=== PATIENT | female | born 1945 | race Caucasian/White ===

== ENCOUNTER → 2018-04-08 08:15 | Outpatient (CLI) | payer MEDICARE, SELFPAY ==
[2018-04-08 10:42] LABS: Alanine Aminotransferase 25 U/L (12-78); Albumin Level 3.2 gm/dL (3.4-5.0); Alkaline Phosphatase 80 U/L (46-116); Anion Gap 9.7 mEq/L (5-15); Aspartate Amino Transferase 16 U/L (15-37); Bilirubin,Total 0.7 mg/dL (0.2-1.0); Blood Urea Nitrogen 12 mg/dL (7-18); Calcium 8.5 mg/dL (8.5-10.1); Carbon Dioxide 30 mmol/L (21.0-32.0); Chloride 108 mmol/L (98-107); Chol/HDL Ratio 4.5 (1-3.5); Cholesterol 193 mg/dL (140-200); Creatinine,Serum 0.78 mg/dL (0.55-1.02); Estimated Glomerular Filt Rate 73 ml/min (>60); Free T4 (Free Thyroxine) 1.25 ng/dl (0.76-1.46); GFR (African American) 88 ML/MIN (>60); Globulin 3.3 gm/dl (1.3-3.2); Glucose 104 mg/dL (74-106); HDL Cholesterol 43 mg/dL (29-89); LDL Cholesterol 121 mg/dL (0-130); Potassium 4.7 mmoL/L (3.5-5.1); Sodium 143 mmol/L (136-145); Thyroid Stimulating Hormone 0.91 uIU/ml (0.358-3.740); Total Protein,Serum 6.5 gm/dL (6.4-8.2); Triglycerides 147 mg/dL (30-200); VLDL Cholesterol 29 mg/dL (0-40)
== END ==
PROVIDERS: Visit Provider Physician Assistant
DX: E78.5 Hyperlipidemia, unspecified (principal); I25.10 Atherosclerotic heart disease of native coronary artery without angina pectoris; I10 Essential (primary) hypertension
CPT/HCPCS: 36415; 80053; 80061; 84439; 84443

== ENCOUNTER → 2018-05-04 11:15 | Outpatient (CLI) | payer MEDICARE, SELFPAY ==
[2018-05-04 12:51] LABS: Calcium 8.6 mg/dL (8.5-10.1); Free T4 (Free Thyroxine) 1.33 ng/dl (0.76-1.46); Thyroid Stimulating Hormone 0.81 uIU/ml (0.358-3.740)
== END ==
PROVIDERS: Visit Provider Otolaryngology
DX: E03.9 Hypothyroidism, unspecified (principal)
CPT/HCPCS: 36415; 82310; 84439; 84443

== ENCOUNTER → 2018-05-07 07:49 | Outpatient (CLI) | payer MEDICARE, SELFPAY ==
--- NOTE | 2018-05-07 07:53 | CI_ITS ---
Cerebrovascular Exam Indications: Follow-up carotid 433.10. IMPRESSIONS 1. The bilateral vertebral arteries are patent with normal antegrade flow. 2. Study suggests 20-49% stenosis involving the right internal carotid artery. Disease progression from the study of 10-Dec-2015. 3. Study suggests 20-49% stenosis involving the left internal carotid artery. No change from the study of 10-Dec-2015. Carotid duplex study. Complete study and Doppler flow study including spectral analysis, color and chaidez scale imaging. Height: Height: 162.6cm. Height: 64in. Weight: Weight: 68kg. Weight: 149.7lb. Body mass index: BMI: 25.7kg/m^2. Body surface area: BSA: 1.77m^2. Location: Vascular laboratory. Patient status: Outpatient. Tables: Arterial flow: + +--------+--------+ Location V sys V ed + +--------+--------+ Right CCA - proximal 75.4cm/s 16.5cm/s + +--------+--------+ Right CCA - distal 63.6cm/s 13.4cm/s + +--------+--------+ Right ECA 136cm/s 20.4cm/s + +--------+--------+ Right ICA - proximal 119cm/s 31.4cm/s + +--------+--------+ Right ICA - mid 115cm/s 29.1cm/s + +--------+--------+ Right ICA - distal 72.3cm/s 17.3cm/s + +--------+--------+ Right vertebral 43.6cm/s 11.6cm/s + +--------+--------+ Left CCA - proximal 95.9cm/s 19.3cm/s + +--------+--------+ Left CCA - distal 97.6cm/s 17.1cm/s + +--------+--------+ Left ECA 91.5cm/s 9.8cm/s + +--------+--------+ Left ICA - proximal 94.3cm/s 20.4cm/s + +--------+--------+ Left ICA - mid 132cm/s 32.1cm/s + +--------+--------+ Left ICA - distal 131cm/s 35.6cm/s + +--------+--------+ Left vertebral 132cm/s 31.4cm/s + +--------+--------+ Velocity ratios: + + + + + + Right, V sys Right, V ed Left, V sys Left, V ed + + + + + + Max ICA/dist CCA 1.87 2.34 1.34 2.08 + + + + + + (Report amended ) Electronically signed by: Rickey Amador [id number]
== END ==
PROVIDERS: PCP Family Medicine; Visit Provider Physician Assistant
DX: I65.23 Occlusion and stenosis of bilateral carotid arteries (principal)
CPT/HCPCS: 93880

== ENCOUNTER → 2019-05-30 12:01 | Outpatient (CLI) | payer MEDICARE, SELFPAY ==
[2019-05-30 15:51] LABS: Calcium 8.3 mg/dL (8.5-10.1); Free T4 (Free Thyroxine) 1.33 ng/dl (0.76-1.46); Thyroid Stimulating Hormone 1.81 uIU/ml (0.358-3.740)
== END ==
PROVIDERS: Visit Provider Otolaryngology
DX: E03.9 Hypothyroidism, unspecified (principal)
CPT/HCPCS: 36415; 82310; 84439; 84443

== ENCOUNTER → 2019-07-15 12:52 | Outpatient (CLI) | payer MEDICARE, SELFPAY ==
--- NOTE | 2019-07-15 12:56 | CA_ITS ---
APPROVED REPORT EXAM: Comprehensive 2D, Doppler, and color-flow Echocardiogram Psychiatric Specialist: Matilda Hudson RVT Ht: 5 ft 4 in Wt: 170lbs BSA: 1.83 BP: 133/49 mmHg Indications: CAD, Hyperlipidemia, Hypertension,Stents, Smoker 2D Dimensions LVOT 1.73 cm (M/F) 1.5-2.5 M-Mode Dimensions RVDd 2.81 cm (0.9-2.6) LVDd 5.61 cm (3.5-5.7) LVDs 3.91 cm (3.5-5.7) IVSd 1.02 cm (0.6-1.1) PWd 1.32 cm (0.6-1.1) EF (Teich) 57.00% FS 30.30% EDV (Teich) 154.30 mL ESV (Teich) 66.30 mL LV Diastology E/A Ratio 0.69 Mitral Valve MV A Velocity 87.00 (40-130 cm/s) Left Ventricle Left atrium is mildly enlarged, left ventricle is normal size, mild concentric left ventricular hypertrophy, visually estimated ejection fraction 55% with no regional wall motion abnormality. Grade 1 diastolic dysfunction seen without tissue Doppler evidence of raise left atrial pressure. Right Ventricle Right atrium is normal size, right ventricle is mildly enlarged with normal contractility. Aortic Valve Aortic valve is minimally thickened and fibrosed, there is no aortic stenosis or aortic insufficiency. Mitral Valve Mitral valve is grossly normal, there is mild mitral regurgitation. Tricuspid Valve Tricuspid valve is grossly normal, there is mild tricuspid regurgitation. Tricuspid regurgitation jet velocity is inadequate for calculation of the right ventricular systolic pressure. Pulmonic Valve Pulmonic valve is poorly visualized. Great Vessels Aortic root is normal size. Pericardium No significant pericardial effusion noted. Conclusion 1. Mildly enlarged left atrium, normal left ventricular size, mild concentric left ventricular hypertrophy, visually estimated ejection fraction 55% with no regional wall motion abnormality, grade 1 diastolic dysfunction seen without tissue Doppler evidence of raise left atrial pressure. 2. Mildly enlarged right ventricle with normal contractility. 3. Thickened and calcified aortic valve without Doppler evidence of aortic stenosis or aortic insufficiency. 4. No significant pericardial effusion noted. Electronically signed by : Morgan Cosme, 07/16/2019 06:16:24
== END ==
PROVIDERS: PCP Family Medicine; Visit Provider Internal Medicine Cardiovascular Disease
DX: I25.10 Atherosclerotic heart disease of native coronary artery without angina pectoris (principal)
CPT/HCPCS: 93306

== ENCOUNTER → 2020-06-10 12:25 | Outpatient (CLI) | payer MEDICARE, SELFPAY ==
[2020-06-10 14:47] LABS: Free T4 (Free Thyroxine) 1.62 ng/dl (0.78-2.19)
[2020-06-10 15:02] LABS: Thyroid Stimulating Hormone 1.18 uIU/mL (0.465-4.68)
== END ==
PROVIDERS: Visit Provider Otolaryngology
DX: E03.9 Hypothyroidism, unspecified (principal); Z86.39 Personal history of other endocrine, nutritional and metabolic disease
CPT/HCPCS: 36415; 84439; 84443

== ENCOUNTER → 2021-12-26 16:08 | Outpatient (CLI) | payer MEDICARE, SELFPAY ==
[2021-12-26 17:47] LABS: Free T4 (Free Thyroxine) 1.28 ng/dl (0.78-2.19)
== END ==
PROVIDERS: PCP Family Medicine; Visit Provider Otolaryngology
DX: E03.9 Hypothyroidism, unspecified (principal)
CPT/HCPCS: 36415; 84439; 84443

== ENCOUNTER → 2022-12-18 13:52 | Outpatient (CLI) | payer MEDICARE, SELFPAY ==
[2022-12-18 15:02] LABS: Free T4 (Free Thyroxine) 1.57 ng/dl (0.78-2.19)
[2022-12-18 15:16] LABS: Thyroid Stimulating Hormone 1.38 uIU/mL (0.465-4.68)
== END ==
PROVIDERS: PCP Family Medicine; Visit Provider Nurse Practitioner
DX: E03.9 Hypothyroidism, unspecified (principal)
CPT/HCPCS: 36415; 84439; 84443

== ENCOUNTER 2023-07-30 11:24 | Inpatient (IN) | payer MEDICARE, SELFPAY ==
[2023-07-30] VITALS (10 sets, daily range): BP systolic 139–178; BP diastolic 70–87; PULSE 64–79; RESP 15–20; TEMP 36.7–37; O2SAT 94–98; BMI 25.7
--- NOTE | 2023-07-30 11:31 | ECG_ITS ---
APPROVED REPORT Exam: Resting ECG HR:80 bpm ECG Measurements Heart Rate 80 AXES IL 128 P 58 QRSd 95 QRS 79 QT 371 T -5 QTc 407 Conclusion SINUS RHYTHM NONSPECIFIC ST & T-WAVE ABNORMALITY ABNORMAL ECG UNCONFIRMED REPORT Electronically signed by : Osmel Esquivel MD 07/30/2023 19:57:00
--- NOTE | 2023-07-30 11:42 | XR_ITS ---
FINAL REPORT TECHNIQUE: Single view chest CLINICAL HISTORY: shortness of breath FINDINGS: A single view of the chest was obtained. Heart is enlarged. There are bilateral increased interstitial markings with more focal right base opacities and effusions, favor edema. Superimposed pneumonia not excluded. There is no pneumothorax. IMPRESSION: Bilateral increased interstitial markings with more focal right base opacities and effusion, favor edema. Superimposed pneumonia not excluded. Reviewed, Interpreted and Dictated by Hillary Andersen MD Transcribed by Jo Ann Cardona Authenticated and [facility]
[2023-07-30 11:53] LABS: Basophils % 0.3 % (0.1-2.0); Eosinophils # 0.2 K/mm3 (0.0-0.4); Eosinophils % 2.4 % (0.1-12.0); Hematocrit 35.5 % (37.0-47.0); Hemoglobin 10.9 g/dL (12.2-16.2); Lymphocytes # 1.1 K/mm3 (0.7-4.5); Lymphocytes % 12.2 % (10-50); Mean Corpuscular HGB Conc 30.6 g/dL (31.8-35.4); Mean Corpuscular Hemoglobin 27.1 pg (27.0-31.2); Mean Corpuscular Volume 88.6 fl (81-99); Mean Platelet Volume 9.8 fl (7.4-10.4); Monocytes # 0.5 K/mm3 (0.1-1.0); Monocytes % 5.7 % (1.7-9.3); Neutrophils # 7.2 K/mm3 (1.8-7.8); Neutrophils % 79.4 % (37.0-80.0); Platelet Count 368 K/mm3 (142-424); Red Cell Distribution Width 15.3 % (11.5-17.5)
--- NOTE | 2023-07-30 11:57 | ED_ITS ---
Discharge Plan Disposition Patient Disposition: Admitted Condition: Good Clinical Impressions Clinical Impression: CHF (congestive heart failure) Discharge ED Provider: Brodie Mayer Adult HPI General Chief complaint: Shortness of Breath/Dyspnea Stated complaint: soa, cough Time Seen by Provider: 07/30/23 11:50 Mode of Arrival: Ambulatory Source of Information: Patient Limitations: No Limitations Description of Symptoms (Recalled from ER Triage Doc. by RN): pt presents to ED with c/o shortness of air and coough. pt reports she has had similar episodes in the past. pt reports approx over a week she has had increased bilateral leg swelling and shortness of breath. pt does not wear home oxygen. History of Present Illness HPI narrative: Patient presents with gradual in onset shortness of air, orthopnea, in the absence of fevers, chills, has not had similar symptoms before although does have history of heart attack but has not been seen by bulb grader in several years. No blood thinner usage. Denies chest pain. Denies productive cough. A ssociated symptoms include bilateral lower extremity edema. No supplemental oxygen requirement at home. No changes in medications or new medications. Related Data Home Medications Medication Instructions Recorded Confirmed bisoprolol fumarate 5 mg tablet 5 mg PO DAILY 90 days #180 tabs 05/06/18 07/30/23 losartan 25 mg tablet 25 mg PO DAILY 90 days #90 tabs 05/06/18 07/30/23 aspirin 81 mg tablet,delayed 81 mg PO DAILY 06/09/19 07/30/23 release (Adult Aspirin Regimen) vit C 250 mg-vit E 90 mg-zinc 40 1 tab PO BID 06/09/19 07/30/23 mg-copper 1 [id number] capsule (PreserVision AREDS-2) Previous Rx's Medication Instructions Recorded levothyroxine 100 mcg tablet 100 mcg PO DAILY #90 tabs 12/18/22 (Synthroid) Allergies Allergy/AdvReac Type Severity Reaction Status Date / Time No Known Allergies Allergy Unverified 07/30/23 13:53 [facility] Disclaimer: The information contained in this section may have been updated after the patient was seen, as this information can be updated by other users. 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 (Updated 07/30/23 @ 16:25 by Jagruti Clark APRN) Goiter Macular degeneration Myocardial infarct Surgical History H/O heart artery stent H/O hernia repair History of ovarian cystectomy History of thyroid surgery Hx of tonsillectomy Family History Other Heart attack Social History (Updated 07/30/23 @ 16:15 by Luda Pisano RN) Smoking Status: Current every day smoker tobacco type: cigarettes alcohol intake: never current occupational status: retired Travel in the last 8 weeks: None ROS Obtained: Yes Systems reviewed as appropriate & no additional complaints except as documented As per HPI Physical Exam General General appearance: alert and in no apparent distress Head Head exam: atraumatic and normocephalic Eye Eye exam: Present normal appearance Neck Neck exam: Present normal inspection Chest Chest inspection: Present normal inspection and symmetric chest wall rise Respiratory Respiratory exam: Present normal lung sounds bilaterally and other (Bilateral rales); Absent respiratory distress Cardiovascular Cardiovascular exam: Present regular rate and normal rhythm Abdominal Exam Abdominal exam: Present soft Extremities Exam Extremities exam: Present other (Bilateral lower extremity edema) Neurological Exam Neurological exam: Present alert and oriented X3 Psychiatric Psychiatric exam: Present normal affect and normal mood Skin Skin exam: Present warm and dry Medical Decision Making Medical Records Medical records reviewed: Yes I reviewed the patient's medical records. [place] Inquiry Pt receiving controlled substance: No Vital Signs: 07/30/23 11:25 07/30/23 11:34 07/30/23 12:00 Temperature 98.1 F Temperature Source Oral Pulse Rate 79 74 Pulse Rate [Left Radial] 77 Respiratory Rate 15 20 Blood Pressure 178/87 H Blood Pressure [Right Arm] 176/75 H Blood Pressure Mean 112 Blood Pressure Mean [Right Arm] 108 02 Sat by Pulse Oximetry 97 97 96 Oxygen Delivery Method Room Air 07/30/23 12:30 07/30/23 13:00 07/30/23 13:38 Temperature Temperature Source Pulse Rate 67 64 69 Pulse Rate [Left Radial] Respiratory Rate Blood Pressure 167/70 H 162/79 H 163/83 H Blood Pressure [Right Arm] Blood Pressure Mean 104 Blood Pressure Mean [Right Arm] 02 Sat by Pulse Oximetry 96 96 97 Oxygen Delivery Method Room Air Room Air Room Air Lab Data Lab Results 07/30/23 11:30: WBC 9.0, RBC 4.00 L, Hgb 10.9 L, Hct 35.5 L, MCV 88.6, MCH 27.1, MCHC 30.6 L, RDW 15.3, Plt Count 368, MPV 9.8, Neut % (Auto) 79.4, Lymph % (Auto) 12.2, [place] % (Auto) 5.7, Eos % (Auto) 2.4, Baso % (Auto) 0.3, Neut # (Auto) 7.2, Lymph # (Auto) 1.1, [place] # (Auto) 0.5, Eos # (Auto) 0.2, Baso # (Auto) 0.0, Sodium 137, Potassium 3.9, Chloride 105, Carbon Dioxide 32 H, Anion Gap 3.9 L, BUN 16, Creatinine 0.70, Estimated Creat Clear 50, Estimated GFR 81, Est GFR ( Amer) 98, Glucose 109 H, Calcium 8.4, Total Bilirubin 0.4, AST 53 H, ALT 51, Alkaline Phosphatase 147 H, Troponin I < 0.01, NT-Pro-B Natriuret Pep 639 H, Total Protein 7.0, Albumin 3.4 L, Globulin 3.6 H, Albumin/Globulin Ratio 0.9 L, TSH 2.65 07/30/23 12:29: VBG pH 7.33, VBG pCO2 51.0, VBG pO2 40.6 H, VBG HCO3 26.1, VBG Total CO2 27.7 H, VBG O2 Saturation 72.4 H, VBG Base Excess 0.1 07/30/23 11:30 07/30/23 11:30 Orders (Tests/Meds): ED MEDICATIONS Generic Name Dose Route Start Last Admin Trade Name Freq PRN Reason Stop Dose Admin Aspirin 81 mg 07/31/23 09:00 Aspirin Ec 81mg Tablet PO 08/30/23 08:59 DAILY SONJA Bisoprolol Fumarate 5 mg 07/30/23 21:00 Bisoprolol 5mg Tablet PO 08/29/23 20:59 BID SONJA Levothyroxine Sodium 100 mcg 07/31/23 07:00 Levothyroxine 100mcg (0.1mg) Tab PO 08/30/23 06:59 DAILYDM SONJA Discontinued Medications Generic Name Dose Route Start Last Admin Trade Name Freq PRN Reason Stop Dose Admin Bisoprolol Fumarate 5 mg 07/31/23 09:00 Bisoprolol 5mg Tablet PO 08/30/23 08:59 DAILY SONJA Furosemide 40 mg 07/30/23 12:16 07/30/23 13:18 Furosemide 40mg/4ml Vial IV 07/30/23 12:17 40 mg ONCE ONE Administration Nitroglycerin 0.4 mg 07/30/23 13:41 07/30/23 13:57 Nitroglycerin 0.4mg Sl Tablet SL 07/30/23 13:42 Not Given ONCE ONE ORDERS Category Date Time Status XR chest portable Stat Exams 07/30/23 11:42 Completed BNP [Brain Natriuretic Peptide] Stat Lab 07/30/23 11:30 Completed Complete Blood Count Auto Diff Stat Lab 07/30/23 11:30 Completed Comprehensive Metabolic Panel Stat Lab 07/30/23 11:30 Completed Troponin I Q2H Lab 07/30/23 17:03 Completed Troponin I Stat Lab 07/30/23 11:30 Completed VBG [Venous Blood Gas] Stat RT 07/30/23 13:00 Ordered Venous Blood Gas Routine RT 07/30/23 12:29 Completed ECG initial [place] Routine Y 07/30/23 11:31 Completed Medical Decision Narrative: Patient with history and exam per above presenting for evaluation of shortness of breath, peripheral edema Diagnoses considered include CHF exacerbation, nephrotic syndrome, infectious etiology, venous stasis dermatitis, ACS, among others ED workup and treatment included: ED MEDICATIONS Generic Name Dose Route Start Last Admin Trade Name Freq PRN Reason Stop Dose Admin Aspirin 81 mg 07/31/23 09:00 Aspirin Ec 81mg Tablet PO 08/30/23 08:59 DAILY SONJA Bisoprolol Fumarate 5 mg 07/30/23 21:00 Bisoprolol 5mg Tablet PO 08/29/23 20:59 BID SONJA Levothyroxine Sodium 100 mcg 07/31/23 07:00 Levothyroxine 100mcg (0.1mg) Tab PO 08/30/23 06:59 DAILYDM SONJA Discontinued Medications Generic Name Dose Route Start Last Admin Trade Name Freq PRN Reason Stop Dose Admin Bisoprolol Fumarate 5 mg 07/31/23 09:00 Bisoprolol 5mg Tablet PO 08/30/23 08:59 DAILY SONJA Furosemide 40 mg 07/30/23 12:16 07/30/23 13:18 Furosemide 40mg/4ml Vial IV 07/30/23 12:17 40 mg ONCE ONE Administration Nitroglycerin 0.4 mg 07/30/23 13:41 07/30/23 13:57 Nitroglycerin 0.4mg Sl Tablet SL 07/30/23 13:42 Not Given ONCE ONE ORDERS Category Date Time Status XR chest portable Stat Exams 07/30/23 11:42 Completed BNP [Brain Natriuretic Peptide] Stat Lab 07/30/23 11:30 Completed Complete Blood Count Auto Diff Stat Lab 07/30/23 11:30 Completed Comprehensive Metabolic Panel Stat Lab 07/30/23 11:30 Completed Troponin I Q2H Lab 07/30/23 17:03 Completed Troponin I Stat Lab 07/30/23 11:30 Completed VBG [Venous Blood Gas] Stat RT 07/30/23 13:00 Ordered Venous Blood Gas Routine RT 07/30/23 12:29 Completed ECG initial [place] Routine Y 07/30/23 11:31 Completed Labs were independently interpreted by me, significant for elevated BNP, VBG without acidosis, creatinine within normal limits, troponin undetectable Imaging was independently visualized and interpreted by me, significant for pulmonary edema, cardiomegaly. Please refer to radiology report for full details. My clinical impression at this time is most consistent with new onset CHF Patient will benefit from admission for further management of new onset CHF, was admitted for further workup and treatment. Critical Care Critical Care Time Critical Care Time: No
[2023-07-30 11:59] LABS: Chloride 105 mmol/L (98-107); Sodium 137 mmol/L (136-145)
[2023-07-30 12:00] LABS: Potassium 3.9 mmoL/L (3.5-5.1)
[2023-07-30 12:02] LABS: Alanine Aminotransferase 51 U/L (12-78); Alkaline Phosphatase 147 U/L (38-126); Anion Gap 3.9 mEq/L (5-15); Aspartate Amino Transferase 53 U/L (14-36); Bilirubin,Total 0.4 mg/dl (0.2-1.3); Blood Urea Nitrogen 16 mg/dl (7-17); Carbon Dioxide 32 mmol/L (22.0-30.0); Creatinine Clearance Estimated 50 mL/min (50-200); Estimated Glomerular Filt Rate 81 ml/min (>60); GFR (African American) 98 ML/MIN (>60)
[2023-07-30 12:03] LABS: Albumin Level 3.4 g/dl (3.5-5.0); Albumin/Globulin Ratio 0.9 (1.1-1.8); Calcium 8.4 mg/dl (8.4-10.2); Globulin 3.6 g/dL (1.3-3.2); Glucose 109 mg/dl (74-100)
[2023-07-30 12:12] LABS: NT Pro Brain Natriuretic Pep. 639 pg/mL (0-450)
--- NOTE | 2023-07-30 12:28 | PC.NURSE ---
RT notified of VBG order
[2023-07-30 12:33] LABS: VBG Base Excess 0.1 mmol/L (-2.4-2.3); VBG HCO3 26.1 mmol/L (23-30); VBG Oxygen Saturation 72.4 % (50-70); VBG PH 7.33 mmol/L (7.31-7.41); VBG PO2 40.6 mmol/L (28-40); VBG Total CO2 27.7 mmol/L (23-27)
--- NOTE | 2023-07-30 13:06 | PC.NURSE ---
VBG results ph 7.33 pco2 51 pa02 40.6 bicarb 26.1
--- NOTE | 2023-07-30 13:15 | PC.NURSE ---
Irena Vega rounded on pt. No needs voiced. Call light within reach.
[2023-07-30] MEDS: FUROSEMIDE 40MG/4ML VIAL 40 MG IV (13:18)
--- NOTE | 2023-07-30 13:42 | PC.NURSE ---
Dr. Mayer speaking with Dr. Cancino
--- NOTE | 2023-07-30 13:46 | PC.NURSE ---
house aware of admission for CHF exac
[2023-07-30 14:27] LABS: Troponin I < 0.01 ng/ml (0.00-0.034)
--- NOTE | 2023-07-30 14:33 | PC.NURSE ---
I attempted to call report, unable to reach the nurse at this time.
--- NOTE | 2023-07-30 14:39 | PC.NURSE ---
attempted to call report, no answer from nurse on second floor. will attempt to call again
--- NOTE | 2023-07-30 15:13 | PC.NURSE ---
report called to suha yee on second floor
--- NOTE | 2023-07-30 15:32 | EXP.HP ---
History of Present Illness *Admission Date: 07/30/23 *Reason for visit:: Shortness of breath *History of present illness: Ms. Pitts is a 78-year-old female with a history of ASCVD, hypothyroidism, anemia, hyperlipidemia, macular degeneration,, mitral valve disorder who presented to [facility] emergency room for evaluation due to shortness of breath. She states this has been a progressive process and worse in the last week to where she could do very little without becoming dyspneic. She stated brushing her teeth this morning made her very short of breath and she had to pause to recover. She denies having any chest pain, dizziness, and heart palpitations. She has been eating and drinking as usual. Ambulation has been curtailed due to the dyspnea. She denies cough, fever, and any other respiratory issues. She states she has been taking her medicine as usual which includes the bisoprolol and losartan. She is seeing Dr. Jorgensen for her cardiac issues but has not seen him in over a year. Blood pressure in the emergency room was elevated at 176/75 with a heart rate in the 70s. Laboratory data shows a hemoglobin of 10.9 BNP was elevated in the 600s. in the emergency room she did receive 40 mg of Lasix IV was given 1 nitroglycerin. She was then admitted for further evaluation and treatment. At the time of this exam patient seems quite comfortably sitting in a chair at bedside. She has just arrived to the room from the emergency room. She continually denies chest pain and is not short of breath at present. She speaks in even sentences without dyspnea. [facility] Disclaimer: The information contained in this section may have been updated after the patient was seen, as this information can be updated by other users. 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 (Updated 07/30/23 @ 16:25 by Jagruti Clark APRN) Goiter Macular degeneration Myocardial infarct Surgical History H/O heart artery stent H/O hernia repair History of ovarian cystectomy History of thyroid surgery Hx of tonsillectomy Family History Heart attack Social History (Updated 07/30/23 @ 16:15 by Luda Pisano RN) Smoking Status: Current every day smoker tobacco type: cigarettes alcohol intake: never current occupational status: retired Travel in the last 8 weeks: None Review of Systems Constitutional Constitutional: Denies fever(s), Denies frequent falls and Denies headache(s) Eyes Eyes: Denies change in vision (Patient does have bilateral macular degeneration) and Reports exophthalmos ENT Ears, Nose, Mouth, and Throat: Denies dizziness, Denies otalgia, Denies headache(s), Denies post nasal drip, Denies sore throat and Denies vertigo *Cardiovascular Cardiovascular: Denies chest pain, Reports dyspnea, Reports dyspnea on exertion, Reports leg edema and Denies palpitations *Respiratory Respiratory: Denies chest congestion, Denies cough, Reports dyspnea, Reports dyspnea on exertion and Denies hemoptysis *Gastrointestinal Gastrointestinal: Denies constipation, Denies dyspepsia, Denies heartburn, Denies hematemesis, Reports loose stools (Patient states she did have some diarrhea this a.m.), Denies melena and Denies nausea *Genitourinary Genitourinary: Denies dysuria *Musculoskeletal Musculoskeletal: Denies arthralgias and Denies myalgias *Neurologic Neurologic: Denies confusion, Denies dizziness, Denies frequent falls, Denies headache(s), Denies seizure-like activity and Denies vertigo Psychiatric Psychiatric: Denies confusion Endocrine Endocrine: Denies palpitations Meds Home Medications and Allergies Home Medications Medication Instructions Recorded Confirmed Type bisoprolol fumarate 5 mg tablet 5 mg PO DAILY 90 days #180 tabs 05/06/18 07/30/23 History losartan 25 mg tablet 25 mg PO DAILY 90 days #90 tabs 05/06/18 07/30/23 History aspirin 81 mg tablet,delayed 81 mg PO DAILY 06/09/19 07/30/23 History release (Adult Aspirin Regimen) vit C 250 mg-vit E 90 mg-zinc 40 1 tab PO BID 06/09/19 07/30/23 History mg-copper 1 [id number] capsule (PreserVision AREDS-2) levothyroxine 100 mcg tablet 100 mcg PO DAILY #90 tabs 12/18/22 07/30/23 Rx (Synthroid) New Prescriptions to Start Prescriptions: Allergies Allergy/AdvReac Type Severity Reaction Status Date / Time No Known Allergies Allergy Unverified 07/30/23 13:53 Exam Data for Last 24 hours Vital signs and Labs for Last 24 Hours: Temp Pulse Resp BP Pulse Ox O2 Del Method 98.1 F 69 20 163/83 H 97 Room Air 07/30/23 11:25 07/30/23 13:38 07/30/23 11:34 07/30/23 13:38 07/30/23 13:38 07/30/23 13:38 Laboratory Results - last 24 hr 07/30/23 11:30: WBC 9.0, RBC 4.00 L, Hgb 10.9 L, Hct 35.5 L, MCV 88.6, MCH 27.1, MCHC 30.6 L, RDW 15.3, Plt Count 368, MPV 9.8, Neut % (Auto) 79.4, Lymph % (Auto) 12.2, [place] % (Auto) 5.7, Eos % (Auto) 2.4, Baso % (Auto) 0.3, Neut # (Auto) 7.2, Lymph # (Auto) 1.1, [place] # (Auto) 0.5, Eos # (Auto) 0.2, Baso # (Auto) 0.0, Sodium 137, Potassium 3.9, Chloride 105, Carbon Dioxide 32 H, Anion Gap 3.9 L, BUN 16, Creatinine 0.70, Estimated Creat Clear 50, Estimated GFR 81, Est GFR ( Amer) 98, Glucose 109 H, Calcium 8.4, Total Bilirubin 0.4, AST 53 H, ALT 51, Alkaline Phosphatase 147 H, Troponin I < 0.01, NT-Pro-B Natriuret Pep 639 H, Total Protein 7.0, Albumin 3.4 L, Globulin 3.6 H, Albumin/Globulin Ratio 0.9 L 07/30/23 12:29: VBG pH 7.33, VBG pCO2 51.0, VBG pO2 40.6 H, VBG HCO3 26.1, VBG Total CO2 27.7 H, VBG O2 Saturation 72.4 H, VBG Base Excess 0.1 I & O for Last 24 hours: Intake & Output 07/28/23 07/29/23 07/30/23 07/31/23 11:59 11:59 11:59 11:59 Weight 150 lb Constitutional Constitutional: no acute distress and cooperative *Routine HEENT Exam Head: Present normocephalic and atraumatic Eye: Present PERRL and exophthalmos; Absent conjunctival icterus, scleral injection or conjunctivae pink ENT: Present mucous membranes moist, oropharynx clear and nares patent *Routine Neck Exam Neck: Present supple; Absent carotid bruit, lymphadenopathy or thyromegaly *Routine Respiratory Exam Respiratory: Present CTA bilaterally (Anteriorly and posteriorly with decreased breath sounds in the bases), able to speak in complete sentences and symmetric chest movement; Absent wheezes *Routine Cardiovascular Exam Cardiovascular: Present RRR and murmur *Routine Abdominal Exam Abdominal: Present soft and normoactive bowel sounds; Absent tenderness, distended or guarding *Routine Rectal Exam Rectal:: deferred *Routine Genitalia Exam Genitalia:: deferred *Routine Extremities Exam Extremities: Present edema (2-3+ bilaterally); Absent calf tenderness *Routine Neurological Exam Neurological: Present alert, oriented X3 and normal speech Assessment and Plan *Assessment and plan (1) ASCVD (arteriosclerotic cardiovascular disease): Status: Acute Category: Medical Code(s): I25.10 - Atherosclerotic heart disease of [place] coronary artery without angina pectoris (2) Hypothyroidism: Problem Comment: Currently on replacement therapy and feeling well. Status: Chronic Category: Medical Code(s): E03.9 - Hypothyroidism, unspecified (3) Mitral valve disorder: Status: Acute Category: Medical Code(s): I05.9 - Rheumatic mitral valve disease, unspecified (4) HTN (hypertension): Status: Acute Category: Medical Code(s): I10 - Essential (primary) hypertension (5) Anemia: Status: Acute Category: Medical Code(s): D64.9 - Anemia, unspecified (6) CHF (congestive heart failure): Status: Acute Category: Medical Code(s): I50.9 - Heart failure, unspecified Plan Cardiology consult. Patient's been started on the bisoprolol twice daily and losartan 25 daily. Also will get a TSH. Echocardiogram ordered as well.
--- NOTE | 2023-07-30 15:40 | PC.NURSE ---
arrived by w/c from ED
[2023-07-30 17:20] LABS: Thyroid Stimulating Hormone 2.65 uIU/mL (0.465-4.68)
[2023-07-30 17:37] LABS: Troponin I < 0.01 ng/ml (0.00-0.034)
[2023-07-30] MEDS: FUROSEMIDE 20 MG/2 ML VIAL IV (19:31)
[2023-07-30] MEDS: BISOPROLOL 5MG TABLET 5 MG PO (20:09)
[2023-07-31] VITALS (24 sets, daily range): BP systolic 119–168; BP diastolic 49–97; PULSE 57–81; RESP 16–20; TEMP 36.6–36.9; O2SAT 92–98; BMI 25.6
[2023-07-31] MEDS: LEVOTHYROXINE 100MCG (0.1MG) TAB 100 MCG PO (06:03)
--- NOTE | 2023-07-31 07:36 | HMH.PHAINT1 ---
Pharmacy Intervention Comments: Verified home medications using external fill history and recent office visit summary.
[2023-07-31 08:00] LABS: Chloride 104 mmol/L (98-107); Potassium 4.2 mmoL/L (3.5-5.1); Sodium 141 mmol/L (136-145)
--- NOTE | 2023-07-31 08:00 | CA_ITS ---
APPROVED REPORT EXAM: Comprehensive 2D, Doppler, and color-flow Echocardiogram [employer]: VIC Pepe, RVS Ht: 5 ft 4 in Wt: 150lbs BSA: 1.73 BP: 163/83 mmHg Indications: CHF, Anemia, Edema, Smoker,Hx- Rheumatic fever, cough, HTN 2D Dimensions IVSd 1.33 cm LVEF (Visual) 61.40 % PWd 1.37 cm LA Volume 134.10 mL LVDd 5.63 cm LA Volume Index 75.80 mL/m2 (M/F) 16-34 LVDs 3.75 cm EF AP4 47.20 % Left Atrium 5.42 cm GL Strain -13.5 % M-Mode Dimensions RVDd 4.39 cm (0.9-2.6) LA Diam 5.55 cm (1.9-4.0) LVDd 4.55 cm (3.5-5.7) LVDs 3.14 cm (3.5-5.7) IVSd 1.41 cm (0.6-1.1) PWd 1.17 cm (0.6-1.1) EF (Teich) 58.80% EPSs 0.77 cm FS 31.00% EDV (Teich) 94.90 mL TAPSE 2.02 (<1.7) ESV (Teich) 39.10 mL LV Diastology E Decel Time 187 (160-240 msec) E/A Ratio 3.07 MED A' 4.40 cm/s LAT A' 8.70 cm/s Aortic Valve VIJAYA Index 0.84 cm2/m2 AoV Peak Yosef. 179.0 (50-130 cm/s) AI PHT 431.00 ms AO Peak GR. 12.80 mmHg AO Mean GR. 8.40 (<5 mmHg) AO VTI 49.6 (18-25 cm) VIJAYA (VTI) 1.49 (2.5-4.5 cm2) Mitral Valve MV A Velocity 37.0 (40-130 cm/s) E/A Ratio 3.07 MV Mean Gr. 1.80 (<2mmHg) Tricuspid Valve TR P. Velocity 264.00 cm/s RAP Estimate 10.00 mmHg RVSP 37.80 mmHg Left Ventricle The left ventricle is normal size. The left ventricular systolic function is normal. There is marked increase in LV wall thickness (IVSd 1.5 cm). Regional wall motion is normal. Grade 3 diastolic dysfunction is present. LVEF is 55%. Right Ventricle The right ventricle is normal size. The right ventricular systolic function is normal. Atria The left atrium is severely dilated. The right atrium is mildly dilated. There is no Doppler evidence of interatrial shunt. Aortic Valve The aortic valve is mildly thickened. There is no aortic valvular stenosis. Mild aortic regurgitation. Mitral Valve Mild mitral annular calcification. The mitral valve leaflets are mildly thickened. No evidence of mitral valve stenosis. There is at least moderate mitral regurgitation. The MR jet is eccentric and posteriorly directed. The MR severity may be underestimated due to eccentric jet. Tricuspid Valve The tricuspid valve leaflets are thin and pliable. Mild tricuspid regurgitation. RVSP is 25-30 mmHg. Pulmonic Valve The pulmonary valve is normal in structure. Trace pulmonic regurgitation. Great Vessels The aortic root is normal in size. The ascending aorta is normal in size. IVC is normal in size and collapses >50% with inspiration. Pericardium There is no pericardial effusion. Other Information Study Quality: Technically Difficult Conclusion Technically difficult study due to poor acoustic windows. Normal biventricular systolic function. Marked increase in LV wall thickness (IVSd 1.5 cm). Grade 3 diastolic dysfunction. Biatrial dilation. Mild AI. There is at least moderate MR. The MR jet is eccentric and posteriorly directed. The MR severity may be underestimated due to eccentric jet. In the setting of persistent symptoms, marked increase in LV wall thickness, diastolic dysfunction, and biatrial dilation, further outpatient evaluation for infiltrative disease - namely amyloidosis - is recommended with lab testing, cardiac MRI (amyloidosis protocol), and PYP nuclear scan. Also, in the setting of at least moderate MR with eccentric and posteriorly directed jet (which may be underestimated on TTE), further evaluation with outpatient ANIBAL is recommended to identify mechanism and true severity of MR. Electronically signed by : Linda Dickey MD 08/01/2023 00:08:32
[2023-07-31 08:02] LABS: Alanine Aminotransferase 40 U/L (12-78); Aspartate Amino Transferase 38 U/L (14-36); Blood Urea Nitrogen 13 mg/dl (7-17); Creatinine Clearance Estimated 50 mL/min (50-200); Estimated Glomerular Filt Rate 81 ml/min (>60); GFR (African American) 98 ML/MIN (>60)
[2023-07-31 08:03] LABS: Albumin Level 3.4 g/dl (3.5-5.0); Albumin/Globulin Ratio 1.1 (1.1-1.8); Alkaline Phosphatase 144 U/L (38-126); Anion Gap 4.2 mEq/L (5-15); Bilirubin,Total 0.7 mg/dl (0.2-1.3); Calcium 8.3 mg/dl (8.4-10.2); Carbon Dioxide 37 mmol/L (22.0-30.0); Globulin 3.2 g/dL (1.3-3.2); Glucose 105 mg/dl (74-100); Total Protein,Serum 6.6 g/dl (6.3-8.2)
--- NOTE | 2023-07-31 08:27 | EXP.ACUTE.PN ---
Subjective *Date: 07/31/23 *Time: 16:26 Interval history: Patient did not sleep during the night. She attributes it to being in a strange place. She denies chest pain. She has ambulated to the bathroom and does not feel she is short of breath with activity. She denies chest pain. She is eating without problems. She is anxious to see cardiology and possibly go home. Repeat chemistries this morning show sodium of 141 and potassium of 4.2. Renal function is normal. Echocardiogram results are pending. Weight remains at 150 Medical Exam Vital signs and Labs for Last 24 Hours: Vital Signs Temp Pulse Pulse Resp BP BP Pulse Ox 07/31/23 07:39 98.5 F 67 18 142/93 H 95 07/31/23 06:06 07/31/23 05:00 07/31/23 04:00 81 07/31/23 04:00 98.2 F 69 16 152/73 H 96 07/31/23 03:00 07/31/23 01:00 07/30/23 23:00 07/31/23 00:00 70 07/30/23 21:25 70 07/31/23 00:00 98.4 F 71 16 139/82 92 L 07/30/23 20:00 98.6 F 74 18 139/79 94 L 07/30/23 21:00 07/30/23 20:00 07/30/23 18:58 07/30/23 17:00 07/30/23 15:53 98.6 F 70 20 165/79 H 98 07/30/23 15:46 98.0 F 72 18 163/83 H 07/30/23 13:38 69 163/83 H 97 07/30/23 13:00 64 162/79 H 96 07/30/23 12:30 67 167/70 H 96 07/30/23 12:00 74 96 07/30/23 11:34 79 20 178/87 H 97 07/30/23 11:25 98.1 F 77 15 176/75 H 97 O2 Del Method 07/31/23 07:39 Room Air 07/31/23 06:06 Room Air 07/31/23 05:00 Room Air 07/31/23 04:00 07/31/23 04:00 Room Air 07/31/23 03:00 Room Air 07/31/23 01:00 Room Air 07/30/23 23:00 Room Air 07/31/23 00:00 07/30/23 21:25 07/31/23 00:00 Room Air 07/30/23 20:00 Room Air 07/30/23 21:00 Room Air 07/30/23 20:00 Room Air 07/30/23 18:58 Room Air 07/30/23 17:00 Room Air 07/30/23 15:53 Room Air 07/30/23 15:46 Room Air 07/30/23 13:38 Room Air 07/30/23 13:00 Room Air 07/30/23 12:30 Room Air 07/30/23 12:00 07/30/23 11:34 07/30/23 11:25 Room Air Intake and Output 07/30/23 07/31/23 07/31/23 19:59 03:59 11:59 Intake Total 590 / 590 140 / 730 470 / 1200 Output Total 1000 / 1000 0 / 1000 Balance 590 / 590 -860 / -270 470 / 200 Intake: Intake, Oral Amount 590 / 590 120 / 710 470 / 1180 Intake, Other Amount 20 / 20 Output: Output, Urine Amount 1000 / 1000 0 / 1000 Other: Intake, Other Source Saline Solution Number of Unmeasured Voids 1 1 Weight 150 lb 0.04 oz Patient Weight 07/31/23 11:59 Weight 150 lb 0.04 oz Laboratory Results - last 24 hr 07/30/23 11:30: WBC 9.0, RBC 4.00 L, Hgb 10.9 L, Hct 35.5 L, MCV 88.6, MCH 27.1, MCHC 30.6 L, RDW 15.3, Plt Count 368, MPV 9.8, Neut % (Auto) 79.4, Lymph % (Auto) 12.2, [place] % (Auto) 5.7, Eos % (Auto) 2.4, Baso % (Auto) 0.3, Neut # (Auto) 7.2, Lymph # (Auto) 1.1, [place] # (Auto) 0.5, Eos # (Auto) 0.2, Baso # (Auto) 0.0, Sodium 137, Potassium 3.9, Chloride 105, Carbon Dioxide 32 H, Anion Gap 3.9 L, BUN 16, Creatinine 0.70, Estimated Creat Clear 50, Estimated GFR 81, Est GFR ( Amer) 98, Glucose 109 H, Calcium 8.4, Total Bilirubin 0.4, AST 53 H, ALT 51, Alkaline Phosphatase 147 H, Troponin I < 0.01, NT-Pro-B Natriuret Pep 639 H, Total Protein 7.0, Albumin 3.4 L, Globulin 3.6 H, Albumin/Globulin Ratio 0.9 L, TSH 2.65 07/30/23 12:29: VBG pH 7.33, VBG pCO2 51.0, VBG pO2 40.6 H, VBG HCO3 26.1, VBG Total CO2 27.7 H, VBG O2 Saturation 72.4 H, VBG Base Excess 0.1 07/30/23 17:03: Troponin I < 0.01 07/31/23 07:30: Sodium 141, Potassium 4.2, Chloride 104, Carbon Dioxide 37 H, Anion Gap 4.2 L, BUN 13, Creatinine 0.70, Estimated Creat Clear 50, Estimated GFR 81, Est GFR ( Amer) 98, Glucose 105 H, Calcium 8.3 L, Total Bilirubin 0.7, AST 38 H D, ALT 40, Alkaline Phosphatase 144 H, Total Protein 6.6, Albumin 3.4 L, Globulin 3.2, Albumin/Globulin Ratio 1.1 I & O for Labs for Last 24 Hours: Intake & Output 07/28/23 07/29/23 07/30/23 07/31/23 11:59 11:59 11:59 11:59 Intake Total 1200 / 1200 Output Total 1000 / 1000 Balance 200 / 200 Weight 150 lb 150 lb 0.04 oz Constitutional: Present no acute distress Comment:: Sitting in bedside chair and appears most comfortable. Conversant without respiratory difficulties Respiratory: Present crackles (Few bibasilar) Cardiac: Present Regular Rate Comment:: Monitor showing sinus rhythm GI: Present soft and normal bowel sounds; Absent distention or tenderness Extremities: Present edema (Bilateral leg edema with SHANON wraps. Ankles appear slightly less edematous.) Neuro: Present alert, awake and oriented x 3 Assessment and Plan *Assessment and plan (1) ASCVD (arteriosclerotic cardiovascular disease): Status: Acute Category: Medical Code(s): I25.10 - Atherosclerotic heart disease of [place] coronary artery without angina pectoris (2) Hypothyroidism: Problem Comment: Currently on replacement therapy and feeling well. Status: Chronic Category: Medical Code(s): E03.9 - Hypothyroidism, unspecified (3) Mitral valve disorder: Status: Acute Category: Medical Code(s): I05.9 - Rheumatic mitral valve disease, unspecified (4) HTN (hypertension): Status: Acute Category: Medical Code(s): I10 - Essential (primary) hypertension (5) Anemia: Status: Acute Category: Medical Code(s): D64.9 - Anemia, unspecified (6) CHF (congestive heart failure): Status: Acute Category: Medical Code(s): I50.9 - Heart failure, unspecified Plan Cardiology to see patient today. Continue with diuresis
--- NOTE | 2023-07-31 08:58 | CT_ITS ---
FINAL REPORT TECHNIQUE: Axial imaging of the chest is obtained after the administration of contrast. 3-D MIP reformatted images were also obtained and reviewed per PE protocol. CLINICAL HISTORY: LIMON, edema, tobacco use COMPARISON: None FINDINGS: The pulmonary arteries are well filled. There is no evidence of pulmonary embolus. Exam is nondiagnostic for aortic dissection due to timing of the contrast bolus. There is prominent atherosclerotic disease in the thoracic aorta. The heart is enlarged. There is no mediastinal, hilar, or axillary lymphadenopathy. Groundglass opacity in the right lower lobe is favored to be atelectasis. There is a 4 mm left lower lobe nodule on image 40 and a 5 mm left lower lobe nodule on image 44. There is a small to moderate right pleural effusion. No pleural effusion on the left. There is no pericardial effusion. Limited evaluation of the upper abdomen is without acute abnormality. No acute osseous abnormality. IMPRESSION: No evidence of pulmonary embolism. Nondiagnostic for aortic dissection. Cardiomegaly and right pleural effusion. 5 mm or less left lobe nodules. Recommend follow-up in 6 to 12 months. Reviewed, Interpreted and Dictated by Hillary Andersen MD Transcribed by Chary Parrish Authenticated and [facility]
--- NOTE | 2023-07-31 09:05 | P.CONCA_ITS ---
History of Present Illness History of Present Illness Consult date: 07/31/23 Requesting physician: Elda Cancino Consult reason: shortness of breath Chief complaint: CHF, SOA, LIMON, edema Additional 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:: 1. CAD A. History of CO with subsequent LHC and LEESA placement to RCA, circumflex and OM arteries, 2013, Dr. Jorgensen in [place], [place] 2. Chronic tobacco use of greater than 50 years 3. Hypertension A. Echocardiogram, July 2019, mild LAE, normal LV size, mild concentric LVH, EF 55% with no regional WMA. Grade 1 DD. Mild RV enlargement with normal contractility. Thickened and calcified aortic valve without stenosis or insufficiency. Mild MR noted 4. Hyperlipidemia A. Intolerance to statins with diarrhea 5. Anemia 6. Macular degeneration 7. History of mitral valve disorder 8. Carotid artery stenosis A. Carotid ultrasound, 2017 with bilateral 20-49% stenosis History of present illness: Ms. Pitts is a 78-year-old female with a history of ASCVD, hypothyroidism, anemia, hyperlipidemia, macular degeneration,, mitral valve disorder who presented to [facility] emergency room for evaluation due to mahad rtness of breath. She states this has been a progressive process and worse in the last week to where she could do very little without becoming dyspneic. She stated brushing her teeth this morning made her very short of breath and she had to pause to recover. She denies having any chest pain, dizziness, and heart palpitations. She has been eating and drinking as usual. Ambulation has been curtailed due to the dyspnea. She denies cough, fever, and any other respiratory issues. She states she has been taking her medicine as usual which includes the bisoprolol and losartan. She is seeing Dr. Jorgensen for her cardiac issues but has not seen him in over a year. Blood pressure in the emergency room was elevated at 176/75 with a heart rate in the 70s. Laboratory data shows a hemoglobin of 10.9 BNP was elevated in the 600s. in the emergency room she did receive 40 mg of Lasix IV was given 1 nitroglycerin. She was then admitted for further evaluation and treatment. At the time of this exam patient seems quite comfortably sitting in a chair at bedside. She has just arrived to the room from the emergency room. She continually denies chest pain and is not short of breath at present. She speaks in even sentences without dyspnea. The above per Dr. Cancino Events as noted above confirmed with the patient. She also relates a severe episode of sudden shortness of breath on that resolved after moving from upstairs to downstairs and getting away from smoke smell related to neighbors wood-burning stove. She describes increasing exertional shortness of breath over the last 2 weeks with associated lower extremity edema. She has not seen Dr. Jorgensen in about 2 years. She had 3 stents placed in 2013 and no cardiac workup since then. Troponins normal BNP elevated at over 600 with chest x-ray abnormalities concern for edema. EKG shows sinus rhythm with inferior lateral ST segment abnormalities without ST elevation. Possible [id number] pattern. No old EKG for comparison. [facility] Disclaimer: The information contained in this section may have been updated after the patient was seen, as this information can be updated by other users. 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 (Updated 07/31/23 @ 09:16 by BRAD Schwab) Goiter Macular degeneration Myocardial infarct Surgical History H/O heart artery stent H/O hernia repair History of ovarian cystectomy History of thyroid surgery Hx of tonsillectomy Family History Heart attack Social History (Updated 07/30/23 @ 16:15 by Luda Pisano RN) Smoking Status: Current every day smoker tobacco type: cigarettes alcohol intake: never current occupational status: retired Travel in the last 8 weeks: None Review of Systems Review of Systems Review of systems:: pertinent systems reviewed and negative unless documented below Constitutional Constitutional: Denies frequent falls and Denies headache(s) ENT Ears, Nose, Mouth, and Throat: Denies dizziness, Denies headache(s) and Denies vertigo *Cardiovascular Cardiovascular: Reports dyspnea on exertion and Reports leg edema *Respiratory Respiratory: Reports dyspnea on exertion *Neurologic Neurologic: Denies confusion, Denies dizziness, Denies frequent falls, Denies headache(s), Denies seizure-like activity and Denies vertigo Psychiatric Psychiatric: Denies confusion Exam Data for Last 24 hours Vital signs and Labs for Last 24 Hours: Temp Pulse Resp BP Pulse Ox O2 Del Method 98.5 F 67 18 142/93 H 95 Room Air 07/31/23 07:39 07/31/23 07:39 07/31/23 07:39 07/31/23 07:39 07/31/23 07:39 07/31/23 07:39 Laboratory Results - last 24 hr 07/30/23 11:30: WBC 9.0, RBC 4.00 L, Hgb 10.9 L, Hct 35.5 L, MCV 88.6, MCH 27.1, MCHC 30.6 L, RDW 15.3, Plt Count 368, MPV 9.8, Neut % (Auto) 79.4, Lymph % (Auto) 12.2, [place] % (Auto) 5.7, Eos % (Auto) 2.4, Baso % (Auto) 0.3, Neut # (Auto) 7.2, Lymph # (Auto) 1.1, [place] # (Auto) 0.5, Eos # (Auto) 0.2, Baso # (Auto) 0.0, Sodium 137, Potassium 3.9, Chloride 105, Carbon Dioxide 32 H, Anion Gap 3.9 L, BUN 16, Creatinine 0.70, Estimated Creat Clear 50, Estimated GFR 81, Est GFR ( Amer) 98, Glucose 109 H, Calcium 8.4, Total Bilirubin 0.4, AST 53 H, ALT 51, Alkaline Phosphatase 147 H, Troponin I < 0.01, NT-Pro-B Natriuret Pep 639 H, Total Protein 7.0, Albumin 3.4 L, Globulin 3.6 H, Albumin/Globulin Ratio 0.9 L, TSH 2.65 07/30/23 12:29: VBG pH 7.33, VBG pCO2 51.0, VBG pO2 40.6 H, VBG HCO3 26.1, VBG Total CO2 27.7 H, VBG O2 Saturation 72.4 H, VBG Base Excess 0.1 07/30/23 17:03: Troponin I < 0.01 07/31/23 07:30: Sodium 141, Potassium 4.2, Chloride 104, Carbon Dioxide 37 H, Anion Gap 4.2 L, BUN 13, Creatinine 0.70, Estimated Creat Clear 50, Estimated GFR 81, Est GFR ( Amer) 98, Glucose 105 H, Calcium 8.3 L, Total Bilirubin 0.7, AST 38 H D, ALT 40, Alkaline Phosphatase 144 H, Total Protein 6.6, Albumin 3.4 L, Globulin 3.2, Albumin/Globulin Ratio 1.1 I & O for Last 24 hours: Intake & Output 07/28/23 07/29/23 07/30/23 07/31/23 11:59 11:59 11:59 11:59 Intake Total 1200 / 1200 Output Total 1000 / 1000 Balance 200 / 200 Weight 150 lb 150 lb 0.04 oz Constitutional Constitutional: no acute distress *Routine Respiratory Exam Respiratory: Present decreased breath sounds and crackles; Absent wheezes *Routine Cardiovascular Exam Cardiovascular: Present RRR and murmur; Absent gallop or rubs *Routine Extremities Exam Extremities: Present edema *Routine Neurological Exam Neurological: Present alert, oriented X3 and CN II-XII intact Meds Home Medications and Allergies Home Medications Medication Instructions Recorded Confirmed Type bisoprolol fumarate 5 mg tablet 5 mg PO DAILY 90 days #180 tabs 05/06/18 07/30/23 History losartan 25 mg tablet 25 mg PO DAILY 90 days #90 tabs 05/06/18 07/30/23 History aspirin 81 mg tablet,delayed 81 mg PO DAILY 06/09/19 07/30/23 History release (Adult Aspirin Regimen) vit C 250 mg-vit E 90 mg-zinc 40 1 tab PO BID 06/09/19 07/30/23 History mg-copper 1 [id number] capsule (PreserVision AREDS-2) levothyroxine 100 mcg tablet 100 mcg PO DAILY #90 tabs 12/18/22 07/30/23 Rx (Synthroid) New Prescriptions to Start Prescriptions: Allergies Allergy/AdvReac Type Severity Reaction Status Date / Time No Known Allergies Allergy Unverified 07/30/23 13:53 Assessment and Plan *Assessment and plan (1) CHF (congestive heart failure): Status: Acute Qualifiers: Heart failure chronicity: acute Heart failure type: unspecified Qualified Code(s): I50.9 - Heart failure, unspecified Category: Medical Code(s): I50.9 - Heart failure, unspecified (2) Dyspnea on effort: Status: Acute Category: Medical Code(s): R06.09 - Other forms of dyspnea (3) Atypical angina: Status: Acute Category: Medical Code(s): I20.89 - Other forms of angina pectoris (4) Anemia: Status: Acute Qualifiers: Anemia type: unspecified type Qualified Code(s): D64.9 - Anemia, unspecified Category: Medical Code(s): D64.9 - Anemia, unspecified (5) HTN (hypertension): Status: Acute Qualifiers: Hypertension type: primary hypertension Qualified Code(s): I10 - Essential (primary) hypertension Category: Medical Code(s): I10 - Essential (primary) hypertension (6) ASCVD (arteriosclerotic cardiovascular disease): Status: Acute Category: Medical Code(s): I25.10 - Atherosclerotic heart disease of [place] coronary artery without angina pectoris (7) Tobacco use: Status: Acute Category: Social Hx Code(s): Z72.0 - Tobacco use Plan 1. Shortness of breath on exertion with lower extremity edema -Concern for CHF with elevated BNP and edema on chest x-ray. Symptoms improved with IV Lasix. Echocardiogram performed with results showing normal LVEF. -Concern for pulmonary embolus in a patient with lower extremity edema, abnormal EKG and history of sudden shortness of breath. Check CTA of the chest for PE. -Concern for atypical angina due to exertional shortness of breath over the last 2 weeks. Discussed cardiac catheterization, patient agrees to proceed. 2. Coronary artery disease with history of three-vessel stenting in 2013 -Echocardiogram pending -Continue aspirin and beta-betty along with losartan therapy -Proceed with left heart catheterization today 3. Tobacco use -Cessation recommended 4. Anemia -Hgb 10.9 CTA of chest negative for PE. Echo shows preserved LVEF. [facility] results: ANGIOGRAPHIC RESULTS The left main artery Normal The left anterior descending artery Has a proximal 30% followed by an additional concentric 60% stenosis immediately distal to the first diagonal artery. There is additional 30 and 40% mid LAD stenoses. The circumflex artery Gives rise to a large ramus intermedius which has a proximal concentric 80% stenosis followed by an additional mostly eccentric 50% stenosis. The circumflex artery itself has an additional distal 50 to 60% stenosis as the vessel courses through the AV groove The right coronary artery Is dominant and occluded distal to a large RV marginal branch and fills via [id number] collaterals The MARLEY ventriculogram reveals Preserved at 60% The left ventricular end-diastolic pressure 20 mmHg IMPRESSION Moderate severe disease in the proximal LAD which produced an FFR index of 0.83 Severe stenosis in the proximal and mid ramus intermedius with tandem lesions reduced to 0% with 1 drug-eluting stent Attempted angioplasty of a chronically occluded right coronary artery Preserved ejection fraction Elevated LVEDP PLAN 1. Dual antiplatelet therapy 2. Avoidance of tobacco products 3. Medical management for coronary artery disease 4. Maximize antianginal medication 5. LDL less than 55 to achieve high intensity statin 6. Cardiac rehabilitation Electronically signed by : Syed Mathew MD 07/31/2023 13:28:02 Pt could be discharged from a cardiology standpoint later today if she remains stable. Home meds recommendations: ASA 81 mg daily Plavix 75 mg daily Bisoprolol 5 mg daily Losartan 25 mg daily Patient reports intolerance to multiple statins. Will try to get Repatha or Leqvio approved as an outpatient. If discharged home then follow-up in our office in 1 week
--- NOTE | 2023-07-31 09:31 | IR_ITS ---
APPROVED REPORT Patient Location: Inpatient PROCEDURES Selective coronary angiogram Left heart catheterization Left ventriculogram FFR to the proximal ramus intermedius FFR to the LAD Drug-eluting stent to the proximal ramus intermedius Attempted angioplasty of the chronically occluded right coronary INDICATION Coronary artery disease, Unstable angina, Chronically occluded right coronary artery, Informed consent was obtained prior to the procedure. COMPLICATIONS None Estimated Blood Loss: Less than 10 mls TECHNIQUE One percent lidocaine used to anesthetize the right anterior aspect of the wrist. The right radial artery was accessed via the Seldinger technique. A 6 [place] sheath was placed in the right radial artery. 2.5 mg of Verapamil, 800 mcg of nitroglycerin, 1mg Lidocaine and 5000 U Heparin were given through the arterial sheath. The papa catheter was also used to perform left heart catheterization and left ventriculogram and selective coronary angiogram. At the end of the procedure therapeutic heparin was administered giving a therapeutic ACT and the FFR via cath works was performed. This demonstrated an FFR index of 0.82. This placed patient in the chaidez zone and it was clinically felt this stenosis was tighter given the large distribution as well as the fact that it was collateralized and chronically occluded right coronary artery. Because of this a Choice PT extra-support wire was placed distally in the ramus intermedius and a guide liner was advanced because the stent could not be delivered due to the severity of the stenosis. With the guide liner in place a 3 mm x 26 mm [place] frontier stent was deployed in the proximal and mid ramus intermedius at 18 abby reducing the severe stenosis to 0%. JHOAN-3 flow was present before and after the procedure. Following this the guide catheter was placed into the right coronary artery and a 2 mm x 12 mm balloon along with a Choice PT extra-support wire was used to push through the occlusion. After pushing the wire through as well as the balloon it was determined this was a chronic occlusion and given the collateralization from the circumflex artery was decided to abandon this procedure. The apparatus was removed the sheath was removed and hemostasis was achieved using TR banding patient was transferred to the postop holding in stable condition ANGIOGRAPHIC RESULTS The left main artery Normal The left anterior descending artery Has a proximal 30% followed by an additional concentric 60% stenosis immediately distal to the first diagonal artery. There is additional 30 and 40% mid LAD stenoses. The circumflex artery Gives rise to a large ramus intermedius which has a proximal concentric 80% stenosis followed by an additional mostly eccentric 50% stenosis. The circumflex artery itself has an additional distal 50 to 60% stenosis as the vessel courses through the AV groove The right coronary artery Is dominant and occluded distal to a large RV marginal branch and fills via [id number] collaterals The MARLEY ventriculogram reveals Preserved at 60% The left ventricular end-diastolic pressure 20 mmHg IMPRESSION Moderate severe disease in the proximal LAD which produced an FFR index of 0.83 Severe stenosis in the proximal and mid ramus intermedius with tandem lesions reduced to 0% with 1 drug-eluting stent Attempted angioplasty of a chronically occluded right coronary artery Preserved ejection fraction Elevated LVEDP PLAN 1. Dual antiplatelet therapy 2. Avoidance of tobacco products 3. Medical management for coronary artery disease 4. Maximize antianginal medication 5. LDL less than 55 to achieve high intensity statin 6. Cardiac rehabilitation Electronically signed by : Syed Mathew MD 07/31/2023 13:28:02
[2023-07-31] MEDS: 0.9 % SODIUM CHLORIDE 50 ML VIAL IV (09:51)
[2023-07-31] MEDS: IOPAMIDOL-370 (76%);100ML BOTTLE 70 ML IV (09:51)
[2023-07-31] MEDS: FUROSEMIDE 40 MG TABLET PO (10:01)
[2023-07-31] MEDS: IRBESARTAN 75MG TABLET 75 MG PO (10:01)
[2023-07-31] MEDS: PT OWN MED *BISOPROLOL 5 MG TAB 1 EACH PO (10:01)
[2023-07-31] MEDS: PT OWN MED *ASPIRIN 81 MG EC TAB 1 EACH PO (10:01)
[2023-07-31] MEDS: VERAPAMIL 2.5MG/ML 2ML VIAL 2.5 MG IV (12:30)
[2023-07-31] MEDS: HEPARIN 1,000 UNITS/500ML NS (CATH LAB) 3000 UNIT IV (12:30)
[2023-07-31] MEDS: HEPARIN 1,000 UNITS/ML 10ML VIAL (CATH LAB) 10000 UNIT IV (12:30)
[2023-07-31] MEDS: LIDOCAINE 1% 10ML MDV 20 ML IJ (12:30)
[2023-07-31] MEDS: 0.9 % SODIUM CHLORIDE 500 ML 25 ML IV (12:30)
[2023-07-31] MEDS: NITROGLYCERIN 800MCG/8ML SYR (CATH LAB) 800 MCG IA (12:30)
[2023-07-31] MEDS: diphenhydrAMINE 50MG/ML VIAL 50 MG IV (12:31)
[2023-07-31] MEDS: FENTANYL 100MCG/2ML VIAL 50 MCG IV (13:17)
[2023-07-31] MEDS: MIDAZOLAM HCL 1MG/1ML 5ML VIAL 1 MG IV (13:17)
[2023-07-31] MEDS: CLOPIDOGREL 300MG TABLET 600 MG PO (13:40)
[2023-07-31] MEDS: IOPAMIDOL-370 (76%);100ML BOTTLE 120 ML IV (13:53)
[2023-07-31 13:56] LABS: CATHL Activated Clotting Time > 400 SEC (74-125)
[2023-07-31 15:52] LABS: Hematocrit 32.9 % (37.0-47.0)
--- NOTE | 2023-07-31 16:34 | P.PN_ITS ---
Subjective *Date: 07/31/23 *Time: 21:30 Interval history: radial bleed postcath; some blood on toilet paper with wiping; no bloody stool Medical Exam Vital signs and Labs for Last 24 Hours: Vital Signs Temp Pulse Pulse Resp BP Pulse Ox O2 Del Method 07/31/23 16:00 57 L 07/31/23 12:00 67 07/31/23 13:35 63 20 154/80 H 92 L Room Air 07/31/23 13:40 64 20 153/82 H 94 L Room Air 07/31/23 13:30 63 20 148/74 H 95 Room Air 07/31/23 13:29 60 58 L 20 156/78 H 92 L Room Air 07/31/23 11:24 98.3 F 68 17 148/97 H 96 Room Air 07/31/23 07:39 98.5 F 67 18 142/93 H 95 Room Air 07/31/23 06:06 Room Air 07/31/23 05:00 Room Air 07/31/23 04:00 81 07/31/23 04:00 98.2 F 69 16 152/73 H 96 Room Air 07/31/23 03:00 Room Air 07/31/23 01:00 Room Air 07/30/23 23:00 Room Air 07/31/23 00:00 70 07/30/23 21:25 70 07/31/23 00:00 98.4 F 71 16 139/82 92 L Room Air 07/30/23 20:00 98.6 F 74 18 139/79 94 L Room Air 07/30/23 21:00 Room Air 07/30/23 20:00 Room Air 07/30/23 18:58 Room Air 07/30/23 17:00 Room Air Intake and Output 07/31/23 07/31/23 07/31/23 03:59 11:59 19:59 Intake Total 140 / 730 470 / 1200 Output Total 1000 / 1000 700 / 1700 0 / 0 Balance -860 / -270 -230 / -500 0 / 0 Intake: Intake, Oral Amount 120 / 710 470 / 1180 Intake, Other Amount 20 / 20 Output: Output, Urine Amount 1000 / 1000 700 / 1700 0 / 0 Other: Intake, Other Source Saline Solution Number of Unmeasured Voids 1 1 1 Weight 150 lb 0.04 oz Laboratory Results - last 24 hr 07/30/23 11:30: TSH 2.65 07/30/23 17:03: Troponin I < 0.01 07/31/23 07:30: Sodium 141, Potassium 4.2, Chloride 104, Carbon Dioxide 37 H, Anion Gap 4.2 L, BUN 13, Creatinine 0.70, Estimated Creat Clear 50, Estimated GFR 81, Est GFR ( Amer) 98, Glucose 105 H, Calcium 8.3 L, Total Bilirubin 0.7, AST 38 H D, ALT 40, Alkaline Phosphatase 144 H, Total Protein 6.6, Albumin 3.4 L, Globulin 3.2, Albumin/Globulin Ratio 1.1 07/31/23 15:35: Hgb 10.0 L, Hct 32.9 L I & O for Labs for Last 24 Hours: Intake & Output 07/29/23 07/30/23 07/31/23 08/01/23 11:59 11:59 11:59 11:59 Intake Total 1200 / 1200 Output Total 1700 / 1700 0 / 0 Balance -500 / -500 0 / 0 Weight 150 lb 150 lb 0.04 oz Constitutional: Present no acute distress Comment:: Patient sitting in bedside chair and appears most comfortable. Respiratory: Present CTA bilaterally (Anteriorly and posteriorly) Cardiac: Present Regular Rate (Occasional ectopic) Extremities: Present edema (Bilateral lower extremities with Dontae wraps on) Comment:: Radial TR band on and no new bleeding Neuro: Present alert and oriented x 3 Assessment and Plan *Assessment and plan (1) CHF (congestive heart failure): Status: Acute Qualifiers: Heart failure chronicity: acute Heart failure type: unspecified Qualified Code(s): I50.9 - Heart failure, unspecified Category: Medical Code(s): I50.9 - Heart failure, unspecified (2) Dyspnea on effort: Status: Acute Category: Medical Code(s): R06.09 - Other forms of dyspnea (3) Atypical angina: Status: Acute Category: Medical Code(s): I20.89 - Other forms of angina pectoris (4) Anemia: Status: Acute Qualifiers: Anemia type: unspecified type Qualified Code(s): D64.9 - Anemia, unspecified Category: Medical Code(s): D64.9 - Anemia, unspecified (5) HTN (hypertension): Status: Acute Qualifiers: Hypertension type: primary hypertension Qualified Code(s): I10 - Essential (primary) hypertension Category: Medical Code(s): I10 - Essential (primary) hypertension (6) ASCVD (arteriosclerotic cardiovascular disease): Status: Acute Category: Medical Code(s): I25.10 - Atherosclerotic heart disease of [place] coronary artery without angina pectoris (7) Tobacco use: Status: Acute Category: Social Hx Code(s): Z72.0 - Tobacco use Plan Hemoglobin is 10. Packed red blood cells being set up. Nurses are assessing the wrist area. Patient does agree to stay overnight. She wants to sleep. Will order Tylenol with Benadryl. PATIENT WAS SEEN THIS EVENING BY dD. JUARES. HER RECTAL BLEEDING HAS STOPPED. CARDIOPULMONARY STATUS STABLE. HGB=10. DISCUSSED THE PROCEDURE AND THE STENT PLACEMENT WITH PATIENT AND HER . JOSE
--- NOTE | 2023-07-31 18:54 | PC.NURSE ---
Patient had cardiac catherterization today. Patient had bleeding from cath side when RN removed first air from radial band. Air put back in, and waited 15 minutes, patient also had bleeding per rectum MD aware and cardiology aware. Patient a&ox4.
[2023-07-31] MEDS: diphenhydrAMINE 25MG CAPSULE 25 MG PO (20:19)
[2023-07-31] MEDS: BISOPROLOL 5MG TABLET 5 MG PO (20:19)
[2023-07-31] MEDS: ACETAMINOPHEN 500MG TAB 500 MG PO (20:21)
[2023-08-01] VITALS: PULSE 64
[2023-08-01 04:00] VITALS: BP 136/71; PULSE 63; PULSE 70; RESP 16; TEMP 36.9; O2SAT 92; BMI 25.1
[2023-08-01] MEDS: LEVOTHYROXINE 100MCG (0.1MG) TAB 100 MCG PO (06:13)
--- NOTE | 2023-08-01 06:28 | PC.NURSE ---
patient requested wraps to be removed from BLE at this time. right radial wrist dsg c/d/i with bruising
[2023-08-01 06:51] LABS: Basophils % 0.3 % (0.1-2.0); Eosinophils # 0.2 K/mm3 (0.0-0.4); Eosinophils % 2.5 % (0.1-12.0); Hematocrit 31.2 % (37.0-47.0); Hemoglobin 9.5 g/dL (12.2-16.2); Lymphocytes # 1.1 K/mm3 (0.7-4.5); Lymphocytes % 14.5 % (10-50); Mean Corpuscular HGB Conc 30.6 g/dL (31.8-35.4); Mean Corpuscular Hemoglobin 26.5 pg (27.0-31.2); Mean Corpuscular Volume 86.8 fl (81-99); Mean Platelet Volume 9.4 fl (7.4-10.4); Monocytes # 0.7 K/mm3 (0.1-1.0); Monocytes % 9.6 % (1.7-9.3); Neutrophils # 5.4 K/mm3 (1.8-7.8); Neutrophils % 73.1 % (37.0-80.0); Platelet Count 353 K/mm3 (142-424); Red Cell Distribution Width 15.5 % (11.5-17.5); White Blood Count 7.4 K/mm3 (4.8-10.8)
[2023-08-01 06:52] LABS: Chloride 105 mmol/L (98-107)
[2023-08-01 06:53] LABS: Potassium 3.6 mmoL/L (3.5-5.1); Sodium 138 mmol/L (136-145)
[2023-08-01 06:55] LABS: Blood Urea Nitrogen 17 mg/dl (7-17); Creatinine Clearance Estimated 49 mL/min (50-200); Estimated Glomerular Filt Rate 97 ml/min (>60); GFR (African American) 117 ML/MIN (>60)
[2023-08-01 06:56] LABS: Anion Gap 4.6 mEq/L (5-15); Calcium 7.9 mg/dl (8.4-10.2); Carbon Dioxide 32 mmol/L (22.0-30.0); Glucose 90 mg/dl (74-100)
[2023-08-01 08:00] VITALS: BP 131/66; PULSE 70; PULSE 75; RESP 20; TEMP 36.8; O2SAT 93
--- NOTE | 2023-08-01 08:12 | P.PN_ITS ---
Subjective *Date: 08/01/23 *Time: 08:12 Interval history: Patient is feeling well this am. Denies any chest pain or SOA. Does still have some pain at the cath site but no bleeding. Anxious to go home. Medical Exam Vital signs and Labs for Last 24 Hours: Vital Signs Temp Pulse Pulse Resp BP Pulse Ox O2 Del Method 08/01/23 06:27 Room Air 08/01/23 04:00 98.5 F 70 16 136/71 92 L Room Air 08/01/23 04:00 63 08/01/23 04:03 Room Air 08/01/23 03:00 Room Air 08/01/23 01:00 Room Air 08/01/23 00:00 64 07/31/23 20:00 78 07/31/23 23:58 98.2 F 66 16 147/70 H 94 L Room Air 07/31/23 23:00 Room Air 07/31/23 21:00 Room Air 07/31/23 20:40 98.1 F 69 16 131/69 95 Room Air 07/31/23 20:00 Room Air 07/31/23 19:40 69 17 144/60 H 94 L Room Air 07/31/23 17:40 98.2 F 65 17 133/57 L 95 Room Air 07/31/23 16:40 70 16 133/59 L 97 Room Air 07/31/23 16:10 66 17 167/56 H 95 Room Air 07/31/23 15:40 61 16 146/61 H 98 Room Air 07/31/23 15:10 67 17 119/49 L 92 L Room Air 07/31/23 14:40 97.9 F 68 16 128/52 L 93 L Room Air 07/31/23 14:25 67 17 154/83 H 94 L Room Air 07/31/23 14:10 73 16 168/69 H 92 L Room Air 07/31/23 18:40 73 16 130/56 L 93 L Room Air 07/31/23 13:55 98.1 F 69 16 154/76 H 94 L Room Air 07/31/23 16:00 57 L 07/31/23 12:00 67 07/31/23 13:35 63 20 154/80 H 92 L Room Air 07/31/23 13:40 64 20 153/82 H 94 L Room Air 07/31/23 13:30 63 20 148/74 H 95 Room Air 07/31/23 13:29 60 58 L 20 156/78 H 92 L Room Air 07/31/23 11:24 98.3 F 68 17 148/97 H 96 Room Air Intake and Output 07/31/23 08/01/23 08/01/23 19:59 03:59 11:59 Intake Total 240 / 300 60 / 300 Output Total 0 / 200 0 / 200 200 / 200 Balance 240 / 100 60 / 100 -200 / 100 Intake: Intake, Oral Amount 240 / 300 60 / 300 Output: Output, Urine Amount 0 / 200 0 / 200 200 / 200 Other: Number of Unmeasured Voids 1 1 Weight 147 lb 6.4 oz Patient Weight 08/01/23 11:59 Weight 147 lb 6.4 oz Laboratory Results - last 24 hr 07/31/23 15:35: Hgb 10.0 L, Hct 32.9 L, Blood Type Confirm B Positive 07/31/23 16:21: Blood Type B Positive, Antibody Screen Negative, Crossmatch (AHG) See Detail 08/01/23 05:44: WBC 7.4, RBC 3.60 L, Hgb 9.5 L, Hct 31.2 L, MCV 86.8, MCH 26.5 L , MCHC 30.6 L, RDW 15.5, Plt Count 353, MPV 9.4, Neut % (Auto) 73.1, Lymph % (Auto) 14.5, [place] % (Auto) 9.6 H, Eos % (Auto) 2.5, Baso % (Auto) 0.3, Neut # (Auto) 5.4, Lymph # (Auto) 1.1, [place] # (Auto) 0.7, Eos # (Auto) 0.2, Baso # (Auto) 0.0, Sodium 138, Potassium 3.6, Chloride 105, Carbon Dioxide 32 H, Anion Gap 4.6 L, BUN 17 D, Creatinine 0.60, Estimated Creat Clear 49, Estimated GFR 97, Est GFR ( Amer) 117, Glucose 90, Calcium 7.9 L I & O for Labs for Last 24 Hours: Intake & Output 07/29/23 07/30/23 07/31/23 08/01/23 11:59 11:59 11:59 11:59 Intake Total 1200 / 1200 300 / 300 Output Total 1700 / 1700 200 / 200 Balance -500 / -500 100 / 100 Weight 150 lb 150 lb 0.04 oz 147 lb 6.4 oz Constitutional: Present no acute distress Comment:: Patient sitting in bedside chair and appears most comfortable. Respiratory: Present CTA bilaterally (Anteriorly and posteriorly) Cardiac: Present Regular Rate (Occasional ectopic) GI: Present soft; Absent distention or tenderness Extremities: Present edema (Bilateral lower extremities) Comment:: Radial TR band on and no new bleeding Neuro: Present alert and oriented x 3 Assessment and Plan *Assessment and plan (1) Atypical angina: Status: Acute Category: Medical Code(s): I20.89 - Other forms of angina pectoris (2) Status post coronary artery stent placement: Status: Acute Category: Surgical Code(s): Z95.5 - Presence of coronary angioplasty implant and graft (3) CHF (congestive heart failure): Status: Acute Qualifiers: Heart failure type: unspecified Heart failure chronicity: acute Qualified Code(s): I50.9 - Heart failure, unspecified Category: Medical Code(s): I50.9 - Heart failure, unspecified (4) Dyspnea on effort: Status: Acute Category: Medical Code(s): R06.09 - Other forms of dyspnea (5) Anemia: Status: Acute Qualifiers: Anemia type: unspecified type Qualified Code(s): D64.9 - Anemia, unspecified Category: Medical Code(s): D64.9 - Anemia, unspecified (6) HTN (hypertension): Status: Acute Qualifiers: Hypertension type: primary hypertension Qualified Code(s): I10 - Essential (primary) hypertension Category: Medical Code(s): I10 - Essential (primary) hypertension (7) ASCVD (arteriosclerotic cardiovascular disease): Status: Acute Category: Medical Code(s): I25.10 - Atherosclerotic heart disease of [place] coronary artery without angina pectoris (8) Tobacco use: Status: Acute Category: Social Hx Code(s): Z72.0 - Tobacco use (9) Hypothyroidism: Problem Comment: Currently on replacement therapy and feeling well. Status: Chronic Category: Medical Code(s): E03.9 - Hypothyroidism, unspecified (10) Mitral valve disorder: Status: Acute Category: Medical Code(s): I05.9 - Rheumatic mitral valve disease, unspecified Plan HGB is 9.5 today. Patient is stable for discharge and will f/u with Dr. Cancino and cardiology.
[2023-08-01] MEDS: ASPIRIN EC 81MG TABLET 81 MG PO (08:16)
[2023-08-01] MEDS: BISOPROLOL 5MG TABLET 5 MG PO (08:16)
[2023-08-01] MEDS: CLOPIDOGREL 75MG TAB 75 MG PO (08:16)
[2023-08-01] MEDS: FUROSEMIDE 40 MG TABLET PO (08:16)
[2023-08-01] MEDS: IRBESARTAN 75MG TABLET 75 MG PO (08:17)
--- NOTE | 2023-08-01 08:18 | EXP.CARD.PN ---
Subjective Subjective Date: 08/01/23 Time: 08:18 Principal diagnosis: SOA Interval history: 78-year-old white female sitting in bedside chair in no acute distress. No complaints overnight. She states she actually did get some sleep last night. She is anxious to go home. Exam Data for Last 24 hours Vital signs and Labs for Last 24 Hours: Temp Pulse Resp BP Pulse Ox O2 Del Method 98.5 F 70 16 136/71 92 L Room Air 08/01/23 04:00 08/01/23 04:00 08/01/23 04:00 08/01/23 04:00 08/01/23 04:00 08/01/23 06:27 Laboratory Results - last 24 hr 07/31/23 15:35: Hgb 10.0 L, Hct 32.9 L, Blood Type Confirm B Positive 07/31/23 16:21: Blood Type B Positive, Antibody Screen Negative, Crossmatch (AHG) See Detail 08/01/23 05:44: WBC 7.4, RBC 3.60 L, Hgb 9.5 L, Hct 31.2 L, MCV 86.8, MCH 26.5 L, MCHC 30.6 L, RDW 15.5, Plt Count 353, MPV 9.4, Neut % (Auto) 73.1, Lymph % (Auto) 14.5, [place] % (Auto) 9.6 H, Eos % (Auto) 2.5, Baso % (Auto) 0.3, Neut # (Auto) 5.4, Lymph # (Auto) 1.1, [place] # (Auto) 0.7, Eos # (Auto) 0.2, Baso # (Auto) 0.0, Sodium 138, Potassium 3.6, Chloride 105, Carbon Dioxide 32 H, Anion Gap 4.6 L, BUN 17 D, Creatinine 0.60, Estimated Creat Clear 49, Estimated GFR 97, Est GFR ( Amer) 117, Glucose 90, Calcium 7.9 L I & O for Last 24 hours: Intake & Output 07/29/23 07/30/23 07/31/23 08/01/23 11:59 11:59 11:59 11:59 Intake Total 1200 / 1200 300 / 300 Output Total 1700 / 1700 200 / 200 Balance -500 / -500 100 / 100 Weight 150 lb 150 lb 0.04 oz 147 lb 6.4 oz Constitutional Constitutional: no acute distress *Routine Respiratory Exam Respiratory: Present CTA bilaterally *Routine Cardiovascular Exam Cardiovascular: Present RRR *Routine Extremities Exam Extremities: Present edema Progress Note: A&P Assessment and plan (1) Atypical angina: Status: Acute (2) Status post coronary artery stent placement: Status: Acute (3) CHF (congestive heart failure): Status: Acute (4) Dyspnea on effort: Status: Acute (5) Anemia: Status: Acute (6) HTN (hypertension): Status: Acute (7) ASCVD (arteriosclerotic cardiovascular disease): Status: Acute (8) Tobacco use: Status: Acute (9) Hypothyroidism: Problem details: Currently on replacement therapy and feeling well. Status: Chronic (10) Mitral valve disorder: Status: Acute Assessment and Plan Assessment and Plan for All Diagnoses:: 1. Coronary artery disease with atypical angina symptoms -Status post LEESA to ramus. Remaining LAD disease relegated to medical therapy. Chronic RCA occlusion. -DAPT with aspirin/Plavix -Will work on getting Leqvio approved as an outpatient due to statin intolerance 2. HFpEF with at least moderate mitral regurgitation and grade 3 diastolic dysfunction -Add Lasix -Discussed need for workup of possible amyloidosis as an outpatient (including cardiac MRI, PYP scan and lab work) 3. Tobacco use 4. Mitral valve regurgitation 5. Hypertension 6. Hyperlipidemia 7. Anemia with hemoglobin around 9.5-10, stable Stable from a cardiac standpoint for discharge home. Home medication recommendations: Aspirin 81 mg daily Plavix 75 mg daily Bisoprolol 5 mg twice daily Irbesartan 75 mg daily or resume losartan 25 mg daily at home Intolerant to statin therapy therefore will try to get Leqvio approved as an outpatient Follow-up in our office in 1 week. Will discuss further workup for possible amyloidosis at hospital follow-up.
[2023-08-01 08:40] LABS: Chol/HDL Ratio 5.7 (1-3.5); Cholesterol 170 mg/dl (140-200); HDL Cholesterol 30 mg/dl (40-60); Triglycerides 114 mg/dl (30-150); VLDL Cholesterol 23 mg/dL (0-40)
[2023-08-01 08:51] LABS: Direct LDL Cholesterol 99.22 mg/dL (100-129)
--- NOTE | 2023-08-01 10:21 | P.CONPHA_ITS ---
Pharmacy Intervention Comments: DISCHARGE MEDICATION COUNSELING PROVIDED. DISCUSSED THE FOLLOWING NEW MEDICATIONS: -CLOPIDOGREL (BLOOD THINNER, DAILY, BLEED/BRUISE RISK/LOCATION/APPEARANCE, BUMP HEAD = GO TO ER TO RULE OUT BLEED, SHORTNESS OF BREATH POSSIBLE) -FUROSEMIDE (FOR FLUID, DAILY, TAKE IN THE MORNING, INCREASED URINATION, DIZZ INESS,LIGHTHEADEDNESS, LOW POTASSIUM LEVELS POSSIBLE) PATIENT DID ASK IF SHE SHOULD CONTINUE THE ASPIRIN, I ADVISED HER IT WAS CONTINUED ON DISCHARGE. ALSO ASKED ABOUT HAVING SUBSEQUENT PRESCRIPTIONS SENT TO [facility], I ADVISED HER TO MENTION THAT AT HER FOLLOW UP APPOINTMENT WITH CARDIOLOGY AND THEY SHOULD GET SUBSEQUENT NEW PRESCRIPTIONS SENT TO [facility]. NO FURTHER QUESTIONS VERBALIZED AT THIS TIME.
--- NOTE | 2023-08-02 13:25 | CARE MANAGER ---
Contacted patient related to hospital discharge. She states she picked up her medications an dis aware of her follow up appointments. Denies questions or concerns. DAISHA Walden
--- NOTE | 2023-08-04 21:26 | P.DS_ITS ---
General Admission date:: 07/30/23 Discharge date: 08/01/23 HPI HPI HPI: Ms. Hernandez is a 78-year-old female with a history of ASCVD, hypothyroidism, anemia, hyperlipidemia, macular degeneration,, mitral valve disorder who [facility] evaluation due to shortness of breath. She states this has been a progressive process and worse in the last week to where she could do very little without becoming dyspneic. She stated brushing her teeth this morning made her very short of breath and she had to pause to recover. She denies having any chest pain, dizziness, and heart palpitations. She has been eating and drinking as usual. Ambulation has been curtailed due to the dyspnea. She denies cough, fever, and any other respiratory issues. She states she has been taking her medicine as usual which includes the bisoprolol and losartan. She is seeing Dr. Jorgensen for her cardiac issues but has not seen him in over a year. Blood pressure in the emergency room was elevated at 176/75 with a heart rate in the 70s. Laboratory data shows a hemoglobin of 10.9 BNP was elevated in the 600s. in the emergency room she did receive 40 mg of Lasix IV was given 1 nitroglycerin. She was then admitted for further evaluation and treatment. At the time of this exam patient seems quite comfortably sitting in a chair at bedside. She has just arrived to the room from the emergency room. She continually denies chest pain and is not short of breath at present. She speaks in even sentences without dyspnea. Hospital Course Hospital Course Hospital Course: Cardiology was consulted. The patient was started on bisoprolol twice a day and losartan 25 mg daily. An echo was ordered. Cardiology ordered a CTA to rule out a PE. They also were concerned for atypical angina due to exertional shortness of breath. They discussed cardiac catheterization and the patient agr eed to proceed. The CTA was negative for PE. The echo showed a preserved LVEF. The patient had a heart cath which showed moderate to severe disease in the proximal LAD and severe stenosis in the proximal and mid ramus intermedius. She did receive stenting. She had an elevated LVEDP and cardiology wanted her to continue on dual antiplatelet therapy and maximize antianginal medication. They felt she would also need to try to get Repatha or Leqvio approved as an outpatient as she had intolerance to multiple statins. The patient did have a radial bleed post cath and also had some blood on the toilet paper with wiping, but no bloody stools. She was kept overnight for monitoring. By 08/01/2023, she did have some pain at the cath site but no further bleeding. It was felt she was stable to be discharged home and will follow-up with Dr. Cancino and cardiology. Exam Data for Last 24 hours Vital signs and Labs for Last 24 Hours: Temp Pulse Resp BP Pulse Ox O2 Del Method 98.2 F 75 20 131/66 93 L Room Air 08/01/23 08:00 08/01/23 08:00 08/01/23 08:00 08/01/23 08:00 08/01/23 08:00 08/01/23 11:00 Narrative: Constitutional Constitutional: no acute distress and cooperative *Routine HEENT Exam Head: Present normocephalic and atraumatic Eye: Present PERRL and exophthalmos; Absent conjunctival icterus, scleral injection or conjunctivae pink ENT: Present mucous membranes moist, oropharynx clear and nares patent *Routine Neck Exam Neck: Present supple; Absent carotid bruit, lymphadenopathy or thyromegaly *Routine Respiratory Exam Respiratory: Present CTA bilaterally (Anteriorly and posteriorly with decreased breath sounds in the bases), able to speak in complete sentences and symmetric chest movement; Absent wheezes *Routine Cardiovascular Exam Cardiovascular: Present RRR and murmur *Routine Abdominal Exam Abdominal: Present soft and normoactive bowel sounds; Absent tenderness, distended or guarding *Routine Rectal Exam Rectal:: deferred *Routine Genitalia Exam Genitalia:: deferred *Routine Extremities Exam Extremities: Present edema (2-3+ bilaterally); Absent calf tenderness *Routine Neurological Exam Neurological: Present alert, oriented X3 and normal speech DS: Diagnosis Discharge Diagnosis (1) Atypical angina: Status: Acute Code(s): I20.89 - Other forms of angina pectoris (2) Status post coronary artery stent placement: Status: Acute Code(s): Z95.5 - Presence of coronary angioplasty implant and graft (3) CHF (congestive heart failure): Status: Acute Code(s): I50.9 - Heart failure, unspecified Qualifiers: Heart failure type: unspecified Heart failure chronicity: acute Qualified Code(s): I50.9 - Heart failure, unspecified (4) Dyspnea on effort: Status: Acute Code(s): R06.09 - Other forms of dyspnea (5) Anemia: Status: Acute Code(s): D64.9 - Anemia, unspecified Qualifiers: Anemia type: unspecified type Qualified Code(s): D64.9 - Anemia, unspecified (6) HTN (hypertension): Status: Acute Code(s): I10 - Essential (primary) hypertension Qualifiers: Hypertension type: primary hypertension Qualified Code(s): I10 - Essential (primary) hypertension (7) ASCVD (arteriosclerotic cardiovascular disease): Status: Acute Code(s): I25.10 - Atherosclerotic heart disease of [place] coronary artery without angina pectoris (8) Tobacco use: Status: Acute Code(s): Z72.0 - Tobacco use (9) Hypothyroidism: Status: Chronic Code(s): E03.9 - Hypothyroidism, unspecified Problem details: Currently on replacement therapy and feeling well. (10) Mitral valve disorder: Status: Acute Code(s): I05.9 - Rheumatic mitral valve disease, unspecified Meds Home Medications and Allergies Home Medications Medication Instructions Recorded Confirmed Type bisoprolol fumarate 5 mg tablet 5 mg PO DAILY 90 days #180 tabs 05/06/18 07/30/23 History losartan 25 mg tablet 25 mg PO DAILY 90 days #90 tabs 05/06/18 07/30/23 History aspirin 81 mg tablet,delayed 81 mg PO DAILY 06/09/19 07/30/23 History release (Adult Aspirin Regimen) vit C 250 mg-vit E 90 mg-zinc 40 1 tab PO BID 06/09/19 07/30/23 History mg-copper 1 [id number]-rmnnqf-oesdbm capsule (PreserVision AREDS-2) levothyroxine 100 mcg tablet 100 mcg PO DAILY #90 tabs 12/18/22 07/30/23 Rx (Synthroid) clopidogrel 75 mg tablet 75 mg PO DAILY #30 tabs 08/01/23 Rx furosemide 40 mg tablet 40 mg PO DAILY #30 tabs 08/01/23 Rx New Prescriptions to Start Prescriptions: clopidogrel Elda Cancino furosemide Elda Cancino Allergies Allergy/AdvReac Type Severity Reaction Status Date / Time No Known Allergies Allergy Unverified 07/30/23 13:53 Discharge Plan Disposition Patient Disposition: Home, Self-Care Condition: Good Discharge Order Discharge Orders: Discharge Order (Routine); Ordered 08/01/23 Ordered By: Elda Cancino Follow up Plan Follow up with: Elda Cancino MD [Primary Care Provider] - 08/09/23 2:15 pm David Pisano PA [Physician Polysomnograph Tech] - 08/08/23 10:00 am Prescriptions/Medication Reconciliation: New clopidogrel 75 mg tablet 75 mg PO DAILY Qty: 30 5RF furosemide 40 mg Tablet 40 mg PO DAILY Qty: 30 5RF Continued losartan 25 mg tablet 25 mg PO DAILY 90 Days Qty: 90 bisoprolol fumarate 5 mg tablet 5 mg PO DAILY 90 Days Qty: 180 aspirin [Adult Aspirin Regimen] 81 mg tablet,delayed release (DR/EC) 81 mg PO DAILY PreserVision AREDS-2 [id number] xw-xfir-ia-mg capsule 1 tab PO BID Rx Instructions: administer with meals levothyroxine [Synthroid] 100 mcg tablet 100 mcg PO DAILY Qty: 90 4RF Problem Reconciliation Problems Reviewed?: Yes Patient Discharge Instructions ACTIVITY: Continue current activity DIET: low fat, low cholesterol Patient Instructions: DI for Cardiac Catheterization, DI for Surgical Site Infection, DI for Heart Failure Exacerbations Providers Primary Care Provider: Elda Cancino Admit Provider: Elda Cancino Attending Provider: Elda Cancino
== END 2023-08-01 11:48 | disposition home or self-care (01) | DRG 321 ==
LOC: ER 11:50 → 2ND 13:57
PROVIDERS: Internal Medicine; Nurse Practitioner Family; Physician Assistant; Admitting Provider Family Medicine; Emergency Provider Emergency Medicine; PCP Family Medicine; Visit Provider Family Medicine
PROC: 027034Z Dilation of Coronary Artery, One Artery with Drug-eluting Intraluminal Device, Percutaneous Approach (ICD-10-PCS; principal; 2023-07-31 10:45)
DX: I25.110 Atherosclerotic heart disease of native coronary artery with unstable angina pectoris (principal); I50.31 Acute diastolic (congestive) heart failure; K62.5 Hemorrhage of anus and rectum; E03.9 Hypothyroidism, unspecified; I05.9 Rheumatic mitral valve disease, unspecified; D64.9 Anemia, unspecified; Z95.5 Presence of coronary angioplasty implant and graft; F17.210 Nicotine dependence, cigarettes, uncomplicated; I11.0 Hypertensive heart disease with heart failure
CPT/HCPCS: 36415; 71045; 71275; 80048; 80053; 80061; 82803; 83880; 84443; 84484; 85014; 85018; 85025; 85347; 86850; 92928; 93005; 93306; 93458; 93571; 99152; 99153; 99285; C1725; C1769; C1876; C9600; J1644; Q9967

== ENCOUNTER 2023-08-07 11:06 | Outpatient (CLI) | payer MEDICARE, SELFPAY ==
[2023-08-07 12:01] LABS: Total Protein,Serum 6.2 g/dl (6.3-8.2)
[2023-08-08 16:23] LABS: Albumin 2.8 g/dL (2.9-4.4); Alpha-1-Globulin 0.3 g/dL (0.0-0.4); Alpha-2-Globulin 0.9 g/dL (0.4-1.0); Gamma Globulin 1.2 g/dL (0.4-1.8); Immunoglobulin A, Qn 253 mg/dL (64-422); Immunoglobulin G, Qn 1220 mg/dL (586-1602); Immunoglobulin M, Qn 212 mg/dL (26-217); Protein, Total 6.3 g/dL (6.0-8.5)
[2023-08-09 10:14] LABS: Free Kappa Lt Chains 62.3; Free Lambda Lt Chains 41.8; PDF SCANNED IMAGE
== END 2023-08-07 23:59 ==
LOC: LAB 11:07
PROVIDERS: PCP Family Medicine; Visit Provider Physician Assistant
DX: I25.10 Atherosclerotic heart disease of native coronary artery without angina pectoris (principal); I50.30 Unspecified diastolic (congestive) heart failure; I77.9 Disorder of arteries and arterioles, unspecified; Z95.5 Presence of coronary angioplasty implant and graft
CPT/HCPCS: 36415; 82784; 83883; 84155; 84165; 86334

== ENCOUNTER 2023-08-09 13:53 | Outpatient (CLI) | payer MEDICARE, SELFPAY ==
[2023-08-13 16:42] LABS: Alpha-1-Globulin, U 13.4 % (.); Alpha-2-Globulin, U 14.6 % (.); Beta Globulin, U 14.9 % (.); Gamma Globulin, U 8.1 % (.); M-Spike, % Not Observed % (Not Observed); Protein,Total,Urine <4.0 mg/dL (Not Estab.)
[2023-08-13 16:42] LABS: Albumin, U 37.6 % (.); Alpha-1-Globulin, U 6.4 % (.); Alpha-2-Globulin, U 16.7 % (.); Beta Globulin, U 23.7 % (.); Gamma Globulin, U 15.5 % (.); M-Spike, % Not Observed % (Not Observed); Prot,24hr calculated 80 mg/24 hr (30-150); Protein,Total,Urine 7.6 mg/dL (Not Estab.)
[2023-08-16 09:51] LABS: PDF: SCANNED IMAGE
[2023-08-16 09:52] LABS: PDF: SCANNED IMAGE
== END 2023-08-09 23:59 ==
PROVIDERS: PCP Psychiatry & Neurology Sleep Medicine; Visit Provider Physician Assistant
DX: I50.30 Unspecified diastolic (congestive) heart failure (principal); I77.9 Disorder of arteries and arterioles, unspecified; Z95.5 Presence of coronary angioplasty implant and graft; I25.10 Atherosclerotic heart disease of native coronary artery without angina pectoris
CPT/HCPCS: 84156; 84166; 86335; 93225

== ENCOUNTER 2023-08-15 08:26 | Outpatient (CLI) | payer MEDICARE, SELFPAY ==
--- NOTE | 2023-08-15 08:39 | CA_ITS ---
FINAL REPORT TECHNIQUE: Color Doppler, duplex Doppler and chaidez scale sonography of the bilateral neck vasculature was performed. Velocities were measured in the carotid arteries. Stenosis evaluation based on velocity criteria. CLINICAL HISTORY: TRESSA, tingling bilateral fingers, fatigue, hyperlipidemia, smoker, edema. COMPARISON: None FINDINGS: The peak systolic velocity of the right common carotid artery is 98 cm/sec and internal carotid artery 240 cm/sec. The diastolic velocity in the internal carotid artery is 58 cm/sec. The ICA/CCA ratio is 2.5. Visually, a large amount of plaque is present. These findings are consistent with greater than 70% stenosis. The external carotid artery is patent. The right vertebral artery is patent with antegrade flow. The peak systolic velocity of the left common carotid artery is 165 cm/sec and internal carotid artery 244 cm/sec. The diastolic velocity in the internal carotid artery is 62 cm/sec. The ICA/CCA ratio is 1.5. Visually, a large amount of plaque is present. These findings are consistent with greater than 70% stenosis. The external carotid artery is patent. The left vertebral artery is patent with antegrade flow. IMPRESSION: Bilateral greater than 70% stenosis of the carotid arteries with a large amount of plaque. Would recommend CT angiography or catheter angiography for further evaluation. Bilateral patent vertebral arteries. Reviewed, Interpreted and Dictated by Carlos Yen III, MD Transcribed by Catherine Saldana Authenticated and [facility]
== END 2023-08-15 23:59 ==
LOC: RT 08:26
PROVIDERS: PCP Family Medicine; Visit Provider Physician Assistant
DX: R42 Dizziness and giddiness (principal); I77.9 Disorder of arteries and arterioles, unspecified; I25.10 Atherosclerotic heart disease of native coronary artery without angina pectoris
CPT/HCPCS: 93880

== ENCOUNTER 2023-08-24 07:39 | Outpatient (CLI) | payer MEDICARE, SELFPAY ==
--- NOTE | 2023-08-24 07:39 | NM_ITS ---
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 Planar and SPECT imaging was performed approximately 3 hours post injection. Planar images included anterior, left lateral and [id number] projections. Findings: Visual interpretation: Planar and SPECT images were reviewed The overall quality of the study was good. Semi quantitative SPECT findings showed a grade 2. Impression: 1. Overall, the quality of the study was good. 2. Semi quantitative SPECT findings showed grade 2. 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 Further evaluation with lab testing for amyloidosis + cardiac MRI (amyloidosis protocol) is recommended. This study and report were reviewed and signed by Konstantin Dickey MD (supervisor refining). Conclusion Electronically signed by : Linda Dickey MD 09/03/2023 14:09:35
[2023-08-24] MEDS: SODIUM CHLORIDE 0.9% 10ML SYR (RAD ONLY) 10 ML IV (07:50)
[2023-08-24] MEDS: PYROPHOSPHATE CARDIAC (PYP);1 DOSE VIAL IV (09:28)
== END 2023-08-24 23:59 ==
LOC: RAD 07:39
PROVIDERS: PCP Family Medicine; Visit Provider Physician Assistant
DX: I11.0 Hypertensive heart disease with heart failure (principal); I25.10 Atherosclerotic heart disease of native coronary artery without angina pectoris; I50.30 Unspecified diastolic (congestive) heart failure; I77.9 Disorder of arteries and arterioles, unspecified; Z95.5 Presence of coronary angioplasty implant and graft; F17.210 Nicotine dependence, cigarettes, uncomplicated
CPT/HCPCS: 78803

== ENCOUNTER 2023-08-27 13:21 | Outpatient (CLI) | payer MEDICARE, SELFPAY ==
[2023-08-27 14:30] LABS: Anion Gap 8.4 mEq/L (5-15); Blood Urea Nitrogen 24 mg/dl (7-17); Calcium 8.4 mg/dl (8.4-10.2); Carbon Dioxide 27 mmol/L (22.0-30.0); Chloride 104 mmol/L (98-107); Estimated Glomerular Filt Rate 69 ml/min (>60); GFR (African American) 84 ML/MIN (>60); Glucose 84 mg/dl (74-100); Potassium 3.4 mmoL/L (3.5-5.1); Sodium 136 mmol/L (136-145)
== END 2023-08-27 23:59 ==
LOC: LAB 13:22
PROVIDERS: PCP Family Medicine; Visit Provider Internal Medicine
DX: I50.33 Acute on chronic diastolic (congestive) heart failure (principal); R06.09 Other forms of dyspnea
CPT/HCPCS: 36415; 80048

== ENCOUNTER 2023-09-03 12:26 | Inpatient (IN) | payer MEDICARE, SELFPAY ==
[2023-09-03] VITALS (35 sets, daily range): BP systolic 87–146; BP diastolic 45–84; PULSE 89–104; RESP 13–31; TEMP 36.6–37.3; O2SAT 92–100; BMI 25.7; BMI 24.4
--- NOTE | 2023-09-03 13:01 | ECG_ITS ---
APPROVED REPORT Exam: Resting ECG HR:96 bpm ECG Measurements Heart Rate 96 AXES MT 149 P 71 QRSd 114 QRS 52 QT 354 T 63 QTc [address] DEVIATION AND MODERATE T-WAVE ABNORMALITY Electronically signed by : BERNICE MARTINO, 09/04/2023 07:16:39
--- NOTE | 2023-09-03 13:06 | XR_ITS ---
FINAL REPORT CLINICAL HISTORY: Shortness of breath FINDINGS: A single portable view of the chest was obtained. There is cardiomegaly and mild pulmonary vascular congestion. Mild right basilar opacities likely represent atelectasis or pneumonia. There is a small right pleural effusion. There is no pneumothorax. IMPRESSION: Mild right basilar opacities likely represent atelectasis or pneumonia with a small right pleural effusion. Reviewed, Interpreted and Dictated by Carlos Yen III, MD Transcribed by Hazel Devi Authenticated and [facility]
[2023-09-03 13:14] LABS: Basophils % 0.3 % (0.1-2.0); Eosinophils % 0.8 % (0.1-12.0); Lymphocytes # 0.8 K/mm3 (0.7-4.5); Lymphocytes % 14.5 % (10-50); Mean Corpuscular HGB Conc 28.2 g/dL (31.8-35.4); Mean Corpuscular Volume 78.2 fl (81-99); Mean Platelet Volume 8.5 fl (7.4-10.4); Monocytes # 0.4 K/mm3 (0.1-1.0); Monocytes % 7.6 % (1.7-9.3); Neutrophils # 4.1 K/mm3 (1.8-7.8); Neutrophils % 76.7 % (37.0-80.0); Platelet Count 230 K/mm3 (142-424); Red Blood Count 1.89 M/mm3 (4.20-5.40); White Blood Count 5.3 K/mm3 (4.8-10.8)
[2023-09-03 13:23] LABS: Alanine Aminotransferase 22 U/L (12-78); Albumin Level 3.5 g/dl (3.5-5.0); Albumin/Globulin Ratio 1.2 (1.1-1.8); Alkaline Phosphatase 101 U/L (38-126); Anion Gap 13.2 mEq/L (5-15); Aspartate Amino Transferase 29 U/L (14-36); Bilirubin,Total 0.5 mg/dl (0.2-1.3); Blood Urea Nitrogen 23 mg/dl (7-17); Calcium 8.8 mg/dl (8.4-10.2); Carbon Dioxide 22 mmol/L (22.0-30.0); Chloride 106 mmol/L (98-107); Creatinine Clearance Estimated 50 mL/min (50-200); Estimated Glomerular Filt Rate 61 ml/min (>60); GFR (African American) 73 ML/MIN (>60); Glucose 111 mg/dl (74-100); Potassium 4.2 mmoL/L (3.5-5.1); Sodium 137 mmol/L (136-145); Total Protein,Serum 6.5 g/dl (6.3-8.2)
--- NOTE | 2023-09-03 13:23 | PC.NURSE ---
portable xray at bedside
[2023-09-03 13:27] LABS: Hematocrit 14.7 % (37.0-47.0)
--- NOTE | 2023-09-03 13:27 | PC.NURSE ---
lab called with critical result hemaglobin 4.2, hematocrit 147. er aware.
--- NOTE | 2023-09-03 13:27 | HMH.EDGENADL ---
Discharge Plan Disposition Patient Disposition: Admitted Chief Complaint: Shortness of Breath/Dyspnea Prescriptions Prescriptions: No Action aspirin [Adult Aspirin Regimen] 81 mg tablet,delayed release (DR/EC) 81 mg PO DAILY PreserVision AREDS-2 [id number] oj-mifx-hc-mg capsule 1 tab PO BID Rx Instructions: administer with meals Leqvio 284 mg/1.5 mL syringe 284 mg SQ .COMPLEX Qty: 1.5 3RF Rx Instructions: 284 mg subcutaneously inititally. Repeat dose in 3 months, then every 6 months therafter; furosemide 40 mg tablet 80 mg PO DAILY Qty: 180 3RF bisoprolol fumarate 5 mg tablet 2.5 mg PO DAILY 90 Days Qty: 45 3RF losartan 25 mg tablet 12.5 mg PO DAILY 90 Days Qty: 45 spironolactone [Aldactone] 25 mg tablet 12.5 mg PO DAILY Qty: 90 3RF levothyroxine [Synthroid] 100 mcg tablet 100 mcg PO DAILY Qty: 90 4RF clopidogrel 75 mg tablet 75 mg PO DAILY Qty: 30 5RF Referrals Follow up/Referrals: Elda Cancino MD [Primary Care Provider] - See instructions Clinical Impressions Clinical Impression: ABLA (acute blood loss anemia), Elevated troponin, Shortness of breath Discharge ED Provider: Toño Luis [facility] General Chief complaint: Shortness of Breath/Dyspnea Stated complaint: low bp, soa, blurred vision Time Seen by Provider: 09/03/23 12:30 Mode of Arrival: Wheelchair Source of Information: Patient Limitations: No Limitations Description of Symptoms (Recalled from ER Triage Doc. by RN): pt reports weakness, shortness of breath, and a nonproductive cough for 2-3 days, states she was discharged 08/30/23 from here and feels like she has slowly felt worse since then, states she's light headed and dizzy easily and fell this morning, denies hitting head or loc History of Present Illness HPI narrative: 78-year-old female history of CAD, carotid artery stenosis, hypertension, hyperlipidemia, PA status post stenting presenting with progressive weakness. Patient states this has been going on since she was discharged 08/29. Short of breath with minimal exertion. States that she has palpitations and shortness of breath, pulse oximeter says that, pulse oximeter says that oxygen is low and blood pressure has been low. Patient states that she has had chronic diarrhea, its gotten worse in the past few weeks. Diarrhea has for the past few days been very dark and thin. No chest pain, diaphoresis, weight loss, abdominal pain, or any other concerns. Please note that above description of symptoms, in this electronic medical record under categorization of recalled from ER triage doctor by RN are reflective of an initial nursing assessment, however, is not reflective of my full history and physical exam that was personally taken and clarified. Consequentially, this preceding description of symptoms, which may include the patient's categorized chief complaint in the EMR, do not reflect my personal clinical impression, and the ultimate description of history of present illness and patient stated complaints should be deferred to this section of the note. Unless stated otherwise or congruent with this section of the note, additional signs, symptoms, or incongruence should be interpreted as inaccurate with my clinical impression. Related Data Home Medications Medication Instructions Recorded Confirmed aspirin 81 mg tablet,delayed 81 mg PO DAILY 06/09/19 08/27/23 release (Adult Aspirin Regimen) vit C 250 mg-vit E 90 mg-zinc 40 1 tab PO BID 06/09/19 08/27/23 mg-copper 1 eo-tajirx-favjct capsule (PreserVision AREDS-2) losartan 25 mg tablet 12.5 mg PO DAILY 90 days #45 tabs 08/27/23 08/27/23 Previous Rx's Medication Instructions Recorded levothyroxine 100 mcg tablet 100 mcg PO DAILY #90 tabs 12/18/22 (Synthroid) clopidogrel 75 mg tablet 75 mg PO DAILY #30 tabs 08/01/23 inclisiran 284 mg/1.5 mL 284 mg (1.5 mL) SQ .COMPLEX #1.5 mL 08/07/23 subcutaneous syringe (Leqvio) bisoprolol fumarate 5 mg tablet 2.5 mg (1/2 x 5 mg) PO DAILY 90 08/27/23 days #45 tabs furosemide 40 mg tablet 80 mg (2 x 40 mg) PO DAILY edema 08/27/23 #180 tabs spironolactone 25 mg tablet 12.5 mg (1/2 x 25 mg) PO DAILY #90 08/27/23 (Aldactone) tabs Allergies Allergy/AdvReac Type Severity Reaction Status Date / Time [id number] Reductase Allergy Mild intolerance Verified 08/27/23 13:40 Inhibitor PFSH PFSH Disclaimer: The information contained in this section may have been updated after the patient was seen, as this information can be updated by other users. 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 (Updated 09/03/23 @ 14:06 by Toño Luis MD) Amyloidosis Carotid artery stenosis Carotid artery disease Hyperlipidemia Edema (HFpEF) heart failure with preserved ejection fraction Goiter Myocardial infarct Macular degeneration Surgical History History of ovarian cystectomy Hx of tonsillectomy History of thyroid surgery H/O hernia repair H/O heart artery stent Family History Other Heart attack Social History Smoking Status: Former smoker tobacco type: cigarettes alcohol intake: never current occupational status: retired Travel in the last 8 weeks: None ROS Obtained: Yes All systems reviewed & no additional complaints except as documented Physical Exam General General appearance: alert, in no apparent distress and other (Pale) Head Head exam: atraumatic and normocephalic Eye Eye exam: Present normal appearance, PERRL and EOMI ENT ENT exam: Present mucous membranes moist Neck Neck exam: Present normal inspection, full ROM and trachea midline Respiratory Respiratory exam: Present normal lung sounds bilaterally; Absent respiratory distress, wheezes, stridor, accessory muscle use or prolonged expiratory phase Cardiovascular Cardiovascular exam: Present regular rate, normal rhythm and systolic murmur Abdominal Exam Abdominal exam: Present soft; Absent distention, tenderness, guarding, rebound or rigidity Extremities Exam Extremities exam: Present edema Neurological Exam Neurological exam: Present alert, oriented X3, CN II-XII intact and normal gait; Absent motor sensory deficit Skin Skin exam: Present warm, dry and pallor; Absent diaphoresis or erythema Medical Decision Making Medical Records Medical records reviewed: Yes I reviewed the patient's medical records. Maxwell Inquiry Pt receiving controlled substance: No Maxwell was queried for this patient: No Vital Signs: 09/03/23 12:27 09/03/23 13:03 09/03/23 13:30 Temperature 98.1 F Temperature Source Oral Pulse Rate 97 H 99 H Pulse Rate [Left Radial] 102 H Respiratory Rate 16 13 19 Blood Pressure 116/53 L 112/47 L Blood Pressure [Right Arm] 102/45 L Blood Pressure Mean [Right Arm] 64 Blood Pressure Source [Right Arm] Automatic Cuff Blood Pressure Position [Right Arm] Sitting 02 Sat by Pulse Oximetry 98 100 100 Oxygen Delivery Method Room Air Room Air 09/03/23 13:45 Temperature Temperature Source Pulse Rate 98 H Pulse Rate [Left Radial] Respiratory Rate 19 Blood Pressure 112/47 L Blood Pressure [Right Arm] Blood Pressure Mean [Right Arm] Blood Pressure Source [Right Arm] Blood Pressure Position [Right Arm] 02 Sat by Pulse Oximetry 100 Oxygen Delivery Method Lab Data Lab Results 09/03/23 12:40: WBC 5.3, RBC 1.89 L*, Hgb 4.2 L*, Hct 14.7 L*, MCV 78.2 L, MCH 22.0 L, MCHC 28.2 L, RDW 17.0, Plt Count 230, MPV 8.5, Neut % (Auto) 76.7, Lymph % (Auto) 14.5, [place] % (Auto) 7.6, Eos % (Auto) 0.8, Baso % (Auto) 0.3, Neut # (Auto) 4.1, Lymph # (Auto) 0.8, [place] # (Auto) 0.4, Eos # (Auto) 0.0, Baso # (Auto) 0.0, Sodium 137, Potassium 4.2, Chloride 106, Carbon Dioxide 22, Anion Gap 13.2, BUN 23 H, Creatinine 0.90, Estimated Creat Clear 50, Estimated GFR 61, Est GFR ( Amer) 73, Glucose 111 H, Calcium 8.8, Total Bilirubin 0.5, AST 29, ALT 22, Alkaline Phosphatase 101, Troponin I 0.10 H, NT-Pro-B Natriuret Pep 420, Total Protein 6.5, Albumin 3.5, Globulin 3.0, Albumin/Globulin Ratio 1.2 09/03/23 12:40 09/03/23 12:40 Orders (Tests/Meds): ORDERS Category Date Time Status Type and Screen Stat BBK 09/03/23 13:36 Received XR chest portable Stat Exams 09/03/23 13:06 Taken BNP [NT Pro Brain Natriuretic Pep.] Stat Lab 09/03/23 12:40 Completed Complete Blood Count Auto Diff Stat Lab 04/01/24 12:40 Completed Comprehensive Metabolic Panel Stat Lab 09/03/23 12:40 Completed Magnesium Stat Lab 09/03/23 12:40 Received Troponin I Q3H Lab 09/03/23 16:15 Ordered Troponin I Q3H Lab 09/03/23 19:15 Ordered Troponin I Stat Lab 09/03/23 12:40 Completed UA [Urinalysis and Microscopic] Stat Lab 09/03/23 13:25 Ordered HEART Score History (anamnesis): Moderately suspicious ECG: Non-specific disturbance Age: >65 years Risk factors: 3 or more risk factors Troponin: > 3x normal limit HEART Score: 8 Medical Decision Narrative: 78-year-old female history of CAD, carotid artery stenosis, hypertension, hyperlipidemia, PA status post stenting presenting with progressive weakness. Patient states this has been going on since she was discharged 08/29. Short of breath with minimal exertion. States that she has palpitations and shortness of breath, pulse oximeter says that, pulse oximeter says that oxygen is low and blood pressure has been low. Patient states that she has had chronic diarrhea, its gotten worse in the past few weeks. Diarrhea has for the past few days been very dark and thin. No chest pain, diaphoresis, weight loss, abdominal pain, or any other concerns. History was obtained via conversation with patient and family. On arrival, patient hemodynamically stable, alert, oriented x4, appropriate, GCS 15, moving all extremities spontaneously, pupils equal and reactive to light. Full physical exam performed and significant for pale woman in no acute distress. Tachycardic, normotensive. Lungs are clear to auscultation bilaterally, systolic ejection murmur heard at right upper sternal border, but very quiet. Lower extremity edema 2+. Abdomen soft, nontender, nondistended. Patient does appear very pale. differential includes blood loss anemia, ACS, PA, pneumothorax, infectious, sepsis, dehydration, among others. Patient was given 1 L fluids for symptomatic management and correction of underlying abnormalities. Workup independently interpreted and significant for hemoglobin 4.2, hematocrit 14.7 down from just over a month ago above 9. See radiology read for full review of final results. Independent interpretation of EKG shows sinus rhythm with mild ST depressions in lateral leads without reciprocal change, [place], QRS, QT intervals within normal limits. Heart score 8. On reevaluation, patient resting comfortably bed, results were relayed, patient grateful for answers. Type and screen sent, 4 units of blood crossmatched. Patient's primary care provider Dr. Cancino was contacted 2 PM on 09/02. To be admitted with cardiology consultation, consultation order was placed. Because patient high risk for clinical decompensation, deemed appropriate for inpatient admission. Results were relayed to patient who voiced understanding and patient was agreeable to inpatient admission and management. Patient was admitted to the hospital for further definitive management. Critical Care Critical Care Time Critical Care Time: Yes (heme) Attestation: On 09/03/23, the high probability of a clinically significant, sudden or life threatening deterioration of the following system(s) required my full and direct attention, intervention and personal management. The time I documented below is in addition to time spent performing reported procedures but includes the following listed in this critical care notation. Total Time Total Critical Care Time: 45
[2023-09-03 13:33] LABS: Hemoglobin 4.2 g/dL (12.2-16.2)
[2023-09-03 13:35] LABS: NT Pro Brain Natriuretic Pep. 420 pg/mL (0-450)
--- NOTE | 2023-09-03 13:35 | PC.NURSE ---
blood consent signed and on the chart.
[2023-09-03 13:58] LABS: Magnesium 2.1 mg/dl (1.6-2.3)
--- NOTE | 2023-09-03 13:59 | PC.NURSE ---
dr bah is speaking to dr heaton at this time
--- NOTE | 2023-09-03 14:02 | PC.NURSE ---
house aware of admission.
--- NOTE | 2023-09-03 14:14 | PC.NURSE ---
er md at bedside updating pt and family
--- NOTE | 2023-09-03 14:24 | PC.NURSE ---
called report to yesenia monroe rn
--- NOTE | 2023-09-03 14:59 | P.HP_ITS ---
History of Present Illness *Admission Date: 09/03/23 *Reason for visit:: shortness of breath *History of present illness: Medical Decision Narrative: 78-year-old female history of CAD, carotid artery stenosis, hypertension, hyperlipidemia, PR status post stenting presenting with progressive weakness. Patient states this has been going on since she was discharged 08/29. Short of breath with minimal exertion. States that she has palpitations and shortness of breath, pulse oximeter says that, pulse oximeter says that oxygen is low and blood pressure has been low. Patient states that she has had chronic diarrhea, its gotten worse in the past few weeks. Diarrhea has for the past few days been very dark and thin. No chest pain, diaphoresis, weight loss, abdominal pain, or any other concerns. History was obtained via conversation with patient and family. On arrival, patient hemodynamically stable, alert, oriented x4, appropriate, GCS 15, moving all extremities spontaneously, pupils equal and reactive to light. Full physical exam performed and significant for pale woman in no acute distress. Tachycardic, normotensive. Lungs are clear to auscultation bilaterally, systolic ejection murmur heard at right upper sternal border, but very quiet. Lower extremity edema 2+. Abdomen soft, nontender, nondistended. Patient does appear very pale. differential includes blood loss anemia, ACS, PR, pneumothorax, infectious, sepsis, dehydration, among others. Patient was given 1 L fluids for symptomatic management and correction of underlying abnormalities. Workup independently interpreted and significant for hemoglobin 4.2, hematocrit 14.7 down from just over a month ago above 9. See radiology read for full review of final results. Independent interpretation of EKG shows sinus rhythm with mild ST depressions in lateral leads without reciprocal change, MT, QRS, QT intervals within normal limits. Heart score 8. The above as per ER documentation. With visit after admission patient states she has felt horrible for the last 3 days. She describes shortness of breath along with dizziness. She has been wearing oxygen..She has been unable to do anything. She is not taking any medications for the last 2 days. She actually requested to come to the hospital.She has had no appetite with a decreased in eating and fluid intake. She is voiding without difficulty. CXR on admission with MPRESSION: Mild right basilar opacities likely represent atelectasis or pneumonia with a small right pleural effusion. [facility] Hospitalization was from 07/30 to 08/01/2023 at which time she had stent placements. She has been on Plavix and aspirin ever since the placement of the stents until the past 2 days when she took no meds.. [facility] Disclaimer: The information contained in this section may have been updated after the patient was seen, as this information can be updated by other users. 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 Amyloidosis Carotid artery stenosis Carotid artery disease Hyperlipidemia Edema (HFpEF) heart failure with preserved ejection fraction Goiter Myocardial infarct Macular degeneration Surgical History History of ovarian cystectomy Hx of tonsillectomy History of thyroid surgery H/O hernia repair H/O heart artery stent Family History Other Heart attack Social History (Updated 09/03/23 @ 14:29 by Adelita Begum RN) Smoking Status: Former smoker tobacco type: cigarettes alcohol intake: never current occupational status: retired Travel in the last 8 weeks: None Review of Systems Constitutional Constitutional: Reports fatigue, Denies fever(s), Denies frequent falls, Reports poor appetite, Reports lethargy and Reports weakness Eyes Eyes: Reports blurry vision and Reports change in vision ENT Ears, Nose, Mouth, and Throat: Reports dizziness, Denies otalgia, Denies sore throat and Reports vertigo *Cardiovascular Cardiovascular: Reports chest pain, Reports dyspnea, Reports dyspnea on exertion, Denies edema, Reports leg edema and Reports rapid heart rate Comments: Wears compression stockings *Respiratory Respiratory: Denies chest congestion, Reports cough, Reports dyspnea, Reports dyspnea on exertion and Denies hemoptysis *Gastrointestinal Gastrointestinal: Denies abdominal pain, Reports change in bowel habits, Reports change in stool character, Denies coffee ground emesis, Denies constipation, Reports diarrhea, Reports dyspepsia, Denies hematemesis, Reports melena, Denies nausea and Denies vomiting *Genitourinary Genitourinary: Denies difficulty voiding *Musculoskeletal Musculoskeletal: Reports muscle weakness *Neurologic Neurologic: Reports dizziness, Denies frequent falls, Reports vertigo and Reports weakness Endocrine Endocrine: Reports fatigue Meds Home Medications and Allergies Home Medications Medication Instructions Recorded Confirmed Type aspirin 81 mg tablet,delayed 81 mg PO DAILY 06/09/19 09/03/23 History release (Adult Aspirin Regimen) vit C 250 mg-vit E 90 mg-zinc 40 1 tab PO BID Macular degeneration 06/09/19 09/03/23 History mg-copper 1 dg-gevole-axwmja capsule (PreserVision AREDS-2) levothyroxine 100 mcg tablet 100 mcg PO DAILY #90 tabs 12/18/22 09/03/23 Rx (Synthroid) clopidogrel 75 mg tablet 75 mg PO DAILY #30 tabs 08/01/23 09/03/23 Rx inclisiran 284 mg/1.5 mL 284 mg (1.5 mL) SQ .COMPLEX #1.5 mL 08/07/23 09/03/23 Rx subcutaneous syringe (Leqvio) losartan 25 mg tablet 12.5 mg PO DAILY 90 days #45 tabs 08/27/23 09/03/23 History bisoprolol fumarate 5 mg tablet 2.5 mg PO HS 09/03/23 09/03/23 History furosemide 40 mg tablet 40 mg PO DAILY Fluid 09/03/23 09/03/23 History spironolactone 25 mg tablet 25 mg PO DAILY 09/03/23 09/03/23 History (Aldactone) New Prescriptions to Start Prescriptions: Allergies Allergy/AdvReac Type Severity Reaction Status Date / Time Clitlng-KLT-NnF Reductase Allergy Mild intolerance Verified 08/27/23 13:40 Inhibitor Exam Data for Last 24 hours Vital signs and Labs for Last 24 Hours: Temp Pulse Resp BP Pulse Ox O2 Del Method 98.3 F 102 H 18 111/51 L 100 Room Air 09/03/23 14:25 09/03/23 14:25 09/03/23 14:25 09/03/23 14:25 09/03/23 13:45 09/03/23 14:25 Laboratory Results - last 24 hr 09/03/23 12:40: WBC 5.3, RBC 1.89 L*, Hgb 4.2 L*, Hct 14.7 L*, MCV 78.2 L, MCH 22.0 L, MCHC 28.2 L, RDW 17.0, Plt Count 230, MPV 8.5, Neut % (Auto) 76.7, Lymph % (Auto) 14.5, [place] % (Auto) 7.6, Eos % (Auto) 0.8, Baso % (Auto) 0.3, Neut # (Auto) 4.1, Lymph # (Auto) 0.8, [place] # (Auto) 0.4, Eos # (Auto) 0.0, Baso # (Auto) 0.0, Sodium 137, Potassium 4.2, Chloride 106, Carbon Dioxide 22, Anion Gap 13.2, BUN 23 H, Creatinine 0.90, Estimated Creat Clear 50, Estimated GFR 61, Est GFR ( Amer) 73, Glucose 111 H, Calcium 8.8, Magnesium 2.1, Total Bilirubin 0.5, AST 29, ALT 22, Alkaline Phosphatase 101, Troponin I 0.10 H, NT-Pro-B Natriuret Pep 420, Total Protein 6.5, Albumin 3.5, Globulin 3.0, Albumin/Globulin Ratio 1.2 09/03/23 13:36: Blood Type B Positive, Antibody Screen Negative, Crossmatch (AHG) See Detail I & O for Last 24 hours: Intake & Output 09/01/23 09/02/23 09/03/23 09/04/23 11:59 11:59 11:59 11:59 Weight 150 lb Constitutional Constitutional: no acute distress Comments: Extremely pale *Routine HEENT Exam Head: Present normocephalic and atraumatic Eye: Present PERRL; Absent conjunctival icterus, scleral injection or conju nctivae pink ENT: Present mucous membranes moist, oropharynx clear and nares patent *Routine Neck Exam Neck: Present carotid bruit (Bilaterally); Absent lymphadenopathy or thyromegaly *Routine Respiratory Exam Respiratory: Present CTA bilaterally (Anteriorly and posteriorly) *Routine Cardiovascular Exam Cardiovascular: Present RRR and murmur *Routine Abdominal Exam Abdominal: Present soft and normoactive bowel sounds; Absent tenderness or distended *Routine Rectal Exam Rectal:: deferred *Routine Genitalia Exam Genitalia:: deferred *Routine Extremities Exam Extremities: Present edema (Bilateral leg edema) *Routine Skin Exam Skin: Present dry, pallor and warm *Routine Neurological Exam Neurological: Present alert, oriented X3, moving all extremities and normal speech Assessment and Plan *Assessment and plan (1) ABLA (acute blood loss anemia): Status: Acute Category: Medical Code(s): D62 - Acute posthemorrhagic anemia (2) Elevated troponin: Status: Acute Category: Medical Code(s): R79.89 - Other specified abnormal findings of blood chemistry (3) Dyspnea on effort: Status: Acute Category: Medical Code(s): R06.09 - Other forms of dyspnea (4) (HFpEF) heart failure with preserved ejection fraction: Status: Acute Qualifiers: Heart failure chronicity: acute on chronic Qualified Code(s): I50.33 - Acute on chronic diastolic (congestive) heart failure Category: Medical Code(s): I50.30 - Unspecified diastolic (congestive) heart failure (5) Status post coronary artery stent placement: Status: Acute Category: Surgical Code(s): Z95.5 - Presence of coronary angioplasty implant and graft (6) ASCVD (arteriosclerotic cardiovascular disease): Status: Acute Category: Medical Code(s): I25.10 - Atherosclerotic heart disease of cahto coronary artery without angina pectoris (7) Hypothyroidism: Problem Comment: Currently on replacement therapy and feeling well. Status: Chronic Qualifiers: Hypothyroidism type: postoperative Qualified Code(s): E89.0 - Postprocedural hypothyroidism Category: Medical Code(s): E03.9 - Hypothyroidism, unspecified (8) Carotid artery stenosis: Status: Acute Qualifiers: Laterality: bilateral Qualified Code(s): I65.23 - Occlusion and stenosis of bilateral carotid arteries Category: Medical Code(s): I65.29 - Occlusion and stenosis of unspecified carotid artery (9) Edema: Status: Acute Qualifiers: Edema type: unspecified Qualified Code(s): R60.9 - Edema, unspecified Category: Medical Code(s): R60.9 - Edema, unspecified Plan To receive 4 units of PRBC; cardiology and surgical consults; O2 per NC
[2023-09-03] MEDS: 0.9 % SODIUM CHLORIDE 250 ML 25 ML IV (15:50)
[2023-09-03 16:32] LABS: Troponin I 0.08 ng/ml (0.00-0.034)
--- NOTE | 2023-09-03 16:51 | P.CONS_ITS ---
History of Present Illness *Admission Date: 09/03/23 *Reason for visit:: Blood Loss Anemia with Hgb 4.2 *History of present illness: Patient is a 78-year-old female with history of atherosclerotic coronary artery disease, carotid artery stenosis, hypertension, hypothyroidism, hyperlipidemia, mitral valve disorder, myocardial infarction with stenting. She was recently admitted to the hospital with shortness of breath on 07/30/2023. At that time her hemoglobin was 10.9. During that hospitalization cardiology was consulted and she underwent heart catheterization and stenting by Dr. Mathew. She was placed on dual antiplatelet therapy. She was discharged from the hospital on 08/01/2023 with a hemoglobin of 9.5. She has developed shortness of breath with minimal exertion with some associated palpitations and some dizziness. She states that the past several days at home she has had some significant shortness of breath and extreme fatigue with inability to participate in activities of daily living. She describes dark and thin diarrhea recently but no gross blood. She presented to the emergency department where she was seen and evaluated. She was found to have a hemoglobin of 4.2. She was admitted for inpatient management. She has been ordered transfusion of 4 units of packed red blood cells. Surgical consultation was ordered for blood loss anemia. Patient has been ordered a cardiac diet. She denies any rectal bleeding. She does state that she has a hemorrhoid that she has been nursing for about 20 years and has rare blood on the tissue paper but nothing of any consequence. She has never had any colonoscopy. Has never had any upper endoscopy. [facility] Disclaimer: The information contained in this section may have been updated after the patient was seen, as this information can be updated by other users. 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 Amyloidosis Carotid artery stenosis Carotid artery disease Hyperlipidemia Edema (HFpEF) heart failure with preserved ejection fraction Goiter Myocardial infarct Macular degeneration Surgical History History of ovarian cystectomy Hx of tonsillectomy History of thyroid surgery H/O hernia repair H/O heart artery stent Family History Other Heart attack Social History (Updated 09/03/23 @ 14:29 by Adelita Begum RN) Smoking Status: Former smoker tobacco type: cigarettes alcohol intake: never current occupational status: retired Travel in the last 8 weeks: None Review of Systems Constitutional Constitutional: Denies frequent falls and Reports weakness ENT Ears, Nose, Mouth, and Throat: Reports dizziness and Reports vertigo *Neurologic Neurologic: Reports dizziness, Denies frequent falls, Reports vertigo and Reports weakness Meds Home Medications and Allergies Home Medications Medication Instructions Recorded Confirmed Type aspirin 81 mg tablet,delayed 81 mg PO DAILY 06/09/19 09/03/23 History release (Adult Aspirin Regimen) vit C 250 mg-vit E 90 mg-zinc 40 1 tab PO BID Macular degeneration 06/09/19 09/03/23 History mg-copper 1 tg-qiseol-xtltgx capsule (PreserVision AREDS-2) levothyroxine 100 mcg tablet 100 mcg PO DAILY #90 tabs 12/18/22 09/03/23 Rx (Synthroid) clopidogrel 75 mg tablet 75 mg PO DAILY #30 tabs 08/01/23 09/03/23 Rx inclisiran 284 mg/1.5 mL 284 mg (1.5 mL) SQ .COMPLEX #1.5 mL 08/07/23 09/03/23 Rx subcutaneous syringe (Leqvio) losartan 25 mg tablet 12.5 mg PO DAILY 90 days #45 tabs 08/27/23 09/03/23 History bisoprolol fumarate 5 mg tablet 2.5 mg PO HS 09/03/23 09/03/23 History furosemide 40 mg tablet 40 mg PO DAILY Fluid 09/03/23 09/03/23 History spironolactone 25 mg tablet 25 mg PO DAILY 09/03/23 09/03/23 History (Aldactone) New Prescriptions to Start Prescriptions: Allergies Allergy/AdvReac Type Severity Reaction Status Date / Time Sqnmscn-ZUT-[id number] Reductase Allergy Mild intolerance Verified 08/27/23 13:40 Inhibitor Exam (Inpt) Vital signs and Labs for Last 24 Hours: Temp Pulse Resp BP Pulse Ox O2 Del Method 99.1 F 93 H 16 120/58 L 98 Room Air 09/03/23 16:20 09/03/23 16:20 09/03/23 16:20 09/03/23 16:20 09/03/23 16:20 09/03/23 15:15 Laboratory Results - last 24 hr 09/03/23 12:40: WBC 5.3, RBC 1.89 L*, Hgb 4.2 L*, Hct 14.7 L*, MCV 78.2 L, MCH 22.0 L, MCHC 28.2 L, RDW 17.0, Plt Count 230, MPV 8.5, Neut % (Auto) 76.7, Lymph % (Auto) 14.5, [place] % (Auto) 7.6, Eos % (Auto) 0.8, Baso % (Auto) 0.3, Neut # (Auto) 4.1, Lymph # (Auto) 0.8, [place] # (Auto) 0.4, Eos # (Auto) 0.0, Baso # (Auto) 0.0, Sodium 137, Potassium 4.2, Chloride 106, Carbon Dioxide 22, Anion Gap 13.2, BUN 23 H, Creatinine 0.90, Estimated Creat Clear 50, Estimated GFR 61, Est GFR ( Amer) 73, Glucose 111 H, Calcium 8.8, Magnesium 2.1, Total Bilirubin 0.5, AST 29, ALT 22, Alkaline Phosphatase 101, Troponin I 0.10 H, NT-Pro-B Natriuret Pep 420, Total Protein 6.5, Albumin 3.5, Globulin 3.0, Albumin/Globulin Ratio 1.2 09/03/23 13:36: Blood Type B Positive, Antibody Screen Negative, Crossmatch (AHG) See Detail 09/03/23 16:00: Troponin I 0.08 H I & O for Labs for Last 24 Hours: Intake & Output 09/01/23 09/02/23 09/03/23 09/04/23 11:59 11:59 11:59 11:59 Intake Total 0 / 0 Balance 0 / 0 Weight 142 lb 8 oz Constitutional: chronically ill appearing Head: Present normocephalic Respiratory: Present decreased breath sounds Cardiac: Present Regular Rate GI: Present soft Rectal (female): Present deferred (female): Present deferred Results Labs 09/03/23 12:40 09/03/23 12:40 Labs: Laboratory Results - last 24 hr 09/03/23 12:40: WBC 5.3, RBC 1.89 L*, Hgb 4.2 L*, Hct 14.7 L*, MCV 78.2 L, MCH 22.0 L, MCHC 28.2 L, RDW 17.0, Plt Count 230, MPV 8.5, Neut % (Auto) 76.7, Lymph % (Auto) 14.5, [place] % (Auto) 7.6, Eos % (Auto) 0.8, Baso % (Auto) 0.3, Neut # (Auto) 4.1, Lymph # (Auto) 0.8, [place] # (Auto) 0.4, Eos # (Auto) 0.0, Baso # (Auto) 0.0, Sodium 137, Potassium 4.2, Chloride 106, Carbon Dioxide 22, Anion Gap 13.2, BUN 23 H, Creatinine 0.90, Estimated Creat Clear 50, Estimated GFR 61, Est GFR ( Amer) 73, Glucose 111 H, Calcium 8.8, Magnesium 2.1, Total Bilirubin 0.5, AST 29, ALT 22, Alkaline Phosphatase 101, Troponin I 0.10 H, NT-Pro-B Natriuret Pep 420, Total Protein 6.5, Albumin 3.5, Globulin 3.0, Albumin/Globulin Ratio 1.2 09/03/23 13:36: Blood Type B Positive, Antibody Screen Negative, Crossmatch (AHG) See Detail 09/03/23 16:00: Troponin I 0.08 H Assessment and Plan *Assessment and plan (1) Anemia: Status: Acute Qualifiers: Anemia type: unspecified type Qualified Code(s): D64.9 - Anemia, unspecified Category: Medical Code(s): D64.9 - Anemia, unspecified Plan Tentatively plan for upper endoscopy tomorrow. Await cardiology assessment. Patient to be transfused tonight. Recommend therapeutic dose proton pump inhibitors.
--- NOTE | 2023-09-03 17:57 | PC.NURSE ---
Pt is resting in bed. 1ST Unit of blood transfusing. Pt has tolerated well. No complaints stated. VS have been stable. She has ambulated to with stand by assistance. Call light within reach.
[2023-09-03 18:29] LABS: Microscopic, Urine URINE MICROSCOPIC (MICROSCOPIC)
[2023-09-03 18:35] LABS: Appearance,Urine CLEAR (Clear); Bilirubin,Urine Negative (Negative); Blood, Urine Negative (Negative); Color,Urine YELLOW (Yellow); Glucose,Urine (UA) Negative (Negative); Ketones,Urine Negative (Negative); Leukocyte Esterase,Urine Negative (Negative); Nitrate,Urine Negative (Negative); Protein,Urine Negative (Negative); Specific Gravity, Urine 1.025 (1.005-1.030); Urobilinogen,Urine 0.2 EU/dl (0.2)
[2023-09-03 19:38] LABS: Squamous Epithelial Cell,Urine Occasional #/hpf (0-5); WBC,Urine Occasional #/hpf (0-3)
[2023-09-03 19:39] LABS: Troponin I 0.09 ng/ml (0.00-0.034)
[2023-09-04] VITALS (29 sets, daily range): BP systolic 99–144; BP diastolic 51–82; PULSE 72–96; RESP 12–22; TEMP 36.6–36.8; O2SAT 90–100; BMI 24.5
[2023-09-04 06:24] LABS: Basophils # 0.1 K/mm3 (0-0.2); Basophils % 0.8 % (0.1-2.0); Eosinophils # 0.1 K/mm3 (0.0-0.4); Eosinophils % 1.6 % (0.1-12.0); Hematocrit 30.9 % (37.0-47.0); Lymphocytes # 0.9 K/mm3 (0.7-4.5); Mean Corpuscular HGB Conc 31.5 g/dL (31.8-35.4); Mean Corpuscular Hemoglobin 26.1 pg (27.0-31.2); Mean Corpuscular Volume 82.7 fl (81-99); Mean Platelet Volume 10.2 fl (7.4-10.4); Monocytes # 0.4 K/mm3 (0.1-1.0); Monocytes % 7.8 % (1.7-9.3); Neutrophils % 72.7 % (37.0-80.0); Platelet Count 183 K/mm3 (142-424); Red Blood Count 3.73 M/mm3 (4.20-5.40); Red Cell Distribution Width 16.2 % (11.5-17.5); White Blood Count 5.5 K/mm3 (4.8-10.8)
[2023-09-04 06:26] LABS: Chloride 110 mmol/L (98-107)
[2023-09-04 06:27] LABS: Potassium 4.3 mmoL/L (3.5-5.1); Sodium 138 mmol/L (136-145)
[2023-09-04 06:29] LABS: Alanine Aminotransferase 19 U/L (12-78); Aspartate Amino Transferase 28 U/L (14-36); Blood Urea Nitrogen 19 mg/dl (7-17); Creatinine Clearance Estimated 47 mL/min (50-200); Estimated Glomerular Filt Rate 69 ml/min (>60); GFR (African American) 84 ML/MIN (>60)
[2023-09-04 06:30] LABS: Albumin Level 3.2 g/dl (3.5-5.0); Alkaline Phosphatase 118 U/L (38-126); Anion Gap 6.3 mEq/L (5-15); Bilirubin,Total 2.1 mg/dl (0.2-1.3); Calcium 8.6 mg/dl (8.4-10.2); Carbon Dioxide 26 mmol/L (22.0-30.0); Globulin 3.1 g/dL (1.3-3.2); Glucose 104 mg/dl (74-100); Total Protein,Serum 6.3 g/dl (6.3-8.2)
[2023-09-04 06:39] LABS: Hemoglobin 9.7 g/dL (12.2-16.2)
--- NOTE | 2023-09-04 07:29 | EXP.SURG.PN ---
Subjective Narrative: Patient states that she had a large amount of incontinence of brown liquid stool without blood yesterday evening. Transfused 4 units for hemoglobin of 4.2 with resultant hemoglobin of 9.7. Exam Data for Last 24 hours Vital signs and Labs for Last 24 Hours: Temp Pulse Resp BP Pulse Ox O2 Del Method O2 Flow Rate 98 F 90 21 130/70 95 Room Air 2 09/04/23 03:06 09/04/23 04:00 09/04/23 03:06 09/04/23 03:06 09/04/23 03:06 09/03/23 21:00 09/03/23 18:52 Laboratory Results - last 24 hr 09/03/23 12:40: WBC 5.3, RBC 1.89 L*, Hgb 4.2 L*, Hct 14.7 L*, MCV 78.2 L, MCH 22.0 L, MCHC 28.2 L, RDW 17.0, Plt Count 230, MPV 8.5, Neut % (Auto) 76.7, Lymph % (Auto) 14.5, [place] % (Auto) 7.6, Eos % (Auto) 0.8, Baso % (Auto) 0.3, Neut # (Auto) 4.1, Lymph # (Auto) 0.8, [place] # (Auto) 0.4, Eos # (Auto) 0.0, Baso # (Auto) 0.0, Sodium 137, Potassium 4.2, Chloride 106, Carbon Dioxide 22, Anion Gap 13.2, BUN 23 H, Creatinine 0.90, Estimated Creat Clear 50, Estimated GFR 61, Est GFR ( Amer) 73, Glucose 111 H, Calcium 8.8, Magnesium 2.1, Total Bilirubin 0.5, AST 29, ALT 22, Alkaline Phosphatase 101, Troponin I 0.10 H, NT-Pro-B Natriuret Pep 420, Total Protein 6.5, Albumin 3.5, Globulin 3.0, Albumin/Globulin Ratio 1.2 09/03/23 13:36: Blood Type B Positive, Antibody Screen Negative, Crossmatch (AHG) See Detail 09/03/23 16:00: Troponin I 0.08 H 09/03/23 18:18: Urine Color Yellow, Urine Appearance Clear, Urine pH 6.0, Ur Specific [place] 1.025, Urine Protein Negative, Urine Glucose (UA) Negative, Urine Ketones Negative, Urine Blood Negative, Urine Nitrate Negative, Urine Bilirubin Negative, Urine Urobilinogen 0.2, Ur Leukocyte Esterase Negative, Urine RBC None, Urine WBC Occasional, Ur Squamous Epith Cells Occasional, Urine Bacteria None 09/03/23 19:07: Troponin I 0.09 H 09/04/23 05:59: WBC 5.5, RBC 3.73 L D, Hgb 9.7 L D, Hct 30.9 L, MCV 82.7, MCH 26.1 L, MCHC 31.5 L, RDW 16.2, Plt Count 183, MPV 10.2, Neut % (Auto) 72.7, Lymph % (Auto) 17.0, [place] % (Auto) 7.8, Eos % (Auto) 1.6, Baso % (Auto) 0.8, Neut # (Auto) 4.0, Lymph # (Auto) 0.9, [place] # (Auto) 0.4, Eos # (Auto) 0.1, Baso # (Auto) 0.1, Sodium 138, Potassium 4.3, Chloride 110 H, Carbon Dioxide 26, Anion Gap 6.3, BUN 19 H, Creatinine 0.80, Estimated Creat Clear 47, Estimated GFR 69, Est GFR ( Amer) 84, Glucose 104 H, Calcium 8.6, Total Bilirubin 2.1 H, AST 28, ALT 19, Alkaline Phosphatase 118, Total Protein 6.3, Albumin 3.2 L, Globulin 3.1, Albumin/Globulin Ratio 1.0 L I & O for Last 24 hours: Intake & Output 09/01/23 09/02/23 09/03/23 09/04/23 11:59 11:59 11:59 11:59 Intake Total 1320 / 1320 Output Total 150 / 150 Balance 1170 / 1170 Weight 144 lb 1 oz Progress Note: A&P Assessment and plan (1) ABLA (acute blood loss anemia): Status: Acute Assessment and plan: Tentative EGD today (2) Elevated troponin: Status: Acute (3) Dyspnea on effort: Status: Acute (4) (HFpEF) heart failure with preserved ejection fraction: Status: Acute (5) Status post coronary artery stent placement: Status: Acute (6) ASCVD (arteriosclerotic cardiovascular disease): Status: Acute (7) Hypothyroidism: Problem details: Currently on replacement therapy and feeling well. Status: Chronic (8) Carotid artery stenosis: Status: Acute (9) Edema: Status: Acute
--- NOTE | 2023-09-04 07:59 | P.PN_ITS ---
Subjective *Date: 09/04/23 *Time: 07:59 Interval history: Patient states she feels better this morning. Her head is more clear, vision is better, and heart has been stable. She is upset because she was unable to make it to the bathroom and was incontinent of stool on the way to the bathroom. She describes the stool as watery and brown. Nursing reports 2 jessica bloody stools during the night. Vital signs have been stable. She has received 4 units of packed red blood cells. She is n.p.o. this morning for an EGD. Hemoglobin this morning is 9.7 with hematocrit of 30.9. Blood chemistries show good kidney function with a BUN of 19 and creatinine of 0.8. Sodium and potassium are normal. Medical Exam Vital signs and Labs for Last 24 Hours: Vital Signs Temp Pulse Pulse Resp BP BP Pulse Ox 09/04/23 07:55 97.8 F 90 20 130/77 100 09/04/23 04:00 90 09/04/23 03:06 98 F 86 21 130/70 95 09/04/23 02:50 98 F 88 22 126/71 96 09/04/23 01:50 98 F 88 22 135/73 96 09/04/23 01:35 98 F 89 19 132/82 94 L 09/04/23 01:33 98 F 93 H 20 135/73 96 09/04/23 01:20 98.1 F 88 20 131/64 95 09/04/23 01:05 98.1 F 92 H 20 128/68 90 L 09/04/23 00:58 97.9 F 96 H 22 137/73 94 L 09/04/23 00:55 97.9 F 88 18 137/72 97 09/04/23 00:49 97.9 F 93 H 12 132/68 95 09/04/23 00:47 97.9 F 95 H 22 140/73 96 09/04/23 00:31 98.2 F 88 20 130/72 96 09/04/23 00:20 98 F 88 20 117/78 97 09/04/23 00:00 92 H 09/04/23 00:00 90 22 132/68 94 L 09/03/23 23:20 98 F 92 H 31 H 125/62 99 09/03/23 23:05 98 F 98 H 24 141/80 H 96 09/03/23 22:50 98 F 96 H 18 144/84 H 96 09/03/23 22:35 98 F 94 H 24 134/68 97 09/03/23 22:30 98.7 F 93 H 19 146/69 H 96 09/03/23 22:25 98.7 F 96 H 15 140/75 97 09/03/23 22:20 98.7 F 99 H 23 142/73 H 98 09/03/23 22:15 98.2 F 96 H 17 137/74 97 09/03/23 21:00 09/03/23 20:05 98.7 F 94 H 22 121/58 L 98 09/03/23 20:00 89 09/03/23 20:00 95 09/03/23 19:50 98.7 F 89 21 114/51 L 96 09/03/23 19:35 98.7 F 91 H 21 87/57 L 97 09/03/23 19:20 98.8 F 90 19 108/56 L 92 L 09/03/23 19:05 98.7 F 94 H 20 112/48 L 93 L 09/03/23 19:00 98.7 F 90 20 100/48 L 98 09/03/23 18:55 98.7 F 91 H 20 104/46 L 98 09/03/23 18:52 09/03/23 18:50 98.7 F 92 H 19 109/49 L 100 09/03/23 18:40 98.8 F 92 H 20 100/46 L 98 09/03/23 18:14 98.9 F 97 H 20 118/51 L 100 09/03/23 17:50 98.9 F 100 H 19 120/49 L 100 09/03/23 17:00 09/03/23 16:50 99.1 F 100 H 20 127/58 L 99 09/03/23 16:35 99 F 96 H 18 121/55 L 99 09/03/23 16:20 99.1 F 93 H 16 120/58 L 98 09/03/23 16:05 98.6 F 97 H 19 130/55 L 100 09/03/23 16:02 90 09/03/23 16:00 98.6 F 94 H 16 118/60 99 09/03/23 15:55 97.9 F 93 H 16 104/52 L 100 09/03/23 15:50 98.8 F 94 H 18 109/52 L 100 09/03/23 15:45 97.8 F 104 H 20 107/50 L 99 09/03/23 15:15 97.8 F 104 H 20 107/50 L 99 09/03/23 14:25 98.3 F 102 H 18 111/51 L 09/03/23 13:45 98 H 19 112/47 L 100 09/03/23 13:30 99 H 19 112/47 L 100 09/03/23 13:03 97 H 13 116/53 L 100 09/03/23 12:27 98.1 F 102 H 16 102/45 L 98 O2 Del Method O2 Flow Rate 09/04/23 07:55 Room Air 09/04/23 04:00 09/04/23 03:06 09/04/23 02:50 09/04/23 01:50 09/04/23 01:35 09/04/23 01:33 09/04/23 01:20 09/04/23 01:05 09/04/23 00:58 09/04/23 00:55 09/04/23 00:49 09/04/23 00:47 09/04/23 00:31 09/04/23 00:20 09/04/23 00:00 09/04/23 00:00 09/03/23 23:20 09/03/23 23:05 09/03/23 22:50 09/03/23 22:35 09/03/23 22:30 09/03/23 22:25 09/03/23 22:20 09/03/23 22:15 09/03/23 21:00 Room Air 09/03/23 20:05 09/03/23 20:00 09/03/23 20:00 Room Air 09/03/23 19:50 09/03/23 19:35 09/03/23 19:20 09/03/23 19:05 09/03/23 19:00 09/03/23 18:55 09/03/23 18:52 Nasal Cannula 2 09/03/23 18:50 09/03/23 18:40 09/03/23 18:14 09/03/23 17:50 09/03/23 17:00 Room Air 09/03/23 16:50 09/03/23 16:35 09/03/23 16:20 09/03/23 16:05 09/03/23 16:02 09/03/23 16:00 09/03/23 15:55 09/03/23 15:50 09/03/23 15:45 09/03/23 15:15 Room Air 09/03/23 14:25 Room Air 09/03/23 13:45 09/03/23 13:30 Room Air 09/03/23 13:03 09/03/23 12:27 Room Air Intake and Output 09/03/23 09/04/23 09/04/23 19:59 03:59 11:59 Intake Total 570 / 570 750 / 1320 Output Total 150 / 150 0 / 150 0 / 150 Balance 420 / 420 750 / 1170 0 / 1170 Intake: Intake, Oral Amount 270 / 270 Intake, Other Amount 50 / 50 Red Blood Cells Unit 50 / 50 [id number] Intake (Blood Product) Amt 250 / 250 750 / 1000 Red Blood Cells Unit 250 / 250 [id number] Red Blood Cells Unit 250 / 250 [id number] Red Blood Cells Unit 0 / 0 250 / 250 [id number] Red Blood Cells Unit 250 / 250 [id number] Output: Output, Urine Amount 150 / 150 0 / 150 0 / 150 Other: Number of Voids 0 Number of Unmeasured Voids 1 1 1 Number of Bowel Movements 2 Weight 142 lb 8 oz 144 lb 1 oz Patient Weight 09/04/23 11:59 Weight 144 lb 1 oz Laboratory Results - last 24 hr 09/03/23 12:40: WBC 5.3, RBC 1.89 L*, Hgb 4.2 L*, Hct 14.7 L*, MCV 78.2 L, MCH 22.0 L, MCHC 28.2 L, RDW 17.0, Plt Count 230, MPV 8.5, Neut % (Auto) 76.7, Lymph % (Auto) 14.5, [place] % (Auto) 7.6, Eos % (Auto) 0.8, Baso % (Auto) 0.3, Neut # (Auto) 4.1, Lymph # (Auto) 0.8, [place] # (Auto) 0.4, Eos # (Auto) 0.0, Baso # (Auto) 0.0, Sodium 137, Potassium 4.2, Chloride 106, Carbon Dioxide 22, Anion Gap 13.2, BUN 23 H, Creatinine 0.90, Estimated Creat Clear 50, Estimated GFR 61, Est GFR ( Amer) 73, Glucose 111 H, Calcium 8.8, Magnesium 2.1, Total Bilirubin 0.5, AST 29, ALT 22, Alkaline Phosphatase 101, Troponin I 0.10 H, NT-Pro-B Natriuret Pep 420, Total Protein 6.5, Albumin 3.5, Globulin 3.0, Albumin/Globulin Ratio 1.2 09/03/23 13:36: Blood Type B Positive, Antibody Screen Negative, Crossmatch (AHG) See Detail 09/03/23 16:00: Troponin I 0.08 H 09/03/23 18:18: Urine Color Yellow, Urine Appearance Clear, Urine pH 6.0, Ur Specific [place] 1.025, Urine Protein Negative, Urine Glucose (UA) Negative, Urine Ketones Negative, Urine Blood Negative, Urine Nitrate Negative, Urine Bilirubin Negative, Urine Urobilinogen 0.2, Ur Leukocyte Esterase Negative, Urine RBC None, Urine WBC Occasional, Ur Squamous Epith Cells Occasional, Urine Bacteria None 09/03/23 19:07: Troponin I 0.09 H 09/04/23 05:59: WBC 5.5, RBC 3.73 L D, Hgb 9.7 L D, Hct 30.9 L, MCV 82.7, MCH 26.1 L, MCHC 31.5 L, RDW 16.2, Plt Count 183, MPV 10.2, Neut % (Auto) 72.7, Lymph % (Auto) 17.0, [place] % (Auto) 7.8, Eos % (Auto) 1.6, Baso % (Auto) 0.8, Neut # (Auto) 4.0, Lymph # (Auto) 0.9, [place] # (Auto) 0.4, Eos # (Auto) 0.1, Baso # (Auto) 0.1, Sodium 138, Potassium 4.3, Chloride 110 H, Carbon Dioxide 26, Anion Gap 6.3, BUN 19 H, Creatinine 0.80, Estimated Creat Clear 47, Estimated GFR 69, Est GFR ( Amer) 84, Glucose 104 H, Calcium 8.6, Total Bilirubin 2.1 H, AST 28, ALT 19, Alkaline Phosphatase 118, Total Protein 6.3, Albumin 3.2 L, Globulin 3.1, Albumin/Globulin Ratio 1.0 L I & O for Labs for Last 24 Hours: Intake & Output 09/01/23 09/02/23 09/03/23 09/04/23 11:59 11:59 11:59 11:59 Intake Total 1320 / 1320 Output Total 150 / 150 Balance 1170 / 1170 Weight 144 lb 1 oz Constitutional: Present no acute distress Comment:: Sitting up in the bed and appears comfortable Respiratory: Present CTA bilaterally (Anteriorly and posteriorly) Cardiac: Present Regular Rhythm (Sinus rhythm in the 90s) GI: Present soft and normal bowel sounds; Absent distention, tenderness or guarding Extremities: Present full ROM; Absent tenderness, edema or calf tenderness Skin: Present dry and pallor Neuro: Present alert and oriented x 3 Assessment and Plan *Assessment and plan (1) ABLA (acute blood loss anemia): Status: Acute Category: Medical Code(s): D62 - Acute posthemorrhagic anemia (2) GI bleed: Status: Acute Category: Medical Code(s): K92.2 - Gastrointestinal hemorrhage, unspecified (3) Shortness of breath: Status: Acute Category: Medical Code(s): R06.02 - Shortness of breath (4) Elevated troponin: Status: Acute Category: Medical Code(s): R79.89 - Other specified abnormal findings of blood chemistry (5) (HFpEF) heart failure with preserved ejection fraction: Status: Acute Qualifiers: Heart failure chronicity: acute on chronic Qualified Code(s): I50.33 - Acute on chronic diastolic (congestive) heart failure Category: Medical Code(s): I50.30 - Unspecified diastolic (congestive) heart failure (6) Status post coronary artery stent placement: Status: Acute Category: Surgical Code(s): Z95.5 - Presence of coronary angioplasty implant and graft (7) HTN (hypertension): Status: Acute Qualifiers: Hypertension type: primary hypertension Qualified Code(s): I10 - Essential (primary) hypertension Category: Medical Code(s): I10 - Essential (primary) hypertension (8) ASCVD (arteriosclerotic cardiovascular disease): Status: Acute Category: Medical Code(s): I25.10 - Atherosclerotic heart disease of [place] coronary artery without angina pectoris Plan For EGD this morning. Will restart bisoprolol and levothyroxine. Patient to be seen by cardiology today as well. Will also start a PPI. Continue to monitor H&H
--- NOTE | 2023-09-04 07:59 | PC.NURSE ---
All patient documentation and care provided by Dulce Smallwood RN was completed under my direct supervision. Diana Donnelly RN
[2023-09-04] MEDS: PANTOPRAZOLE 40MG VIAL 40 MG IV ×2 (09:42→20:50)
[2023-09-04] MEDS: SODIUM CHLORIDE 0.9% 10ML VIAL 10 ML IV ×2 (09:42→20:50)
[2023-09-04] MEDS: LEVOTHYROXINE 100MCG (0.1MG) TAB 100 MCG PO (09:42)
--- NOTE | 2023-09-04 10:12 | EXP.CARD.CON ---
History of Present Illness History of Present Illness Consult date: 09/04/23 Requesting physician: Elda Cancino Chief complaint: weakness, soa History of present illness: 78-year-old white female with past medical history of coronary artery disease with recent stenting to ramus with remaining LAD disease and a chronically occluded RCA, heart failure with preserved ejection fraction with moderate MR and grade 3 diastolic dysfunction, current tobacco use, hypertension, hyperlipidemia and anemia presented to emergency department on yesterday with complaints of worsening weakness and shortness of air since released from hospital on 08/29. During hospitalization in August, patient underwent LEESA to ramus and was started on aspirin and Plavix therapy. Patient reports since then has had progressive weakness, shortness of breath and worsening chronic diarrhea the past 3 weeks. Patient reports as of lately diarrhea has been thin and very dark . Upon presentation to emergency department EKG showed sinus rhythm with moderate T wave abnormalities noted. Labs were significant as follow: Hemoglobin was 4.2, hematocrit 14, sodium 138, potassium 4.3, creatinine 0.8 and a troponin of 0.10. Patient was typed and crossed and admitted for concern for GI bleed, anemia and elevated troponin. Patient has received 4 units as of this morning and hemoglobin has improved to 9.7. Patient reports she feels a lot better and symptoms are improving with a decrease in shortness of breath and weakness. Vitals remained stable. Patient denies chest pain. [facility] Disclaimer: The information contained in this section may have been updated after the patient was seen, as this information can be updated by other users. 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 (Updated 09/04/23 @ 08:08 by Jagruti Clark APRN) Amyloidosis Carotid artery stenosis Carotid artery disease Hyperlipidemia Edema (HFpEF) heart failure with preserved ejection fraction Goiter Myocardial infarct Macular degeneration Surgical History History of ovarian cystectomy Hx of tonsillectomy History of thyroid surgery H/O hernia repair H/O heart artery stent Family History Other Heart attack Social History (Updated 09/03/23 @ 14:29 by Adelita Begum RN) Smoking Status: Former smoker tobacco type: cigarettes alcohol intake: never current occupational status: retired Travel in the last 8 weeks: None Review of Systems Review of Systems Review of systems:: pertinent systems reviewed and negative unless documented below Constitutional Constitutional: Denies frequent falls and Reports weakness ENT Ears, Nose, Mouth, and Throat: Reports dizziness and Reports vertigo *Cardiovascular Cardiovascular: Reports dyspnea *Respiratory Respiratory: Reports dyspnea *Neurologic Neurologic: Reports dizziness, Denies frequent falls, Reports vertigo and Reports weakness Exam Data for Last 24 hours Vital signs and Labs for Last 24 Hours: Temp Pulse Resp BP Pulse Ox O2 Del Method O2 Flow Rate 97.8 F 83 20 130/77 96 Room Air 2 09/04/23 07:55 09/04/23 08:00 09/04/23 07:55 09/04/23 07:55 09/04/23 08:00 09/04/23 09:00 09/03/23 18:52 Laboratory Results - last 24 hr 09/03/23 12:40: WBC 5.3, RBC 1.89 L*, Hgb 4.2 L*, Hct 14.7 L*, MCV 78.2 L, MCH 22.0 L, MCHC 28.2 L, RDW 17.0, Plt Count 230, MPV 8.5, Neut % (Auto) 76.7, Lymph % (Auto) 14.5, [place] % (Auto) 7.6, Eos % (Auto) 0.8, Baso % (Auto) 0.3, Neut # (Auto) 4.1, Lymph # (Auto) 0.8, [place] # (Auto) 0.4, Eos # (Auto) 0.0, Baso # (Auto) 0.0, Sodium 137, Potassium 4.2, Chloride 106, Carbon Dioxide 22, Anion Gap 13.2, BUN 23 H, Creatinine 0.90, Estimated Creat Clear 50, Estimated GFR 61, Est GFR ( Amer) 73, Glucose 111 H, Calcium 8.8, Magnesium 2.1, Total Bilirubin 0.5, AST 29, ALT 22, Alkaline Phosphatase 101, Troponin I 0.10 H, NT-Pro-B Natriuret Pep 420, Total Protein 6.5, Albumin 3.5, Globulin 3.0, Albumin/Globulin Ratio 1.2 09/03/23 13:36: Blood Type B Positive, Antibody Screen Negative, Crossmatch (AHG) See Detail 09/03/23 16:00: Troponin I 0.08 H 09/03/23 18:18: Urine Color Yellow, Urine Appearance Clear, Urine pH 6.0, Ur Specific [place] 1.025, Urine Protein Negative, Urine Glucose (UA) Negative, Urine Ketones Negative, Urine Blood Negative, Urine Nitrate Negative, Urine Bilirubin Negative, Urine Urobilinogen 0.2, Ur Leukocyte Esterase Negative, Urine RBC None, Urine WBC Occasional, Ur Squamous Epith Cells Occasional, Urine Bacteria None 09/03/23 19:07: Troponin I 0.09 H 09/04/23 05:59: WBC 5.5, RBC 3.73 L D, Hgb 9.7 L D, Hct 30.9 L, MCV 82.7, MCH 26.1 L, MCHC 31.5 L, RDW 16.2, Plt Count 183, MPV 10.2, Neut % (Auto) 72.7, Lymph % (Auto) 17.0, [place] % (Auto) 7.8, Eos % (Auto) 1.6, Baso % (Auto) 0.8, Neut # (Auto) 4.0, Lymph # (Auto) 0.9, [place] # (Auto) 0.4, Eos # (Auto) 0.1, Baso # (Auto) 0.1, Sodium 138, Potassium 4.3, Chloride 110 H, Carbon Dioxide 26, Anion Gap 6.3, BUN 19 H, Creatinine 0.80, Estimated Creat Clear 47, Estimated GFR 69, Est GFR ( Amer) 84, Glucose 104 H, Calcium 8.6, Total Bilirubin 2.1 H, AST 28, ALT 19, Alkaline Phosphatase 118, Total Protein 6.3, Albumin 3.2 L, Globulin 3.1, Albumin/Globulin Ratio 1.0 L I & O for Last 24 hours: Intake & Output 09/01/23 09/02/23 09/03/23 09/04/23 23:59 23:59 23:59 23:59 Intake Total 820 / 820 500 / 500 Output Total 150 / 150 0 / 0 Balance 670 / 670 500 / 500 Weight 142 lb 8 oz 144 lb 1 oz Constitutional Constitutional: no acute distress *Routine Respiratory Exam Respiratory: Present CTA bilaterally and symmetric chest movement *Routine Cardiovascular Exam Cardiovascular: Present RRR, Normal S1 and Normal S2 *Routine Abdominal Exam Abdominal: Present soft and normoactive bowel sounds; Absent tenderness *Routine Extremities Exam Extremities: Present full ROM and normal capillary refill; Absent edema *Routine Skin Exam Skin: Present intact, dry and warm Detailed Neck Exam: Thyroids Thyroid: Absent bruit Meds Home Medications and Allergies Home Medications Medication Instructions Recorded Confirmed Type aspirin 81 mg tablet,delayed 81 mg PO DAILY 06/09/19 09/03/23 History release (Adult Aspirin Regimen) vit C 250 mg-vit E 90 mg-zinc 40 1 tab PO BID Macular degeneration 06/09/19 09/03/23 History mg-copper 1 [id number]-zftxts capsule (PreserVision AREDS-2) levothyroxine 100 mcg tablet 100 mcg PO DAILY #90 tabs 12/18/22 09/03/23 Rx (Synthroid) clopidogrel 75 mg tablet 75 mg PO DAILY #30 tabs 08/01/23 09/03/23 Rx inclisiran 284 mg/1.5 mL 284 mg (1.5 mL) SQ .COMPLEX #1.5 mL 08/07/23 09/03/23 Rx subcutaneous syringe (Leqvio) losartan 25 mg tablet 12.5 mg PO DAILY 90 days #45 tabs 08/27/23 09/03/23 History bisoprolol fumarate 5 mg tablet 2.5 mg PO HS 09/03/23 09/03/23 History furosemide 40 mg tablet 40 mg PO DAILY Fluid 09/03/23 09/03/23 History spironolactone 25 mg tablet 25 mg PO DAILY 09/03/23 09/03/23 History (Aldactone) New Prescriptions to Start Prescriptions: Allergies Allergy/AdvReac Type Severity Reaction Status Date / Time [id number] Reductase Allergy Mild intolerance Verified 08/27/23 13:40 Inhibitor Assessment and Plan *Assessment and plan (1) GI bleed: Status: Acute Category: Medical Code(s): K92.2 - Gastrointestinal hemorrhage, unspecified (2) Shortness of breath: Status: Acute Category: Medical Code(s): R06.02 - Shortness of breath (3) Elevated troponin: Status: Acute Category: Medical Code(s): R79.89 - Other specified abnormal findings of blood chemistry (4) ABLA (acute blood loss anemia): Status: Acute Category: Medical Code(s): D62 - Acute posthemorrhagic anemia (5) Amyloidosis: Status: Acute Category: Medical Code(s): E85.9 - Amyloidosis, unspecified (6) Carotid artery stenosis: Status: Acute Qualifiers: Laterality: bilateral Qualified Code(s): I65.23 - Occlusion and stenosis of bilateral carotid arteries Category: Medical Code(s): I65.29 - Occlusion and stenosis of unspecified carotid artery (7) Carotid artery disease: Status: Acute Category: Medical Code(s): I77.9 - Disorder of arteries and arterioles, unspecified (8) Hyperlipidemia: Status: Acute Qualifiers: Hyperlipidemia type: mixed hyperlipidemia Qualified Code(s): E78.2 - Mixed hyperlipidemia Category: Medical Code(s): E78.5 - Hyperlipidemia, unspecified (9) (HFpEF) heart failure with preserved ejection fraction: Status: Acute Qualifiers: Heart failure chronicity: acute on chronic Qualified Code(s): I50.33 - Acute on chronic diastolic (congestive) heart failure Category: Medical Code(s): I50.30 - Unspecified diastolic (congestive) heart failure (10) Mitral valve disorder: Status: Acute Category: Medical Code(s): I05.9 - Rheumatic mitral valve disease, unspecified (11) HTN (hypertension): Status: Acute Qualifiers: Hypertension type: primary hypertension Qualified Code(s): I10 - Essential (primary) hypertension Category: Medical Code(s): I10 - Essential (primary) hypertension Plan Acute blood loss anemia Concern for GI bleed -Initial hemoglobin was 4.2 on admission and has improved to 9.7 after 4 units transfused -Surgery is consulted and proceeding with an upper endoscopy today 09/04/2023: Endoscopy results: Most likely source of blood loss would be from significant erosive duodenitis with associated shallow ulcerations. Epinephrine was injected submucosally around area. Recommend proton pump inhibitor and Carafate and to hold antiplatelet therapy if possible with repeat upper endoscopy in several weeks for reassessment. See full report. Coronary artery disease NSTEMI/Likely type II [place] from acute anemia/blood loss -Left heart catheterization 07/31-LEESA to ramus with remaining LAD disease and a chronically occluded RCA noted -Initial troponin 0.10-trending down to 0.09 -EKG without STEMI -Continue to hold DAPT therapy x 1 week. In 1 week will attempt to restart Plavix 75 mg p.o. daily if no further bleeding issues noted. Continue bisoprolol 2.5 mg daily. Patient is statin intolerant and recently started on Leqvio. Chronic HFpEF Grade 3 diastolic dysfunction Biatrial dilation Moderate MR -Echocardiogram 07/28 shows normal biventricular function, increased LV wall thickness 1.5 cm, grade 3 diastolic dysfunction, biatrial dilation, moderate MR -Patient is being worked up outpatient for amyloidosis with concern for ATTR amyloidosis -Continue Aldactone 25 mg daily and Lasix 40 mg BID Will add Jardiance prior to discharge. Hypertension -Currently well-controlled, continue bisoprolol 2.5 mg daily and losartan 12.5 mg daily Carotid artery stenosis -Carotid duplex 08/15/2023-bilateral greater than 70% stenosis of the carotid arteries with a large amount of plaque noted. CV summary 09/04/2023: Okay to hold DAPT therapy for 1 week. Please have patient follow-up in cardiology clinic in 1 week for reevaluation and at that time we will discuss restarting Plavix. At office follow-up patient also needs referral for carotid artery stenosis. Please continue below listed medications. Outpatient cardiac MRI is pending. Hematology referral pending. Consider addition of Jardiance at office follow-up. Cardiac meds Bisoprolol 2.5 mg daily Leqvio recently ordered has not been given yet Aldactone 25 mg daily Lasix 40 mg p.o. twice daily Losartan 12.5 mg daily DAPT therapy with aspirin and Plavix on hold due to GI bleed Consider addition of Jardiance at office follow-up
[2023-09-04 11:17] LABS: Occult Blood,Stool Positive (Negative)
--- NOTE | 2023-09-04 11:55 | PC.NURSE ---
1120 pt off unit to EGD at this time. transported by Sheng Varela RN
--- NOTE | 2023-09-04 12:09 | HMH.SCOPE ---
Procedure: Date: 09/04/23 Patient Date of :: 1945 Procedure Performed:: Esophagogastroduodenoscopy with epinephrine injection Indications:: . Patient is a 78-year-old female with history of newly diagnosed atherosclerotic coronary artery disease with stent, carotid artery stenosis, hypertension, hypothyroidism, hyperlipidemia, mitral valve disorder. She was recently admitted to the hospital with progressive shortness of breath on 07/30/2023. At that time her hemoglobin was 10.9. She has no recent hemoglobin in the hospital computer system prior to that. During that hospitalization cardiology was consulted and she underwent heart catheterization and stenting by Dr. Mathew. She was placed on dual antiplatelet therapy. She was discharged from the hospital on 08/01/2023 with a hemoglobin of 9.5. She has had ongoing progressive shortness of breath with minimal exertion with some associated palpitations and some dizziness. She states that the past several days at home she has had some significant shortness of breath and extreme fatigue with inability to participate in activities of daily living. She describes dark and thin diarrhea recently but no gross blood. She presented to the emergency department where she was seen and evaluated. She was found to have a hemoglobin of 4.2. She was admitted for inpatient management. Surgical consultation was ordered for blood loss anemia. She was transfused 4 units packed red blood cells with posttransfusion hemoglobin of 9.7. She does state that she has a hemorrhoid that she has been nursing for about 20 years and has rare blood on the tissue paper but nothing of any consequence. She has never had any colonoscopy. Has never had any upper endoscopy. Plan was made to proceed with upper endoscopy. . Performing Provider:: Carlos Acosta MD Referring Provider:: Jhony Cancino MD Sedation:: MAC sedation Procedure:: Patient history was obtained and appropriate physical examination was performed. Patient's medications and allergies were reviewed. Informed consent was obtained after explaining the benefits, alternatives, and risks of the procedure including, but not limited to, bleeding, perforation, missed lesions, and adverse reaction to anesthesia medications. Patient was transported to endoscopy procedure room. Patient was connected to monitoring devices. Throughout the procedure the patient's blood pressure, pulse, and oxygen saturations were monitored continuously. Patient identification and planned procedure were verified by the staff. Patient was positioned in lateral decubitus position. Olympus endoscope was inserted via the oropharynx. Esophagus was cannulated. There was some tortuosity to the esophagus consistent with esophageal dysmotility. Gastroesophageal junction was encountered at approximately 39 cm from the incisors. Stomach was cannulated and insufflated. Retroflexion was performed. Visualization of the cardia was difficult but no obvious noted hiatal hernia. There is some diffuse mild gastropathy with a few minimal antral shallow erosions. Pylorus was traversed. Within the duodenal bulb there was evidence of some appreciable duodenitis with exudative erosions and punctate ulcerations in the first and second portion of the duodenum. There was evidence of edema and induration. There was no active bleeding. There were too numerous to count shallow small ulcerations. Endoscope was able to be advanced well into the distal duodenum which appeared unremarkable. Just past the duodenal bulb there was a shallow ulceration versus erosion with central punctate red spot potentially consistent with tiny visible vessel. There was no active bleeding. Given these findings epinephrine was injected submucosally around this area to prevent possible recurrent bleeding. There was good blanching. Endoscope was then withdrawn as the stomach was desufflated. Findings:: Findings consistent with mild esophageal dysmotility Gastroesophageal junction at 39 cm Diffuse mild gastropathy/gastritis with a few erosions, shallow, in the antrum Findings consistent with several fundic gland polyps. Significant appreciable erosive duodenitis characterized by induration and erythema in the majority of the duodenum with erosions and small shallow ulcerations as noted above Recommendations:: Recommend continuation of proton pump inhibitors and recommend Carafate. May consider Cytotec. Withhold antiplatelet agents if possible from cardiology recommendations. Most likely source of blood loss would be this is significant erosive duodenitis with associated shallow ulcerations. If remains stable likely would repeat upper endoscopy in several weeks for reassessment. I would recommend colonoscopy in the near future as the possibility remains for colonic pathology and etiology. Complications:: None immediately apparent Estimated blood obtained (mL): 1 Colonoscopy Component Colonoscopy Component Was a colonoscopy performed during today's procedure?: No
[2023-09-04] MEDS: SPIRONOLACTONE 25MG TABLET 25 MG PO (12:39)
[2023-09-04] MEDS: FUROSEMIDE 40 MG TABLET PO ×2 (12:39→16:54)
--- NOTE | 2023-09-04 16:00 | PC.NURSE ---
A&OX4. TOLERATING RA WELL. EGD DONE TODAY, PT TOLERATED WELL. UP WITH STANDBY ASSIST IN ROOM. HAS HAD MULTIPLE LOOSE BMS THIS SHIFT, WITH SOME SPOTTING OF BRIGHT RED BLOOD PRESENT. HAS HAD ADEQUATE U/O. TOLERATING DIET WELL. DID HAVE A VISITOR TODAY. PT IS IN GOOD SPIRITS. NO NEEDS OR C/O SINCE I TOOK OVER CARE AROUND 1230 THIS AFTERNOON. VSS.
[2023-09-04] MEDS: BISOPROLOL 5MG TABLET 2.5 MG PO (20:50)
[2023-09-05] VITALS: BP 115/68; PULSE 73; PULSE 74; RESP 17; TEMP 36.9; O2SAT 97
[2023-09-05 04:00] VITALS: BP 128/85; PULSE 71; PULSE 72; RESP 17; TEMP 37.1; O2SAT 96; BMI 22.9
--- NOTE | 2023-09-05 05:09 | PC.NURSE ---
Patient has had a great night. Was very excited to be able to rest through the shift. After night time meds were given patient slept the rest of the shift other than when she got up to void. Patient says she feels much better and has no issues this shift
[2023-09-05] MEDS: LEVOTHYROXINE 100MCG (0.1MG) TAB 100 MCG PO (06:09)
[2023-09-05 06:29] LABS: Chloride 106 mmol/L (98-107); Sodium 135 mmol/L (136-145)
[2023-09-05 06:30] LABS: Potassium 3.7 mmoL/L (3.5-5.1)
[2023-09-05 06:32] LABS: Alanine Aminotransferase 19 U/L (12-78); Albumin Level 2.9 g/dl (3.5-5.0); Alkaline Phosphatase 97 U/L (38-126); Aspartate Amino Transferase 24 U/L (14-36); Bilirubin,Total 1.3 mg/dl (0.2-1.3); Blood Urea Nitrogen 11 mg/dl (7-17); Creatinine Clearance Estimated 45 mL/min (50-200); Estimated Glomerular Filt Rate 54 ml/min (>60); GFR (African American) 65 ML/MIN (>60); Globulin 2.8 g/dL (1.3-3.2); Total Protein,Serum 5.7 g/dl (6.3-8.2)
[2023-09-05 06:33] LABS: Anion Gap 2.7 mEq/L (5-15); Calcium 8.5 mg/dl (8.4-10.2); Carbon Dioxide 30 mmol/L (22.0-30.0); Glucose 128 mg/dl (74-100)
[2023-09-05 06:41] LABS: Basophils % 0.4 % (0.1-2.0); Eosinophils # 0.2 K/mm3 (0.0-0.4); Eosinophils % 3.8 % (0.1-12.0); Hematocrit 30.1 % (37.0-47.0); Hemoglobin 9.3 g/dL (12.2-16.2); Lymphocytes # 0.9 K/mm3 (0.7-4.5); Lymphocytes % 15.3 % (10-50); Mean Corpuscular HGB Conc 30.9 g/dL (31.8-35.4); Mean Corpuscular Hemoglobin 26.1 pg (27.0-31.2); Mean Corpuscular Volume 84.3 fl (81-99); Mean Platelet Volume 10.2 fl (7.4-10.4); Monocytes # 0.5 K/mm3 (0.1-1.0); Monocytes % 8.9 % (1.7-9.3); Neutrophils # 4.2 K/mm3 (1.8-7.8); Neutrophils % 71.5 % (37.0-80.0); Platelet Count 183 K/mm3 (142-424); Red Blood Count 3.57 M/mm3 (4.20-5.40); Red Cell Distribution Width 17.3 % (11.5-17.5); White Blood Count 5.9 K/mm3 (4.8-10.8)
[2023-09-05 08:00] VITALS: BP 107/51; PULSE 68; RESP 25; TEMP 37.1; O2SAT 100
[2023-09-05 08:10] VITALS: PULSE 70
--- NOTE | 2023-09-05 08:28 | EXP.ACUTE.PN ---
Subjective *Date: 09/05/23 *Time: 08:28 Interval history: The patient was taken to the OR yesterday by Dr. Acosta and had an EGD with epinephrine injection. Patient is feeling much better this morning. She states she feels better than she has in months. She denies any pain and has had 2 normal stools. She does complain of some hemorrhoids. She has been able to get up to the commode and has tolerated her diet. She denies any abdominal pain. Medical Exam Vital signs and Labs for Last 24 Hours: Vital Signs Temp Pulse Pulse Resp BP Pulse Ox O2 Del Method 09/05/23 07:53 Room Air 09/05/23 07:50 Room Air 09/05/23 06:49 Room Air 09/05/23 05:00 Room Air 09/05/23 04:00 71 09/05/23 04:00 98.7 F 72 17 128/85 96 Room Air 09/05/23 03:00 Room Air 09/05/23 01:00 Room Air 09/05/23 00:00 74 09/05/23 00:00 98.5 F 73 17 115/68 97 Room Air 09/04/23 23:00 Room Air 09/04/23 21:00 Room Air 09/04/23 20:00 78 09/04/23 20:00 Room Air 09/04/23 20:00 98.2 F 72 17 99/51 L 93 L Room Air 09/04/23 18:34 Room Air 09/04/23 16:32 Room Air 09/04/23 16:20 98.0 F 87 17 142/70 H 98 Room Air 09/04/23 16:00 90 09/04/23 15:20 98.2 F 88 18 141/69 H 99 Room Air 09/04/23 14:44 Room Air 09/04/23 14:20 98.2 F 84 18 142/66 H 100 Room Air 09/04/23 13:50 98.0 F 78 17 138/65 96 Room Air 09/04/23 13:20 98.1 F 84 18 126/69 98 Room Air 09/04/23 13:05 98.0 F 79 17 144/57 H 96 Room Air 09/04/23 13:00 Room Air 09/04/23 12:50 98.0 F 88 18 131/74 97 Room Air 09/04/23 12:35 97.9 F 85 18 129/73 95 Room Air 09/04/23 12:27 85 22 133/60 96 Room Air 09/04/23 12:20 97.9 F 88 18 133/60 96 Room Air 09/04/23 11:00 Room Air 09/04/23 09:00 Room Air Intake and Output 09/04/23 09/05/23 09/05/23 19:59 03:59 11:59 Intake Total 720 / 720 0 / 720 Output Total 0 / 0 0 / 0 0 / 0 Balance 720 / 720 0 / 720 0 / 720 Intake: Intake, Oral Amount 720 / 720 0 / 720 Output: Output, Urine Amount 0 / 0 0 / 0 0 / 0 Other: Number of Unmeasured Voids 1 1 1 Number of Bowel Movements 1 Weight 134 lb 9.6 oz Patient Weight 09/05/23 11:59 Weight 134 lb 9.6 oz Laboratory Results - last 24 hr 09/03/23 10:24: Stool Occult Blood Positive A 09/05/23 05:35: WBC 5.9, RBC 3.57 L, Hgb 9.3 L, Hct 30.1 L, MCV 84.3, MCH 26.1 L, MCHC 30.9 L, RDW 17.3, Plt Count 183, MPV 10.2, Neut % (Auto) 71.5, Lymph % (Auto) 15.3, [place] % (Auto) 8.9, Eos % (Auto) 3.8, Baso % (Auto) 0.4, Neut # (Auto) 4.2, Lymph # (Auto) 0.9, [place] # (Auto) 0.5, Eos # (Auto) 0.2, Baso # (Auto) 0.0, Sodium 135 L, Potassium 3.7, Chloride 106, Carbon Dioxide 30, Anion Gap 2.7 L, BUN 11 D, Creatinine 1.00 D, Estimated Creat Clear 45, Estimated GFR 54 L, Est GFR ( Amer) 65 D, Glucose 128 H D, Calcium 8.5, Total Bilirubin 1.3, AST 24, ALT 19, Alkaline Phosphatase 97, Total Protein 5.7 L, Albumin 2.9 L, Globulin 2.8, Albumin/Globulin Ratio 1.0 L I & O for Labs for Last 24 Hours: Intake & Output 09/02/23 09/03/23 09/04/23 09/05/23 11:59 11:59 11:59 11:59 Intake Total 1320 / 1320 720 / 720 Output Total 150 / 150 0 / 0 Balance 1170 / 1170 720 / 720 Weight 144 lb 1 oz 134 lb 9.6 oz Constitutional: Present no acute distress Respiratory: Present CTA bilaterally (Anteriorly and posteriorly) Cardiac: Present Regular Rhythm (Sinus rhythm in the 90s) GI: Present soft and normal bowel sounds; Absent distention, tenderness or guarding Extremities: Present full ROM; Absent tenderness, edema or calf tenderness Skin: Present dry Neuro: Present alert and oriented x 3 Assessment and Plan *Assessment and plan (1) GI bleed: Status: Acute Category: Medical Code(s): K92.2 - Gastrointestinal hemorrhage, unspecified (2) Duodenitis: Status: Acute Category: Medical Code(s): K29.80 - Duodenitis without bleeding (3) Shortness of breath: Status: Acute Category: Medical Code(s): R06.02 - Shortness of breath (4) Elevated troponin: Status: Acute Category: Medical Code(s): R79.89 - Other specified abnormal findings of blood chemistry (5) ABLA (acute blood loss anemia): Status: Acute Category: Medical Code(s): D62 - Acute posthemorrhagic anemia (6) Amyloidosis: Status: Acute Category: Medical Code(s): E85.9 - Amyloidosis, unspecified (7) Carotid artery stenosis: Status: Acute Qualifiers: Laterality: bilateral Qualified Code(s): I65.23 - Occlusion and stenosis of bilateral carotid arteries Category: Medical Code(s): I65.29 - Occlusion and stenosis of unspecified carotid artery (8) Carotid artery disease: Status: Acute Category: Medical Code(s): I77.9 - Disorder of arteries and arterioles, unspecified (9) Hyperlipidemia: Status: Acute Qualifiers: Hyperlipidemia type: mixed hyperlipidemia Qualified Code(s): E78.2 - Mixed hyperlipidemia Category: Medical Code(s): E78.5 - Hyperlipidemia, unspecified (10) (HFpEF) heart failure with preserved ejection fraction: Status: Acute Qualifiers: Heart failure chronicity: acute on chronic Qualified Code(s): I50.33 - Acute on chronic diastolic (congestive) heart failure Category: Medical Code(s): I50.30 - Unspecified diastolic (congestive) heart failure (11) Mitral valve disorder: Status: Acute Category: Medical Code(s): I05.9 - Rheumatic mitral valve disease, unspecified (12) HTN (hypertension): Status: Acute Qualifiers: Hypertension type: primary hypertension Qualified Code(s): I10 - Essential (primary) hypertension Category: Medical Code(s): I10 - Essential (primary) hypertension Plan Patient has had no further bloody stools. Her hemoglobin this morning is 9.3. She is feeling well and wants to go home. Cardiology felt she should hold her DAPT therapy for 1 week and then follow-up in the office for reevaluation and discussion of restarting Plavix only. Dr. Acosta recommended continuing PPIs and starting Carafate. He felt the source of the blood loss was the erosive duodenitis with shallow ulcerations. He wants to repeat another upper endoscopy in several weeks for reassessment and also recommends a colonoscopy in the near future. Will discuss disposition with Dr. Cancino.
[2023-09-05] MEDS: SPIRONOLACTONE 25MG TABLET 25 MG PO (08:30)
[2023-09-05] MEDS: PANTOPRAZOLE 40MG VIAL 40 MG IV (08:30)
[2023-09-05] MEDS: FUROSEMIDE 40 MG TABLET PO (08:30)
[2023-09-05] MEDS: SODIUM CHLORIDE 0.9% 10ML VIAL 10 ML IV (08:30)
--- NOTE | 2023-09-05 08:39 | EXP.SURG.PN ---
Subjective Patient reports: feels better Narrative: She states that her last few bowel movements did not have blood in them . Exam Data for Last 24 hours Vital signs and Labs for Last 24 Hours: Temp Pulse Resp BP Pulse Ox O2 Del Method O2 Flow Rate 98.7 F 72 17 128/85 96 Room Air 2 09/05/23 04:00 09/05/23 04:00 09/05/23 04:00 09/05/23 04:00 09/05/23 04:00 09/05/23 07:53 09/03/23 18:52 Laboratory Results - last 24 hr 09/03/23 10:24: Stool Occult Blood Positive A 09/05/23 05:35: WBC 5.9, RBC 3.57 L, Hgb 9.3 L, Hct 30.1 L, MCV 84.3, MCH 26.1 L, MCHC 30.9 L, RDW 17.3, Plt Count 183, MPV 10.2, Neut % (Auto) 71.5, Lymph % (Auto) 15.3, [place] % (Auto) 8.9, Eos % (Auto) 3.8, Baso % (Auto) 0.4, Neut # (Auto) 4.2, Lymph # (Auto) 0.9, [place] # (Auto) 0.5, Eos # (Auto) 0.2, Baso # (Auto) 0.0, Sodium 135 L, Potassium 3.7, Chloride 106, Carbon Dioxide 30, Anion Gap 2.7 L, BUN 11 D, Creatinine 1.00 D, Estimated Creat Clear 45, Estimated GFR 54 L, Est GFR ( Amer) 65 D, Glucose 128 H D, Calcium 8.5, Total Bilirubin 1.3, AST 24, ALT 19, Alkaline Phosphatase 97, Total Protein 5.7 L, Albumin 2.9 L, Globulin 2.8, Albumin/Globulin Ratio 1.0 L I & O for Last 24 hours: Intake & Output 09/02/23 09/03/23 09/04/23 09/05/23 11:59 11:59 11:59 11:59 Intake Total 1320 / 1320 720 / 720 Output Total 150 / 150 0 / 0 Balance 1170 / 1170 720 / 720 Weight 144 lb 1 oz 134 lb 9.6 oz Constitutional Constitutional: no acute distress *Routine Respiratory Exam Respiratory: Absent respiratory distress *Routine Cardiovascular Exam Cardiovascular: Absent tachycardia Progress Note: A&P Assessment and plan (1) GI bleed: Status: Acute Assessment and plan: Possibly secondary to duodenitis. Definitive etiology remains somewhat equivocal. No evidence of ongoing blood loss this AM. Hemoglobin 9.3 this morning (down from 9.7 yesterday...likely equilibration...still represents excellent response to transfusion). Presenting hemoglobin of 4.2 and now status post 4 units packed red blood cells. Continue medical management of duodenitis Continue with serial hemoglobin/hematocrit (timing as per primary service) Ongoing evaluation/management to possibly include colonoscopy along with repeat EGD (as outpatient with Dr. Acosta unless urgently required) (2) Duodenitis: Status: Acute Assessment and plan: Continue medical management (3) ABLA (acute blood loss anemia): Status: Acute Assessment and plan: (See #1 above)
--- NOTE | 2023-09-05 10:17 | HMH.PHAINT1 ---
Pharmacy Intervention Comments: DISCHARGE MEDICATION COUNSELING PROVIDED TO PATIENT FOR FERROUS SULFATE, SUCRALAFATE, AND PANTOPRAZOLE ON THEIR INDICATION AND POSSIBLE SIDE EFFECTS. DISCUSSED THE STOPPING OF ASPIRIN AND PLAVIX. PATIENT VERBALIZED UNDERSTANDING AND ALL QUESTIONS WERE ANSWERED.
--- NOTE | 2023-09-07 15:33 | CARE MANAGER ---
Attempted call x 2 and left VM r/t recent discharge. Unable to reach by phone number in chart.
--- NOTE | 2023-09-10 23:27 | EXP.DC.SUM ---
General Admission date:: 09/03/23 Discharge date: 09/05/23 HPI HPI HPI: Patient is a 78-year-old female with history of atherosclerotic coronary artery disease, carotid artery stenosis, hypertension, hypothyroidism, hyperlipidemia, mitral valve disorder, myocardial infarction with stenting. She was recently admitted to the hospital with shortness of breath on 07/30/2023. At that time her hemoglobin was 10.9. During that hospitalization cardiology was consulted and she underwent heart catheterization and stenting by Dr. Mathew. She was placed on dual antiplatelet therapy. She was discharged from the hospital on 08/01/2023 with a hemoglobin of 9.5. She has developed shortness of breath with minimal exertion with some associated palpitations and some dizziness. She states that the past several days at home she has had some significant shortness of breath and extreme fatigue with inability to participate in activities of daily living. She describes dark and thin diarrhea recently but no gross blood. She presented to the emergency department where she was seen and evaluated. She was found to have a hemoglobin of 4.2. She was admitted for inpatient management. She has been ordered transfusion of 4 units of packed red blood cells. Surgical consultation was ordered for blood loss anemia. Patient has been ordered a cardiac diet. She denies any rectal bleeding. She does state that she has a hemorrhoid that she has been nursing for about 20 years and has rare blood on the tissue paper but nothing of any consequence. She has never had any colonoscopy. Has never had any upper endoscopy. Hospital Course Hospital Course Hospital Course: The patient was admitted and 4 units of packed red blood cells were ordered. Cardiology and surgery consults were both ordered. She was started on oxygen. She was seen in consultation by surgery who wanted to plan for an upper endoscopy but was awaiting cardiology assessment. He did agree with transfusion and recommended a therapeutic dose of proton pump inhibitors. Her hemoglobin improved from 4.2-9.7 with 4 units of blood. She did begin feeling better. Her bisoprolol and levothyroxine were restarted. She was seen by cardiology who felt she could hold DAPT therapy for 1 week, and in 1 week they would attempt to restart Plavix 75 mg daily if there is no further bleeding. The patient was taken to the OR and had an EGD which showed mild esophageal dysmotility, diffuse mild gastropathy/gastritis with a few erosions in the antrum, fundic gland polyps, and significant erosive duodenitis with small shallow ulcerations. The patient had an epinephrine injection and surgery recommended continuing PPIs and starting on Carafate. He also considered starting Cytotec. He wanted to withhold antiplatelet agents and felt she would need a repeat upper endoscopy in several weeks as well as a colonoscopy in the near future. By 09/05/2023, she was feeling much better. She stated she was feeling better than she had in months. She denied any pain and had 2 normal stools. She was tolerating a diet. Her H&H remained stable and she was able to be discharged home. She will need to hold DAPT therapy for 1 week and follow-up in the office of cardiology for discussion of restarting Plavix. She will also follow-up with Dr. Cancino in the office. Exam Data for Last 24 hours Vital signs and Labs for Last 24 Hours: Temp Pulse Resp BP Pulse Ox O2 Del Method O2 Flow Rate 98.7 F 70 25 H 107/51 L 100 Room Air 2 09/05/23 08:00 09/05/23 08:10 09/05/23 08:00 09/05/23 08:00 09/05/23 08:00 09/05/23 08:00 09/03/23 18:52 Narrative: Constitutional Constitutional: no acute distress Comments: Extremely pale *Routine HEENT Exam Head: Present normocephalic and atraumatic Eye: Present PERRL; Absent conjunctival icterus, scleral injection or conjunctivae pink ENT: Present mucous membranes moist, oropharynx clear and nares patent *Routine Neck Exam Neck: Present carotid bruit (Bilaterally); Absent lymphadenopathy or thyromegaly *Routine Respiratory Exam Respiratory: Present CTA bilaterally (Anteriorly and posteriorly) *Routine Cardiovascular Exam Cardiovascular: Present RRR and murmur *Routine Abdominal Exam Abdominal: Present soft and normoactive bowel sounds; Absent tenderness or distended *Routine Rectal Exam Rectal:: deferred *Routine Genitalia Exam Genitalia:: deferred *Routine Extremities Exam Extremities: Present edema (Bilateral leg edema) *Routine Skin Exam Skin: Present dry, pallor and warm *Routine Neurological Exam Neurological: Present alert, oriented X3, moving all extremities and normal speech DS: Diagnosis Discharge Diagnosis (1) GI bleed: Status: Resolved Code(s): K92.2 - Gastrointestinal hemorrhage, unspecified (2) Duodenitis: Status: Acute Code(s): K29.80 - Duodenitis without bleeding (3) ABLA (acute blood loss anemia): Status: Acute Code(s): D62 - Acute posthemorrhagic anemia Meds Home Medications and Allergies Home Medications Medication Instructions Recorded Confirmed Type vit C 250 mg-vit E 90 mg-zinc 40 1 tab PO BID Macular degeneration 06/09/19 09/03/23 History mg-copper 1 gc-qwrawt-whkvph capsule (PreserVision AREDS-2) levothyroxine 100 mcg tablet 100 mcg PO DAILY #90 tabs 12/18/22 09/03/23 Rx (Synthroid) inclisiran 284 mg/1.5 mL 284 mg (1.5 mL) SQ .COMPLEX #1.5 mL 08/07/23 09/03/23 Rx subcutaneous syringe (Leqvio) losartan 25 mg tablet 12.5 mg PO DAILY 90 days #45 tabs 08/27/23 09/03/23 History bisoprolol fumarate 5 mg tablet 2.5 mg PO HS 09/03/23 09/03/23 History furosemide 40 mg tablet 40 mg PO DAILY Fluid 09/03/23 09/03/23 History spironolactone 25 mg tablet 25 mg PO DAILY 09/03/23 09/03/23 History (Aldactone) ferrous sulfate 325 mg (65 mg 325 mg PO BID #100 tabs 09/05/23 Rx iron) tablet pantoprazole 40 mg tablet,delayed 40 mg PO DAILY gastritis #30 tabs 09/05/23 Rx release sucralfate 1 gram tablet 2 g (2 x 1 gram) PO BID 09/05/23 Rx gastritis/ulcer #120 tabs New Prescriptions to Start Prescriptions: ferrous sulfate Elda Cancino pantoprazole Elda Cancino sucralfate Elda Cancino Allergies Allergy/AdvReac Type Severity Reaction Status Date / Time [id number] Reductase Allergy Mild intolerance Verified 08/27/23 13:40 Inhibitor Discharge Plan Disposition Patient Disposition: Home, Self-Care Condition: Fair Discharge Order Discharge Orders: Discharge Order (Routine); Ordered 09/05/23 Ordered By: Elda Cancino Follow up Plan Follow up with: Carlos Acosta MD [Staff Physician] - 09/13/23 10:30 am Elda Cancino MD [Primary Care Provider] - 09/06/23 3:30 pm (To be seen in A as scheduled with CBC check) Prescriptions/Medication Reconciliation: New pantoprazole 40 mg tablet,delayed release (DR/EC) 40 mg PO DAILY Qty: 30 4RF sucralfate 1 gram tablet 2 g PO BID Qty: 120 4RF ferrous sulfate 325 mg (65 mg iron) tablet 325 mg PO BID Qty: 100 3RF Continued PreserVision AREDS-2 [id number] gc-nvdx-jl-mg capsule 1 tab PO BID Rx Instructions: administer with meals (after breakfast and after supper) Leqvio 284 mg/1.5 mL syringe 284 mg SQ .COMPLEX Qty: 1.5 3RF Rx Instructions: 284 mg subcutaneously inititally. Repeat dose in 3 months, then every 6 months therafter; losartan 25 mg tablet 12.5 mg PO DAILY 90 Days Qty: 45 levothyroxine [Synthroid] 100 mcg tablet 100 mcg PO DAILY Qty: 90 4RF spironolactone [Aldactone] 25 mg tablet 25 mg PO DAILY bisoprolol fumarate 5 mg tablet 2.5 mg PO HS furosemide 40 mg tablet 40 mg PO DAILY Discontinued aspirin [Adult Aspirin Regimen] 81 mg tablet,delayed release (DR/EC) 81 mg PO DAILY clopidogrel 75 mg tablet 75 mg PO DAILY Qty: 30 5RF Problem Reconciliation Problems Reviewed?: Yes Patient Discharge Instructions ACTIVITY: Limited activity DIET: advance to your usual diet Patient Instructions: Anemia Providers Primary Care Provider: Elda Cancino Admit Provider: Elda Cancino Attending Provider: Elda Cancino
== END 2023-09-05 11:29 | disposition home or self-care (01) | DRG 377 ==
LOC: ER 14:06 → 2ND 14:27
PROVIDERS: Surgery; Admitting Provider Family Medicine; Emergency Provider Emergency Medicine; PCP Family Medicine; Visit Provider Family Medicine
DX: K29.81 Duodenitis with bleeding (principal); I21.A1 Myocardial infarction type 2; D62 Acute posthemorrhagic anemia; I50.22 Chronic systolic (congestive) heart failure; I25.10 Atherosclerotic heart disease of native coronary artery without angina pectoris; I65.29 Occlusion and stenosis of unspecified carotid artery; E78.5 Hyperlipidemia, unspecified; I11.0 Hypertensive heart disease with heart failure; I25.2 Old myocardial infarction; Z95.5 Presence of coronary angioplasty implant and graft; Z87.891 Personal history of nicotine dependence; E03.9 Hypothyroidism, unspecified; I34.0 Nonrheumatic mitral (valve) insufficiency; E78.2 Mixed hyperlipidemia
CPT/HCPCS: 43255; 36415; 71045; 80053; 81001; 82272; 83735; 83880; 84484; 85025; 86850; 93005; 99291; G0328; P9016

== ENCOUNTER 2023-09-06 12:47 | Outpatient (CLI) | payer MEDICARE, SELFPAY ==
--- NOTE | 2023-09-06 12:48 | CT_ITS ---
FINAL REPORT TECHNIQUE: Thin section axial CT with IV contrast supplemented with multiplanar reconstruction under CT angiogram protocol. This study was performed with techniques to keep radiation doses as low as reasonably achievable (ALARA). Individualized dose reduction techniques using automated exposure control or adjustment of mA and/or kV according to the patient''s size were employed. NASCET criteria was utilized during interpretation. CLINICAL HISTORY: carotid artery stenosis greater than 70% bilateral COMPARISON: Carotid artery duplex 08/15/2023 FINDINGS: Right carotid: No evidence of common carotid stenosis. There is calcified plaque at the carotid bifurcation. There is moderate stenosis of the proximal right internal carotid artery with 60% diameter narrowing. The more distal internal carotid artery is quite tortuous. Left carotid: There is plaque in the common carotid artery without significant stenosis. There is heavily calcified plaque at the bifurcation. There is moderate stenosis of the level of the bulb with 50% diameter narrowing. The more distal internal carotid artery is tortuous without significant stenosis. Vertebral: Left vertebral artery is dominant. There is small to moderate right vertebral plaque. IMPRESSION: Moderate stenosis of the bilateral carotid arteries. Reviewed, Interpreted and Dictated by Carlos Yen III, MD Transcribed by Chary Parrish Authenticated and [facility]
[2023-09-06] MEDS: 0.9 % SODIUM CHLORIDE 50 ML VIAL IV (13:51)
[2023-09-06] MEDS: IOPAMIDOL-370 (76%);100ML BOTTLE 100 ML IV (13:51)
[2023-09-06] MEDS: SODIUM CHLORIDE 0.9% 10ML SYR (RAD ONLY) 10 ML IV (13:51)
== END 2023-09-06 23:59 ==
LOC: RAD 12:47
PROVIDERS: PCP Family Medicine; Visit Provider Physician Assistant
DX: I65.23 Occlusion and stenosis of bilateral carotid arteries (principal); Z87.891 Personal history of nicotine dependence
CPT/HCPCS: 70498; Q9967

== ENCOUNTER 2023-09-11 09:40 | Outpatient (CLI) | payer MEDICARE, SELFPAY ==
[2023-09-11] MEDS: GADOTERIDOL INJ 17ML SYRINGE 14 ML IV (11:34)
[2023-09-11] MEDS: SODIUM CHLORIDE 0.9% 10ML SYR (RAD ONLY) 10 ML IV (11:34)
[2023-09-11] MEDS: 0.9 % SODIUM CHLORIDE 50 ML VIAL 20 ML IV (11:34)
== END 2023-09-11 23:59 ==
LOC: RAD 09:41
PROVIDERS: PCP Family Medicine; Visit Provider Physician Assistant
DX: I50.30 Unspecified diastolic (congestive) heart failure (principal)
CPT/HCPCS: 75561; A9576

== ENCOUNTER 2023-10-05 10:50 | Observation (INO) | payer MEDICARE, SELFPAY ==
[2023-10-05] VITALS (35 sets, daily range): BP systolic 69–164; BP diastolic 31–81; PULSE 53–77; RESP 10–20; TEMP 36.1–37.4; O2SAT 32–100; BMI 25.7; BMI 24.5
[2023-10-05] MEDS: LACTATED RINGERS 1000ML 1,000 ML 25 ML IV (08:38)
--- NOTE | 2023-10-05 09:28 | ECG_ITS ---
APPROVED REPORT Exam: Resting ECG HR:55 bpm ECG Measurements Heart Rate 55 AXES ID 129 P 54 QRSd 113 QRS 58 QT 457 T 60 QTc 446 Conclusion SINUS BRADYCARDIA WITH SINUS ARRHYTHMIA New Q wave in lead III compared to last month EKG. Possible normal variant versus lead placement versus ischemia? Incomplete left bundle branch block. Biatrial abnormality BORDERLINE ECG UNCONFIRMED REPORT Electronically signed by : Osmel Esquivel MD 10/06/2023 11:46:59
--- NOTE | 2023-10-05 09:35 | HMH.SCOPE ---
Procedure: Date: 10/05/23 Patient Date of :: 1945 Procedure Performed:: Esophagogastroduodenoscopy with biopsies Indications:: . Patient is a 78-year-old female who presents for follow-up upper endoscopy and colonoscopy. She has a relatively recently diagnosed history of atherosclerotic coronary artery disease with stent. She has a history of carotid artery stenosis, hypertension, hypothyroidism, hyperlipidemia, mitral valve disorder. She had been admitted to the hospital with shortness of breath on 07/30/2023. At that time her hemoglobin was 10.9. During that hospitalization cardiology was consulted and she underwent heart catheterization and stenting by Dr. Mathew. She was placed on dual antiplatelet therapy at that time and discharged from the hospital on 08/01/2023 with a hemoglobin of 9.5. After discharge she then developed progressive shortness of breath with minimal exertion and near syncope with inability to perform activities of daily living. She described dark and thin loose stools. She presented to the emergency department on 09/03/2023 at which time she had a hemoglobin of 4.2. She was admitted for inpatient management and surgical consultation was ordered for blood loss anemia. Patient was transfused 4 units packed red blood cells with resultant posttransfusion hemoglobin of 9.7. Patient had never had prior colonoscopy. She underwent inpatient EGD on 09/04/2023 at which time she was found to have findings of mild esophageal dysmotility, gastroesophageal junction at 39 cm, mild gastropathy/gastritis but several shallow erosions in the antrum. There were several fundic gland polyps. Most notable there were findings of significant appreciable erosive duodenitis characterized by induration and erythema with erosions and small shallow ulcerations within the duodenal bulb. Patient was able to be discharged ultimately off of antiplatelet therapy and on medical therapy for gastrititis and significant duodenitis. Patient followed up as an outpatient with her primary care provider and general surgery. She described some bowel irregularity. She had some occasional postprandial diarrhea. Given the findings of appreciable inflammatory response on the upper endoscopy (particularly within the duodenal bulb) and due to the fact that she never had prior colonoscopy plan was made to proceed with upper endoscopy as well as colonoscopy as an outpatient. After she was scheduled request was made by anesthesia provider for follow-up cardiology assessment. She was seen and evaluated for cardiology risk assessment on 10/04/2023. . Performing Provider:: Carlos Acosta MD Referring Provider:: Jhony Cancino MD Sedation:: MAC sedation Procedure:: . Patient history was obtained and appropriate physical examination was performed. Patient's medications and allergies were reviewed. Informed consent was obtained after explaining the benefits, alternatives, and risks of the procedure including, but not limited to, bleeding, perforation, missed lesions, and adverse reaction to anesthesia medications. Patient was transported to endoscopy procedure room. Patient was connected to monitoring devices. Throughout the procedure the patient's blood pressure, pulse, and oxygen saturations were monitored continuously. Patient identification and planned procedure were verified by the staff. Patient was positioned in lateral decubitus position. Olympus endoscope was inserted via the oropharynx. Esophagus was cannulated. There was some mild tortuosity to the esophagus consistent with mild esophageal dysmotility. Gastroesophageal junction was encountered at approximately 40 cm. Within the gastric lumen there were too numerous to count punctate areas showing evidence of heme material consistent with slow hemorrhagic ooze. There were no erosions or ulcerations. There was mild gastritis. Pylorus was traversed. Within the duodenal bulb there was some hypertrophic prominent mucosa of uncertain significance. Possible inflammatory versus adenomatous/neoplastic. Distal duodenum appeared unremarkable and biopsy was obtained to assess for celiac disease. During the procedure patient had transient diminished oxygen saturations and the endoscope was withdrawn as anesthesia attended to the patient's ventilation and oxygenation. Once her saturations improved and was deemed acceptable from anesthesia standpoint to resume procedure endoscope was reinserted. Several biopsies were obtained within the duodenal bulb of the prominent hypertrophic tissue. Gastric antral mucosal biopsy was obtained for histopathologic analysis and assessment of H. pylori. At this time once again patient's oxygen saturations diminished and there were questionable rhythm changes on library monitor. As the procedure was complete endoscope was withdrawn. Due to the patient's tenuous hemodynamics colonoscopy was not performed. . Findings:: . Mild esophageal dysmotility Gastroesophageal junction at 40 cm Moderate sliding hiatal hernia (3 to 4 cm) Diffuse mild to moderate nonerosive gastritis Multiple, too numerous to count, punctate areas of mild hemorrhagic oozing diffusely throughout the entire stomach Prominent hypertrophic mucosa within duodenal bulb, biopsied . Recommendations:: Continue medical management. Additional management per primary service and cardiology. Complications:: Patient did develop findings of hypoxia requiring rapid response. Estimated blood obtained (mL): 1 Colonoscopy Component Colonoscopy Component Was a colonoscopy performed during today's procedure?: No
--- NOTE | 2023-10-05 09:52 | XR_ITS ---
FINAL REPORT CLINICAL HISTORY: post op COMPARISON: 09/03/2023 FINDINGS: No acute pulmonary opacity is present. There is no evidence of effusion or pneumothorax. Mediastinum is unremarkable. Heart size is normal. IMPRESSION: No acute abnormality. Reviewed, Interpreted and Dictated by Elda Harper MD Transcribed by Jagruti Betancourt Authenticated and [facility]
--- NOTE | 2023-10-05 09:52 | EXP.ANES.I ---
[facility] Anesthesia Record Part I Anesthesia Record I Intake, IV Amount: 100 Hydration: Adequate Estimated blood loss (mL): 2 Urine output (mL): 0 Blood Pressure: 123/81 SaO2: 100 Pulse Rate: 64 Airway Patency: Patent Respiratory Rate: 20 Temperature: 97 F Patient is:: Awake Stable to PACU at:: 09:45
--- NOTE | 2023-10-05 09:57 | P.PNANES_ITS ---
[facility] Disclaimer: The information contained in this section may have been updated after the patient was seen, as this information can be updated by other users. 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 Elevated troponin Mitral valve disorder HTN (hypertension) Amyloidosis Carotid artery stenosis Carotid artery disease Hyperlipidemia Edema (HFpEF) heart failure with preserved ejection fraction Goiter Myocardial infarct Macular degeneration Surgical History History of ovarian cystectomy Hx of tonsillectomy History of thyroid surgery H/O hernia repair H/O heart artery stent Family History Other Heart attack Social History Smoking Status: Former smoker tobacco type: cigarettes alcohol intake: never substance use type: denies use current occupational status: retired Travel in the last 8 weeks: None [facility] Anesthesia Checklist Patient Identification Patient Identification: Arm Band and Verbal (Name & ) Structural Data Admitted From: Home Planned Operative Procedure/s: EGD/Colonoscopy Consent for Planned Operative Procedure(s) Verified: Yes NPO Status Verified Time NPO: 00:00 Chart Verification Results Verified: CBC, BMP and ECG Airway Assessment Mallampati Score:: Class II C-Spine Mobility Assessed: Yes TMJ Mobility Assessed: Yes Dentition: Poor Dentition Neurological Assessment Level of Consciousness: Awake Hx Seizures: No Numbness or tingling in extremities: No Anesthesia Plan Anesthesia Risk discussed: Yes Anesthesia Plan: Verified (Cardiac clearance reviewed. Explained to patient high risk of anesthesia complications. Patient understands and accepts risk.) ASA Class: IV Anesthesia Type: MAC
[2023-10-05] MEDS: IPRATROPIUM/ALBUTEROL 3 ML NEB IH (10:04)
--- NOTE | 2023-10-05 10:27 | EXP.EVENT.NO ---
I was called to bedside as rapid response for this patient he was receiving EGD for anemia. On arrival, patient is receiving bag valve mask respirations. Reportedly she experienced oxygen desaturation, bradycardia and apparent rhythm change on monitor during EGD. Anesthesia was stopped and [id number] respirations were initiated. EKG was obtained on my arrival and interpreted by me, demonstrating sinus bradycardia with sinus arrhythmia, no acute ST segment changes seen. Patient was hypotensive with blood pressure 70/40 and was given ephedrine by anesthesia bedside with appropriate response. Patient began breathing spontaneously and was transition from [id number] to nonrebreather. Vital signs normalized.
[2023-10-05 11:01] LABS: Troponin I 0.02 ng/ml (0.00-0.034)
--- NOTE | 2023-10-05 11:05 | PC.NURSE ---
arrived to floor from surgery by liam
--- NOTE | 2023-10-05 11:19 | PC.NURSE ---
Addendum entered by Samantha Hurley RN 10/05/23 11:57: CORRECTION 1058, not 1158 Original Note: 1158- report given to Gadiel Coffey RN
--- NOTE | 2023-10-05 11:41 | CA_ITS ---
APPROVED REPORT EXAM: Comprehensive 2D, Doppler, and color-flow Echocardiogram Pharmacy Clinical Coordinator: VIC Pepe, RVS Ht: 5 ft 4 in Wt: 143lbs BSA: 1.70 BP: 127/63 mmHg Indications: EF CHECK, CAD, HTN, HLD, Smoker 2D Dimensions LVDd 5.35 cm LVEF (Visual) 63.70 % LVDs 3.48 cm LA Volume 137.70 mL LA Volume Index 81.00 mL/m2 (M/F) 16-34 EF AP4 63.70 % GL Strain -28.5 % M-Mode Dimensions RVDd 2.18 cm (0.9-2.6) LVDd 5.35 cm (3.5-5.7) LVDs 4.19 cm (3.5-5.7) IVSd 1.41 cm (0.6-1.1) PWd 1.33 cm (0.6-1.1) EF (Teich) 47.50% FS 27.73% EDV (Teich) 148.70 mL ESV (Teich) 78.10 mL Other Information Study Quality: Fair Conclusion This is a limited TTE to evaluate for LVEF. Limited windows were obtained. Technically difficult study. The left ventricle is normal in size. There is increased LV wall thickness. There is normal global LV systolic function. LVEF is 65%. Electronically signed by : Linda Dickey MD 10/08/2023 12:28:26
--- NOTE | 2023-10-05 12:14 | SUR.PHASEI ---
0955- rad at bedside for portable CXR ordered by DIEGO Cueto 0956- DCasey, RT at bedside administering duoneb, ordered by DIEGO Cueto 1002- pt weaned down to 3L NC by RT 1003- 20mg of Ephedrine administer by DIEGO Cueto 1009- 2mL of Vasopressin IVP administered by this RN w/ DIEGO Cueto at bedside 1020- lab at bedside for troponins ordered by DIEGO Cueto
--- NOTE | 2023-10-05 12:22 | EXP.CARD.CON ---
History of Present Illness History of Present Illness Consult date: 10/05/23 Requesting physician: Elda Cancino Consult reason: shortness of breath Chief complaint: SOA History of present illness: This is a 78-year-old female who came in to [facility] to undergo EGD and colonoscopy secondary to anemia. She had the EGD completed that and then the patient had a rapid response called because she experienced oxygen desaturation and bradycardia. There was a questionable rhythm change noted during the EGD as well. The patient started receiving bag valve mask respirations. Anesthesia was stopped. EKG was obtained that showed sinus bradycardia with no arrhythmia. There were no ST segment changes or blocks noted. The patient was hypotensive with a blood pressure in the 70s over 40s. Ephedrine was given by anesthesia. The patient began breathing spontaneously and was transitioned to a nonrebreather mask. Her vital signs normalized with a systolic blood pressure of 113 and her heart rate went to the 70s. Her oxygen saturations improved. The patient currently denies any chest pain or pressure. She denies any shortness of breath or edema. She denies any fever, chills, nausea, vomiting, diarrhea, PND or orthopnea The patient states that she is very hungry because she has not eaten in 2 days prepping for her colonoscopy. She is very upset that her colonoscopy was not completed. [facility] Disclaimer: The information contained in this section may have been updated after the patient was seen, as this information can be updated by other users. 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 (Updated 10/05/23 @ 13:36 by BRAD Paul) Elevated troponin Mitral valve disorder HTN (hypertension) Amyloidosis Carotid artery stenosis Carotid artery disease Hyperlipidemia Edema (HFpEF) heart failure with preserved ejection fraction Goiter Myocardial infarct Macular degeneration Surgical History (Updated 10/05/23 @ 13:33 by BRAD Paul) H/O esophagogastroduodenoscopy History of ovarian cystectomy Hx of tonsillectomy History of thyroid surgery H/O hernia repair H/O heart artery stent Family History Other Heart attack Social History (Updated 10/05/23 @ 11:40 by Phyllis Coffey RN) Smoking Status: Current every day smoker tobacco type: cigarettes alcohol intake: never substance use type: denies use current occupational status: retired Travel in the last 8 weeks: None Review of Systems Review of Systems Review of systems:: pertinent systems reviewed and negative unless documented below Constitutional Constitutional: Reports system reviewed and no additional complaints, except as documented Eyes Eyes: Reports system reviewed and no additional complaints, except as documented ENT Ears, Nose, Mouth, and Throat: Reports system reviewed and no additional complaints, except as documented *Cardiovascular Cardiovascular: Reports system reviewed and no additional complaints, except as documented *Respiratory Respiratory: Reports system reviewed and no additional complaints, except as documented *Gastrointestinal Gastrointestinal: Reports system reviewed and no additional complaints, except as documented *Genitourinary Genitourinary: Reports system reviewed and no additional complaints, except as documented *Musculoskeletal Musculoskeletal: Reports system reviewed and no additional complaints, except as documented Integumentary/Breasts Skin/Breast: Reports system reviewed and no additional complaints, except as documented *Neurologic Neurologic: Reports system reviewed and no additional complaints, except as documented Psychiatric Psychiatric: Reports system reviewed and no additional complaints, except as documented Endocrine Endocrine: Reports system reviewed and no additional complaints, except as documented Hematologic/Lymphatic Hematologic/Lymphatic: Reports system reviewed and no additional complaints, except as documented Allergic/Immunologic Allergic/Immunologic: Reports system reviewed and no additional complaints, except as documented Exam Data for Last 24 hours Vital signs and Labs for Last 24 Hours: Temp Pulse Resp BP Pulse Ox O2 Del Method O2 Flow Rate 97.9 F 64 16 127/63 96 Nasal Cannula 2 10/05/23 11:21 10/05/23 11:21 10/05/23 11:21 10/05/23 11:21 10/05/23 11:21 10/05/23 11:21 10/05/23 11:21 Laboratory Results - last 24 hr 10/05/23 10:25: Troponin I 0.02 I & O for Last 24 hours: Intake & Output 10/02/23 10/03/23 10/04/23 10/05/23 23:59 23:59 23:59 23:59 Intake Total 100 / 100 Balance 100 / 100 Weight 143 lb 2 oz Meds Home Medications and Allergies Home Medications Medication Instructions Recorded Confirmed Type vit C 250 mg-vit E 90 mg-zinc 40 1 tab PO BID Macular degeneration 06/09/19 10/04/23 History mg-copper 1 bo-xpoqoq-zwziie capsule (PreserVision AREDS-2) levothyroxine 100 mcg tablet 100 mcg PO DAILY #90 tabs 12/18/22 10/05/23 Rx (Synthroid) losartan 25 mg tablet 12.5 mg PO DAILY 90 days #45 tabs 08/27/23 10/04/23 History bisoprolol fumarate 5 mg tablet 2.5 mg PO HS 09/03/23 10/04/23 History furosemide 40 mg tablet 40 mg PO DAILY Fluid 09/03/23 10/04/23 History ferrous sulfate 325 mg (65 mg 325 mg PO BID #100 tabs 09/05/23 10/04/23 Rx iron) tablet pantoprazole 40 mg tablet,delayed 40 mg PO DAILY gastritis #30 tabs 09/05/23 10/04/23 Rx release Jardiance 10 mg tablet 10 mg PO DAILY #90 tabs 10/04/23 10/04/23 Rx (empagliflozin) sucralfate 1 gram tablet 2 g PO BID gastritis/ulcer 10/05/23 10/05/23 History New Prescriptions to Start Prescriptions: Allergies Allergy/AdvReac Type Severity Reaction Status Date / Time Gzarnes-QAD-IvD Reductase Allergy Mild intolerance Verified 10/05/23 08:34 Inhibitor Assessment and Plan *Assessment and plan (1) ASCVD (arteriosclerotic cardiovascular disease): Status: Acute Category: Medical Code(s): I25.10 - Atherosclerotic heart disease of [place] coronary artery without angina pectoris (2) Anemia: Status: Acute Qualifiers: Anemia type: unspecified type Qualified Code(s): D64.9 - Anemia, unspecified Category: Medical Code(s): D64.9 - Anemia, unspecified (3) Status post coronary artery stent placement: Status: Acute Category: Surgical Code(s): Z95.5 - Presence of coronary angioplasty implant and graft (4) (HFpEF) heart failure with preserved ejection fraction: Status: Acute Qualifiers: Heart failure chronicity: acute on chronic Qualified Code(s): I50.33 - Acute on chronic diastolic (congestive) heart failure Category: Medical Code(s): I50.30 - Unspecified diastolic (congestive) heart failure (5) Hyperlipidemia: Status: Acute Qualifiers: Hyperlipidemia type: mixed hyperlipidemia Qualified Code(s): E78.2 - Mixed hyperlipidemia Category: Medical Code(s): E78.5 - Hyperlipidemia, unspecified (6) Carotid artery stenosis: Status: Acute Qualifiers: Laterality: bilateral Qualified Code(s): I65.23 - Occlusion and stenosis of bilateral carotid arteries Category: Medical Code(s): I65.29 - Occlusion and stenosis of unspecified carotid artery (7) Duodenitis: Status: Acute Category: Medical Code(s): K29.80 - Duodenitis without bleeding Plan Plan: 1. The patient was admitted to the hospital following a rapid response during her EGD and colonoscopy today. Her EGD was completed but her colonoscopy was aborted following her rapid response. 2. The patient desaturated during the procedure and became bradycardic. Her bradycardia was likely a normal response to the desaturation. She was treated with a bag valve mask initially and when she spontaneously began breathing again she was switched to a nonrebreather mask. She is now on nasal cannula and breathing well. Her bradycardia resolved as well once her oxygen saturations normalized. 3. Her blood pressure is well-controlled at this time. She did get hypotensive when she desatted with a blood pressure in the 70s over 40s. It is now well-controlled. 4. The patient does have a history of coronary artery disease with recent stenting in July of this year. Her dual antiplatelet therapy has been stopped due to her anemia/GI bleed. She denies any chest pain or pressure. Her initial troponin is negative. No plans for invasive left cardiac catheterization at this time. Will repeat her troponin in 3 hours. 5. Her blood pressure is well-controlled. 6. Her LDL goal is less than 55. Her LDL is 92. She is intolerant to statins. 7. The patient does have a history of HFpEF she denies any shortness of breath. Will obtain a BNP. Continue Jardiance, bisoprolol and losartan for HFpEF. 8. Will repeat a limited echocardiogram to make sure her LV function is normal following her rapid response. 9. The patient does have a history of carotid artery stenosis which is likely stable. 10. She is chronically anemic. Will defer this to her primary care provider and general surgery. 11. Tobacco cessation is highly advised and counseled. 12. No further recommendations at this time from a cardiac standpoint. As long as her LV function remains stable and her second troponin is negative, she can be discharged home from a cardiac standpoint when she is medically stable per her primary care provider. Thank you for the opportunity to help participate in the care of this patient. All recommendations and orders are per Dr. Dickey. Addendum: Preliminary limited echocardiogram shows that her ejection fraction is preserved. Awaiting her repeat troponin.
[2023-10-05 12:29] LABS: Basophils % 0.3 % (0.1-2.0); Eosinophils % 0.3 % (0.1-12.0); Hematocrit 37.3 % (37.0-47.0); Hemoglobin 11.6 g/dL (12.2-16.2); Lymphocytes # 0.5 K/mm3 (0.7-4.5); Lymphocytes % 6.8 % (10-50); Mean Corpuscular Hemoglobin 28.7 pg (27.0-31.2); Mean Corpuscular Volume 92.5 fl (81-99); Mean Platelet Volume 9.3 fl (7.4-10.4); Monocytes # 0.3 K/mm3 (0.1-1.0); Monocytes % 4.7 % (1.7-9.3); Neutrophils # 6.4 K/mm3 (1.8-7.8); Neutrophils % 87.8 % (37.0-80.0); Platelet Count 178 K/mm3 (142-424); Red Blood Count 4.03 M/mm3 (4.20-5.40); Red Cell Distribution Width 20.7 % (11.5-17.5); White Blood Count 7.3 K/mm3 (4.8-10.8)
[2023-10-05 12:32] LABS: MANUAL DIFFERENTIAL MANUAL DIFFERENTIAL (MANUAL DIFF)
[2023-10-05 12:51] LABS: Anion Gap 5.1 mEq/L (5-15); Blood Urea Nitrogen 21 mg/dl (7-17); Calcium 8.8 mg/dl (8.4-10.2); Carbon Dioxide 32 mmol/L (22.0-30.0); Chloride 105 mmol/L (98-107); Creatinine Clearance Estimated 48 mL/min (50-200); Estimated Glomerular Filt Rate 54 ml/min (>60); GFR (African American) 65 ML/MIN (>60); Glucose 122 mg/dl (74-100); Potassium 4.1 mmoL/L (3.5-5.1); Sodium 138 mmol/L (136-145)
[2023-10-05 13:00] LABS: NT Pro Brain Natriuretic Pep. 466 pg/mL (0-450)
--- NOTE | 2023-10-05 13:31 | P.HP_ITS ---
History of Present Illness *Admission Date: 10/05/23 *Reason for visit:: Respiratory failure post EGD *History of present illness: This is a 78-year-old female who came in to [facility] to undergo EGD and colonoscopy secondary to anemia. She had the EGD completed and then the patient had a rapid response called because she experienced oxygen desaturation and bradycardia. There was a questionable rhythm change noted during the EGD as well. The patient started receiving bag valve mask respirations. Anesthesia was stopped. EKG was obtained that showed sinus bradycardia with no arrhythmia. There were no ST segment changes or blocks noted. The patient was hypotensive with a blood pressure in the 70s over 40s. Ephedrine was given by anesthesia. The patient began breathing spontaneously and was transitioned to a nonrebreather mask. Her vital signs normalized with a systolic blood pressure of 113 and her heart rate went to the 70s. Her oxygen saturations improved. The patient currently denies any chest pain or pressure. She denies any shortness of breath or edema. She denies any fever, chills, nausea, vomiting, diarrhea, PND or orthopnea The patient states that she is very hungry because she has not eaten in 2 days prepping for her colonoscopy. S he is very upset that her colonoscopy was not completed. (above as per cardiology) [facility] Disclaimer: The information contained in this section may have been updated after the patient was seen, as this information can be updated by other users. 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 (Updated 10/05/23 @ 13:36 by BRAD Paul) Elevated troponin Mitral valve disorder HTN (hypertension) Amyloidosis Carotid artery stenosis Carotid artery disease Hyperlipidemia Edema (HFpEF) heart failure with preserved ejection fraction Goiter Myocardial infarct Macular degeneration Surgical History (Updated 10/05/23 @ 13:33 by BRAD Paul) H/O esophagogastroduodenoscopy History of ovarian cystectomy Hx of tonsillectomy History of thyroid surgery H/O hernia repair H/O heart artery stent Family History Other Heart attack Social History (Updated 10/05/23 @ 11:40 by Phyllis Coffey RN) Smoking Status: Current every day smoker tobacco type: cigarettes alcohol intake: never substance use type: denies use current occupational status: retired Travel in the last 8 weeks: None Review of Systems Constitutional Constitutional: Denies fatigue and Denies weakness Eyes Eyes: Denies blurry vision and Denies diplopia ENT Ears, Nose, Mouth, and Throat: Denies nasal congestion and Denies sore throat *Cardiovascular Cardiovascular: Denies chest pain, Denies dyspnea and Denies leg edema *Respiratory Respiratory: Denies cough and Denies dyspnea *Gastrointestinal Gastrointestinal: Denies abdominal pain, Reports hematochezia (during colon prep), Reports loose stools, Denies nausea and Denies vomiting *Genitourinary Genitourinary: Denies difficulty voiding and Denies dysuria *Musculoskeletal Musculoskeletal: Denies arthralgias and Denies myalgias *Neurologic Neurologic: Reports system reviewed and no additional complaints, except as documented and Denies weakness Endocrine Endocrine: Denies fatigue Meds Home Medications and Allergies Home Medications Medication Instructions Recorded Confirmed Type vit C 250 mg-vit E 90 mg-zinc 40 1 tab PO BID Macular degeneration 06/09/19 10/04/23 History mg-copper 1 cu-brescl-gpwpba capsule (PreserVision AREDS-2) levothyroxine 100 mcg tablet 100 mcg PO DAILY #90 tabs 12/18/22 10/05/23 Rx (Synthroid) losartan 25 mg tablet 12.5 mg PO DAILY 90 days #45 tabs 08/27/23 10/04/23 History bisoprolol fumarate 5 mg tablet 2.5 mg PO HS 09/03/23 10/04/23 History furosemide 40 mg tablet 40 mg PO DAILY Fluid 09/03/23 10/04/23 History ferrous sulfate 325 mg (65 mg 325 mg PO BID #100 tabs 09/05/23 10/04/23 Rx iron) tablet pantoprazole 40 mg tablet,delayed 40 mg PO DAILY gastritis #30 tabs 09/05/23 10/04/23 Rx release Jardiance 10 mg tablet 10 mg PO DAILY #90 tabs 10/04/23 10/04/23 Rx (empagliflozin) sucralfate 1 gram tablet 1 g PO BID gastritis/ulcer 10/05/23 10/05/23 History New Prescriptions to Start Prescriptions: Allergies Allergy/AdvReac Type Severity Reaction Status Date / Time Iupcchc-[id number]-[id number] Reductase Allergy Mild intolerance Verified 10/05/23 08:34 Inhibitor Exam Data for Last 24 hours Vital signs and Labs for Last 24 Hours: Temp Pulse Resp BP Pulse Ox O2 Del Method O2 Flow Rate 98.9 F 72 18 133/61 94 L Room Air 1 10/05/23 12:45 10/05/23 12:45 10/05/23 12:45 10/05/23 12:45 10/05/23 12:45 10/05/23 12:45 10/05/23 11:30 Laboratory Results - last 24 hr 10/05/23 10:25: Troponin I 0.02 10/05/23 12:15: WBC 7.3, RBC 4.03 L, Hgb 11.6 L, Hct 37.3, MCV 92.5, MCH 28.7, MCHC 31.0 L, RDW 20.7 H, Plt Count 178, MPV 9.3, Neut % (Auto) 87.8 H, Lymph % (Auto) 6.8 L, [place] % (Auto) 4.7, Eos % (Auto) 0.3, Baso % (Auto) 0.3, Neut # (Auto) 6.4, Lymph # (Auto) 0.5 L, [place] # (Auto) 0.3, Eos # (Auto) 0.0, Baso # (Auto) 0.0, Sodium 138, Potassium 4.1, Chloride 105, Carbon Dioxide 32 H, Anion Gap 5.1, BUN 21 H, Creatinine 1.00, Estimated Creat Clear 48, Estimated GFR 54 L , Est GFR ( Amer) 65, Glucose 122 H, Calcium 8.8, NT-Pro-B Natriuret Pep 466 H I & O for Last 24 hours: Intake & Output 10/03/23 10/04/23 10/05/23 10/06/23 11:59 11:59 11:59 11:59 Intake Total 100 / 100 Balance 100 / 100 Weight 143 lb 2 oz Constitutional Constitutional: no acute distress *Routine HEENT Exam Head: Present normocephalic and atraumatic Eye: Present EOMI and PERRL ENT: Present mucous membranes moist *Routine Neck Exam Neck: Present supple and full ROM *Routine Respiratory Exam Respiratory: Present decreased breath sounds and CTA bilaterally *Routine Cardiovascular Exam Cardiovascular: Present RRR *Routine Abdominal Exam Abdominal: Present soft and normoactive bowel sounds; Absent tenderness *Routine Rectal Exam Rectal:: deferred *Routine Genitalia Exam Genitalia:: deferred *Routine Extremities Exam Extremities: Absent cyanosis, clubbing or edema *Routine Skin Exam Skin: Present intact; Absent erythema *Routine Neurological Exam Neurological: Present alert and oriented X3 H&P: Result Impressions CXR - nothing acute Assessment and Plan *Assessment and plan (1) Respiratory failure: Status: Acute Category: Medical Code(s): J96.90 - Respiratory failure, unspecified, unspecified whether with hypoxia or hypercapnia (2) H/O esophagogastroduodenoscopy: Status: Acute Category: Surgical Code(s): Z98.890 - Other specified postprocedural states (3) Carotid artery disease: Status: Acute Qualifiers: Carotid artery disease type: unspecified Laterality: unspecified laterality Qualified Code(s): I77.9 - Disorder of arteries and arterioles, unspecified Category: Medical Code(s): I77.9 - Disorder of arteries and arterioles, unspecified (4) Hyperlipidemia: Status: Acute Qualifiers: Hyperlipidemia type: mixed hyperlipidemia Qualified Code(s): E78.2 - Mixed hyperlipidemia Category: Medical Code(s): E78.5 - Hyperlipidemia, unspecified (5) (HFpEF) heart failure with preserved ejection fraction: Status: Acute Qualifiers: Heart failure chronicity: acute on chronic Qualified Code(s): I50.33 - Acute on chronic diastolic (congestive) heart failure Category: Medical Code(s): I50.30 - Unspecified diastolic (congestive) heart failure (6) Status post coronary artery stent placement: Status: Acute Category: Surgical Code(s): Z95.5 - Presence of coronary angioplasty implant and graft (7) Tobacco use: Status: Acute Category: Social Hx Code(s): Z72.0 - Tobacco use (8) ASCVD (arteriosclerotic cardiovascular disease): Status: Acute Category: Medical Code(s): I25.10 - Atherosclerotic heart disease of [place] coronary artery without angina pectoris (9) Hypothyroidism: Problem Comment: Currently on replacement therapy and feeling well. Status: Chronic Qualifiers: Hypothyroidism type: postoperative Qualified Code(s): E89.0 - Postprocedural hypothyroidism Category: Medical Code(s): E03.9 - Hypothyroidism, unspecified (10) Duodenitis: Status: Acute Category: Medical Code(s): K29.80 - Duodenitis without bleeding Plan Patient is feeling better now. Her oxygen is 99% on oxygen. She denies any CP or SOA. She is upset her colonoscopy was not completed as well. Will discuss further care with Dr. Cancino.
[2023-10-05] MEDS: LEVOTHYROXINE 100MCG (0.1MG) TAB 100 MCG PO (13:49)
[2023-10-05 14:04] LABS: Lymphocytes % 6 % (10-50); Monocytes % 12 % (2-9); Neutrophils % 75 % (42-76); Total Cells Counted 100
[2023-10-05 14:06] LABS: Anisocytosis 1+; Platelet Estimate Normal
[2023-10-05 14:07] LABS: Macrocytosis 1+; Poikilocytosis 1+
[2023-10-05 14:12] LABS: Burr Cells 1+; Spherocytes 1+
--- NOTE | 2023-10-05 15:33 | PC.NURSE ---
Patient has done well this shift since admission. V/S stable. HR in 60s. NSR on tele. On room air. A&O x4. Lung sounds clear bilaterally.
[2023-10-05 15:39] LABS: Troponin I < 0.01 ng/ml (0.00-0.034)
[2023-10-05] MEDS: PANTOPRAZOLE 40MG TABLET 40 MG PO (20:06)
[2023-10-06] VITALS: BP 153/83; PULSE 66; RESP 20; TEMP 37.1; O2SAT 96
[2023-10-06 04:00] VITALS: BP 146/72; PULSE 71; RESP 16; TEMP 37.1; O2SAT 95; BMI 24.6
[2023-10-06] MEDS: LEVOTHYROXINE 100MCG (0.1MG) TAB 100 MCG PO (06:07)
[2023-10-06 08:00] VITALS: BP 162/79; PULSE 70; PULSE 73; RESP 18; TEMP 36.6; O2SAT 97
[2023-10-06] MEDS: FUROSEMIDE 40 MG TABLET PO (08:16)
[2023-10-06] MEDS: BISOPROLOL 5MG TABLET 2.5 MG PO (08:16)
[2023-10-06 11:39] LABS: Basophils % 0.6 % (0.1-2.0); Chloride 104 mmol/L (98-107); Eosinophils % 0.7 % (0.1-12.0); Hematocrit 38.7 % (37.0-47.0); Hemoglobin 11.6 g/dL (12.2-16.2); Mean Corpuscular HGB Conc 30.1 g/dL (31.8-35.4); Mean Corpuscular Volume 93.3 fl (81-99); Monocytes # 0.4 K/mm3 (0.1-1.0); Monocytes % 7.2 % (1.7-9.3); Neutrophils # 4.1 K/mm3 (1.8-7.8); Neutrophils % 73.4 % (37.0-80.0); Platelet Count 170 K/mm3 (142-424); Red Blood Count 4.14 M/mm3 (4.20-5.40); Red Cell Distribution Width 20.6 % (11.5-17.5); White Blood Count 5.6 K/mm3 (4.8-10.8)
[2023-10-06 11:40] LABS: Potassium 4.3 mmoL/L (3.5-5.1); Sodium 138 mmol/L (136-145)
[2023-10-06 11:42] LABS: Blood Urea Nitrogen 16 mg/dl (7-17); Creatinine Clearance Estimated 48 mL/min (50-200); Estimated Glomerular Filt Rate 61 ml/min (>60); GFR (African American) 73 ML/MIN (>60)
[2023-10-06 11:43] LABS: Anion Gap 5.3 mEq/L (5-15); Calcium 9.2 mg/dl (8.4-10.2); Carbon Dioxide 33 mmol/L (22.0-30.0); Glucose 96 mg/dl (74-100)
[2023-10-06 11:56] VITALS: BP 135/72; PULSE 57; RESP 18; TEMP 36.4; O2SAT 98
--- NOTE | 2023-10-06 12:23 | EXP.ACUTE.PN ---
Subjective *Date: 10/06/23 *Time: 12:23 Interval history: She feels fine and is anxious for discharge. Lab work is stable. Hemoglobin 11.6 is encouraging. Medical Exam Vital signs and Labs for Last 24 Hours: Vital Signs Temp Pulse Pulse Resp BP Pulse Ox O2 Del Method 10/06/23 11:56 97.6 F 57 L 18 135/72 98 Room Air 10/06/23 10:54 Room Air 10/06/23 09:05 Room Air 10/06/23 08:00 70 10/06/23 08:00 Room Air 10/06/23 08:00 97.9 F 73 18 162/79 H 97 Room Air 10/06/23 06:47 Room Air 10/06/23 05:00 Room Air 10/06/23 04:00 98.8 F 71 16 146/72 H 95 Room Air 10/06/23 03:00 Room Air 10/06/23 01:00 Room Air 10/06/23 00:00 98.7 F 66 20 153/83 H 96 Room Air 10/05/23 23:00 Nasal Cannula 10/05/23 21:00 Room Air 10/05/23 20:00 99.4 F 67 16 128/60 97 Room Air 10/05/23 20:00 Room Air 10/05/23 18:36 Room Air 10/05/23 16:47 Room Air 10/05/23 16:00 70 10/05/23 16:00 98.3 F 69 18 121/56 L 95 Room Air 10/05/23 15:15 98.4 F 65 18 131/62 Room Air 10/05/23 14:44 Room Air 10/05/23 14:15 98.7 F 68 18 140/65 98 Room Air 10/05/23 13:15 98.7 F 71 18 164/77 H 99 Room Air 10/05/23 12:45 98.9 F 72 18 133/61 94 L Room Air 10/05/23 12:45 Room Air O2 Flow Rate 10/06/23 11:56 10/06/23 10:54 10/06/23 09:05 10/06/23 08:00 10/06/23 08:00 10/06/23 08:00 10/06/23 06:47 10/06/23 05:00 10/06/23 04:00 10/06/23 03:00 10/06/23 01:00 10/06/23 00:00 10/05/23 23:00 2 10/05/23 21:00 10/05/23 20:00 10/05/23 20:00 10/05/23 18:36 10/05/23 16:47 10/05/23 16:00 10/05/23 16:00 10/05/23 15:15 10/05/23 14:44 10/05/23 14:15 10/05/23 13:15 10/05/23 12:45 10/05/23 12:45 Intake and Output 10/06/23 10/06/23 10/06/23 03:59 11:59 19:59 Intake Total 480 / 1175 480 / 480 Output Total 0 / 500 500 / 500 Balance 0 / 675 -20 / 675 480 / 480 Intake: Intake, Oral Amount 480 / 1175 480 / 480 Output: Output, Urine Amount 0 / 500 500 / 500 Other: Number of Unmeasured Voids 1 1 Weight 144 lb 3 oz Laboratory Results - last 24 hr 10/05/23 12:15: WBC 7.3, RBC 4.03 L, Hgb 11.6 L, Hct 37.3, MCV 92.5, MCH 28.7, MCHC 31.0 L, RDW 20.7 H, Plt Count 178, MPV 9.3, Neut % (Auto) 87.8 H, Lymph % (Auto) 6.8 L, [place] % (Auto) 4.7, Eos % (Auto) 0.3, Baso % (Auto) 0.3, Neut # (Auto) 6.4, Lymph # (Auto) 0.5 L, [place] # (Auto) 0.3, Eos # (Auto) 0.0, Baso # (Auto) 0.0, Total Counted 100, Neutrophils % (Manual) 75, Band Neutrophils % 7.0, Lymphocytes % (Manual) 6 L, Monocytes % (Manual) 12 H, Platelet Estimate Normal, Poikilocytosis 1+, Anisocytosis 1+, Macrocytosis 1+, Spherocytes 1+, Domenico Cells 1+, Sodium 138, Potassium 4.1, Chloride 105, Carbon Dioxide 32 H, Anion Gap 5.1, BUN 21 H, Creatinine 1.00, Estimated Creat Clear 48, Estimated GFR 54 L, Est GFR ( Amer) 65, Glucose 122 H, Calcium 8.8, NT-Pro-B Natriuret Pep 466 H 10/05/23 15:00: Troponin I < 0.01 10/06/23 11:25: WBC 5.6, RBC 4.14 L, Hgb 11.6 L, Hct 38.7, MCV 93.3, MCH 28.0, MCHC 30.1 L, RDW 20.6 H, Plt Count 170, MPV 9.0, Neut % (Auto) 73.4, Lymph % (Auto) 18.0, [place] % (Auto) 7.2, Eos % (Auto) 0.7, Baso % (Auto) 0.6, Neut # (Auto) 4.1, Lymph # (Auto) 1.0, [place] # (Auto) 0.4, Eos # (Auto) 0.0, Baso # (Auto) 0.0, Sodium 138, Potassium 4.3, Chloride 104, Carbon Dioxide 33 H, Anion Gap 5.3, BUN 16, Creatinine 0.90, Estimated Creat Clear 48, Estimated GFR 61, Est GFR ( Amer) 73, Glucose 96 D, Calcium 9.2 I & O for Labs for Last 24 Hours: Intake & Output 10/04/23 10/05/23 10/06/23 10/07/23 11:59 11:59 11:59 11:59 Intake Total 100 / 100 1175 / 1175 480 / 480 Output Total 500 / 500 Balance 100 / 100 675 / 675 480 / 480 Weight 143 lb 2 oz 144 lb 3 oz Head: Present normocephalic Neck: Present normal inspection Respiratory: Present CTA bilaterally Cardiac: Present Reg Rate and Rhythm GI: Present soft; Absent tenderness Rectal (female): Present deferred (female): Present deferred Extremities: Present edema (One plus bilaterally) Skin: Present intact Neuro: Present alert and oriented x 3 Assessment and Plan *Assessment and plan (1) Respiratory failure with hypoxia: Status: Acute Category: Medical Code(s): J96.91 - Respiratory failure, unspecified with hypoxia (2) Postoperative hypoxia: Status: Acute Category: Medical Code(s): R09.02 - Hypoxemia; Z98.890 - Other specified postprocedural states (3) H/O esophagogastroduodenoscopy: Status: Acute Category: Surgical Code(s): Z98.890 - Other specified postprocedural states (4) Anemia: Status: Acute Qualifiers: Anemia type: unspecified type Qualified Code(s): D64.9 - Anemia, unspecified Category: Medical Code(s): D64.9 - Anemia, unspecified (5) Duodenitis: Status: Acute Category: Medical Code(s): K29.80 - Duodenitis without bleeding (6) Gastritis: Status: Acute Category: Medical Code(s): K29.70 - Gastritis, unspecified, without bleeding (7) ASCVD (arteriosclerotic cardiovascular disease): Status: Acute Category: Medical Code(s): I25.10 - Atherosclerotic heart disease of [place] coronary artery without angina pectoris (8) Status post coronary artery stent placement: Status: Acute Category: Surgical Code(s): Z95.5 - Presence of coronary angioplasty implant and graft Plan Discharge today. Continue regular medications. Follow-up as scheduled [facility] October 18
--- NOTE | 2023-10-08 09:41 | EXP.DC.SUM ---
General Admission date:: 10/05/23 Discharge date: 10/06/23 HPI HPI HPI: This is a 78-year-old female who came in to [facility] to undergo EGD and colonoscopy secondary to anemia. She had the EGD completed and then the patient had a rapid response called because she experienced oxygen desaturation and bradycardia. There was a questionable rhythm change noted during the EGD as well. The patient started receiving bag valve mask respirations. Anesthesia was stopped. EKG was obtained that showed sinus bradycardia with no arrhythmia. There were no ST segment changes or blocks noted. The patient was hypotensive with a blood pressure in the 70s over 40s. Ephedrine was given by anesthesia. The patient began breathing spontaneously and was transitioned to a nonrebreather mask. Her vital signs normalized with a systolic blood pressure of 113 and her heart rate went to the 70s. Her oxygen saturations improved. The patient currently denies any chest pain or pressure. She denies any shortness of breath or edema. She denies any fever, chills, nausea, vomiting, diarrhea, PND or orthopnea The patient states that she is very hungry because she has not eaten in 2 days prepping for her colonoscopy. She is very upset that her colonoscopy was not completed. (above as per cardiology) Hospital Course Hospital Course Hospital Course: After admission patient did feel better. O2 sats were 98% on RA. She continued to deny any chest pain or shortness of breath. She was upset because she was unable to have her colonoscopy. The following day on 10/06/2023 Lab work was noted to be stable with a hemoglobin of 11.6. She felt fine and was anxious to go home. Vital signs were stable. She was discharged home and to continue her regular medications. She was to follow-up as scheduled at [facility] on October 19, 2023. See medication reconciliation sheet. Exam Data for Last 24 hours Vital signs and Labs for Last 24 Hours: Temp Pulse Resp BP Pulse Ox O2 Del Method O2 Flow Rate 97.6 F 57 L 18 135/72 98 Room Air 2 10/06/23 11:56 10/06/23 11:56 10/06/23 11:56 10/06/23 11:56 10/06/23 11:56 10/06/23 13:00 10/05/23 23:00 I & O for Last 24 hours: Intake & Output 05/03/24 05/04/24 05/05/24 05/06/24 11:59 11:59 11:59 11:59 Intake Total 100 / 100 1175 / 1175 480 / 480 Output Total 500 / 500 Balance 100 / 100 675 / 675 480 / 480 Weight 143 lb 2 oz 144 lb 3 oz Narrative: Medical Exam Vital signs and Labs for Last 24 Hours: Vital Signs Temp Pulse Pulse Resp BP Pulse Ox O2 Del Method 10/06/23 11:56 97.6 F 57 L 18 135/72 98 Room Air 10/06/23 10:54 Room Air 10/06/23 09:05 Room Air 10/06/23 08:00 70 10/06/23 08:00 Room Air 10/06/23 08:00 97.9 F 73 18 162/79 H 97 Room Air 10/06/23 06:47 Room Air 10/06/23 05:00 Room Air 10/06/23 04:00 98.8 F 71 16 146/72 H 95 Room Air 10/06/23 03:00 Room Air 10/06/23 01:00 Room Air 10/06/23 00:00 98.7 F 66 20 153/83 H 96 Room Air 10/05/23 23:00 Nasal Cannula 10/05/23 21:00 Room Air 10/05/23 20:00 99.4 F 67 16 128/60 97 Room Air 10/05/23 20:00 Room Air 10/05/23 18:36 Room Air 10/05/23 16:47 Room Air 10/05/23 16:00 70 10/05/23 16:00 98.3 F 69 18 121/56 L 95 Room Air 10/05/23 15:15 98.4 F 65 18 131/62 Room Air 10/05/23 14:44 Room Air 10/05/23 14:15 98.7 F 68 18 140/65 98 Room Air 10/05/23 13:15 98.7 F 71 18 164/77 H 99 Room Air 10/05/23 12:45 98.9 F 72 18 133/61 94 L Room Air 10/05/23 12:45 Room Air O2 Flow Rate 10/06/23 11:56 10/06/23 10:54 10/06/23 09:05 10/06/23 08:00 10/06/23 08:00 10/06/23 08:00 10/06/23 06:47 10/06/23 05:00 10/06/23 04:00 10/06/23 03:00 10/06/23 01:00 10/06/23 00:00 10/05/23 23:00 2 10/05/23 21:00 10/05/23 20:00 10/05/23 20:00 10/05/23 18:36 10/05/23 16:47 10/05/23 16:00 10/05/23 16:00 10/05/23 15:15 10/05/23 14:44 10/05/23 14:15 10/05/23 13:15 10/05/23 12:45 10/05/23 12:45 Intake and Output 10/06/23 10/06/23 10/06/23 03:59 11:59 19:59 Intake Total 480 / 1175 480 / 480 Output Total 0 / 500 500 / 500 Balance 0 / 675 -20 / 675 480 / 480 Intake: Intake, Oral Amount 480 / 1175 480 / 480 Output: Output, Urine Amount 0 / 500 500 / 500 Other: Number of Unmeasured Voids 1 1 Weight 144 lb 3 oz Laboratory Results - last 24 hr 10/05/23 12:15: WBC 7.3, RBC 4.03 L, Hgb 11.6 L, Hct 37.3, MCV 92.5, MCH 28.7, MCHC 31.0 L, RDW 20.7 H, Plt Count 178, MPV 9.3, Neut % (Auto) 87.8 H, Lymph % (Auto) 6.8 L, [place] % (Auto) 4.7, Eos % (Auto) 0.3, Baso % (Auto) 0.3, Neut # (Auto) 6.4, Lymph # (Auto) 0.5 L, [place] # (Auto) 0.3, Eos # (Auto) 0.0, Baso # (Auto) 0.0, Total Counted 100, Neutrophils % (Manual) 75, Band Neutrophils % 7.0, Lymphocytes % (Manual) 6 L, Monocytes % (Manual) 12 H, Platelet Estimate Normal, Poikilocytosis 1+, Anisocytosis 1+, Macrocytosis 1+, Spherocytes 1+, Domenico Cells 1+, Sodium 138, Potassium 4.1, Chloride 105, Carbon Dioxide 32 H, Anion Gap 5.1, BUN 21 H, Creatinine 1.00, Estimated Creat Clear 48, Estimated GFR 54 L, Est GFR ( Amer) 65, Glucose 122 H, Calcium 8.8, NT-Pro-B Natriuret Pep 466 H 10/05/23 15:00: Troponin I < 0.01 10/06/23 11:25: WBC 5.6, RBC 4.14 L, Hgb 11.6 L, Hct 38.7, MCV 93.3, MCH 28.0, MCHC 30.1 L, RDW 20.6 H, Plt Count 170, MPV 9.0, Neut % (Auto) 73.4, Lymph % (Auto) 18.0, [place] % (Auto) 7.2, Eos % (Auto) 0.7, Baso % (Auto) 0.6, Neut # (Auto) 4.1, Lymph # (Auto) 1.0, [place] # (Auto) 0.4, Eos # (Auto) 0.0, Baso # (Auto) 0.0, Sodium 138, Potassium 4.3, Chloride 104, Carbon Dioxide 33 H, Anion Gap 5.3, BUN 16, Creatinine 0.90, Estimated Creat Clear 48, Estimated GFR 61, Est GFR ( Amer) 73, Glucose 96 D, Calcium 9.2 I & O for Labs for Last 24 Hours: Intake & Output 10/04/23 10/05/23 10/06/23 10/07/23 11:59 11:59 11:59 11:59 Intake Total 100 / 100 1175 / 1175 480 / 480 Output Total 500 / 500 Balance 100 / 100 675 / 675 480 / 480 Weight 143 lb 2 oz 144 lb 3 oz Head: Present normocephalic Neck: Present normal inspection Respiratory: Present CTA bilaterally Cardiac: Present Reg Rate and Rhythm GI: Present soft; Absent tenderness Rectal (female): Present deferred (female): Present deferred Extremities: Present edema (One plus bilaterally) Skin: Present intact Neuro: Present alert and oriented x 3 Results Data Completed and Pending Completed studies during hospitalization [Text1]: 10/05/2023 CXR FINDINGS: No acute pulmonary opacity is present. There is no evidence of effusion or pneumothorax. Mediastinum is unremarkable. Heart size is normal. IMPRESSION: No acute abnormality. DS: Diagnosis Discharge Diagnosis (1) Respiratory failure with hypoxia: Status: Resolved Code(s): J96.91 - Respiratory failure, unspecified with hypoxia (2) Postoperative hypoxia: Status: Resolved Code(s): R09.02 - Hypoxemia; Z98.890 - Other specified postprocedural states (3) H/O esophagogastroduodenoscopy: Status: Inactive Code(s): Z98.890 - Other specified postprocedural states (4) Anemia: Status: Acute Code(s): D64.9 - Anemia, unspecified Qualifiers: Anemia type: unspecified type Qualified Code(s): D64.9 - Anemia, unspecified (5) Duodenitis: Status: Acute Code(s): K29.80 - Duodenitis without bleeding (6) Gastritis: Status: Acute Code(s): K29.70 - Gastritis, unspecified, without bleeding (7) ASCVD (arteriosclerotic cardiovascular disease): Status: Acute Code(s): I25.10 - Atherosclerotic heart disease of [place] coronary artery without angina pectoris (8) Status post coronary artery stent placement: Status: Inactive Code(s): Z95.5 - Presence of coronary angioplasty implant and graft Meds Home Medications and Allergies Home Medications Medication Instructions Recorded Confirmed Type vit C 250 mg-vit E 90 mg-zinc 40 1 tab PO BID Macular degeneration 06/09/19 10/04/23 History mg-copper 1 do-bxhnoj-qtginh capsule (PreserVision AREDS-2) levothyroxine 100 mcg tablet 100 mcg PO DAILY #90 tabs 12/18/22 10/05/23 Rx (Synthroid) losartan 25 mg tablet 12.5 mg PO DAILY 90 days #45 tabs 08/27/23 10/04/23 History bisoprolol fumarate 5 mg tablet 2.5 mg PO HS 09/03/23 10/04/23 History furosemide 40 mg tablet 40 mg PO DAILY Fluid 09/03/23 10/04/23 History ferrous sulfate 325 mg (65 mg 325 mg PO BID #100 tabs 09/05/23 10/04/23 Rx iron) tablet pantoprazole 40 mg tablet,delayed 40 mg PO DAILY gastritis #30 tabs 09/05/23 10/04/23 Rx release Jardiance 10 mg tablet 10 mg PO DAILY #90 tabs 10/04/23 10/04/23 Rx (empagliflozin) sucralfate 1 gram tablet 2 g PO BID gastritis/ulcer 10/05/23 10/05/23 History New Prescriptions to Start Prescriptions: Allergies Allergy/AdvReac Type Severity Reaction Status Date / Time [id number] Reductase Allergy Mild intolerance Verified 10/05/23 08:34 Inhibitor Discharge Plan Disposition Patient Disposition: Home, Self-Care Condition: Good Follow up Plan Follow up with: Elda Cancino MD [Primary Care Provider] - 10/19/23 (Please call for appointment time) Prescriptions/Medication Reconciliation: Continued PreserVision AREDS-2 [id number] uk-awai-te-mg capsule 1 tab PO BID Rx Instructions: administer with meals (after breakfast and after supper) losartan 25 mg tablet 12.5 mg PO DAILY 90 Days Qty: 45 Jardiance 10 mg tablet 10 mg PO DAILY Qty: 90 3RF levothyroxine [Synthroid] 100 mcg tablet 100 mcg PO DAILY Qty: 90 4RF bisoprolol fumarate 5 mg tablet 2.5 mg PO HS furosemide 40 mg tablet 40 mg PO DAILY pantoprazole 40 mg tablet,delayed release (DR/EC) 40 mg PO DAILY Qty: 30 4RF ferrous sulfate 325 mg (65 mg iron) tablet 325 mg PO BID Qty: 100 3RF sucralfate 1 gram tablet 2 g PO BID Problem Reconciliation Problems Reviewed?: Yes Patient Discharge Instructions ACTIVITY: Continue current activity DIET: advance to your usual diet Patient Instructions: Colonoscopy, Upper GI Endoscopy, DI for Surgical Site Infection Providers Primary Care Provider: Elda Cancino Admit Provider: Elda Cancino Attending Provider: Elda Cancino
--- NOTE | 2023-10-08 13:30 | CARE MANAGER ---
Called and spoke with patient regarding recent discharge. Patient stated she is feeling some better and was aware of scheduled f/u appts.
== END 2023-10-06 13:19 | disposition home or self-care (01) ==
LOC: 2ND 10:51
PROVIDERS: Anesthesiology; Nurse Practitioner Family; Surgery; Admitting Provider Family Medicine; PCP Family Medicine; Visit Provider Family Medicine
PROC: 0DJ08ZZ Inspection of Upper Intestinal Tract, Via Natural or Artificial Opening Endoscopic (ICD-10-PCS; CPT 43235; principal; 2023-10-05 10:30)
DX: J96.91 Respiratory failure, unspecified with hypoxia (principal); Z98.890 Other specified postprocedural states; I77.9 Disorder of arteries and arterioles, unspecified; E78.2 Mixed hyperlipidemia; I50.33 Acute on chronic diastolic (congestive) heart failure; Z95.5 Presence of coronary angioplasty implant and graft; Z72.0 Tobacco use; I25.10 Atherosclerotic heart disease of native coronary artery without angina pectoris; E89.0 Postprocedural hypothyroidism; K29.80 Duodenitis without bleeding; D64.9 Anemia, unspecified; I65.23 Occlusion and stenosis of bilateral carotid arteries; R09.02 Hypoxemia; K29.70 Gastritis, unspecified, without bleeding
CPT/HCPCS: 43239; G0379; 36415; 71045; 80048; 83880; 84484; 85007; 85025; 88305; 93005; 93308; 94640; 94760; 94761; G0378

== ENCOUNTER 2023-10-08 11:24 | Outpatient (CLI) | payer MEDICARE, SELFPAY ==
[2023-10-08] MEDS: INCLISIRAN SODIUM 284 MG/1.5 ML SYRINGE SQ (11:45)
[2023-10-08 11:55] VITALS: BP 116/56; PULSE 76; RESP 18; O2SAT 94
== END 2023-10-08 11:55 | disposition home or self-care (01) ==
LOC: INF 11:26
PROVIDERS: PCP Family Medicine; Visit Provider Physician Assistant
DX: E78.5 Hyperlipidemia, unspecified (principal)
CPT/HCPCS: 96372; J1306

== ENCOUNTER 2023-11-19 11:00 | Day surgery (SDC) | payer MEDICARE, SELFPAY ==
[2023-11-15 14:53] VITALS: BMI 23.6
[2023-11-19 11:23] VITALS: BP 107/55; PULSE 59; RESP 18; TEMP 36.6; O2SAT 95; BMI 24.3
--- NOTE | 2023-11-19 12:07 | EXP.GEN.HP ---
HPI HPI HPI: Patient presents for follow-up colonoscopy. She has a relatively recently diagnosed history of atherosclerotic coronary artery disease with stent. She has a history of carotid artery stenosis, hypertension, hypothyroidism, hyperlipidemia, mitral valve disorder. She had been admitted to the hospital with shortness of breath on 07/30/2023. At that time her hemoglobin was 10.9. During that hospitalization cardiology was consulted and she underwent heart catheterization and stenting by Dr. Mathew. She was placed on dual antiplatelet therapy at that time and discharged from the hospital on 08/01/2023 with a hemoglobin of 9.5. After discharge she then developed progressive shortness of breath with minimal exertion and near syncope with inability to perform activities of daily living. She presented to the emergency department on 09/03/2023 at which time she had a hemoglobin of 4.2. She was admitted for inpatient management and surgical consultation was ordered for blood loss anemia. Patient was transfused 4 units packed red blood cells with resultant posttransfusion hemoglobin of 9.7. Patient had never had prior colonoscopy. She underwent inpatient EGD on 09/04/2023 at which time she was found to have findings of mild esophageal dysmotility, gastroesophageal junction at 39 cm, mild gastropathy/gastritis but several shallow erosions in the antrum. There were several fundic gland polyps. Most notable there were findings of significant appreciable erosive duodenitis characterized by induration and erythema with erosions and small shallow ulcerations within the duodenal bulb. Patient was able to be discharged ultimately off of antiplatelet therapy and on medical therapy for gastrititis and significant duodenitis. Patient followed up as an outpatient with her primary care provider and general surgery. She described some bowel irregularity. She had some occasional postprandial diarrhea. Given the findings of appreciable inflammatory response on the upper endoscopy (particularly within the duodenal bulb) and due to the fact that she never had prior colonoscopy plan was made to proceed with upper endoscopy as well as colonoscopy as an outpatient. After she was scheduled request was made by anesthesia provider for follow-up cardiology assessment. She was seen and evaluated for cardiology risk assessment on 10/04/2023. She underwent EGD on 10/05/2023 at which time she was found to have mild esophageal dysmotility, gastroesophageal junction at 40 cm, moderate sliding hiatal hernia (3 to 4 cm) diffuse mild to moderate nonerosive gastritis, multiple (too numerous to count) punctate areas of mild hemorrhagic oozing diffusely throughout the entire stomach, prominent hypertrophic mucosa within the duodenal bulb which was biopsied. These biopsies returned as gastric heterotopia. Distal duodenal biopsies were normal. Gastric biopsies revealed mild/minimal chronic inflammation but no H. pylori. She has been on Protonix and Carafate. During the procedure patient had diminished oxygen saturations and some rhythm changes on the electronic device monitor therefore she did not undergo colonoscopy and was admitted for management overnight. Patient does describe hemorrhoid problems. She describes enlarging hemorrhoids and one of them protruding. [facility] Disclaimer: The information contained in this section may have been updated after the patient was seen, as this information can be updated by other users. 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 Coronary artery disease CHF (congestive heart failure) Gastritis Postoperative hypoxia Respiratory failure with hypoxia Elevated troponin Mitral valve disorder HTN (hypertension) Amyloidosis Carotid artery stenosis Carotid artery disease Hyperlipidemia Edema (HFpEF) heart failure with preserved ejection fraction Goiter Myocardial infarct Macular degeneration Surgical History Status post coronary artery stent placement H/O esophagogastroduodenoscopy History of ovarian cystectomy Hx of tonsillectomy History of thyroid surgery H/O hernia repair H/O heart artery stent Family History Other Heart attack Social History Smoking Status: Current every day smoker tobacco type: cigarettes alcohol intake: never substance use type: denies use current occupational status: retired Travel in the last 8 weeks: None Meds Home Medications and Allergies Home Medications Medication Instructions Recorded Confirmed Type vit C 250 mg-vit E 90 mg-zinc 40 1 tab PO BID Macular degeneration 06/09/19 11/15/23 History mg-copper 1 [id number]-[id number] capsule (PreserVision AREDS-2) levothyroxine 100 mcg tablet 100 mcg PO DAILY #90 tabs 12/18/22 11/15/23 Rx (Synthroid) losartan 25 mg tablet 12.5 mg PO DAILY 90 days #45 tabs 08/27/23 11/15/23 History bisoprolol fumarate 5 mg tablet 2.5 mg PO HS 09/03/23 11/19/23 History furosemide 40 mg tablet 40 mg PO DAILY Fluid 09/03/23 11/15/23 History ferrous sulfate 325 mg (65 mg 325 mg PO BID #100 tabs 09/05/23 11/19/23 Rx iron) tablet pantoprazole 40 mg tablet,delayed 40 mg PO DAILY gastritis #30 tabs 09/05/23 11/15/23 Rx release Jardiance 10 mg tablet 10 mg PO DAILY #90 tabs 10/04/23 11/15/23 Rx (empagliflozin) hydrocortisone 2.5 % topical cream 1 applic AK QD-BID PRN hemorrhoids 10/18/23 11/15/23 Rx with perineal applicator #30 grams (Anusol-HC) clopidogrel 75 mg tablet 75 mg PO ONCE 11/19/23 11/19/23 History New Prescriptions to Start Prescriptions: Allergies Allergy/AdvReac Type Severity Reaction Status Date / Time [id number] Reductase Allergy Mild intolerance Verified 11/15/23 14:51 Inhibitor Exam Data for Last 24 hours Vital signs and Labs for Last 24 Hours: Temp Pulse Resp BP Pulse Ox O2 Del Method 97.9 F 59 L 18 107/55 L 95 Room Air 11/19/23 11:23 11/19/23 11:23 11/19/23 11:23 11/19/23 11:23 11/19/23 11:23 11/19/23 11:23 I & O for Last 24 hours: Intake & Output 11/17/23 11/18/23 11/19/23 11/20/23 11:59 11:59 11:59 11:59 Weight 142 lb Constitutional Constitutional: no acute distress *Routine HEENT Exam Head: Present normocephalic Eye: Present EOMI and PERRL ENT: Present mucous membranes moist *Routine Neck Exam Neck: Present supple; Absent lymphadenopathy *Routine Respiratory Exam Respiratory: Present CTA bilaterally *Routine Cardiovascular Exam Cardiovascular: Present RRR *Routine Abdominal Exam Abdominal: Present soft and normoactive bowel sounds; Absent tenderness *Routine Rectal Exam Rectal:: deferred *Routine Genitalia Exam Genitalia:: deferred *Routine Extremities Exam Extremities: Absent cyanosis, clubbing or edema *Routine Skin Exam Skin: Present warm; Absent rash *Routine Neurological Exam Neurological: Present alert and oriented X3 Assessment and Plan *Assessment and plan (1) Anemia: Status: Acute Qualifiers: Anemia type: unspecified type Qualified Code(s): D64.9 - Anemia, unspecified Category: Medical Code(s): D64.9 - Anemia, unspecified Plan Proceed with colonoscopy
--- NOTE | 2023-11-19 12:13 | EXP.ANES.CKL ---
[facility] Disclaimer: The information contained in this section may have been updated after the patient was seen, as this information can be updated by other users. 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 Coronary artery disease CHF (congestive heart failure) Gastritis Postoperative hypoxia Respiratory failure with hypoxia Elevated troponin Mitral valve disorder HTN (hypertension) Amyloidosis Carotid artery stenosis Carotid artery disease Hyperlipidemia Edema (HFpEF) heart failure with preserved ejection fraction Goiter Myocardial infarct Macular degeneration Surgical History Status post coronary artery stent placement H/O esophagogastroduodenoscopy History of ovarian cystectomy Hx of tonsillectomy History of thyroid surgery H/O hernia repair H/O heart artery stent Family History Other Heart attack Social History Smoking Status: Current every day smoker tobacco type: cigarettes alcohol intake: never substance use type: denies use current occupational status: retired Travel in the last 8 weeks: None [facility] Anesthesia Checklist Patient Identification Patient Identification: Arm Band Structural Data Admitted From: Home Planned Operative Procedure/s: Colonoscopy Consent for Planned Operative Procedure(s) Verified: Yes Verified Documents: Surgical Consent and History and Physical NPO Status Verified Time NPO: 00:00 Additional verifications Anesthesia Reactions: No Airway Assessment Mallampati Score:: Class II C-Spine Mobility Assessed: Yes TMJ Mobility Assessed: Yes Dentition: Dentures-good fit (upper partial removed) Neurological Assessment Level of Consciousness: Awake, Alert and Appropriate Anesthesia Plan Anesthesia Risk discussed: Yes Anesthesia Plan: Verified ASA Class: III Anesthesia Type: MAC
[2023-11-19 12:16] VITALS: O2SAT 95
--- NOTE | 2023-11-19 12:58 | P.PCN_ITS ---
Procedure: Date: 11/19/23 Patient Date of :: 1945 Procedure Performed:: Flexible sigmoidoscopy with polypectomy using snare . Indications:: Patient presents for follow-up colonoscopy. She has a relatively recently diagnosed history of atherosclerotic coronary artery disease with stent. She has a history of carotid artery stenosis, hypertension, hypothyroidism, hyperlipidemia, mitral valve disorder. She had been admitted to the hospital with shortness of breath on 07/30/2023. At that time her hemoglobin was 10.9. During that hospitalization cardiology was consulted and she underwent heart catheterization and stenting by Dr. Mathew. She was placed on dual antiplatelet therapy at that time and discharged from the hospital on 08/01/2023 with a hemoglobin of 9.5. After discharge she then developed progressive shortness of breath with minimal exertion and near syncope with inability to perform activities of daily living. She presented to the emergency department on 09/03/2023 at which time she had a hemoglobin of 4.2. She was admitted for inpatient management and surgical consultation was ordered for blood loss anemia. Patient was transfused 4 units packed red blood cells with resultant posttransfusion hemoglobin of 9.7. Patient had never had prior colonoscopy. She underwent inpatient EGD on 09/04/2023 at which time she was found to have findings of mild esophageal dysmotility, gastroesophageal junction at 39 cm, mild gastropathy/gastritis but several shallow erosions in the antrum. There were several fundic gland polyps. Most notable there were findings of significant appreciable erosive duodenitis characterized by induration and erythema with erosions and small shallow ulcerations within the duodenal bulb. Patient was able to be discharged ultimately off of antiplatelet therapy and on medical therapy for gastrititis and significant duodenitis. Patient followed up as an outpatient with her primary care provider and general surgery. She described some bowel irregularity. She had some occasional postprandial diarrhea. Given the findings of appreciable inflammatory response on the upper endoscopy (particularly within the duodenal bulb) and due to the fact that she never had prior colonoscopy plan was made to proceed with upper endoscopy as well as colonoscopy as an outpatient. After she was scheduled request was made by anesthesia provider for follow-up cardiology assessment. She was seen and evaluated for cardiology risk assessment on 10/04/2023. She underwent EGD on 10/05/2023 at which time she was found to have mild eso phageal dysmotility, gastroesophageal junction at 40 cm, moderate sliding hiatal hernia (3 to 4 cm) diffuse mild to moderate nonerosive gastritis, multiple (too numerous to count) punctate areas of mild hemorrhagic oozing diffusely throughout the entire stomach, prominent hypertrophic mucosa within the duodenal bulb which was biopsied. These biopsies returned as gastric heterotopia. Distal duodenal biopsies were normal. Gastric biopsies revealed mild/minimal chronic inflammation but no H. pylori. She has been on Protonix and Carafate. During the procedure patient had diminished oxygen saturations and some rhythm changes on the playground monitor therefore she did not undergo colonoscopy and was admitted for management overnight. Patient does describe hemorrhoid problems. She describes enlarging hemorrhoids and one of them protruding. . Performing Provider:: Carlos Acosta MD Referring Provider:: Jhony Cancino MD Sedation:: MAC sedation Procedure:: Patient history was obtained and appropriate physical examination was performed. Patient's medications and allergies were reviewed. Informed consent was obtained after explaining the benefits, alternatives, and risks of the procedure including, but not limited to, bleeding, perforation, missed lesions, and adverse reaction to anesthesia medications. Patient was transported to endoscopy procedure room. Patient was connected to monitoring devices. Throughout the procedure the patient's blood pressure, pulse, and oxygen saturations were monitored continuously. Patient identification and planned procedure were verified by the staff. Patient was positioned in lateral decubitus position. Digital anorectal exam was performed. Patient was immediately noted to have circumferential rectal mucosal prolapse. There was a prolapsing irregular rectal mass. This was able to be reduced. Colonoscope was then able to be inserted. There was a large polypoid irregular friable anorectal mass. Some of the tissue easily sloughed off. This was actually sent for specimen labeled anorectal mass. Colonoscope was advanced to approximately 50 cm. The prep was good. She had profound sigmoid diverticulosis. Despite repeated attempts due to her severe diverticular disease the colonoscope could not be safely advanced beyond approximately 50 cm. Therefore her colon was not fully evaluated. In the rectosigmoid region there was a moderate submucosal mass of uncertain specifics. This could be submucosal lipoma. In the rectum there was a sessile adenomatous appearing polyp which was removed with hot snare. There were a couple of other sessile polyps within the rectum which appeared likely hyperplastic removed with snare. Consideration was being given for possible biopsy of the lesion but, as stated above, tissue had already been obtained as it merely sloughed off and it was felt that there is an appreciable risk of cancerous component. There was also a significant risk that it could bleed. Therefore additional biopsy or polypectomy was not performed of this lesion. Once again, colonoscope was attempted to be advanced beyond the sigmoid colon which was unsuccessful due to her profound diverticular disease. The colonoscope was withdrawn. Findings:: Large anorectal mass lesion prolapsing Circumferential rectal prolapse Rectal polyps as noted above Rectosigmoid submucosal mass, uncertain etiology Severe sigmoid diverticulosis . Recommendations:: She will need to see colorectal surgery due to the complex problems as soon as possible. Arrangements will be made. Complications:: None immediately apparent Estimated blood obtained (mL): 2 Colonoscopy Component Colonoscopy Component Was a colonoscopy performed during today's procedure?: No
[2023-11-19 13:00] VITALS: BP 95/46; PULSE 96; RESP 14; TEMP 36.3; O2SAT 92
[2023-11-19 13:10] VITALS: BP 113/51; PULSE 71; RESP 16; O2SAT 93
[2023-11-19 13:20] VITALS: BP 102/41; PULSE 67; RESP 16; O2SAT 95
[2023-11-19 13:30] VITALS: BP 119/61; PULSE 63; RESP 16; O2SAT 96
== END 2023-11-19 13:30 | disposition home or self-care (01) ==
PROVIDERS: PCP Family Medicine; Visit Provider Surgery
PROC: 0DJD8ZZ Inspection of Lower Intestinal Tract, Via Natural or Artificial Opening Endoscopic (ICD-10-PCS; CPT 45330; principal; 2023-11-19 12:00)
DX: D64.9 Anemia, unspecified (principal); Z12.11 Encounter for screening for malignant neoplasm of colon; K62.1 Rectal polyp; Z09 Encounter for follow-up examination after completed treatment for conditions other than malignant neoplasm; Z86.010 Personal history of colon polyps; K57.30 Diverticulosis of large intestine without perforation or abscess without bleeding; K62.3 Rectal prolapse
CPT/HCPCS: 45338; 88305

== ENCOUNTER 2023-12-14 09:55 | Outpatient (CLI) | payer MEDICARE, SELFPAY ==
[2023-12-14 11:18] LABS: Thyroid Stimulating Hormone 6.18 uIU/mL (0.465-4.68)
== END 2023-12-14 23:59 | disposition home or self-care (01) ==
LOC: LAB 09:56
PROVIDERS: PCP Family Medicine; Visit Provider Nurse Practitioner
DX: E03.9 Hypothyroidism, unspecified (principal)
CPT/HCPCS: 36415; 84439; 84443

== ENCOUNTER 2024-01-08 10:03 | Outpatient (CLI) | payer MEDICARE, SELFPAY ==
[2024-01-08 10:12] VITALS: BP 125/58; PULSE 63; RESP 18; TEMP 36.6; O2SAT 98
[2024-01-08] MEDS: INCLISIRAN SODIUM 284 MG/1.5 ML SYRINGE SQ (10:12)
== END 2024-01-08 10:35 | disposition home or self-care (01) ==
LOC: INF 10:03
PROVIDERS: PCP Family Medicine; Visit Provider Physician Assistant
DX: E78.5 Hyperlipidemia, unspecified (principal)
CPT/HCPCS: 96372; J1306

== ENCOUNTER 2024-05-14 09:16 | Observation (INO) | payer MEDICARE, SELFPAY ==
[2024-05-14] VITALS (29 sets, daily range): BP systolic 81–147; BP diastolic 41–89; PULSE 71–84; RESP 16–20; TEMP 36.5–37.4; O2SAT 91–100; BMI 25.5; BMI 24.3
[2024-05-14 08:47] LABS: Basophils # 0.1 K/mm3 (0-0.2); Eosinophils # 0.1 K/mm3 (0.0-0.4); Eosinophils % 2.6 % (0.1-12.0); Lymphocytes # 0.9 K/mm3 (0.7-4.5); Lymphocytes % 17.6 % (10-50); Mean Corpuscular HGB Conc 28.8 g/dL (31.8-35.4); Mean Corpuscular Hemoglobin 22.9 pg (27.0-31.2); Mean Corpuscular Volume 79.6 fl (81-99); Mean Platelet Volume 8.2 fl (7.4-10.4); Monocytes # 0.4 K/mm3 (0.1-1.0); Monocytes % 8.5 % (1.7-9.3); Neutrophils # 3.6 K/mm3 (1.8-7.8); Neutrophils % 70.3 % (37.0-80.0); Platelet Count 235 K/mm3 (142-424); Red Blood Count 2.45 M/mm3 (4.20-5.40); Red Cell Distribution Width 21.3 % (11.5-17.5); White Blood Count 5.2 K/mm3 (4.8-10.8)
[2024-05-14 08:54] LABS: Chloride 107 mmol/L (98-107); Sodium 138 mmol/L (136-145)
[2024-05-14 08:55] LABS: Potassium 3.3 mmoL/L (3.5-5.1)
[2024-05-14 08:56] LABS: Hematocrit 19.5 % (37.0-47.0)
[2024-05-14 08:57] LABS: Anion Gap 5.3 mEq/L (5-15); Blood Urea Nitrogen 29 mg/dl (7-17); Carbon Dioxide 29 mmol/L (22.0-30.0); Creatinine Clearance Estimated 49 mL/min (50-200); Estimated Glomerular Filt Rate 61 ml/min (>60); GFR (African American) 73 ML/MIN (>60)
[2024-05-14 08:58] LABS: Calcium 8.6 mg/dl (8.4-10.2); Glucose 106 mg/dl (74-100)
--- NOTE | 2024-05-14 09:36 | SUR.PREOP ---
Patient procedure cancelled due to lab results, report called to Alexia Ortiz rn on 2nd floor. Patient admitted.
--- NOTE | 2024-05-14 09:48 | PC.NURSE ---
arrived to floor by stretcher from labor relations officer.
[2024-05-14 09:54] LABS: Hemoglobin 5.6 g/dL (12.2-16.2)
--- NOTE | 2024-05-14 12:16 | HMH.PHAINT1 ---
Pharmacy Intervention Comments: home medications verified via outpatient pharmacy and patient interview
--- NOTE | 2024-05-14 13:27 | EXP.CARD.CON ---
History of Present Illness History of Present Illness Consult date: 05/14/24 Requesting physician: Keanu Grider Consult reason: shortness of breath Chief complaint: SOA History of present illness: This is a 78-year-old white female who presented to the outpatient cardiac catheterization laboratory this morning to undergo left cardiac catheterization due to atypical angina and shortness of breath. While having preop labs the patient was found to have a hemoglobin of 5.6 and a hematocrit of 19.5. Her procedure was canceled and the patient was admitted to the hospital due to her profound anemia. The patient reports that she is still severely short of breath. She states that her shortness of breath started abruptly on and has not improved she states that she can do very minimal exertion and she is profoundly short of breath. She is extremely fatigued and has no energy to do anything. She denies any chest pain or pressure. She does have some lower extremity edema intermittently but this is pretty chronic for her. She denies any fever, chills, nausea, vomiting, diarrhea. She states that she does have orthopnea at times with her shortness of breath. The patient has been admitted to the hospital for her anemia and will be transfused with packed red blood cells today. [facility] Disclaimer: The information contained in this section may have been updated after the patient was seen, as this information can be updated by other users. 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 (Updated 05/14/24 @ 13:39 by Ramona Lawrence APRN) Anemia Coronary artery disease CHF (congestive heart failure) Gastritis Postoperative hypoxia Respiratory failure with hypoxia Elevated troponin Mitral valve disorder HTN (hypertension) Amyloidosis Carotid artery stenosis Carotid artery disease Hyperlipidemia Edema (HFpEF) heart failure with preserved ejection fraction Goiter Myocardial infarct Macular degeneration Surgical History History of colonoscopy Status post coronary artery stent placement H/O esophagogastroduodenoscopy History of ovarian cystectomy Hx of tonsillectomy History of thyroid surgery H/O hernia repair H/O heart artery stent Family History Other Heart attack Social History (Updated 05/14/24 @ 10:19 by Adelita Begum, DAISHA) Smoking Status: Current every day smoker tobacco type: cigarettes alcohol intake: never substance use type: denies use current occupational status: retired Travel in the last 8 weeks: None Review of Systems Review of Systems Review of systems:: pertinent systems reviewed and negative unless documented below Constitutional Constitutional: Reports system reviewed and no additional complaints, except as documented, Reports fatigue and Reports lethargy Eyes Eyes: Reports system reviewed and no additional complaints, except as documented ENT Ears, Nose, Mouth, and Throat: Reports system reviewed and no additional complaints, except as documented *Cardiovascular Cardiovascular: Reports system reviewed and no additional complaints, except as documented, Reports dyspnea and Reports dyspnea on exertion *Respiratory Respiratory: Reports system reviewed and no additional complaints, except as documented, Denies chest congestion, Reports dyspnea and Reports dyspnea on exertion *Gastrointestinal Gastrointestinal: Reports system reviewed and no additional complaints, except as documented *Genitourinary Genitourinary: Reports system reviewed and no additional complaints, except as documented *Musculoskeletal Musculoskeletal: Reports system reviewed and no additional complaints, except as documented Integumentary/Breasts Skin/Breast: Reports system reviewed and no additional complaints, except as documented *Neurologic Neurologic: Reports system reviewed and no additional complaints, except as documented Psychiatric Psychiatric: Reports system reviewed and no additional complaints, except as documented Endocrine Endocrine: Reports system reviewed and no additional complaints, except as documented and Reports fatigue Hematologic/Lymphatic Hematologic/Lymphatic: Reports system reviewed and no additional complaints, except as documented Allergic/Immunologic Allergic/Immunologic: Reports system reviewed and no additional complaints, except as documented Exam Data for Last 24 hours Vital signs and Labs for Last 24 Hours: Temp Pulse Resp BP Pulse Ox O2 Del Method 98.5 F 84 16 98/52 L 99 Room Air 05/14/24 13:25 05/14/24 13:25 05/14/24 13:25 05/14/24 13:25 05/14/24 13:25 05/14/24 11:47 Laboratory Results - last 24 hr 05/14/24 08:22: WBC 5.2, RBC 2.45 L, Hgb 5.6 L*, Hct 19.5 L*, MCV 79.6 L, MCH 22.9 L, MCHC 28.8 L, RDW 21.3 H, Plt Count 235, MPV 8.2, Neut % (Auto) 70.3, Lymph % (Auto) 17.6, Harlan % (Auto) 8.5, Eos % (Auto) 2.6, Baso % (Auto) 1.0, Neut # (Auto) 3.6, Lymph # (Auto) 0.9, Harlan # (Auto) 0.4, Eos # (Auto) 0.1, Baso # (Auto) 0.1, Sodium 138, Potassium 3.3 L, Chloride 107, Carbon Dioxide 29, Anion Gap 5.3, BUN 29 H, Creatinine 0.90, Estimated Creat Clear 49, Estimated GFR 61, Est GFR ( Amer) 73, Glucose 106 H, Calcium 8.6 05/14/24 10:46: Blood Type B Positive, Antibody Screen Negative, Crossmatch (AHG) See Detail I & O for Last 24 hours: Intake & Output 05/11/24 05/12/24 05/13/24 05/14/24 23:59 23:59 23:59 23:59 Intake Total 0 / 0 Balance 0 / 0 Weight 142 lb 1.6 oz Constitutional Constitutional: no acute distress and average body habitus *Routine HEENT Exam Head: Present normocephalic and atraumatic ENT: Present mucous membranes moist *Routine Neck Exam Neck: Present supple, full ROM and normal carotid upstroke; Absent JVD, carotid bruit or lymphadenopathy *Routine Respiratory Exam Respiratory: Present CTA bilaterally, normal respiratory effort, able to speak in complete sentences and symmetric chest movement *Routine Cardiovascular Exam Cardiovascular: Present RRR, Normal S1 and Normal S2; Absent murmur or gallop *Routine Abdominal Exam Abdominal: Present soft and normoactive bowel sounds; Absent tenderness, distended or organomegaly *Routine Extremities Exam Extremities: Present full ROM, pulses intact and normal capillary refill; Absent cyanosis, clubbing or edema *Routine Skin Exam Skin: Present intact and warm; Absent erythema *Routine Neurological Exam Neurological: Present alert, oriented X3 and CN II-XII intact; Absent sensory deficit or motor deficit Routine Psychiatric Exam Psychiatric: Present normal affect Meds Home Medications and Allergies Home Medications ?Medication ?Instructions ?Recorded ?Confirmed ?Type vit C 250 mg-vit E 90 mg-zinc 40 1 tab PO DAILY 06/09/19 05/14/24 History mg-copper 1 ra-krhadj-kqoxny capsule (PreserVision AREDS-2) bisoprolol fumarate 5 mg tablet 2.5 mg PO HS 09/03/23 05/14/24 History Jardiance 10 mg tablet 10 mg PO DAILY #90 tabs 10/04/23 05/14/24 Rx (empagliflozin) clopidogrel 75 mg tablet 75 mg PO DAILY 11/19/23 05/14/24 History aspirin 81 mg tablet,delayed 81 mg PO DAILY 12/19/23 05/14/24 History release (Rabia Low Dose Aspirin) faricimab-svoa 6 mg/0.05 mL 0.05 ml intravitreal Q4W 12/19/23 05/14/24 History intravitreal solution (Vabysmo) coenzyme Q10 200 mg capsule (Co 200 mg PO DAILY 05/06/24 05/14/24 History Q-10) furosemide 40 mg tablet 80 mg PO AM 05/06/24 05/14/24 History rosuvastatin 10 mg tablet (Crestor) 10 mg PO DAILY #30 tabs 05/06/24 05/14/24 Rx spironolactone 25 mg tablet 25 mg PO DAILY #30 tabs 05/06/24 05/14/24 Rx (Aldactone) ferrous sulfate 325 mg (65 mg 325 mg PO DAILY 05/14/24 05/14/24 History iron) tablet levothyroxine 112 mcg tablet 112 mcg PO DAILY 05/14/24 05/14/24 History (Synthroid) pantoprazole 40 mg tablet,delayed 40 mg PO DAILY 05/14/24 05/14/24 History release New Prescriptions to Start Prescriptions: Allergies Allergy/AdvReac Type Severity Reaction Status Date / Time [id number]-CxH Reductase Allergy Mild intolerance Verified 05/06/24 13:22 Inhibitor Assessment and Plan *Assessment and plan (1) Dyspnea: Status: Acute Qualifiers: Dyspnea type: dyspnea on exertion Qualified Code(s): R06.09 - Other forms of dyspnea Category: Medical Code(s): R06.00 - Dyspnea, unspecified (2) Anemia: Status: Acute Qualifiers: Anemia type: unspecified type Qualified Code(s): D64.9 - Anemia, unspecified Category: Medical Code(s): D64.9 - Anemia, unspecified (3) Abnormal findings on diagnostic imaging of heart and coronary circulation: Status: Acute Category: Medical Code(s): R93.1 - Abnormal findings on diagnostic imaging of heart and coronary circulation (4) Coronary artery disease: Status: Acute Qualifiers: Coronary Disease-Associated Artery/Lesion type: [place] artery [place] vs. transplanted heart: [place] heart Associated angina: with other forms of angina Qualified Code(s): I25.118 - Atherosclerotic heart disease of [place] coronary artery with other forms of angina pectoris Category: Medical Code(s): I25.10 - Atherosclerotic heart disease of [place] coronary artery without angina pectoris (5) Hyperlipidemia: Status: Acute Qualifiers: Hyperlipidemia type: mixed hyperlipidemia Qualified Code(s): E78.2 - Mixed hyperlipidemia Category: Medical Code(s): E78.5 - Hyperlipidemia, unspecified (6) (HFpEF) heart failure with preserved ejection fraction: Status: Acute Qualifiers: Heart failure chronicity: acute on chronic Qualified Code(s): I50.33 - Acute on chronic diastolic (congestive) heart failure Category: Medical Code(s): I50.30 - Unspecified diastolic (congestive) heart failure (7) Tobacco use: Status: Acute Category: Social Hx Code(s): Z72.0 - Tobacco use Plan Plan: 1. The patient was admitted to the hospital for profound anemia noted during preop labs for left cardiac catheterization. Her hemoglobin was 5.6 and her hematocrit was 19.5. Her left cardiac catheterization has been canceled and the patient was subsequently admitted to the hospital. 2. The patient will be transfused with 2 units of packed red blood cells today due to her profound anemia. 3. Will obtain iron studies. 4. Will consult Dr. Leary for evaluation due to her profound anemia and history of a GI bleed. She does report having a mass removed from her colon in January 2024 which was noncancerous. 5. Will get an EKG today. 6. Will obtain an echocardiogram to evaluate her LV function due to her shortness of breath. 7. Coronary artery disease is present. Left cardiac catheterization has been postponed due to her profound anemia. Cardiac MRI did show ischemia so wants she has improved from her anemia then we will consider proceeding with left cardiac catheterization at that time. This may be rescheduled on an outpatient basis. 8. Will hold her aspirin and Plavix due to her anemia. 9. Her blood pressure is on the low side. Will hold her bisoprolol. 10. Her LDL goal is less than 55. Her LDL was 99 in July 2023. She is on a statin. Will repeat a lipid panel in the morning. 11. Will continue her diuretics at this time as she is going to extra fluid today with the packed red blood cells and we do not want her to get fluid overloaded due to her history of HFpEF. 12. Further recommendations will be made pending the patient's response to treatment and the results of her echocardiogram today. Thank you for the opportunity to help participate in the care of this patient. All recommendations and orders are per Dr. Dickey.
--- NOTE | 2024-05-14 13:31 | CA_ITS ---
APPROVED REPORT EXAM: Comprehensive 2D, Doppler, and color-flow Echocardiogram Delinquent Account Clerk: VIC Pepe, RVS Ht: 5 ft 4 in Wt: 142lbs BSA: 1.69 BP: 90/50 mmHg Indications: Anemia Hgb-5, SOA, CHF, MR, CAD, Rheumatic fever, Smoker, HTN Echo Enhancing Agent Comments: TDS: patient scanned upright in bed with breathing interference and constant motion. 2D Dimensions IVSd 1.49 cm LVEF (Visual) 47.20 % PWd 1.35 cm LA Volume 140.00 mL LVDd 5.78 cm LA Volume Index 82.549753 mL/m2 (M/F) 16-34 LVDs 4.39 cm EF AP4 58.90 % Aortic Root 3.15 cm GL Strain -16.9 % Left Atrium 5.26 cm LVOT 1.78 cm (M/F) 1.5-2.5 M-Mode Dimensions LVDd 5.78 cm (3.5-5.7) Ao Diam 3.17 cm (2.0-3.7) LVDs 3.77 cm (3.5-5.7) IVSd 1.49 cm (0.6-1.1) PWd 1.35 cm (0.6-1.1) EF (Teich) 50.20% EPSs 0.43 cm FS 25.07% EDV (Teich) 122.10 mL ESV (Teich) 60.80 mL LV Diastology E Decel Time 131 (160-240 msec) E/A Ratio 1.65 MED E' 8.6 (>= 7 cm/sec) MED A' 7.20 cm/s E'/MED E' Ratio 14.73 (<= 14) LAT E' 10.8 (>= 10 cm/sec) LAT A' 8.30 cm/s E/LAT E' Ratio 11.73 (<= 14) Aortic Valve LVOT Max 139.0 (70-110 cm/s) VIJAYA Index 1.02 cm2/m2 LVOT VTI 29.64 cm AoV Peak Yosef. 192.0 (50-130 cm/s) AO Peak GR. 14.40 mmHg AO Mean GR. 7.40 (<5 mmHg) AO VTI 42.7 (18-25 cm) VIJAYA (VTI) 1.73 (2.5-4.5 cm2) Mitral Valve MV E Max Yosef. 127.0 (40-130 cm/s) MV A Velocity 77.0 (40-130 cm/s) E/A Ratio 1.65 MV Decel. Time 131 (160-240 ms) MV Mean Gr. 3.00 (<2mmHg) Tricuspid Valve TR P. Velocity 272.00 cm/s RAP Estimate 10.00 mmHg RVSP 39.60 mmHg Left Ventricle The left ventricle is normal size. The left ventricular systolic function is normal. The left ventricular ejection fraction is within the normal range. There is increased LV wall thickness. There is normal LV segmental wall motion. Grade 3 diastolic dysfunction is present. LVEF is 65%. Right Ventricle The right ventricle is normal size. The right ventricular systolic function is normal. Atria Left atrium is severely dilated. Right atrium is severely dilated. There is no Doppler evidence of interatrial shunt. Aortic Valve The aortic valve is mildly thickened. There is no aortic valvular stenosis. Trace aortic regurgitation. Mitral Valve Mild mitral annular calcification. The mitral valve leaflets are mildly thickened. No evidence of mitral valve stenosis. Moderate mitral regurgitation. Tricuspid Valve Tricuspid valve is grossly normal in structure and function. Mild tricuspid regurgitation. RVSP is 30-35 mmHg. Pulmonic Valve The pulmonary valve is normal in structure. Trace mitral regurgitation. Great Vessels The aortic root is normal in size. The ascending aorta is not well-visualized. IVC is normal in size and collapses >50% with inspiration. Pericardium There is no pericardial effusion. Other Information Study Quality: Fair Conclusion Normal biventricular systolic function. Severe biatrial dilation. Moderate mitral regurgitation. Mild tricuspid regurgitation. RVSP is 30-35 mmHg. Electronically signed by : Linda Dickey MD 05/15/2024 15:51:51
[2024-05-14 13:39] LABS: Reticulocyte % (Auto) 1.8 % (0.9-3.2)
[2024-05-14] MEDS: 0.9 % SODIUM CHLORIDE 250 ML 25 ML IV (14:30)
[2024-05-14] MEDS: EMPAGLIFLOZIN 10MG TABLET 10 MG PO (14:30)
[2024-05-14] MEDS: SPIRONOLACTONE 25MG TABLET 25 MG PO (14:30)
[2024-05-14 14:42] LABS: Iron 27 ug/dL (37-170)
[2024-05-14 14:52] LABS: Total Iron Binding Capacity 446 ug/dL (265-497)
--- NOTE | 2024-05-14 15:08 | P.CONS_ITS ---
History of Present Illness *Admission Date: 05/14/24 *Reason for visit:: Iron deficiency anemia *History of present illness: Mrs. Hernandez is a 78-year-old female with microcytic iron deficiency anemia. This is chronic and she had been followed by Dr. Carlos Acosta. The patient has been on anticoagulation and most recently on clopidogrel. The patient did have an upper endoscopy on September 04, 2023 with findings of mild gastropathy with some erosions and fundic gland polyps. She had presented to the ER on 09/03/2023 with a hemoglobin of 4.2. The patient reports no melena, hematochezia or bright red blood per rectum. She does have dark sticky stools and has been on ferrous sulfate twice daily. The patient by Dr. Acosta's notes had an EGD on 10/05/2023 and there was a sliding hiatal hernia of 3 to 4 cm with hemorrhagic gastritis. Biopsies of the stomach showed no H. pylori. The patient had a colonoscopy with Dr. Acosta and this did show a large rectal mass that was prolapsing and biopsy showed tubulovillous adenoma. There was severe sigmoid diverticulosis and the scope was not advanced beyond 50 cm. The patient was sent to Laurie Killian MD/colorectal surgery and had surgical excision of the rectal mass. At that time, the patient states she did a colonoscopy and found a couple of other benign polyps removed. The patient has had fairly marked dyspnea on exertion and has marked fatigue. She presented today for outpatient cardiac catheterization and her labs showed hemoglobin of 5.6 and hematocrit 19.5. She is currently being transfused with 2 units of PRBCs. The patient reports no abdominal pain. She does have some postprandial bowel urgency with incomplete defecation. She is on a baby aspirin. [facility] Disclaimer: The information contained in this section may have been updated after the patient was seen, as this information can be updated by other users. 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 (Updated 05/14/24 @ 15:15 by Dandy Leary II, MD) Anemia Coronary artery disease CHF (congestive heart failure) Gastritis Postoperative hypoxia Respiratory failure with hypoxia Elevated troponin Mitral valve disorder HTN (hypertension) Amyloidosis Carotid artery stenosis Carotid artery disease Hyperlipidemia Edema (HFpEF) heart failure with preserved ejection fraction Goiter Myocardial infarct Macular degeneration Surgical History History of colonoscopy Status post coronary artery stent placement H/O esophagogastroduodenoscopy History of ovarian cystectomy Hx of tonsillectomy History of thyroid surgery H/O hernia repair H/O heart artery stent Family History Other Heart attack Social History (Updated 05/14/24 @ 10:19 by Adelita Begum RN) Smoking Status: Current every day smoker tobacco type: cigarettes alcohol intake: never substance use type: denies use current occupational status: retired Travel in the last 8 weeks: None Review of Systems *Neurologic Neurologic: Reports system reviewed and no additional complaints, except as documented Meds Home Medications and Allergies Home Medications ?Medication ?Instructions ?Recorded ?Confirmed ?Type vit C 250 mg-vit E 90 mg-zinc 40 1 tab PO DAILY 06/09/19 05/14/24 History mg-copper 1 bq-oqgjni-nretfy capsule (PreserVision AREDS-2) bisoprolol fumarate 5 mg tablet 2.5 mg PO HS 09/03/23 05/14/24 History Jardiance 10 mg tablet 10 mg PO DAILY #90 tabs 10/04/23 05/14/24 Rx (empagliflozin) clopidogrel 75 mg tablet 75 mg PO DAILY 11/19/23 05/14/24 History aspirin 81 mg tablet,delayed 81 mg PO DAILY 12/19/23 05/14/24 History release (Rabia Low Dose Aspirin) faricimab-svoa 6 mg/0.05 mL 0.05 ml intravitreal Q4W 12/19/23 05/14/24 History intravitreal solution (Vabysmo) coenzyme Q10 200 mg capsule (Co 200 mg PO DAILY 05/06/24 05/14/24 History Q-10) furosemide 40 mg tablet 80 mg PO AM 05/06/24 05/14/24 History rosuvastatin 10 mg tablet (Crestor) 10 mg PO DAILY #30 tabs 05/06/24 05/14/24 Rx spironolactone 25 mg tablet 25 mg PO DAILY #30 tabs 05/06/24 05/14/24 Rx (Aldactone) ferrous sulfate 325 mg (65 mg 325 mg PO DAILY 05/14/24 05/14/24 History iron) tablet levothyroxine 112 mcg tablet 112 mcg PO DAILY 05/14/24 05/14/24 History (Synthroid) pantoprazole 40 mg tablet,delayed 40 mg PO DAILY 05/14/24 05/14/24 History release New Prescriptions to Start Prescriptions: Allergies Allergy/AdvReac Type Severity Reaction Status Date / Time [id number] Reductase Allergy Mild intolerance Verified 05/06/24 13:22 Inhibitor Exam (Inpt) Vital signs and Labs for Last 24 Hours: Temp Pulse Resp BP Pulse Ox O2 Del Method 98.4 F 81 20 90/50 L 98 Room Air 05/14/24 14:15 05/14/24 14:15 05/14/24 14:15 05/14/24 14:15 05/14/24 14:15 05/14/24 13:00 Laboratory Results - last 24 hr 05/14/24 08:22: WBC 5.2, RBC 2.45 L, Hgb 5.6 L*, Hct 19.5 L*, MCV 79.6 L, MCH 22.9 L, MCHC 28.8 L, RDW 21.3 H, Plt Count 235, MPV 8.2, Neut % (Auto) 70.3, Lymph % (Auto) 17.6, [place] % (Auto) 8.5, Eos % (Auto) 2.6, Baso % (Auto) 1.0, Neut # (Auto) 3.6, Lymph # (Auto) 0.9, [place] # (Auto) 0.4, Eos # (Auto) 0.1, Baso # (Auto) 0.1, Sodium 138, Potassium 3.3 L, Chloride 107, Carbon Dioxide 29, Anion Gap 5.3, BUN 29 H, Creatinine 0.90, Estimated Creat Clear 49, Estimated GFR 61, Est GFR ( Amer) 73, Glucose 106 H, Calcium 8.6 05/14/24 10:46: Blood Type B Positive, Antibody Screen Negative, Crossmatch (AHG) See Detail 05/14/24 13:10: Retic Count (auto) 1.8, Iron 27 L I & O for Labs for Last 24 Hours: Intake & Output 05/11/24 05/12/24 05/13/24 05/14/24 23:59 23:59 23:59 23:59 Intake Total 480 / 480 Balance 480 / 480 Weight 142 lb 1.6 oz Constitutional: chronically ill appearing Results Labs 05/14/24 08:22 05/14/24 08:22 Labs: Laboratory Results - last 24 hr 05/14/24 08:22: WBC 5.2, RBC 2.45 L, Hgb 5.6 L*, Hct 19.5 L*, MCV 79.6 L, MCH 22.9 L, MCHC 28.8 L, RDW 21.3 H, Plt Count 235, MPV 8.2, Neut % (Auto) 70.3, Lymph % (Auto) 17.6, [place] % (Auto) 8.5, Eos % (Auto) 2.6, Baso % (Auto) 1.0, Neut # (Auto) 3.6, Lymph # (Auto) 0.9, [place] # (Auto) 0.4, Eos # (Auto) 0.1, Baso # (Auto) 0.1, Sodium 138, Potassium 3.3 L, Chloride 107, Carbon Dioxide 29, Anion Gap 5.3, BUN 29 H, Creatinine 0.90, Estimated Creat Clear 49, Estimated GFR 61, Est GFR ( Amer) 73, Glucose 106 H, Calcium 8.6 05/14/24 10:46: Blood Type B Positive, Antibody Screen Negative, Crossmatch (AHG) See Detail 05/14/24 13:10: Retic Count (auto) 1.8, Iron 27 L Assessment and Plan *Assessment and plan (1) Microcytic anemia: Status: Acute Category: Medical Code(s): D50.9 - Iron deficiency anemia, unspecified (2) Iron deficiency anemia due to chronic blood loss: Status: Acute Category: Medical Code(s): D50.0 - Iron deficiency anemia secondary to blood loss (chronic) (3) Tubulovillous adenoma of rectum: Status: Acute Category: Medical Code(s): D12.8 - Benign neoplasm of rectum Plan 1. Profound microcytic anemia. The patient has had chronic iron deficiency. This may be multi fold from chronic GI blood loss but also lack of iron absorption. Lack of iron results in the loss of production of red blood cells and blood from the bone marrow. In the short-term, iron deficiency can result in tiredness and the blood is unable to deliver oxygen to your cells. Organs and tissues do not get as much oxygen as they should. This can lead to shortness of breath, fatigue, lightheadedness and pallor. In the long-term, iron deficiency (if left untreated) can make you more susceptible to illness and infection, as a lack of iron affects the bodies natural defense system (the immune system). Long-standing iron deficiency can also increase the risk of complications that affect the heart or lung such as when there is long-standing tachycardia (the heart has to work harder) and this in the worst of circumstances could lead to heart failure. One of the major causes of iron deficiency in the [place] is occult gastrointestinal bleeding. Even though she has had upper endoscopy earlier in the year and 2 colonoscopies, I do feel that we should reevaluate with panendoscopy to make sure this is not from hemorrhagic gastritis or angiodysplasias. She did have a very advanced large tubulovillous adenoma that was nonmalignant removed surgically. If the gonzalez endoscopy does not yield answers, I would recommend evaluation of the middle intestinal tract (small intestine) with video capsule examination (PillCam). I would certainly reserve the PillCam for if she is Hemoccult positive as well. I will check Hemoccult testing. I would also recommend that you have a Venofer iron infusion. Iron deficiency anemia is often corrected with a blood transfusion or oral iron. Intravenous iron (IV) is underutilized for the treatment of anemia, and has numerous advantages compared to blood transfusion as well as oral iron. There is a tremendous reduction of cost and resources with fewer complications including development of antibodies which can sometimes occur with blood transfusion. Lastly, unquestionably, this is exacerbated by blood thinner/anticoagulation and we do need to determine whether this is strongly warranted with her profound anemia.
[2024-05-14 15:19] LABS: Ferritin 9.44 ng/ml (11.1-264)
--- NOTE | 2024-05-14 15:19 | EXP.HP ---
History of Present Illness *Admission Date: 05/14/24 *Reason for visit:: SOA *History of present illness: This is a 78-year-old white female who presented to the outpatient cardiac catheterization laboratory this morning to undergo left cardiac catheterization due to atypical angina and shortness of breath. While having preop labs the patient was found to have a hemoglobin of 5.6 and a hematocrit of 19.5. Her procedure was canceled and the patient was admitted to the hospital due to her profound anemia. The patient reports that she is still severely short of breath. She states that her shortness of breath started abruptly on and has not improved she states that she can do very minimal exertion and she is profoundly short of breath. She is extremely fatigued and has no energy to do anything. She denies any chest pain or pressure. She does have some lower extremity edema intermittently but this is pretty chronic for her. She denies any fever, chills, nausea, vomiting, diarrhea. She states that she does have orthopnea at times with her shortness of breath. The patient has been admitted to the hospital for her anemia and will be transfused with packed red blood cells today. (above as per cardiology) The patient has a history of iron deficiency anemia. Her hemoglobin was found to be 4.2 in September 2023. She saw Dr. Acosta at that time and had an EGD which showed gastropathy along with erosive duodenitis. He started her on PPIs and Carafate and wanted to withhold her antiplatelet agents. He felt the blood loss was likely from the erosive duodenitis and associated shallow ulcerations. He did another EGD on 10/05/2023 and found a sliding hiatal hernia, diffuse mild to moderate nonerosive gastritis and multiple too numerous to count punctate areas of mild hemorrhagic oozing diffusely throughout the entire stomach. In November, he did a flexible sigmoidoscopy with polypectomy and this is where they discovered a large anorectal mass. She was sent to Dr. 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 She is now back on clopidogrel and a baby aspirin. She states her stools have been dark, but she has been taking iron. [facility] Disclaimer: The information contained in this section may have been updated after the patient was seen, as this information can be updated by other users. 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 (Updated 05/14/24 @ 16:35 by BRAD Paul) Anemia Coronary artery disease CHF (congestive heart failure) Gastritis Postoperative hypoxia Respiratory failure with hypoxia Elevated troponin Mitral valve disorder HTN (hypertension) Amyloidosis Carotid artery stenosis Carotid artery disease Hyperlipidemia Edema (HFpEF) heart failure with preserved ejection fraction Goiter Myocardial infarct Macular degeneration Surgical History History of colonoscopy Status post coronary artery stent placement H/O esophagogastroduodenoscopy History of ovarian cystectomy Hx of tonsillectomy History of thyroid surgery H/O hernia repair H/O heart artery stent Family History Heart attack Social History Smoking Status: Current every day smoker tobacco type: cigarettes alcohol intake: never substance use type: denies use current occupational status: retired Travel in the last 8 weeks: None Other 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 Have you received the Flu Vaccine for this season: No Have you received the Pneumonia Vaccine: No Review of Systems Constitutional Constitutional: Denies body ache(s), Denies chills, Reports fatigue, Denies fever(s), Reports headache(s), Reports poor appetite, Reports lethargy, Reports malaise and Reports weakness Eyes Eyes: Denies blurry vision and Denies diplopia ENT Ears, Nose, Mouth, and Throat: Reports headache(s), Denies nasal congestion, Denies sore throat and Reports vertigo *Cardiovascular Cardiovascular: Denies chest pain, Reports dyspnea and Denies leg edema *Respiratory Respiratory: Denies cough, Reports dyspnea and Denies wheezing *Gastrointestinal Gastrointestinal: Denies abdominal pain, Denies loose stools, Denies nausea and Denies vomiting *Genitourinary Genitourinary: Denies difficulty voiding and Denies dysuria *Musculoskeletal Musculoskeletal: Denies arthralgias and Reports muscle weakness *Neurologic Neurologic: Reports system reviewed and no additional complaints, except as documented, Reports headache(s), Reports vertigo and Reports weakness Endocrine Endocrine: Reports fatigue Allergic/Immunologic Allergic/Immunologic: Denies wheezing Meds Home Medications and Allergies Home Medications ?Medication ?Instructions ?Recorded ?Confirmed ?Type vit C 250 mg-vit E 90 mg-zinc 40 1 tab PO DAILY 06/09/19 05/14/24 History mg-copper 1 th-xkcwaq-nunxom capsule (PreserVision AREDS-2) bisoprolol fumarate 5 mg tablet 2.5 mg PO HS 09/03/23 05/14/24 History Jardiance 10 mg tablet 10 mg PO DAILY #90 tabs 10/04/23 05/14/24 Rx (empagliflozin) clopidogrel 75 mg tablet 75 mg PO DAILY 11/19/23 05/14/24 History aspirin 81 mg tablet,delayed 81 mg PO DAILY 12/19/23 05/14/24 History release (Rabia Low Dose Aspirin) faricimab-svoa 6 mg/0.05 mL 0.05 ml intravitreal Q4W 12/19/23 05/14/24 History intravitreal solution (Vabysmo) coenzyme Q10 200 mg capsule (Co 200 mg PO DAILY 05/06/24 05/14/24 History Q-10) furosemide 40 mg tablet 80 mg PO AM 05/06/24 05/14/24 History rosuvastatin 10 mg tablet (Crestor) 10 mg PO DAILY #30 tabs 05/06/24 05/14/24 Rx spironolactone 25 mg tablet 25 mg PO DAILY #30 tabs 05/06/24 05/14/24 Rx (Aldactone) ferrous sulfate 325 mg (65 mg 325 mg PO DAILY 05/14/24 05/14/24 History iron) tablet levothyroxine 112 mcg tablet 112 mcg PO DAILY 05/14/24 05/14/24 History (Synthroid) pantoprazole 40 mg tablet,delayed 40 mg PO DAILY 05/14/24 05/14/24 History release New Prescriptions to Start Prescriptions: Allergies Allergy/AdvReac Type Severity Reaction Status Date / Time [id number]-[id number]-DkV Reductase Allergy Mild intolerance Verified 05/06/24 13:22 Inhibitor Exam Data for Last 24 hours Vital signs and Labs for Last 24 Hours: Temp Pulse Resp BP Pulse Ox O2 Del Method 98.4 F 81 20 90/50 L 98 Room Air 05/14/24 14:15 05/14/24 14:15 05/14/24 14:15 05/14/24 14:15 05/14/24 14:15 05/14/24 13:00 Laboratory Results - last 24 hr 05/14/24 08:22: WBC 5.2, RBC 2.45 L, Hgb 5.6 L*, Hct 19.5 L*, MCV 79.6 L, MCH 22.9 L, MCHC 28.8 L, RDW 21.3 H, Plt Count 235, MPV 8.2, Neut % (Auto) 70.3, Lymph % (Auto) 17.6, [place] % (Auto) 8.5, Eos % (Auto) 2.6, Baso % (Auto) 1.0, Neut # (Auto) 3.6, Lymph # (Auto) 0.9, [place] # (Auto) 0.4, Eos # (Auto) 0.1, Baso # (Auto) 0.1, Sodium 138, Potassium 3.3 L, Chloride 107, Carbon Dioxide 29, Anion Gap 5.3, BUN 29 H, Creatinine 0.90, Estimated Creat Clear 49, Estimated GFR 61, Est GFR ( Amer) 73, Glucose 106 H, Calcium 8.6 05/14/24 10:46: Blood Type B Positive, Antibody Screen Negative, Crossmatch (AHG) See Detail 05/14/24 13:10: Retic Count (auto) 1.8, Iron 27 L, TIBC 446, Iron Saturation 6.45761 L I & O for Last 24 hours: Intake & Output 05/12/24 05/13/24 05/14/24 05/15/24 11:59 11:59 11:59 11:59 Intake Total 480 / 480 Balance 480 / 480 Weight 142 lb 1.6 oz Constitutional Constitutional: no acute distress *Routine HEENT Exam Head: Present normocephalic and atraumatic Eye: Present EOMI and PERRL ENT: Present mucous membranes dry *Routine Neck Exam Neck: Present supple and full ROM *Routine Respiratory Exam Respiratory: Present rhonchi (bilateral); Absent crackles *Routine Cardiovascular Exam Cardiovascular: Present RRR *Routine Abdominal Exam Abdominal: Present soft and normoactive bowel sounds; Absent tenderness *Routine Rectal Exam Rectal:: deferred *Routine Genitalia Exam Genitalia:: deferred *Routine Extremities Exam Extremities: Absent cyanosis, clubbing or edema *Routine Skin Exam Skin: Present intact and pallor; Absent erythema *Routine Neurological Exam Neurological: Present alert and oriented X3 Assessment and Plan *Assessment and plan (1) Iron deficiency anemia due to chronic blood loss: Status: Acute Category: Medical Code(s): D50.0 - Iron deficiency anemia secondary to blood loss (chronic) (2) Hypokalemia: Status: Acute Category: Medical Code(s): E87.6 - Hypokalemia (3) Coronary artery disease: Status: Acute Qualifiers: Associated angina: with other forms of angina Coronary Disease-Associated Artery/Lesion type: ak chin artery [place] vs. transplanted heart: ak chin heart Qualified Code(s): I25.118 - Atherosclerotic heart disease of [place] coronary artery with other forms of angina pectoris Category: Medical Code(s): I25.10 - Atherosclerotic heart disease of [place] coronary artery without angina pectoris (4) Gastritis: Status: Acute Category: Medical Code(s): K29.70 - Gastritis, unspecified, without bleeding (5) Dyspnea: Status: Acute Qualifiers: Dyspnea type: dyspnea on exertion Qualified Code(s): R06.09 - Other forms of dyspnea Category: Medical Code(s): R06.00 - Dyspnea, unspecified (6) Tubulovillous adenoma of rectum: Status: Acute Category: Medical Code(s): D12.8 - Benign neoplasm of rectum (7) Hyperlipidemia: Status: Acute Qualifiers: Hyperlipidemia type: mixed hyperlipidemia Qualified Code(s): E78.2 - Mixed hyperlipidemia Category: Medical Code(s): E78.5 - Hyperlipidemia, unspecified (8) (HFpEF) heart failure with preserved ejection fraction: Status: Acute Qualifiers: Heart failure chronicity: acute on chronic Qualified Code(s): I50.33 - Acute on chronic diastolic (congestive) heart failure Category: Medical Code(s): I50.30 - Unspecified diastolic (congestive) heart failure (9) Hypothyroidism: Problem Comment: Currently on replacement therapy and feeling well. Status: Chronic Qualifiers: Hypothyroidism type: postoperative Qualified Code(s): E89.0 - Postprocedural hypothyroidism Category: Medical Code(s): E03.9 - Hypothyroidism, unspecified (10) Rectal mass: Status: Acute Category: Medical Code(s): K62.89 - Other specified diseases of anus and rectum (11) Duodenitis: Status: Acute Category: Medical Code(s): K29.80 - Duodenitis without bleeding (12) Tobacco use: Status: Acute Category: Social Hx Code(s): Z72.0 - Tobacco use Plan Dr. Leary has seen the patient an plans for panedoscopy tomorrow. If this is normal, he recommends a PillCam. He has ordered a hemoccult stool test and also recommends iron infusions. He questions whether she needs to be taking the ASA and plavix. Cardiology to follow as well. Dr. Grider entry - Saw patient, agree with above note. Patient admitted due to symptomatic anemia, being transfused now, plan endoscopy in the morning.
[2024-05-14 15:51] LABS: Vitamin B12 504 pg/mL (239-931)
[2024-05-14 15:52] LABS: Folate > 20.00 ng/mL
[2024-05-14] MEDS: IRON SUCROSE COMPLEX 200 MG in 0.9 % SODIUM CHLORIDE 100 ML 220 MG IV (15:54)
--- NOTE | 2024-05-14 16:30 | ECG_ITS ---
APPROVED REPORT Exam: Resting ECG HR:79 bpm ECG Measurements Heart Rate 79 AXES KS 144 P 54 QRSd 108 QRS 10 QT 378 T 81 QTc 413 Conclusion SINUS RHYTHM MODERATE ST DEPRESSION [0.05+ mV ST DEPRESSION] ABNORMAL ECG UNCONFIRMED REPORT Electronically signed by : Osmel Esquivel MD 05/15/2024 16:40:57
[2024-05-14 18:18] LABS: Occult Blood,Stool Negative (Negative)
[2024-05-14] MEDS: ATORVASTATIN 20MG TABLET 20 MG PO (20:52)
[2024-05-14] MEDS: PANTOPRAZOLE 40MG TABLET 40 MG PO (20:52)
--- NOTE | 2024-05-14 21:40 | PC.NURSE ---
Addendum entered by Yessi Dyer RN 05/14/24 21:50: A total of 2 units of blood product (250 mL per bag, 500 mL total) was administered between the previous shift and this shift. Original Note: Blood transfusion finished infusing at this time.
--- NOTE | 2024-05-14 22:17 | PC.NURSE ---
Patient's IV (20G in the left AC) was replaced due to leakage. A new 20G IV was inserted into the left wrist at this time.
[2024-05-14 22:45] LABS: Hematocrit 22.2 % (37.0-47.0)
[2024-05-14 22:47] LABS: Hemoglobin 7.1 g/dL (12.2-16.2)
--- NOTE | 2024-05-14 22:47 | PC.NURSE ---
Lab called at 22:49 to report a critical hemoglobin value of 7.1. The teletype or varitype keyboard operator was paged for [employer] call-back at this time.
--- NOTE | 2024-05-14 23:03 | PC.NURSE ---
Marni PAGE called back at this time. Critical hemoglobin value was reported to him. He said that the patient should be able to rest until the morning since having 2 units of blood. Marni PAGE also asked about bowel prep initiation. I did not have a clear answer from the previous shift report to tell him, nor could find notes for why there was not an order or an initiation of GoLytely bowel prep for the patient's panendoscopy. Marni PAGE stated that at this time, GoLytely bowel prep will need to be initiated for the patient.
[2024-05-14] MEDS: PEG-ELECTROLYTE SOLN 4000ML BOTTLE 4000 ML PO (23:11)
[2024-05-15] VITALS (17 sets, daily range): BP systolic 86–155; BP diastolic 46–71; PULSE 68–90; RESP 16–20; TEMP 36.1–37; O2SAT 90–100; BMI 25.2
--- NOTE | 2024-05-15 01:22 | PC.NURSE ---
At this time, Sapphire PAGE paged me to ask about GoLytely bowel prep. He stated that he had forgotten to place the order during the previous shift. I reassured him that the GoLytely bowel prep was able to be ordered this shift from Marni's request (see prior note) and informed him that she had already consumed the majority of the solution tonight. At this time, the patient is taking a break from consuming the solution to rest. Patient verbalized eagerness to continue consumption of her bowel prep during any waking periods this shift, as well as early in the morning.
--- NOTE | 2024-05-15 05:11 | PC.NURSE ---
Addendum entered by Yessi Dyer RN 05/15/24 06:29: This morning, the patient reported having multiple bowel movements. She reported having mixed consistency stools (dark and solid; watery and brown). Original Note: Patient is alert and oriented x4. Patient's second bag of blood products was finished earlier this shift. Patient continues to report having off-and-on shortness of breath and feels fatigued. Skin appears slightly pallor. She has not had any reports of pain, nausea, or dizziness this shift. She ambulates independently with supervision. Patient was observed to have eyes closed, respirations even and unlabored, and no apparent distress throughout the majority of the night. Patient did get up to the chair once this shift (around 01:30). Patient has been NPO since midnight per endoscopy, but she has been consuming GoLytely bowel prep during wakeful periods. Scheduled medications were given as appropriately per AUG. Auscultation of her heart, lungs, and bowels were within normal limits. She has been running normal sinus rhythm on telemetry. Patient's vital signs have been stable this shift; blood pressure readings have fluctuated. At this time, the patient is resting in bed on her right side. No acute changes noted. Call light within reach.
[2024-05-15 06:39] LABS: Albumin Level 3.1 g/dl (3.5-5.0)
--- NOTE | 2024-05-15 06:40 | PC.NURSE ---
Addendum entered by Yessi Dyer RN 05/15/24 06:55: Patient still in shower at this time. Original Note: At this time, Dennis PAGE was paged to clarify that patient can be given furosemide this morning pending EGD procedure today.
[2024-05-15 06:42] LABS: Alanine Aminotransferase 17 U/L (12-78); Alkaline Phosphatase 76 U/L (38-126); Aspartate Amino Transferase 27 U/L (14-36); Bilirubin,Direct 0.2 mg/dl (0.0-0.4); Bilirubin,Indirect 0.9 mg/dL (0.0-0.9); Bilirubin,Total 1.1 mg/dl (0.2-1.3); Bilirubin,Unconjugated 0.9 mg/dL (0.0-1.1); Blood Urea Nitrogen 20 mg/dl (7-17); Carbon Dioxide 30 mmol/L (22.0-30.0); Cholesterol 70 mg/dl (140-200); Creatinine Clearance Estimated 49 mL/min (50-200); Estimated Glomerular Filt Rate 61 ml/min (>60); GFR (African American) 73 ML/MIN (>60); Total Protein,Serum 5.6 g/dl (6.3-8.2); Triglycerides 73 mg/dl (30-150); VLDL Cholesterol 15 mg/dL (0-40)
[2024-05-15 06:43] LABS: Chol/HDL Ratio 2.1 (1-3.5); Glucose 91 mg/dl (74-100); HDL Cholesterol 33 mg/dl (40-60)
[2024-05-15 06:52] LABS: Anion Gap 0.5 mEq/L (5-15); Chloride 111 mmol/L (98-107); Potassium 3.5 mmoL/L (3.5-5.1); Sodium 138 mmol/L (136-145)
[2024-05-15 07:01] LABS: Direct LDL Cholesterol < 30.00 mg/dL (100-129)
[2024-05-15 07:28] LABS: Basophils % 0.8 % (0.1-2.0); Eosinophils # 0.1 K/mm3 (0.0-0.4); Eosinophils % 2.4 % (0.1-12.0); Hematocrit 23.2 % (37.0-47.0); Hemoglobin 7.2 g/dL (12.2-16.2); Lymphocytes # 0.9 K/mm3 (0.7-4.5); Lymphocytes % 18.7 % (10-50); Mean Corpuscular HGB Conc 31.1 g/dL (31.8-35.4); Mean Corpuscular Hemoglobin 24.8 pg (27.0-31.2); Mean Corpuscular Volume 79.6 fl (81-99); Mean Platelet Volume 10.7 fl (7.4-10.4); Monocytes # 0.4 K/mm3 (0.1-1.0); Monocytes % 7.5 % (1.7-9.3); Neutrophils # 3.4 K/mm3 (1.8-7.8); Neutrophils % 70.5 % (37.0-80.0); Platelet Count 190 K/mm3 (142-424); Red Blood Count 2.92 M/mm3 (4.20-5.40); Red Cell Distribution Width 20.7 % (11.5-17.5); White Blood Count 4.8 K/mm3 (4.8-10.8)
--- NOTE | 2024-05-15 08:02 | P.PN_ITS ---
Subjective *Date: 05/15/24 *Time: 08:48 Interval history: Patient is tired this am. She was able to do most of the bowel prep. She is slightly less SOA today after getting blood. She denies any pain. Medical Exam Vital signs and Labs for Last 24 Hours: Vital Signs Temp Pulse Pulse Pulse Resp BP BP 05/15/24 06:40 05/15/24 05:00 05/15/24 04:00 68 05/15/24 04:00 98.4 F 78 18 119/56 L 05/15/24 03:00 05/15/24 01:00 05/15/24 00:00 75 05/15/24 00:00 98.6 F 78 16 155/71 H 05/14/24 23:00 05/14/24 22:40 99 F 74 16 123/47 L 05/14/24 21:40 98.7 F 76 16 122/63 05/14/24 21:05 97.7 F 71 16 117/78 05/14/24 21:00 05/14/24 20:05 73 18 125/77 05/14/24 20:00 74 18 05/14/24 20:00 74 05/14/24 19:05 98.6 F 75 16 127/82 05/14/24 18:50 99.4 F 82 20 142/89 H 05/14/24 18:35 98.4 F 81 18 147/58 H 05/14/24 18:25 05/14/24 18:20 98.6 F 78 16 135/69 05/14/24 18:15 98.7 F 80 18 135/64 05/14/24 18:10 98.3 F 75 18 130/68 05/14/24 18:05 98.4 F 76 16 130/71 05/14/24 18:01 98.7 F 76 18 110/56 L 05/14/24 17:00 05/14/24 16:15 98.6 F 81 18 86/50 L 05/14/24 16:00 80 05/14/24 15:15 98.6 F 78 16 110/59 L 05/14/24 15:00 05/14/24 14:15 98.4 F 81 20 90/50 L 05/14/24 14:00 98.1 F 83 16 83/54 L 05/14/24 13:45 98.3 F 83 20 90/53 L 05/14/24 13:30 98.7 F 82 16 111/53 L 05/14/24 13:25 98.5 F 84 16 98/52 L 05/14/24 13:20 99.2 F 81 20 94/46 L 05/14/24 13:15 98.5 F 83 16 98/58 L 05/14/24 13:00 05/14/24 13:00 98.5 F 73 20 81/41 L 05/14/24 12:00 80 05/14/24 11:47 05/14/24 11:20 98 F 73 16 91/65 L 05/14/24 10:57 05/14/24 10:07 97.9 F 80 16 107/58 L 05/14/24 08:19 80 05/14/24 08:12 98.4 F 82 18 102/65 L Pulse Ox O2 Del Method O2 Del Method 05/15/24 06:40 Room Air 05/15/24 05:00 Room Air 05/15/24 04:00 05/15/24 04:00 95 Room Air 05/15/24 03:00 Room Air 05/15/24 01:00 Room Air 05/15/24 00:00 05/15/24 00:00 96 Room Air 05/14/24 23:00 Room Air 05/14/24 22:40 95 05/14/24 21:40 97 05/14/24 21:05 95 05/14/24 21:00 Room Air 05/14/24 20:05 95 05/14/24 20:00 95 Room Air 05/14/24 20:00 05/14/24 19:05 96 05/14/24 18:50 97 05/14/24 18:35 96 05/14/24 18:25 Room Air 05/14/24 18:20 95 05/14/24 18:15 95 05/14/24 18:10 97 05/14/24 18:05 93 L 05/14/24 18:01 96 05/14/24 17:00 Room Air 05/14/24 16:15 99 05/14/24 16:00 05/14/24 15:15 96 05/14/24 15:00 Room Air 05/14/24 14:15 98 05/14/24 14:00 96 05/14/24 13:45 99 05/14/24 13:30 98 05/14/24 13:25 99 05/14/24 13:20 100 05/14/24 13:15 99 05/14/24 13:00 Room Air 05/14/24 13:00 91 L 05/14/24 12:00 05/14/24 11:47 Room Air 05/14/24 11:20 97 Room Air 05/14/24 10:57 Room Air 05/14/24 10:07 96 Room Air 05/14/24 08:19 05/14/24 08:12 98 Room Air Room Air Intake and Output 05/14/24 05/15/24 05/15/24 19:59 03:59 11:59 Intake Total 580 / 2074 1494 / 2074 Output Total 0 / 0 0 / 0 0 / 0 Balance 580 / 2074 1494 / 2074 0 / 4 Intake: Intake, Oral Amount 480 / 480 Intake, Other Amount 1332 / 1332 Intake, Total IV Amount 100 / 100 Iron Sucrose Complex 200 mg In 100 / 100 0.9 % Sodium Chloride 100 ml @ 220 mls/hr IV ONCE ONE Rx#: [id number] Infusion Intake 162 / 162 0.9 % Sodium Chloride 250 ml @ 162 / 162 25 mls/hr IV .Q10H REPLACED BY [facility] Rx#: [id number] Intake (Blood Product) Amt 0 / 0 0 / 0 Red Blood Cells Unit 0 / 0 0 / 0 [id number] Red Blood Cells Unit 0 / 0 [id number] Output: Output, Urine Amount 0 / 0 0 / 0 0 / 0 Other: Number of Unmeasured Voids 1 1 1 Number of Bowel Movements 1 3 Weight 147 lb 9.6 oz Patient Weight 05/15/24 11:59 Weight 147 lb 9.6 oz Laboratory Results - last 24 hr 05/14/24 08:22: WBC 5.2, RBC 2.45 L, Hgb 5.6 L*, Hct 19.5 L*, MCV 79.6 L, MCH 22.9 L, MCHC 28.8 L, RDW 21.3 H, Plt Count 235, MPV 8.2, Neut % (Auto) 70.3, Lymph % (Auto) 17.6, [place] % (Auto) 8.5, Eos % (Auto) 2.6, Baso % (Auto) 1.0, Emigdio t # (Auto) 3.6, Lymph # (Auto) 0.9, [place] # (Auto) 0.4, Eos # (Auto) 0.1, Baso # (Auto) 0.1, Sodium 138, Potassium 3.3 L, Chloride 107, Carbon Dioxide 29, Anion Gap 5.3, BUN 29 H, Creatinine 0.90, Estimated Creat Clear 49, Estimated GFR 61, Est GFR ( Amer) 73, Glucose 106 H, Calcium 8.6 05/14/24 10:46: Blood Type B Positive, Antibody Screen Negative, Crossmatch (AHG) See Detail 05/14/24 13:10: Retic Count (auto) 1.8, Iron 27 L, TIBC 446, Iron Saturation 6.15942 L, Ferritin 9.44 L, Vitamin B12 504, Folate > 20.00 05/14/24 17:18: Stool Occult Blood Negative 05/14/24 21:56: Hgb 7.1 L D, Hct 22.2 L 05/15/24 06:06: Sodium 138, Potassium 3.5, Chloride 111 H, Carbon Dioxide 30, Anion Gap 0.5 L, BUN 20 H D, Creatinine 0.90, Estimated Creat Clear 49, Estimated GFR 61, Est GFR ( Amer) 73, Glucose 91, Calcium 8.0 L, Total Bilirubin 1.1, Direct Bilirubin 0.2, Conjugated Bilirubin 0.0, Indirect Bilirubin 0.9, Unconjugated Bilirubin 0.9, AST 27, ALT 17, Alkaline Phosphatase 76, Total Protein 5.6 L, Albumin 3.1 L, Triglycerides 73, Cholesterol 70 L, LDL Cholesterol Direct < 30.00 L, VLDL Cholesterol 15, HDL Cholesterol 33 L, Cholesterol/HDL Ratio 2.1 I & O for Labs for Last 24 Hours: Intake & Output 05/12/24 05/13/24 05/14/24 05/15/24 11:59 11:59 11:59 11:59 Intake Total 2073 Output Total 0 / 0 Balance 2073 Weight 142 lb 1.6 oz 147 lb 9.6 oz Constitutional: Present no acute distress Respiratory: Present CTA bilaterally Cardiac: Present Reg Rate and Rhythm GI: Present soft; Absent distention or tenderness Extremities: Absent edema Skin: Present intact Neuro: Present alert, awake and oriented x 3 Assessment and Plan *Assessment and plan (1) Iron deficiency anemia due to chronic blood loss: Status: Acute Category: Medical Code(s): D50.0 - Iron deficiency anemia secondary to blood loss (chronic) (2) Hypokalemia: Status: Acute Category: Medical Code(s): E87.6 - Hypokalemia (3) Coronary artery disease: Status: Acute Qualifiers: Associated angina: with other forms of angina Coronary Disease- Associated Artery/Lesion type: [place] artery [place] vs. transplanted heart: [place] heart Qualified Code(s): I25.118 - Atherosclerotic heart disease of [place] coronary artery with other forms of angina pectoris Category: Medical Code(s): I25.10 - Atherosclerotic heart disease of [place] coronary artery without angina pectoris (4) Gastritis: Status: Acute Category: Medical Code(s): K29.70 - Gastritis, unspecified, without bleeding (5) Dyspnea: Status: Acute Qualifiers: Dyspnea type: dyspnea on exertion Qualified Code(s): R06.09 - Other forms of dyspnea Category: Medical Code(s): R06.00 - Dyspnea, unspecified (6) Tubulovillous adenoma of rectum: Status: Acute Category: Medical Code(s): D12.8 - Benign neoplasm of rectum (7) Hyperlipidemia: Status: Acute Qualifiers: Hyperlipidemia type: mixed hyperlipidemia Qualified Code(s): E78.2 - Mixed hyperlipidemia Category: Medical Code(s): E78.5 - Hyperlipidemia, unspecified (8) (HFpEF) heart failure with preserved ejection fraction: Status: Acute Qualifiers: Heart failure chronicity: acute on chronic Qualified Code(s): I50.33 - Acute on chronic diastolic (congestive) heart failure Category: Medical Code(s): I50.30 - Unspecified diastolic (congestive) heart failure (9) Hypothyroidism: Problem Comment: Currently on replacement therapy and feeling well. Status: Chronic Qualifiers: Hypothyroidism type: postoperative Qualified Code(s): E89.0 - Postproc edural hypothyroidism Category: Medical Code(s): E03.9 - Hypothyroidism, unspecified (10) Rectal mass: Status: Acute Category: Medical Code(s): K62.89 - Other specified diseases of anus and rectum (11) Duodenitis: Status: Acute Category: Medical Code(s): K29.80 - Duodenitis without bleeding (12) Tobacco use: Status: Acute Category: Social Hx Code(s): Z72.0 - Tobacco use Plan Panendoscopy planned for today. HGB is up to 7.1. Will discuss further care with Dr. Grider. Cardiology and GI to follow. Dr. Grider entry - Saw patient, agree with above note.
[2024-05-15] MEDS: SPIRONOLACTONE 25MG TABLET 25 MG PO (09:17)
[2024-05-15] MEDS: FUROSEMIDE 80 MG TABLET PO (09:17)
[2024-05-15] MEDS: EMPAGLIFLOZIN 10MG TABLET 10 MG PO (09:17)
--- NOTE | 2024-05-15 09:51 | P.PNANES_ITS ---
[facility] Disclaimer: The information contained in this section may have been updated after the patient was seen, as this information can be updated by other users. 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 (Updated 05/14/24 @ 16:35 by BRAD Paul) Anemia Coronary artery disease CHF (congestive heart failure) Gastritis Postoperative hypoxia Respiratory failure with hypoxia Elevated troponin Mitral valve disorder HTN (hypertension) Amyloidosis Carotid artery stenosis Carotid artery disease Hyperlipidemia Edema (HFpEF) heart failure with preserved ejection fraction Goiter Myocardial infarct Macular degeneration Surgical History History of colonoscopy Status post coronary artery stent placement H/O esophagogastroduodenoscopy History of ovarian cystectomy Hx of tonsillectomy History of thyroid surgery H/O hernia repair H/O heart artery stent Family History Heart attack Social History Smoking Status: Current every day smoker tobacco type: cigarettes alcohol intake: never substance use type: denies use current occupational status: retired Travel in the last 8 weeks: None [facility] Anesthesia Checklist Patient Identification Patient Identification: Arm Band and Verbal (Name & ) Structural Data Admitted From: Inpatient (-[id number]) Planned Operative Procedure/s: EGD/Colonoscopy Consent for Planned Operative Procedure(s) Verified: Yes Verified Documents: Surgical Consent and History and Physical NPO Status Verified Time NPO: 01:00 Chart Verification Results Verified: CBC, BMP, ECG and Chest Xray Additional verifications Patient : No Anesthesia Reactions: No Cardiovascular Assessment Heart Sounds: S1 & S2 Pulse Rhythm: Irregular Peripheral Edema: No Airway Assessment Mallampati Score:: Class II C-Spine Mobility Assessed: Yes TMJ Mobility Assessed: Yes Dentition: Good Dentition (Nothing loose per pt.) Neurological Assessment Level of Consciousness: Awake, Alert, Appropriate and Follows Commands Hx Seizures: No Numbness or tingling in extremities: No Anesthesia Plan Anesthesia Risk discussed: Yes Anesthesia Plan: Verified ASA Class: IV Anesthesia Type: MAC
--- NOTE | 2024-05-15 11:22 | P.PCN_ITS ---
[facility] Procedure Note Date: 05/15/24 Time: 11:38 Procedure Note:: Upper Endoscopy Procedure Report: Esophagogastroduodenoscopy with cold snare polypectomy and cold biopsies Endoscopost: Dandy Leary II, MD Referring Physician: Keanu Grider MD Date of Procedure: May 15, 2024 Equipment: Olympus GIF 190 standard upper endoscope Sedation: MAC sedation Indications: Mrs. Hernandez is a 78-year-old female with microcytic iron deficiency anemia. This is chronic and she had been followed by Dr. Carlos Acosta. The patient has been on anticoagulation and most recently on clopidogrel. The patient did have an upper endoscopy on September 04, 2023 with findings of mild gastropathy with some erosions and fundic gland polyps. She had presented to the ER on 09/03/2023 with a hemoglobin of 4.2. The patient reports no melena, hematochezia or bright red blood per rectum. She does have dark sticky stools and has been on ferrous sulfate twice daily. The patient by Dr. Acosta's notes had an EGD on 10/05/2023 and there was a sliding hiatal hernia of 3 to 4 cm with hemorrhagic gastritis. Biopsies of the stomach showed no H. pylori. The patient had a colonoscopy with Dr. Acosta and this did show a large rectal mass that was prolapsing and biopsy showed tubulovillous adenoma. There was severe sigmoid diverticulosis and the scope was not advanced beyond 50 cm. The patient was sent to Laurie Killian MD/colorectal surgery and had surgical excision of the rectal mass. At that time, the patient states she did a colonoscopy and found a couple of other benign polyps removed. The patient has had fairly marked dyspnea on exertion and has marked fatigue. She presented yesterday for ou tpatient cardiac catheterization and her labs showed hemoglobin of 5.6 and hematocrit 19.5. She was admitted and transfused with 2 units of PRBCs. The patient reports no abdominal pain. She does have some postprandial bowel urgency with incomplete defecation. She is on a baby aspirin. Procedure: Prior to the procedure, a history and physical exam was performed, and patient's medications and allergies were reviewed. The risks, benefits and alternatives of the sedation and procedure were discussed with the patient. All questions were answered and informed consent was obtained. The patient was brought to the procedure room. Patient identification and proposed procedure were verified by the physician and the nurse. The patient was placed in a left lateral decubitus position and the scope was passed under direct vision. Throughout the procedure, the patient's blood pressure, pulse, and oxygen saturations were monitored continuously. The upper GI endoscopy was accomplished without difficulty. The patient tolerated the procedure well. Findings: The scope was passed directly into the upper esophagus and advanced to the third portion of the duodenum. Within the third portion of the duodenum was a 11 to 12 mm sessile polyp that appeared to be a duodenal adenoma and this was removed via cold snare polypectomy. The second portion and first portion of duodenum were normal. There was some mild nodularity of the bulb/Chery's gland hypertrophy and biopsies were taken from the bulb of the duodenum. The scope was withdrawn through a normal pylorus and of the stomach. There was some bile reflux with minimal reactive gastropathy of the antrum. The remainder of the antrum, body and fundus of the stomach were normal. Upon retroflexion there was a small 2 cm hiatal hernia without Kel's erosions. The scope was then withdrawn into the esophagus. There was a distal esophageal ring. The remainder of the esophageal mucosa was normal. Impression: 1. Duodenal polyp?third portion (11 to 12 mm)?rule out duodenal adenoma 2. Bile reflux with mild reactive gastropathy Plan: I did not see any AVMs or hemorrhagic gastritis. I do feel that the duodenal polyp is an advanced adenoma but this would not be the etiology of her chronic GI blood loss or iron deficiency. I will proceed with colonoscopy.
[2024-05-15 11:51] LABS: Transferrin 327 mg/dL (192-364)
--- NOTE | 2024-05-15 12:07 | [facility].PROCNOTE ---
[facility] Procedure Note Date: 05/15/24 Time: 12:07 Procedure Note:: Colonoscopy Procedure Report: Colonoscopy with APC ablation Endoscopist: Dandy Leary II, MD Referring physician: Keanu Grider Date of Procedure: May 15, 2024 Equipment: Olympus 190 variable stiffness pediatric colonoscope Sedation: MAC sedation Indication: Mrs. Hernandez is a 78-year-old female with microcytic iron deficiency anemia. She is here for diagnostic panendoscopy after admission. Her EGD showed a slightly larger duodenal adenoma which was removed but no other source. Her iron deficiency anemia is chronic. The patient has been on anticoagulation and most recently on clopidogrel. She had presented to the ER on 09/03/2023 with a hemoglobin of 4.2. The patient reports no melena, hematochezia or bright red blood per rectum. She does have dark sticky stools and has been on ferrous sulfate twice daily. The patient by Dr. Acosta's notes had an EGD on 10/05/2023 and there was a sliding hiatal hernia of 3 to 4 cm with hemorrhagic gastritis. Biopsies of the stomach showed no H. pylori. The patient had a colonoscopy with Dr. Acosta and this did show a large rectal mass that was prolapsing and biopsy showed tubulovillous adenoma. There was severe sigmoid diverticulosis and the scope was not advanced beyond 50 cm. The patient was sent to Laurie Killian MD/colorectal surgery and had surgical excision of the rectal mass. At that time, the patient states she did a colonoscopy and found a couple of other benign polyps removed. The patient has had fairly marked dyspnea on exertion and has marked fatigue. She presented yesterday for outpatient cardiac catheterization and her labs showed hemoglobin of 5.6 and hematocrit 19.5. She was admitted and transfused with 2 units of PRBCs. The patient reports no abdominal pain. She does have some postprandial bowel urgency with incomplete defecation. She is on a baby aspirin. Procedure: Prior to the procedure, a history and physical exam was performed, and patient's medications and allergies were reviewed. The risks, benefits and alternatives of the sedation and procedure were discussed with the patient. All questions were answered and informed consent was obtained. The patient was brought to the procedure room. Patient identification and proposed procedure were verified by the physician and the nurse. The patient was placed in a left lateral decubitus position and the scope was passed under direct vision. Throughout the procedure, the patient's blood pressure, pulse, and oxygen saturations were monitored continuously. The colonoscopy was accomplished without difficulty. The patient tolerated the procedure well. Findings: On digital rectal examination there was normal rectal tone. There were no external hemorrhoids. The colonoscope was introduced through the anal canal to the rectum and advanced to the cecum. The ileocecal valve and appendiceal orifice were identified. The scope was advanced a short distance into the ileum which appeared grossly normal. The scope was then withdrawn into the colon. The preparation was fair with a lot of brown liquid in the right colon. There were at least 6 AVMs/angiodysplasias in the right colon 3 of which were 9 to 10 mm. This was deemed the source of her chronic GI blood loss and each of the AVMs identified was ablated using APC ablation. The remaining cecum, ascending and transverse colon and mucosa were grossly normal. There were scattered diverticuli throughout the descending and sigmoid colon (LEFT colon). There was a smaller rectal vault and there was fibrosis from the prior surgical excision of the larger villous adenoma but no residual polyp. This appeared to have been removed transanally. There were grade 1-2 internal hemorrhoids. Impression: 1. 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 Extensive left-sided diverticulosis 3. 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 Grade 1-2 internal hemorrhoids Plan: Angiodysplasias which are also called AVMs (arteriovenous malformations) can remain clinically silent or cause gastrointestinal bleeding. Patients who bleed typically present with occult not overt gastrointestinal blood loss. Angiodysplasias are aberrant blood vessels which are more frequently found in the gastrointestinal tract, where they are probably more common than anywhere else in the body. The vast majority are acquired later in life. The reasons for the distortion of vascular structures observed as we get older are poorly understood. Angiodysplasias are composed of ectatic, dilated, thin-walled blood vessels and the most prominent feature in angiodysplasias is the presence of dilated, tortuous submucosal veins. A proposed theory is that angiodysplasias develop due to intermittent, recurrent low-grade obstruction of submucosal veins. Over years, the obstruction results in dilatation and tortuosity of the draining areas (ie, submucosal vessels, venules, and superficial capillaries). Angiodysplasia may be found during evaluation of gastrointestinal (GI) bleeding or it may be discovered incidentally during an endoscopic evaluation being performed for other reasons. If bleeding occurs, the bleeding tends be recurrent and chronic. However, marked acute bleeding causing orthostasis or hypotension can rarely occur. I recommend treating angiodysplasia found during colonoscopy in patients with occult bleeding, even if the lesions are not bleeding at the time of the colonoscopy. I do feel that this is the etiology of her chronic GI blood loss and she could have more AVMs in the small bowel. I would like for her to receive Venofer parenteral iron. I do still have some concern about her use of chronic anticoagulation and hopefully this will be addressed but I suspect that she will need to remain on this.
--- NOTE | 2024-05-15 12:46 | EXP.CARD.PN ---
Subjective Subjective Date: 05/15/24 Time: 09:00 Principal diagnosis: GI bleed, anemia, CAD Interval history: This is a 78-year-old female who was admitted to the hospital with profound anemia and a GI bleed. She is scheduled to undergo colonoscopy and EGD today. She is status post 2 units of packed red blood cells. Her hemoglobin improved from 5.6 to 7.2 today. She states that her shortness of breath has improved with the blood transfusion but she is still having shortness of breath with exertion. She states that she feels a little short of breath at rest but nowhere near as severe as it was prior to the transfusion. She denies any chest pain or pressure. She denies any lower extremity edema. She denies any fever, chills, nausea, vomiting, diarrhea. Exam Data for Last 24 hours Vital signs and Labs for Last 24 Hours: Temp Pulse Resp BP Pulse Ox O2 Del Method O2 Flow Rate 97 F L 80 16 109/49 L 90 L Room Air 5 05/15/24 12:15 05/15/24 12:35 05/15/24 12:35 05/15/24 12:35 05/15/24 12:35 05/15/24 12:35 05/15/24 11:19 Laboratory Results - last 24 hr 05/14/24 10:46: Blood Type B Positive, Antibody Screen Negative, Crossmatch (AHG) See Detail 05/14/24 13:10: Retic Count (auto) 1.8, Iron 27 L, TIBC 446, Iron Saturation 6.60730 L, Transferrin 327, Ferritin 9.44 L, Vitamin B12 504, Folate > 20.00 05/14/24 17:18: Stool Occult Blood Negative 05/14/24 21:56: Hgb 7.1 L D, Hct 22.2 L 05/15/24 06:06: WBC 4.8, RBC 2.92 L, Hgb 7.2 L, Hct 23.2 L, MCV 79.6 L, MCH 24.8 L, MCHC 31.1 L, RDW 20.7 H, Plt Count 190, MPV 10.7 H, Neut % (Auto) 70.5, Lymph % (Auto) 18.7, [place] % (Auto) 7.5, Eos % (Auto) 2.4, Baso % (Auto) 0.8, Neut # (Auto) 3.4, Lymph # (Auto) 0.9, [place] # (Auto) 0.4, Eos # (Auto) 0.1, Baso # (Auto) 0.0, Sodium 138, Potassium 3.5, Chloride 111 H, Carbon Dioxide 30, Anion Gap 0.5 L, BUN 20 H D, Creatinine 0.90, Estimated Creat Clear 49, Estimated GFR 61, Est GFR ( Amer) 73, Glucose 91, Calcium 8.0 L, Total Bilirubin 1.1, Direct Bilirubin 0.2, Conjugated Bilirubin 0.0, Indirect Bilirubin 0.9, Unconjugated Bilirubin 0.9, AST 27, ALT 17, Alkaline Phosphatase 76, Total Protein 5.6 L, Albumin 3.1 L, Triglycerides 73, Cholesterol 70 L, LDL Cholesterol Direct < 30.00 L, VLDL Cholesterol 15, HDL Cholesterol 33 L, Cholesterol/HDL Ratio 2.1 I & O for Last 24 hours: Intake & Output 05/12/24 05/13/24 05/14/24 05/15/24 23:59 23:59 23:59 23:59 Intake Total 742 / 4 1332 / 1332 Output Total 0 / 0 0 / 0 Balance 742 / 4 1332 / 1332 Weight 142 lb 1.6 oz 147 lb 9.6 oz Constitutional Constitutional: no acute distress and average body habitus *Routine HEENT Exam Head: Present normocephalic and atraumatic ENT: Present mucous membranes moist *Routine Neck Exam Neck: Present supple, full ROM and normal carotid upstroke; Absent JVD, carotid bruit or lymphadenopathy *Routine Respiratory Exam Respiratory: Present CTA bilaterally, normal respiratory effort, able to speak in complete sentences and symmetric chest movement *Routine Cardiovascular Exam Cardiovascular: Present RRR, Normal S1 and Normal S2; Absent murmur or gallop *Routine Abdominal Exam Abdominal: Present soft and normoactive bowel sounds; Absent tenderness, distended or organomegaly *Routine Extremities Exam Extremities: Present full ROM, pulses intact and normal capillary refill; Absent cyanosis, clubbing or edema *Routine Skin Exam Skin: Present intact and warm; Absent erythema *Routine Neurological Exam Neurological: Present alert, oriented X3 and CN II-XII intact; Absent sensory deficit or motor deficit Routine Psychiatric Exam Psychiatric: Present normal affect Progress Note: A&P Assessment and plan (1) Iron deficiency anemia due to chronic blood loss: Status: Acute (2) Dyspnea: Status: Acute (3) Coronary artery disease: Status: Acute (4) Gastritis: Status: Acute (5) Tubulovillous adenoma of rectum: Status: Acute (6) Hyperlipidemia: Status: Acute (7) (HFpEF) heart failure with preserved ejection fraction: Status: Acute (8) Hypothyroidism: Problem details: Currently on replacement therapy and feeling well. Status: Chronic (9) Rectal mass: Status: Acute (10) Duodenitis: Status: Acute (11) Tobacco use: Status: Acute Assessment and Plan Assessment and Plan for All Diagnoses:: Plan: 1. The patient was admitted to the hospital for profound anemia noted during preop labs for left cardiac catheterization. Her hemoglobin was 5.6 and her hematocrit was 19.5. Her left cardiac catheterization has been canceled and the patient was subsequently admitted to the hospital. 2. The patient was transfused with 2 units of packed red blood cells yesterday and her hemoglobin is up to 7.2. She is also scheduled to get IV iron today due to iron deficiency anemia. 3. GI did consult on the patient. She is scheduled to undergo EGD and colonoscopy today for further evaluation of her iron deficiency blood loss anemia. 4. Her echocardiogram is currently pending. 5. Continue to hold Plavix and aspirin due to her GI bleed. 6. Coronary artery disease is present. Left cardiac catheterization has been postponed due to her profound anemia. Cardiac MRI did show ischemia. Once her anemia is improved then we can consider proceeding with left cardiac catheterization on an outpatient basis. 7. Her blood pressure is well-controlled. 8. Her LDL goal is less than 55. Her LDL is less than 30. She is on Crestor. 9. HFpEF is currently stable. Continue diuretics. 10. Further recommendations will be made pending the patient's response to treatment. Thank you for the opportunity to help participate in the care of this patient. All recommendations and orders are per Dr. Dickey.
--- NOTE | 2024-05-15 14:08 | SUR.OPER ---
1115- left forearm IV removed before procedure. coban dressing applied
[2024-05-15] MEDS: IRON SUCROSE COMPLEX 200 MG in 0.9 % SODIUM CHLORIDE 100 ML 220 MG IV (17:06)
[2024-05-15] MEDS: ATORVASTATIN 20MG TABLET 20 MG PO (21:29)
[2024-05-15] MEDS: PANTOPRAZOLE 40MG TABLET 40 MG PO (21:29)
[2024-05-16] VITALS: BP 135/70; PULSE 80; PULSE 82; RESP 18; TEMP 37; O2SAT 96
[2024-05-16 04:00] VITALS: BP 108/66; PULSE 70; PULSE 80; RESP 18; TEMP 36.6; O2SAT 96
--- NOTE | 2024-05-16 05:48 | PC.NURSE ---
05/16/24 0545. Pt. is alert and orientated x 4. Pt, did not sleep well overnight. Pt. up and ambulating around room independently. Pt, states that she is ready to go home. VSS. Personal items and call zafar in reach.
[2024-05-16] MEDS: LEVOTHYROXINE 112MCG (0.112MG) TAB 112 MCG PO (06:40)
[2024-05-16] MEDS: FUROSEMIDE 80 MG TABLET PO (06:40)
[2024-05-16 06:56] LABS: Albumin Level 3.4 g/dl (3.5-5.0); Chloride 105 mmol/L (98-107); Potassium 3.5 mmoL/L (3.5-5.1); Sodium 139 mmol/L (136-145)
[2024-05-16 06:59] LABS: Alanine Aminotransferase 21 U/L (12-78); Albumin/Globulin Ratio 1.3 (1.1-1.8); Alkaline Phosphatase 77 U/L (38-126); Anion Gap 6.5 mEq/L (5-15); Aspartate Amino Transferase 32 U/L (14-36); Bilirubin,Total 0.9 mg/dl (0.2-1.3); Blood Urea Nitrogen 13 mg/dl (7-17); Carbon Dioxide 31 mmol/L (22.0-30.0); Creatinine Clearance Estimated 49 mL/min (50-200); Estimated Glomerular Filt Rate 61 ml/min (>60); GFR (African American) 73 ML/MIN (>60); Globulin 2.6 g/dL (1.3-3.2); Glucose 113 mg/dl (74-100)
[2024-05-16 07:00] LABS: Calcium 8.2 mg/dl (8.4-10.2)
[2024-05-16 08:00] VITALS: BP 114/56; PULSE 77; PULSE 80; RESP 16; TEMP 36.8; O2SAT 98
--- NOTE | 2024-05-16 08:06 | P.PN_ITS ---
Subjective *Date: 05/16/24 *Time: 09:01 Interval history: Patient is feeling better today. She has been able to eat. She is passing gas. She slept better last night. Medical Exam Vital signs and Labs for Last 24 Hours: Vital Signs Temp Pulse Pulse Resp BP Pulse Ox O2 Del Method 05/16/24 07:00 Room Air 05/16/24 05:00 Room Air, Nasal Cannula 05/16/24 04:00 97.9 F 80 18 108/66 L 96 Room Air 05/16/24 04:00 70 05/16/24 03:00 Room Air 05/16/24 01:00 Room Air 05/16/24 00:00 98.6 F 82 18 135/70 96 Room Air 05/16/24 00:00 80 05/15/24 23:00 Room Air 05/15/24 21:00 Room Air 05/15/24 20:00 Room Air 05/15/24 20:00 80 05/15/24 20:00 97.9 F 78 16 122/60 93 L Room Air 05/15/24 19:00 Room Air 05/15/24 17:23 73 18 98/53 L 94 L Room Air 05/15/24 17:00 Room Air 05/15/24 16:00 70 05/15/24 16:00 81 20 104/59 L 96 Room Air 05/15/24 15:00 70 20 111/49 L 96 Room Air 05/15/24 14:30 71 16 95/56 L 94 L Room Air 05/15/24 14:00 75 18 86/53 L 95 Room Air 05/15/24 13:45 80 20 98/47 L 92 L Room Air 05/15/24 13:30 69 20 105/56 L 94 L Room Air 05/15/24 13:15 72 18 117/52 L 94 L Room Air 05/15/24 13:00 98.1 F 90 16 98/61 L 96 Room Air 05/15/24 13:00 Room Air 05/15/24 12:35 80 16 109/49 L 90 L Room Air 05/15/24 12:25 84 16 103/58 L 94 L Room Air 05/15/24 12:15 97 F L 83 16 98/46 L 95 Room Air 05/15/24 11:19 Nasal Cannula 05/15/24 09:00 Room Air O2 Flow Rate 12/13/24 07:00 05/16/24 05:00 05/16/24 04:00 05/16/24 04:00 05/16/24 03:00 05/16/24 01:00 05/16/24 00:00 05/16/24 00:00 05/15/24 23:00 05/15/24 21:00 05/15/24 20:00 05/15/24 20:00 05/15/24 20:00 05/15/24 19:00 05/15/24 17:23 05/15/24 17:00 05/15/24 16:00 05/15/24 16:00 05/15/24 15:00 05/15/24 14:30 05/15/24 14:00 05/15/24 13:45 05/15/24 13:30 05/15/24 13:15 05/15/24 13:00 05/15/24 13:00 05/15/24 12:35 05/15/24 12:25 05/15/24 12:15 05/15/24 11:19 5 05/15/24 09:00 Intake and Output 05/15/24 05/16/24 05/16/24 19:59 03:59 11:59 Intake Total 640 / 640 Output Total 0 / 0 0 / 0 0 / 0 Balance 640 / 640 0 / 640 0 / 640 Intake: Intake, Oral Amount 640 / 640 Output: Output, Urine Amount 0 / 0 0 / 0 0 / 0 Other: Number of Unmeasured Voids 1 1 1 Laboratory Results - last 24 hr 05/14/24 13:10: Transferrin 327 05/15/24 06:06: WBC 4.8, RBC 2.92 L, Hgb 7.2 L, Hct 23.2 L, MCV 79.6 L, MCH 24.8 L, MCHC 31.1 L, RDW 20.7 H, Plt Count 190, MPV 10.7 H, Neut % (Auto) 70.5, Lymph % (Auto) 18.7, [place] % (Auto) 7.5, Eos % (Auto) 2.4, Baso % (Auto) 0.8, Neut # (Auto) 3.4, Lymph # (Auto) 0.9, [place] # (Auto) 0.4, Eos # (Auto) 0.1, Baso # (Auto) 0.0 05/16/24 06:31: Sodium 139, Potassium 3.5, Chloride 105, Carbon Dioxide 31 H, Anion Gap 6.5, BUN 13 D, Creatinine 0.90, Estimated Creat Clear 49, Estimated GFR 61, Est GFR ( Amer) 73, Glucose 113 H, Calcium 8.2 L, Total Bilirubin 0.9, AST 32, ALT 21, Alkaline Phosphatase 77, Total Protein 6.0 L, Albumin 3.4 L , Globulin 2.6, Albumin/Globulin Ratio 1.3 I & O for Labs for Last 24 Hours: Intake & Output 05/13/24 05/14/24 05/15/24 05/16/24 11:59 11:59 11:59 11:59 Intake Total 2073 640 / 640 Output Total 0 / 0 0 / 0 Balance 2073 640 / 640 Weight 142 lb 1.6 oz 147 lb 9.6 oz Constitutional: Present no acute distress Respiratory: Present CTA bilaterally Cardiac: Present Reg Rate and Rhythm GI: Present soft; Absent distention or tenderness Extremities: Absent edema Skin: Present intact Neuro: Present alert, awake and oriented x 3 Assessment and Plan *Assessment and plan (1) Iron deficiency anemia due to chronic blood loss: Status: Acute Category: Medical Code(s): D50.0 - Iron deficiency anemia secondary to blood loss (chronic) (2) Hypokalemia: Status: Acute Category: Medical Code(s): E87.6 - Hypokalemia (3) Coronary artery disease: Status: Acute Qualifiers: Associated angina: with other forms of angina Coronary Disease- Associated Artery/Lesion type: [place] artery [place] vs. transplanted heart: [place] heart Qualified Code(s): I25.118 - Atherosclerotic heart disease of [place] coronary artery with other forms of angina pectoris Category: Medical Code(s): I25.10 - Atherosclerotic heart disease of [place] coronary artery without angina pectoris (4) Gastritis: Status: Acute Category: Medical Code(s): K29.70 - Gastritis, unspecified, without bleeding (5) Dyspnea: Status: Acute Qualifiers: Dyspnea type: dyspnea on exertion Qualified Code(s): R06.09 - Other forms of dyspnea Category: Medical Code(s): R06.00 - Dyspnea, unspecified (6) Tubulovillous adenoma of rectum: Status: Acute Category: Medical Code(s): D12.8 - Benign neoplasm of rectum (7) Hyperlipidemia: Status: Acute Qualifiers: Hyperlipidemia type: mixed hyperlipidemia Qualified Code(s): E78.2 - M ixed hyperlipidemia Category: Medical Code(s): E78.5 - Hyperlipidemia, unspecified (8) (HFpEF) heart failure with preserved ejection fraction: Status: Acute Qualifiers: Heart failure chronicity: acute on chronic Qualified Code(s): I50.33 - Acute on chronic diastolic (congestive) heart failure Category: Medical Code(s): I50.30 - Unspecified diastolic (congestive) heart failure (9) Hypothyroidism: Problem Comment: Currently on replacement therapy and feeling well. Status: Chronic Qualifiers: Hypothyroidism type: postoperative Qualified Code(s): E89.0 - Postprocedural hypothyroidism Category: Medical Code(s): E03.9 - Hypothyroidism, unspecified (10) Rectal mass: Status: Acute Category: Medical Code(s): K62.89 - Other specified diseases of anus and rectum (11) Duodenitis: Status: Acute Category: Medical Code(s): K29.80 - Duodenitis without bleeding (12) Tobacco use: Status: Acute Category: Social Hx Code(s): Z72.0 - Tobacco use Plan The patient had EGD and colonoscopy by Dr. Leary yesterday. The EGD showed a duodenal polyp and bile reflux with mild reactive gastropathy. The colonoscopy showed right colonic angiodysplasia along with diverticulosis, anorectal fibrosis from transanal excision of rectal tubulovillous adenoma, and hemorrhoids. Dr. Leary felt the angiodysplasias were the cause of her chronic bleeding. He did perform APC ablation. He recommends that the patient receive Venofer parenteral iron and still has concern with her remaining on chronic anticoagulation. Cardiology will follow with recommendations on anticoagulation . Patient's hemoglobin yesterday was 7.2, which was stable. Will discuss further care with Dr. Grider. Patient would like to be discharged home today. Dr. Grider entry - Saw patient, agree with above note. She prefers to stay off of anticoagulants at this time. Will have her follow up with Dr. Cancino, GI and Cardiology as an outpatient. Care management to arrange Venofer infusions as patient has failed oral iron replacement.
[2024-05-16] MEDS: EMPAGLIFLOZIN 10MG TABLET 10 MG PO (09:04)
[2024-05-16] MEDS: SPIRONOLACTONE 25MG TABLET 25 MG PO (09:04)
--- NOTE | 2024-05-16 11:36 | P.PN_ITS ---
Subjective Subjective Date: 05/16/24 Time: 08:30 Principal diagnosis: GI bleed, anemia, CAD Interval history: This is a 78-year-old female who was admitted to the hospital with profound anemia and a GI bleed. She underwent EGD and colonoscopy yesterday. She was found to have a duodenal polyp, right colonic angiodysplasia/AVMs status post APC ablation, left-sided diverticulosis, and no rectal fibrosis from transanal excision and internal hemorrhoids. The angiodysplasia/AVM is felt to be the cause of her chronic blood loss. Her dual antiplatelet therapy is currently on hold. This morning she states her shortness of breath is significantly improved and she is feeling much better. She denies any chest pain or pressure. She denies any lower extremity edema. She denies any fever, chills, nausea, vomiting, diarrhea, PND orthopnea. The patient states that she is ready to be discharged home today. Exam Data for Last 24 hours Vital signs and Labs for Last 24 Hours: Temp Pulse Resp BP Pulse Ox O2 Del Method O2 Flow Rate 98.2 F 77 16 114/56 L 98 Room Air 5 05/16/24 08:00 05/16/24 08:00 05/16/24 08:00 05/16/24 08:00 05/16/24 08:00 05/16/24 09:00 05/15/24 11:19 Laboratory Results - last 24 hr 05/14/24 13:10: Transferrin 327 05/16/24 06:31: Sodium 139, Potassium 3.5, Chloride 105, Carbon Dioxide 31 H, Anion Gap 6.5, BUN 13 D, Creatinine 0.90, Estimated Creat Clear 49, Estimated GFR 61, Est GFR ( Amer) 73, Glucose 113 H, Calcium 8.2 L, Total Bilirubin 0.9, AST 32, ALT 21, Alkaline Phosphatase 77, Total Protein 6.0 L, Albumin 3.4 L , Globulin 2.6, Albumin/Globulin Ratio 1.3 I & O for Last 24 hours: Intake & Output 05/13/24 05/14/24 05/15/24 05/16/24 23:59 23:59 23:59 23:59 Intake Total 2073 335 / 335 Output Total 0 / 0 0 / 0 0 / 0 Balance 2073 335 / 335 Weight 142 lb 1.6 oz 147 lb 9.6 oz Constitutional Constitutional: no acute distress and average body habitus *Routine HEENT Exam Head: Present normocephalic and atraumatic ENT: Present mucous membranes moist *Routine Neck Exam Neck: Present supple, full ROM and normal carotid upstroke; Absent JVD, carotid bruit or lymphadenopathy *Routine Respiratory Exam Respiratory: Present CTA bilaterally, normal respiratory effort, able to speak in complete sentences and symmetric chest movement *Routine Cardiovascular Exam Cardiovascular: Present RRR, Normal S1 and Normal S2; Absent murmur or gallop *Routine Abdominal Exam Abdominal: Present soft and normoactive bowel sounds; Absent tenderness, distended or organomegaly *Routine Extremities Exam Extremities: Present full ROM, pulses intact and normal capillary refill; Absent cyanosis, clubbing or edema *Routine Skin Exam Skin: Present intact and warm; Absent erythema *Routine Neurological Exam Neurological: Present alert, oriented X3 and CN II-XII intact; Absent sensory deficit or motor deficit Routine Psychiatric Exam Psychiatric: Present normal affect Progress Note: A&P Assessment and plan (1) Iron deficiency anemia due to chronic blood loss: Status: Acute (2) Coronary artery disease: Status: Acute (3) Gastritis: Status: Acute (4) Dyspnea: Status: Acute (5) Tubulovillous adenoma of rectum: Status: Acute (6) Hyperlipidemia: Status: Acute (7) (HFpEF) heart failure with preserved ejection fraction: Status: Acute (8) Hypothyroidism: Problem details: Currently on replacement therapy and feeling well. Status: Chronic (9) Rectal mass: Status: Acute (10) Duodenitis: Status: Acute (11) Tobacco use: Status: Acute (12) Angiodysplasia of colon: Status: Acute Assessment and Plan Assessment and Plan for All Diagnoses:: Plan: 1. The patient was admitted to the hospital for profound anemia noted during preop labs for left cardiac catheterization. Her hemoglobin was 5.6 and her hematocrit was 19.5. Her left cardiac catheterization has been canceled and the patient was subsequently admitted to the hospital. 2. The patient was transfused with 2 units of packed red blood cells and transfused with IV iron. Her hemoglobin today remains at 7.2. 3. The patient underwent EGD and colonoscopy yesterday. Findings as stated above in the HPI. GI does believe that the angiodysplasia/AVMs are causing her chronic blood loss. Recommended that the patient stay off of dual antiplatelet therapy. We will continue to hold her dual antiplatelet therapy at this time. But once her anemia has improved cardiology would like for her to go back on aspirin 81 mg daily as a monotherapy. No Plavix. 4. Echocardiogram shows a normal ejection fraction with moderate MR and an RVSP of 30 to 35 mmHg. Continue Lasix and spironolactone. 5. Coronary artery disease is present. Left cardiac catheterization has been postponed due to her profound anemia. Cardiac MRI did show ischemia. Once her anemia is improved then we can consider proceeding with left cardiac catheterization on an outpatient basis. 6. Her blood pressure is well-controlled. 7. Her LDL goal is less than 55. Her LDL is less than 30. She is on Crestor. 8. HFpEF is currently stable. Continue diuretics. 9. No further recommendations at this time from a cardiac standpoint. The patient can be discharged home today from a cardiac standpoint. The patient can be discharged on the following cardiac medications: Lasix 80 mg p.o. daily, Jardiance 10 mg daily, rosuvastatin 10 mg daily, spironolactone 25 mg daily. Continue to hold bisoprolol, Plavix and aspirin. Thank you for the opportunity to help participate in the care of this patient. All recommendations and orders are per Dr. Dickey.
--- NOTE | 2024-05-19 13:29 | SW/DCPLANNER ---
Spoke with patient on the phone. Patient stated that she is doing well. Patient stated that she has just got done with her infusion. Patient stated that she is aware of her up coming appointments and she was able to product picker her new medicine. Patient stated that she has no ocncerns or questions at this time. Hussein Rudolph
--- NOTE | 2024-05-22 15:59 | EXP.DC.SUM ---
General Admission date:: 05/14/24 Discharge date: 05/16/24 HPI HPI HPI: This is a 78-year-old white female who presented to the outpatient cardiac catheterization laboratory this morning to undergo left cardiac catheterization due to atypical angina and shortness of breath. While having preop labs the patient was found to have a hemoglobin of 5.6 and a hematocrit of 19.5. Her procedure was canceled and the patient was admitted to the hospital due to her profound anemia. The patient reports that she is still severely short of breath. She states that her shortness of breath started abruptly on and has not improved she states that she can do very minimal exertion and she is profoundly short of breath. She is extremely fatigued and has no energy to do anything. She denies any chest pain or pressure. She does have some lower extremity edema intermittently but this is pretty chronic for her. She denies any fever, chills, nausea, vomiting, diarrhea. She states that she does have orthopnea at times with her shortness of breath. The patient has been admitted to the hospital for her anemia and will be transfused with packed red blood cells today. (above as per cardiology) The patient has a history of iron deficiency anemia. Her hemoglobin was found to be 4.2 in September 2023. She saw Dr. Acosta at that time and had an EGD which showed gastropathy along with erosive duodenitis. He started her on PPIs and Carafate and wanted to withhold her antiplatelet agents. He felt the blood loss was likely from the erosive duodenitis and associated shallow ulcerations. He did another EGD on 10/05/2023 and found a sliding hiatal hernia, diffuse mild to moderate nonerosive gastritis and multiple too numerous to count punctate areas of mild hemorrhagic oozing diffusely throughout the entire stomach. In November, he did a flexible sigmoidoscopy with polypectomy and this is where they discovered a large anorectal mass. She was sent to Dr. 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 She is now back on clopidogrel and a baby aspirin. She states her stools have been dark, but she has been taking iron. Hospital Course Hospital Course Hospital Course: Dr. Leary did see the patient upon consultation and planned for a panendoscopy. He also ordered a Hemoccult stool test and recommended iron infusions. She was transfused. She did feel better after blood transfusion. Her EGD showed a duodenal polyp and bile reflux with mild reactive gastropathy. Her colonoscopy showed right colonic angiodysplasia/AVM. He did perform an ablation. He felt this was likely the etiology of her chronic GI blood loss. He was concerned about the use of chronic anticoagulation. By 05/16/2024, she was feeling better and was able to eat and pass gas. Her hemoglobin was up to 7.2. The patient preferred to stay off of anticoagulants until follow-up with cardiology, Dr. Cancino, and GI. She was stable to be discharged home and follow-ups will be scheduled. Care management will arrange Venofer infusions as the patient failed oral iron replacement. Exam Data for Last 24 hours Vital signs and Labs for Last 24 Hours: Temp Pulse Resp BP Pulse Ox O2 Del Method O2 Flow Rate 98.2 F 77 16 114/56 L 98 Room Air 5 05/16/24 08:00 05/16/24 08:00 05/16/24 08:00 05/16/24 08:00 05/16/24 08:00 05/16/24 09:00 05/15/24 11:19 Narrative: Constitutional Constitutional: no acute distress *Routine HEENT Exam Head: Present normocephalic and atraumatic Eye: Present EOMI and PERRL ENT: Present mucous membranes dry *Routine Neck Exam Neck: Present supple and full ROM *Routine Respiratory Exam Respiratory: Present rhonchi (bilateral); Absent crackles *Routine Cardiovascular Exam Cardiovascular: Present RRR *Routine Abdominal Exam Abdominal: Present soft and normoactive bowel sounds; Absent tenderness *Routine Rectal Exam Rectal:: deferred *Routine Genitalia Exam Genitalia:: deferred *Routine Extremities Exam Extremities: Absent cyanosis, clubbing or edema *Routine Skin Exam Skin: Present intact and pallor; Absent erythema *Routine Neurological Exam Neurological: Present alert and oriented X3 DS: Diagnosis Discharge Diagnosis (1) Iron deficiency anemia due to chronic blood loss: Status: Acute Code(s): D50.0 - Iron deficiency anemia secondary to blood loss (chronic) (2) Coronary artery disease: Status: Acute Code(s): I25.10 - Atherosclerotic heart disease of [place] coronary artery without angina pectoris Qualifiers: Coronary Disease-Associated Artery/Lesion type: [place] artery [place] vs. transplanted heart: [place] heart Associated angina: with other forms of angina Qualified Code(s): I25.118 - Atherosclerotic heart disease of [place] coronary artery with other forms of angina pectoris (3) Gastritis: Status: Acute Code(s): K29.70 - Gastritis, unspecified, without bleeding (4) Dyspnea: Status: Acute Code(s): R06.00 - Dyspnea, unspecified Qualifiers: Dyspnea type: dyspnea on exertion Qualified Code(s): R06.09 - Other forms of dyspnea (5) Tubulovillous adenoma of rectum: Status: Acute Code(s): D12.8 - Benign neoplasm of rectum (6) Hyperlipidemia: Status: Acute Code(s): E78.5 - Hyperlipidemia, unspecified Qualifiers: Hyperlipidemia type: mixed hyperlipidemia Qualified Code(s): E78.2 - Mixed hyperlipidemia (7) (HFpEF) heart failure with preserved ejection fraction: Status: Acute Code(s): I50.30 - Unspecified diastolic (congestive) heart failure Qualifiers: Heart failure chronicity: acute on chronic Qualified Code(s): I50.33 - Acute on chronic diastolic (congestive) heart failure (8) Hypothyroidism: Status: Chronic Code(s): E03.9 - Hypothyroidism, unspecified Qualifiers: Hypothyroidism type: postoperative Qualified Code(s): E89.0 - Postprocedural hypothyroidism Problem details: Currently on replacement therapy and feeling well. (9) Rectal mass: Status: Acute Code(s): K62.89 - Other specified diseases of anus and rectum (10) Duodenitis: Status: Acute Code(s): K29.80 - Duodenitis without bleeding (11) Tobacco use: Status: Acute Code(s): Z72.0 - Tobacco use (12) Angiodysplasia of colon: Status: Acute Code(s): K55.20 - Angiodysplasia of colon without hemorrhage Meds Home Medications and Allergies Home Medications ?Medication ?Instructions ?Recorded ?Confirmed ?Type vit C 250 mg-vit E 90 mg-zinc 40 1 tab PO DAILY 06/09/19 05/21/24 History mg-copper 1 wo-luogee-eqcpik capsule (PreserVision AREDS-2) Jardiance 10 mg tablet 10 mg PO DAILY #90 tabs 10/04/23 05/21/24 Rx (empagliflozin) faricimab-svoa 6 mg/0.05 mL 0.05 ml intravitreal Q4W 12/19/23 05/21/24 History intravitreal solution (Vabysmo) coenzyme Q10 200 mg capsule (Co 200 mg PO DAILY 05/06/24 05/21/24 History Q-10) furosemide 40 mg tablet 80 mg PO AM 05/06/24 05/21/24 History rosuvastatin 10 mg tablet (Crestor) 10 mg PO DAILY #30 tabs 05/06/24 05/21/24 Rx levothyroxine 112 mcg tablet 112 mcg PO DAILY 05/14/24 05/21/24 History (Synthroid) pantoprazole 40 mg tablet,delayed 40 mg PO DAILY 05/14/24 05/21/24 History release iron sucrose 200 mg iron/10 mL 200 mg (10 mL) IV WEEKLY 5 doses 05/16/24 Rx intravenous solution (Venofer) spironolactone 25 mg tablet 12.5 mg (1/2 x 25 mg) PO DAILY #30 05/21/24 05/21/24 Rx (Aldactone) tabs New Prescriptions to Start Prescriptions: Allergies Allergy/AdvReac Type Severity Reaction Status Date / Time Odkffex-ILC-MeG Reductase Allergy Mild intolerance Verified 05/21/24 13:58 Inhibitor Discharge Plan Disposition Patient Disposition: Home, Self-Care Condition: Fair Follow up Plan Follow up with: Dandy Leary II, MD [Staff Physician] - 06/24/24 1:30 pm Elda Cancino MD [Primary Care Provider] - 05/30/24 9:30 am Syed Mathew MD [Staff Physician] - 05/21/24 2:00 pm Prescriptions/Medication Reconciliation: New Venofer 200 mg iron/10 mL solution 200 mg IV WEEKLY Rx Instructions: administer over 30 mins Continued PreserVision AREDS-2 [id number] vj-[id number]-[id number]-mg capsule 1 tab PO DAILY Rx Instructions: administer with meals (after breakfast and after supper) Vabysmo 6 mg/0.05 mL solution 0.05 ml intravitreal Q4W Jardiance 10 mg tablet 10 mg PO DAILY Qty: 90 3RF coenzyme Q10 [Co Q-10] 200 mg capsule 200 mg PO DAILY furosemide 40 mg tablet 80 mg PO AM rosuvastatin [Crestor] 10 mg tablet 10 mg PO DAILY Qty: 30 2RF pantoprazole 40 mg tablet,delayed release (DR/EC) 40 mg PO DAILY levothyroxine [Synthroid] 112 mcg tablet 112 mcg PO DAILY Discontinued aspirin [Rabia Low Dose Aspirin] 81 mg tablet,delayed release (DR/EC) 81 mg PO DAILY clopidogrel 75 mg Tablet 75 mg PO DAILY ferrous sulfate 325 mg (65 mg iron) Tablet 325 mg PO DAILY No Action spironolactone [Aldactone] 25 mg tablet 12.5 mg PO DAILY Qty: 30 2RF Problem Reconciliation Problems Reviewed?: Yes Patient Discharge Instructions ACTIVITY: Continue current activity DIET: continue same diet Patient Instructions: DI for Cardiac Catheterization, DI for Folic Acid Deficiency Anemia, DI for Surgical Site Infection Print Language: Martiniquais Providers Primary Care Provider: Elda Cancino Admit Provider: Keanu Grider Attending Provider: Keanu Grider
== END 2024-05-16 10:08 | disposition home or self-care (01) ==
LOC: 2ND 09:18
PROVIDERS: Internal Medicine; Internal Medicine Gastroenterology; Nurse Practitioner Family; Physician Assistant; Admitting Provider Family Medicine; PCP Family Medicine; Visit Provider Family Medicine
PROC: 0DJ08ZZ Inspection of Upper Intestinal Tract, Via Natural or Artificial Opening Endoscopic (ICD-10-PCS; CPT 45378; principal; 2024-05-15 15:00)
DX: K55.21 Angiodysplasia of colon with hemorrhage (principal); D12.8 Benign neoplasm of rectum; K31.7 Polyp of stomach and duodenum; D50.0 Iron deficiency anemia secondary to blood loss (chronic); E87.6 Hypokalemia; I25.118 Atherosclerotic heart disease of native coronary artery with other forms of angina pectoris; E78.2 Mixed hyperlipidemia; I11.0 Hypertensive heart disease with heart failure; I50.33 Acute on chronic diastolic (congestive) heart failure; E89.0 Postprocedural hypothyroidism; F17.210 Nicotine dependence, cigarettes, uncomplicated; Z79.899 Other long term (current) drug therapy; K64.1 Second degree hemorrhoids; K57.30 Diverticulosis of large intestine without perforation or abscess without bleeding
CPT/HCPCS: 43239; 43251; 45388; 36415; 36430; 80048; 80053; 80061; 80076; 82272; 82607; 82728; 82746; 83540; 83550; 84466; 85014; 85018; 85025; 85044; 86850; 88305; 93005; 93306; C2618; G0328; G0378; J1756; P9016

== ENCOUNTER 2024-05-19 10:23 | Outpatient (CLI) | payer MEDICARE, SELFPAY ==
[2024-05-19 10:47] VITALS: BP 97/39; PULSE 77; RESP 16; TEMP 36.9; O2SAT 100
[2024-05-19] MEDS: IRON SUCROSE COMPLEX 200 MG in 0.9 % SODIUM CHLORIDE 100 ML 220 MG IV (10:56)
[2024-05-19] MEDS: SODIUM CHLORIDE 0.9% 50ML BAG 50 ML IV (10:56)
--- NOTE | 2024-05-19 11:31 | PC.NURSE ---
ADDED MORE VOLUME TO PT INFUSION. PT TOLERATING INFUSION, NO NEEDS REPORTED AT THIS TIME
[2024-05-19 11:51] VITALS: BP 92/39; PULSE 77; RESP 16; TEMP 37; O2SAT 98
== END 2024-05-19 11:55 | disposition home or self-care (01) ==
LOC: INF 10:24
PROVIDERS: PCP Family Medicine; Visit Provider Family Medicine
DX: D50.9 Iron deficiency anemia, unspecified (principal)
CPT/HCPCS: 96365; J1756

== ENCOUNTER 2024-05-21 14:38 | Outpatient (CLI) | payer MEDICARE, SELFPAY ==
[2024-05-21 15:20] LABS: Red Blood Count 3.31 M/mm3 (4.20-5.40); White Blood Count 7.7 K/mm3 (4.8-10.8)
[2024-05-21 15:21] LABS: Eosinophils % 2.1 % (0.1-12.0); Hematocrit 28.7 % (37.0-47.0); Hemoglobin 8.1 g/dL (12.2-16.2); Lymphocytes % 14.9 % (10-50); Mean Corpuscular HGB Conc 28.2 g/dL (31.8-35.4); Mean Corpuscular Hemoglobin 24.5 pg (27.0-31.2); Mean Corpuscular Volume 86.7 fl (81-99); Mean Platelet Volume 11.6 fl (7.4-10.4); Monocytes % 10.4 % (1.7-9.3); Neutrophils % 71.3 % (37.0-80.0); Platelet Count 255 K/mm3 (142-424); Red Cell Distribution Width 24.4 % (11.5-17.5)
[2024-05-21 15:22] LABS: Basophils # 0.1 K/mm3 (0-0.2); Basophils % 0.8 % (0.1-2.0); Eosinophils # 0.2 K/mm3 (0.0-0.4); Lymphocytes # 1.2 K/mm3 (0.7-4.5); Monocytes # 0.8 K/mm3 (0.1-1.0); Neutrophils # 5.5 K/mm3 (1.8-7.8)
[2024-05-21 15:24] LABS: Alanine Aminotransferase 47 U/L (12-78); Albumin Level 3.4 g/dl (3.5-5.0); Alkaline Phosphatase 144 U/L (38-126); Aspartate Amino Transferase 46 U/L (14-36); Bilirubin,Direct 0.3 mg/dl (0.0-0.4); Bilirubin,Indirect 0.3 mg/dL (0.0-0.9); Bilirubin,Total 0.6 mg/dl (0.2-1.3); Bilirubin,Unconjugated 0.3 mg/dL (0.0-1.1); Chol/HDL Ratio 1.9 (1-3.5); Cholesterol 75 mg/dl (140-200); HDL Cholesterol 40 mg/dl (40-60); Total Protein,Serum 5.9 g/dl (6.3-8.2); Triglycerides 93 mg/dl (30-150); VLDL Cholesterol 19 mg/dL (0-40)
[2024-05-21 15:42] LABS: Free T4 (Free Thyroxine) 1.58 ng/dl (0.78-2.19)
[2024-05-21 15:50] LABS: Direct LDL Cholesterol < 30.00 mg/dL (100-129)
[2024-05-21 21:49] LABS: Anion Gap 8.5 mEq/L (5-15); Blood Urea Nitrogen 15 mg/dl (7-17); Calcium 8.4 mg/dl (8.4-10.2); Carbon Dioxide 32 mmol/L (22.0-30.0); Chloride 102 mmol/L (98-107); Estimated Glomerular Filt Rate 69 ml/min (>60); GFR (African American) 84 ML/MIN (>60); Glucose 88 mg/dl (74-100); Potassium 3.5 mmoL/L (3.5-5.1); Sodium 139 mmol/L (136-145)
[2024-05-21 22:07] LABS: Free Thyroxine Index 3.6 ug/dL (5.93-13.13); T4 (Thyroxine) 9.3 ug/dl (5.53-11.0); Triiodothryronine (T3) Uptake 39 % (23.5-40.5)
[2024-05-21 22:21] LABS: Thyroid Stimulating Hormone 1.23 uIU/mL (0.465-4.68)
== END 2024-05-21 23:59 | disposition home or self-care (01) ==
LOC: LAB 14:38
PROVIDERS: Nurse Practitioner Family; PCP Family Medicine; Visit Provider Internal Medicine
DX: E03.9 Hypothyroidism, unspecified (principal); R06.09 Other forms of dyspnea; R93.1 Abnormal findings on diagnostic imaging of heart and coronary circulation; I25.10 Atherosclerotic heart disease of native coronary artery without angina pectoris; E78.2 Mixed hyperlipidemia; I50.33 Acute on chronic diastolic (congestive) heart failure; K21.9 Gastro-esophageal reflux disease without esophagitis; I25.118 Atherosclerotic heart disease of native coronary artery with other forms of angina pectoris; D64.9 Anemia, unspecified
CPT/HCPCS: 36415; 80048; 80061; 80076; 84436; 84439; 84443; 84479; 85025

== ENCOUNTER 2024-05-30 10:19 | Outpatient (CLI) | payer MEDICARE, SELFPAY ==
[2024-05-30 10:49] LABS: Basophils # 0.1 K/mm3 (0-0.2); Eosinophils # 0.3 K/mm3 (0.0-0.4); Eosinophils % 4.1 % (0.1-12.0); Hematocrit 34.3 % (37.0-47.0); Hemoglobin 9.8 g/dL (12.2-16.2); Lymphocytes # 0.9 K/mm3 (0.7-4.5); Lymphocytes % 13.3 % (10-50); Mean Corpuscular HGB Conc 28.6 g/dL (31.8-35.4); Mean Corpuscular Hemoglobin 24.7 pg (27.0-31.2); Mean Corpuscular Volume 86.4 fl (81-99); Mean Platelet Volume 10.1 fl (7.4-10.4); Monocytes # 0.6 K/mm3 (0.1-1.0); Monocytes % 8.2 % (1.7-9.3); Neutrophils # 5.2 K/mm3 (1.8-7.8); Neutrophils % 73.1 % (37.0-80.0); Platelet Count 508 K/mm3 (142-424); Red Blood Count 3.97 M/mm3 (4.20-5.40); White Blood Count 7.1 K/mm3 (4.8-10.8)
[2024-05-30 11:00] VITALS: BP 83/48; PULSE 89; RESP 17
[2024-05-30] MEDS: IRON SUCROSE COMPLEX 200 MG in 0.9 % SODIUM CHLORIDE 100 ML 220 MG IV (11:00)
[2024-05-30] MEDS: SODIUM CHLORIDE 0.9% 50ML BAG 50 ML IV (11:00)
[2024-05-30 11:15] LABS: Alanine Aminotransferase 19 U/L (12-78); Albumin Level 3.7 g/dl (3.5-5.0); Albumin/Globulin Ratio 1.3 (1.1-1.8); Alkaline Phosphatase 112 U/L (38-126); Aspartate Amino Transferase 27 U/L (14-36); Bilirubin,Total 0.5 mg/dl (0.2-1.3); Blood Urea Nitrogen 21 mg/dl (7-17); Calcium 9.4 mg/dl (8.4-10.2); Carbon Dioxide 32 mmol/L (22.0-30.0); Chloride 104 mmol/L (98-107); Estimated Glomerular Filt Rate 61 ml/min (>60); GFR (African American) 73 ML/MIN (>60); Globulin 2.8 g/dL (1.3-3.2); Glucose 89 mg/dl (74-100); Sodium 141 mmol/L (136-145); Total Protein,Serum 6.5 g/dl (6.3-8.2)
[2024-05-30 11:32] LABS: Anion Gap 9.2 mEq/L (5-15); Potassium 4.2 mmoL/L (3.5-5.1)
[2024-05-30 11:45] VITALS: BP 119/51; PULSE 73; RESP 16
== END 2024-05-30 11:45 | disposition home or self-care (01) ==
LOC: INF 10:19
PROVIDERS: PCP Family Medicine; Visit Provider Family Medicine
DX: D50.0 Iron deficiency anemia secondary to blood loss (chronic) (principal)
CPT/HCPCS: 36415; 80053; 85025; 96365; J1756

== ENCOUNTER 2024-06-05 10:57 | Outpatient (CLI) | payer MEDICARE, SELFPAY ==
[2024-06-05] MEDS: SODIUM CHLORIDE 0.9% 10ML FLUSH SYRINGE 10 ML IV (11:30)
[2024-06-05] MEDS: SODIUM CHLORIDE 0.9% 50ML BAG 50 ML IV (11:30)
[2024-06-05] MEDS: IRON SUCROSE COMPLEX 200 MG in 0.9 % SODIUM CHLORIDE 100 ML 220 MG IV (11:30)
[2024-06-05 11:39] VITALS: BP 95/57; PULSE 92; RESP 18; TEMP 36.6; O2SAT 99
[2024-06-05 12:07] VITALS: BP 110/61; PULSE 86; RESP 16; TEMP 36.6; O2SAT 98
== END 2024-06-05 12:15 | disposition home or self-care (01) ==
LOC: INF 10:57
PROVIDERS: PCP Family Medicine; Visit Provider Internal Medicine Medical Oncology
DX: D50.9 Iron deficiency anemia, unspecified (principal)
CPT/HCPCS: 96365; J1756

== ENCOUNTER 2024-06-12 10:55 | Outpatient (CLI) | payer MEDICARE, SELFPAY ==
[2024-06-12 11:30] VITALS: BP 100/59; PULSE 78; RESP 18; TEMP 36.7; O2SAT 98
[2024-06-12] MEDS: SODIUM CHLORIDE 0.9% 50ML BAG 50 ML IV (11:30)
[2024-06-12] MEDS: SODIUM CHLORIDE 0.9% 10ML FLUSH SYRINGE 10 ML IV (11:30)
[2024-06-12] MEDS: IRON SUCROSE COMPLEX 200 MG in 0.9 % SODIUM CHLORIDE 100 ML 220 MG IV (11:30)
[2024-06-12 12:00] VITALS: BP 115/68; PULSE 71
== END 2024-06-12 12:10 | disposition home or self-care (01) ==
LOC: INF 10:56
PROVIDERS: PCP Family Medicine; Visit Provider Family Medicine
DX: D50.9 Iron deficiency anemia, unspecified (principal)
CPT/HCPCS: 96365; J1756

== ENCOUNTER 2024-12-15 12:39 | Outpatient (CLI) | payer MEDICARE, SELFPAY ==
--- OUTSIDE RECORDS SUMMARY | 2024-06-16 07:45 | XMS_ITS ---
Author Organization [facility] Address [address] [facility] 36 [facility] [address] [place] [id number] Care Team Providers Care Key Punch Teacher Name Role Phone Temitope Cancino Primary Care Provider REASON FOR VISIT 3 months Encounters Encounter Location Date Provider Diagnosis [facility] [address] [place] [id number] 06/16/2024 Temitope Cancino Plan Of Treatment Next Appt Details Provider Name:Temitope Balderas er, 02/23/2025 09:45:00 AM, [address], [address], [place], [place], [phone], Progress Notes * MILLY SMITHDOB:[birth year] (79 yo F)Acc No.[id number]:06/16/2024 Progress Notes Patient: MILLY HARDIN Provider: Temitope Cancino M.D. :1945 A ge:78 Y S ex:Female Date:06/16/2024 Address:[address] [address], [place], [place] Subjective: * Chief Complaints: * 1 . 3 months. * 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: Objective: * Vitals: Assessment: Plan: * Treatment: * Images: Billing Information: * Visit Code: * Procedure Codes: * Electronic signature of Temitope Cancino MD on 12/15/2024 at 12:41 PM EDT Sign off status: Pending * Provider: Temitope Cancino M.D. Date: 0 06/16/2024 Generated for Ji linares/Antwon/Demetrio on: 0 12/15/2024 12:41 PM EDT
--- OUTSIDE RECORDS SUMMARY | 2024-07-28 06:30 | XMS_ITS ---
Author Organization [facility]ITAL[facility] Address [facility]0 [facility] 36 [facility] [address] [place] [phone] Care Team Providers Care Clinical Laboratory Science Professor Name Role Phone Temitope Cancino Primary Care Provider Allergies No Known Allergies Results Component Value Reference Range Notes CBC Fingerstick (in house) Reviewed date:07/28/2024 11:51:50 AM Interpretation: Performing Lab: Notes/Report: wbc 8.4 3.5 - 10 lym 14.2% 15 - 50 mid 3.6% 2 - 15 gran 82.2% 35 - 80 rbc 5.06 3.5 - 5.5 hgb 13.5 11.5 - 16.5 hct 41.2 35 - 55 mcv 81.3 75 - 100 mch 26.8 25 - 35 mchc 32.9 31 - 38 plat 188 100 - 400 P-Iron Reviewed date:07/29/2024 09:02:07 AM Interpretation:Normal Performing Lab: Notes/Report: Test performed by [facility] [address] [place] [address] , [facility], [place] [address] Sukhdev Wheatley MD, Medical Concierge CLIA: [id number] Iron 54 37-145 ug/dL P-TSH Reviewed date:07/29/2024 09:02:07 AM Interpretation:0.32 Performing Lab: Notes/Report: Test performed by [facility] [address] [place] [address] [address], [place] [address] Sukhdev Wheatley MD, Medical Concierge CLIA: [id number] TSH 0.32 0.43-5.25 mU/L REASON FOR VISIT 6 week f/u Medications Medication SIG (Take, Route, Frequency, Duration) Notes Start Date End Date Status Rosuvastatin Calcium 10 MG 1 tablet Oral ly Once a day; Duration: 30 day(s) Active Aspirin 81 MG 1 tablet Orally Once a day; Duration: 30 day(s) Active Spironolactone 25 MG 1/2 tablet Orally Active Aspirin 81 MG 1 tablet Orally Once a day; Duration: 30 day(s) Not-Taking Ferrous Sulfate 325 (65 Fe) MG 1 tab(s) Orally twice a day Not-Taking Pantoprazole Sodium 40 MG 1 tablet Orall y every other day Active Bisoprolol Fumarate 5 MG 1/2 tablet Oral ly Once a day; Duration: 90 days Not-Taking Losartan Potassium 25 MG 1/2 tablet Oral ly Once a day; Duration: 90 days Not-Taking Clopidogrel Bisulfate 75 MG 1 tablet Orally Once a day; Duration: 30 day(s) Not-Taking Levothyroxine Sodium 112 MCG 1 tablet in the morning on an empty stomach Orally Once a day Active Sucralfate 1 GM 1 tablet on an empty stomach Orally once a day Active PreserVision AREDS 2 - as directed Orall y twice a day Active Furosemide 40 MG 1 tablet Orally once a day Active Jardiance 10 MG 1 tablet Orally Once a day; Duration: 30 day(s) Active Co Q-10 200 MG as directed Orally Not-Taking Social History Tobacco Use: Social History [...] andrew t Vital Signs Blood pressure systolic 110 mm Hg 07/28/19 25 Blood pressure diastolic 64 mm Hg 025 Heart Rate 92 /min 07/28/2024 Height 64 in 07/28/2024 Weight 140.0 lbs 07/28/2024 BMI 24.03 kg/m2 07/28/2024 Encounters Encounter Location Date Provider Diagnosis [place] [address] [place], [place] [id number] 07/28/2024 Temitope Cancino Anemia due to blood loss D50.0 ; Chronic obstructive pulmonary disease, unspecified COPD type J44.9 ; Gastritis, presence of bleeding unspecified, unspecified chronicity, unspecified gastritis type K29.70 and Hypothyroidism (acquired) E03.9 Assessments Encounter Date Diagnosis (ICD Code) Assessment Notes Treatment Notes Treatment Clinical Notes Section Notes 07/28/2024 Anemia due to blood loss (ICD-10 - D50.0) 07/28/2024 Chronic obstructive pulmonary disease, unspecified COPD type (ICD-10 - J44.9) 07/28/2024 Gastritis, presence of bleeding unspecified, unspecified chronicity, unspecified gastritis type (ICD-10 - K29.70) 07/28/2024 Hypothyroidism (acquired) (ICD-10 - E03.9) Plan Of Treatment Next Appt Details Follow Up: 3 Months, Reason: Provider Name:Temitope Balderas er, 02/23/2025 09:45:00 AM, [address], [address], [place], [place], [phone], Progress Notes * LUIS MILLYDOB:[birth year] (79 yo F)Acc No.[id number]:07/28/2024 Patient: MILLY HARDIN Provider: Temitope Cancino M.D. :1945 A ge:79 Y S ex:Female Date:07/28/2024 Address[address] Subjective: * Chief Complaints: * 1 . 6 week f/u. * HPI: H ematology: The patient is here for a follow up anemia due to GI bleed. Pt states she is doing better and denies any diarrhea, bleeding or dark stools. 79 year old female presents with c/o Anemia. Denies : Bruising. D enies : Bleeding. D enies : hematuria. D enies : epistaxis. G astroenterology: Dr. Leary is decreasing her pantoprazole and Sucralfate. Will follow-up in December with him. * ROS: D ERMATOLOGY: no R michelet. [...] drug use: no. * Medications: T aking Rosuvastatin Calcium 10 MG Tablet 1 tablet Orally Once a day , Taking Aspirin 81 MG Tablet Delayed Release 1 tablet Orally Once a day , Taking Spironolactone 25 MG Tablet 1/2 tablet Orally , Taking Jardiance 10 MG Tablet 1 tablet Orally Once a day , Taking Sucralfate 1 GM Tablet 1 tablet on an empty stomach Orally once a day , Taking PreserVision AREDS 2 - Tablet Chewable as directed Orally twice a day , Taking Furosemide 40 MG Tablet 1 tablet Orally once a day , Taking Levothyroxine Sodium 112 MCG Tablet 1 tablet in the morning on an empty stomach Orally Once a day , Taking Pantoprazole Sodium 40 MG Tablet Delayed Release 1 tablet Orally every other day , Not-Taking Co Q-10 200 MG Capsule as directed Orally , Not-Taking Bisoprolol Fumarate 5 MG Tablet [...] 1 tab(s) Orally twice a day , Discontinued Leqvio 284 MG/1.5ML Solution Prefilled Syringe as directed Subcutaneous , Medication List reviewed and reconciled with the patient * Allergies: N .K.D.A. Objective: * Vitals: W t:140.0, Temp:98.7, BP:110/64, HR:92, O2 Sat:98% on RA, Nurse:DREA, Ht: 64, BMI:24.03. * Examination: G eneral Examination: General Appearance: N AD. H EENT: u nremarkable.?Oral cavity: t ongue slightly dry. N shanna: s upple, no lymphadenopathy. C hest:?normal shape and expansion. H eart: R SR, S4. L ungs: c lear to auscultation. Abdomen: soft and nontender, no organomegaly or masses. N eurologic Exam: I ntact, gait normal. S kin: n ormal, no rash. P eripheral pulses: n ormal . B ack: dorsal kyphosis. E xtremities: 1 + leg edema. Assessment: * Assessment: 1. A nemia due to blood loss - D50.0 (Primary) 2 . C hronic obstructive pulmonary disease, unspecified COPD type - J44.9 3 . G astritis, presence of bleeding unspecified, unspecified chronicity, unspecified gastritis type - K29.70 4 . H ypothyroidism (acquired) - E03.9 Plan: * Treatment: Value Reference Range I cailin 54 37-145 - ug/dL * Tania Arriaza 07/29/2024 9:01: 59 AM >See phone encounter ?LAB: CBC Fingerstick (in house) (Collection Date & Time - 07/28/2024)* Value Reference Range w bc 8.4 3.5 - 10 * l ym 14.2% 15 - 50 * m id 3.6% 2 - 15 * g ran 82.2% 35 - 80 * r bc 5.06 3.5 - 5.5 * h gb 13.5 11.5 - 16.5 * h ct 41.2 35 - 55 * m cv 81.3 75 - 100 * m ch 26.8 25 - 35 * m chc 32.9 31 - 38 * p lat 188 100 - 400 * Fariha Champion L 07/28/2024 11: 15:23 AM > , Provider reviewed results while patient in office. 2.?Hypothyroidism (acquired)?LAB: P-TSH (Collection Date & Time - 07/28/2024 09:50 AM)?0.32* Value Reference Range T SH 0.32 L 0.43-5.25 - mU/L * Tania Arriaza 07/29/2024 9:01: 59 AM >See phone encounter * Procedure Codes: G 2211 Complex e/[place], [address] [place], [address] CAPILLARY BLOOD DRAW, 04931 CBC WITH AUTO DIFF, 3074F SYST BP LT 130 MM HG, 3078F DIAST BP < 80 MM HG * Follow Up: 3 Months * Images: Billing Information: * Visit Code: 94886 Office Visit, Est Pt., Level 3. * Procedure Codes: G2211 Complex e/[place] [address] [place] [address] CAPILLARY BLOOD DRAW. 26409 CBC WITH AUTO DIFF. 3074F SYST BP LT 130 MM HG. 3078F DIAST BP < 80 MM HG. * Electronic signature of Temitope Cancino MD on 12/15/2024 at 12:41 PM EDT Sign off status: Pending * Provider: Temitope Cancino M.D. Date: 0 07/28/2024 Generated for Jacki ng/Fajasong/eTransmitting on: 0 12/15/2024 12:41 PM EDT History and Physical Notes * HPI (History of Present Illness) Category Sub-Category Detail Notes Category Not es Hematology epistaxis hematuria Bruising Bleeding Anemia Examination Category Sub-Category Detail Notes Category Not es General Examination HEENT: unremarkable Heart: RSR, S4 Lungs: clear to auscultatio n Abdomen: soft and nontender, no organomegaly or masses Extremities: 1+ leg edema General Appearance: NAD Skin: normal, no rash Neurologic Exam: Intact, gait normal Neck: supple, no lymphaden opathy Oral cavity: tongue slightly dry Peripheral pulses: normal Back: dorsal kyphosis Chest: normal shape and exp ansion
--- OUTSIDE RECORDS SUMMARY | 2024-11-03 09:15 | XMS_ITS ---
Author Organization [facility] Address [facility] 36 [facility] [address] [place] [phone] Care Team Providers Care Keno Manager Name Role Phone Temitope Cancino Primary Care Provider Allergies No Known Allergies Results Component Value Reference Range Notes CBC Venipuncture (in house) Reviewed date:11/12/2024 12:53:38 PM Interpretation:Normal Performing Lab: Notes/Report: Normal wbc 7.2 3.5 - 10 lymph 17.6% 15 - 50 mid 5.2% 2 - 15 gran 77.2% 35 - 80 rbc 5.10 3.5 - 5.5 hgb 14.4 11.5 - 16.5 hct 44.8 35 - 55 mcv 87.7 75 - 100 mch 28.2 25 - 35 mchc 32.1 31 - 38 platlet 212 100 - 400 P-Basic Metabolic Panel (BMP ) Reviewed date:11/12/2024 12:53:38 PM Interpretation:Normal Performing Lab: Notes/Report: Test performed by [facility] , [address], [place] [address] Sukhdev Wheatley MD, Material Controller CLIA: [id number] Sodium 142 135-145 mmol/L Potassium 4.0 3.5-5.3 mmol/L Chloride 106 97-108 mmol/L CO2 28 22-32 mmol/L Glucose 117 65-99 mg/dL BUN 21 8-23 mg/dL Creatinine 0.90 0.50-1.00 mg/dL Calcium 8.7 8.6-10.4 mg/dL eGFR by Creatinine 65 >59 mL/min/1.73m2 P-TSH Reviewed date:11/12/2024 12:53:38 PM Interpretation:Normal Performing Lab: Notes/Report: Test performed by [facility] [address] [place] [address] , [address], [place] [address] Sukhdev Wheatley MD, Material Controller CLIA: [id number] TSH 0.64 0.43-5.25 mU/L REASON FOR VISIT 3 month checkup, Needs mammogram, bone density screening, colon cancer screening, and labs Medications Medication SIG (Take, Route, Frequency, Duration) Notes Start Date End Date Status Clopidogrel Bisulfate 75 MG 1 tablet Orally Once a day; Duration: 30 day(s) Not-Taking Losartan Potassium 25 MG 1/2 tablet Oral ly Once a day; Duration: 90 days Not-Taking Ferrous Sulfate 325 (65 Fe) MG 1 tab(s) Orally twice a day Not-Taking Aspirin 81 MG 1 tablet Orally Once a day; Duration: 30 day(s) Not-Taking Bisoprolol Fumarate 5 MG 1/2 tablet Oral ly Once a day; Duration: 90 days Not-Taking Furosemide 40 MG 1 tablet Orally once a day Active Sucralfate 1 GM 1 tablet on an empty stomach Orally once a day; Duration: 90 days Active Levothyroxine Sodium 100 MCG 1 tablet in the morning on an empty stomach Orally Once a day; Duration: 90 days 07/31/2024 Active Pantoprazole Sodium 40 mg TAKE 1 TABLET DAILY Active Co Q-10 200 MG as directed Orally Not-Taking PreserVision AREDS 2 - as directed Orall y twice a day Active Aspirin 81 MG 1 tablet Orally Once a day; Duration: 30 day(s) Active Rosuvastatin Calcium 10 MG 1 tablet Oral ly Once a day; Duration: 30 day(s) Active Jardiance 10 MG 1 tablet Orally Once a day; Duration: 30 day(s) Active Spironolactone 25 MG 1/2 tablet Orally Active Social History Tobacco Use: Social History [...] Signs Blood pressure systolic 110 mm Hg 11/04/19 25 Blood pressure diastolic 60 mm Hg 025 Heart Rate 84 /min 11/03/2024 Height 64 in 11/03/2024 Weight 138.0 lbs 11/03/2024 BMI 23.69 kg/m2 11/03/2024 Encounters Encounter Location Date Provider Diagnosis [facility] [address] [place] [id number] 11/03/2024 Temitope Cancino Anemia due to blood loss D50.0 ; Gastritis, presence of bleeding unspecified, unspecified chronicity, unspecified gastritis type K29.70 ; Hypothyroidism (acquired) E03.9 ; Chronic obstructive pulmonary disease, unspecified COPD type J44.9 ; S/P coronary artery stent placement Z95.5 and BMI 23.0-23.9, adult Z68.23 Assessments Encounter Date Diagnosis (ICD Code) Assessment Notes Treatment Notes Treatment Clinical Notes Section Notes 11/03/2024 Anemia due to blood loss (ICD-10 - D50.0) 11/03/2024 Gastritis, presence of bleeding unspecified, unspecified chronicity, unspecified gastritis type (ICD-10 - K29.70) 11/03/2024 Hypothyroidism (acquired) (ICD-10 - E03.9) 11/03/2024 Chronic obstructive pulmonary disease, unspecified COPD type (ICD-10 - J44.9) Continue present treatment 11/03/2024 S/P coronary artery stent placement (ICD-10 - Z95.5) 11/03/2024 BMI 23.0-23.9, adult (ICD-10 - Z68.23) Plan Of Treatment Treatment Notes Assessment Notes Chronic obstructive pulmonar y disease, unspecified COPD type Continue present treatment Next Appt Details Follow Up: 4M, Reason: Provider Name:Temitope Balderas er, 02/23/2025 09:45:00 AM, [address] [facility], [address], [place], [phone], Progress Notes * MILLY SMITHDOB:[birth year] (79 yo F)Acc No.[id number]:11/03/2024 Progress Notes Patient: Perico DIANEAALIYAH MILLY Provider: Temitope Cancino M.D. :1945 A ge:79 Y S ex:Female Date:11/03/2024 Address: [id number] Subjective: * Chief Complaints: * 1 . 3 month checkup. 2. Needs mammogram, bone density screening, colon cancer screening, and labs. * HPI: H ematology: The patient is here for a check up on Anemia. Pt states she is doing much better. Pt states she has had diarrhea on two occasions but denies any dark stools. 79 year old female presents with c/o Anemia. * ROS: D ERMATOLOGY: no R michelet. [...] tablet Orally Once a day , Taking PreserVision AREDS 2 - Tablet Chewable as directed Orally twice a day , Taking Furosemide 40 MG Tablet 1 tablet Orally once a day , Taking Levothyroxine Sodium 100 MCG Tablet 1 tablet in the morning on an empty stomach Orally Once a day , Taking Sucralfate 1 GM Tablet 1 tablet on an empty stomach Orally once a day , Taking Pantoprazole Sodium 40 mg Tablet Delayed Release TAKE 1 TABLET DAILY , Not- Taking Co Q-10 200 MG Capsule as directed [...] Allergies: N .K.D.A. Objective: * Vitals: W t: 138.0, Temp: 98.4, BP: 110/60, HR: 84, O2 Sat: 97% on RA, Nurse: DREA, Ht: 64, BMI:23.69. * Examination: G eneral Examination: General Appearance: [...] blood loss - D50.0 (Primary) 2 . G astritis, presence of bleeding unspecified, unspecified chronicity, unspecified gastritis type - K29.70 3 . H ypothyroidism (acquired) - E03.9 4 . C hronic obstructive pulmonary disease, unspecified COPD type - J44.9 5 . S /P coronary artery stent placement - Z95.5 6 . B IN 23.0-23.9, adult - Z68.23 Plan: * Treatment: Value Reference Range w bc 7.2 3.5 - 10 * l ymph 17.6% 15 - 50 * m id 5.2% 2 - 15 * g ran 77.2% 35 - 80 * r bc 5.10 3.5 - 5.5 * h gb 14.4 11.5 - 16.5 * h ct 44.8 35 - 55 * m cv 87.7 75 - 100 * m ch 28.2 25 - 35 * m chc 32.1 31 - 38 * p latlet 212 100 - 400 * Fariha Champion 11/03/2024 01: 24:35 PM EDT > Provider reviewed results while patient in office. Fariha Champion 11/12/2024 12:53:28 PM EDT > Patient informed of normal results. 2.?Hypothyroidism (acquired)?LAB: P-TSH (Collection Date & Time - 11/03/2024 12:20 PM)?Normal* Value Reference Range T SH 0.64 0.43-5.25 - mU/L * Fariha Champion 11/12/2024 12 :53:28 PM EDT > Patient informed of normal results. 3.?Chronic obstructive pulmonary disease, unspecified COPD type? Notes: Continue present treatment??4.?S/P coronary artery stent placement?LAB: P-Basic Metabolic Panel (BMP) (Collection Date & Time - 11/03/2024 12:20 PM)?Normal* Value Reference Range B UN 21 8-23 - mg/dL * C alcium 8.7 8.6-10.4 - mg/dL * C hloride 106 97-108 - mmol/L * C O2 28 22-32 - mmol/L * C reatinine 0.90 0.50-1.00 - mg/dL * G lucose 117 H 65-99 - mg/dL * P otassium 4.0 3.5-5.3 - mmol/L * S odium 142 135-145 - mmol/L * e GFR by Creatinine 65 >59 - mL/min/1.73m2 * Fariha Champion 11/12/2024 12 :53:28 PM EDT > Patient informed of normal results. * Procedure Codes: G 2211 Complex e/[place], [address] CBC WITH AUTO DIFF, G8420 BMI<30 AND >=22 CALC & DOCU, G8783 BP SCR PRFRM RCMDD DEFIND SCR INTVL, G8752 MOST RECENT SYSTOLIC BP < 140MM HG, G8754 MOST RECENT DIASTOLIC BP < 90MM HG, G9902 Pt scrn tbco and id as user * Follow Up: 4 M * Images: Billing Information: * Visit Code: 68003 Office Visit, Est Pt., Level 4. * Procedure Codes: G2211 Complex e/[place]. [address] CBC WITH AUTO DIFF. G8420 BMI<30 AND >=22 CALC & DOCU. G8783 BP SCR PRFRM RCMDD DEFIND SCR INTVL. G8752 MOST RECENT SYSTOLIC BP < 140MM HG. G8754 MOST RECENT DIASTOLIC BP < 90MM HG. G9902 Pt scrn tbco and id as user. * Electronic signature of Temitope Cancino MD on 12/15/2024 at 12:42 PM EDT Sign off status: Pending * Provider: Temitope Cancino M.D. Date: 11/03/2024 Generated for Ji linares/Antwno/eTransmitting on: 0 12/15/2024 12:42 PM EDT History and Physical Notes * HPI (History of Present Illness) Category Sub-Category Detail Notes Category Not es Hematology Anemia Examination Category Sub-Category Detail Notes Category [...]
--- OUTSIDE RECORDS SUMMARY | 2024-12-15 12:41 | XMS_ITS | Encounter Summary ---
Author Organization [facility] ([place], [place], [place], [place]) Address [address] [place] [address] Care Team Providers Care Wet Char Conveyor Tender Name Role Phone Unavailable Primary Care Provider Unavailabl e Reason for Visit * Reason Comments Medication Refill Encounter Details Date Type Department Care Team (Late st Contact Info) Description 12/24/2022 Refill [facility] Cardiology [address] [place] [address] Pilar Watters APRN [address] [facility] [address] [place] [address] Social History Tobacco Use Types Packs/Day Years Used Date Smoking Tobacco: Never Assessed Comments Unknown Sex and Gender Information Value Date Recorded Sex Assigned at Not on file Legal Sex Female 4:32 PM CDT Gender Identity Not on file Sexual Orientation Not on file documented as of this encounter Plan of Treatment Not on file documented as of this encounter Visit Diagnoses Not on filedocumented in this encounter
--- OUTSIDE RECORDS SUMMARY | 2024-12-15 12:42 | XMS_ITS | Referral Summary ---
Author Organization [employer] ([place], [place], [place], [place]) Address [address] [place] [address] Care Team Providers Care Coagulating Bath Mixer Name Role Phone Unavailable Primary Care Provider Unavailabl e Social History Tobacco Use Types Packs/Day Years Used Date Smoking Tobacco: Never Assessed Comments Unknown Sex and Gender Information Value Date Recorded Sex Assigned at Not on file Legal Sex Female 4:32 PM CDT Gender Identity Not on file Sexual Orientation Not on file Plan of Treatment Not on file
--- OUTSIDE RECORDS SUMMARY | 2024-12-15 12:42 | XMS_ITS | Clinical Summary ---
Author Organization [employer] ([place], [place], [place], [place]) Address [address] [place] [address] Care Team Providers Care Currency Exchange Specialist Name Role Phone Unavailable Primary Care Provider [...]
--- OUTSIDE RECORDS SUMMARY | 2024-12-15 12:42 | XMS_ITS | Encounter Summary ---
Author Organization [facility] ([place], [place], [place], [place]) Address [address] [place] [id number] Care Team Providers Care Supervisor Bindery Name Role Phone Unavailable Primary Care Provider Unavailabl e Reason for Visit * Reason Comments Medication Refill Encounter Details Date Type Department Care Team (Late st Contact Info) Description 12/31/2022 Refill [facility] Cardiology [address] [place] [address] Pilar Watters APRN [address] [facility] [address] [place] [address] Social History Tobacco Use Types Packs/Day Years Used Date Smoking Tobacco: Never Assessed Comments Unknown Sex and Gender Information Value Date Recorded Sex Assigned at Not on file Legal Sex Female 4:32 PM CDT Gender Identity Not on file Sexual Orientation Not on file documented as of this encounter Miscellaneous Notes * Telephone Encounter - Samantha Pacheco MA - 01/04/2023 9:34 AM EDT Pt needs to be scheduled for a 1 year f/u w Pilar Watters or Dr Joslyn zapata. documented in this encounter Plan of Treatment Not on file documented as of this encounter Visit Diagnoses Not on filedocumented in this encounter
--- OUTSIDE RECORDS SUMMARY | 2024-12-15 12:42 | XMS_ITS | Patient Health Record ---
Author Organization [facility] Address [address] [facility] [address] [facility] [address] [facility] [place] [id number] Care Team Providers Care Surgical Resident Name Role Phone Temitope Cancino Primary Care [...] 400 P-Basic Metabolic Panel (BMP ) Reviewed date:12/24/2023 09:51:11 AM Interpretation:gluc 110 Performing Lab: Notes/Report: Test performed by [facility] [address] [place] [address] , [address], [place] [address] Sukhdev Wheatley MD, [employer] CLIA: [id number] Sodium 140 135-145 mmol/L Potassium 4.2 3.5-5.3 mmol/L Chloride 102 97-108 mmol/L CO2 29 22-32 mmol/L Glucose 110 65-99 mg/dL BUN 22 8-23 mg/dL Creatinine 0.88 0.50-1.00 mg/dL Calcium 8.9 8.6-10.4 mg/dL eGFR by Creatinine 67 >59 mL/min/1.73m2 CBC Fingerstick (in house) Reviewed date:12/21/2023 12:26:35 PM Interpretation: Performing Lab: Notes/Report: wbc 6.1 3.5 - 10 lym 17.6% 15 - 50 mid 5.0% 2 - 15 gran 77.4% 35 - 80 rbc 4.43 3.5 - 5.5 hgb 12.5 11.5 - 16.5 hct 38.6 35 - 55 mcv 87.3 75 - 100 mch 28.3 25 - 35 mchc 32.4 31 - 38 plat 247 100 - 400 H-CBC Reviewed date:06/02/2024 09:33:22 AM Interpretation:rbc 3.97, [...] Interpretation:Normal Performing Lab: Notes/Report: Test performed by [facility] [address] [place] [address] , [address], [place] [address] Sukhdev Wheatley MD, [employer] CLIA: [id number] Albumin/Creatinine Ratio, Urine <13.1 0-30 ug/mg Microalbumin, Urine, Random <0.3 Creatinine, Urine 22.9 CBC Fingerstick (in house) Reviewed date:07/28/2024 11:51:50 [...] Interpretation:Normal Performing Lab: Notes/Report: Test performed by [facility] [address] [place] [address] , [place] [address] Sukhdev Wheatley MD, [employer] Operator CLIA: [id number] Iron 54 37-145 ug/dL P-TSH Reviewed date:07/29/2024 09:02:07 AM Interpretation:0.32 Performing Lab: Notes/Report: Test performed by [facility] [address] [place] [address] , [address], [place] [address] Sukhdev Wheatley MD, [employer] Operator CLIA: [id number] TSH 0.32 0.43-5.25 mU/L P-Basic Metabolic Panel (BMP ) Reviewed date:11/12/2024 12:53:38 PM Interpretation:Normal Performing Lab: Notes/Report: Test performed by [facility] [address] [place] [address] , [address], [place] [address] Sukhdev Wheatley MD, [employer] Operator CLIA: [id number] Sodium 142 135-145 mmol/L Potassium 4.0 3.5-5.3 mmol/L Chloride 106 97-108 mmol/L CO2 28 22-32 mmol/L Glucose 117 65-99 mg/dL BUN 21 8-23 mg/dL Creatinine 0.90 0.50-1.00 mg/dL Calcium 8.7 8.6-10.4 mg/dL eGFR by Creatinine 65 >59 mL/min/1.73m2 P-TSH Reviewed date:11/12/2024 12:53:38 PM Interpretation:Normal Performing Lab: Notes/Report: Test performed by [facility], [facility] , [address], [place] [address] Sukhdev Wheatley MD, [employer] Operator CLIA: [id number] TSH 0.64 0.43-5.25 mU/L H-CMP Reviewed date:06/02/2024 09:33:22 AM Interpretation:co2- 32, bun 21 Performing Lab: Notes/Report: NA 141 136-145 mmol/L K 4.2 3.5-5.1 mmoL/L CL 104 98-107 mmol/L CO2 32 22.0-30.0 mmol/L GAP 9.2 5-15 mEq/L BUN 21 7-17 mg/dl CREATT 0.90 0.52-1.04 mg/dl GFRAA 73 >60 ML/MIN EGFR 61 >60 ml/min GLU 89 74-100 mg/dl CA 9.4 8.4-10.2 mg/dl BILIT 0.5 0.2-1.3 mg/dl AST 27 14-36 U/L ALT 19 12-78 U/L TP 6.5 6.3-8.2 g/dl ALB 3.7 3.5-5.0 g/dl GLOB 2.8 1.3-3.2 g/dL AGRATIO 1.3 1.1-1.8 ALP 112 38-126 U/L CBC Fingerstick (in house) Reviewed date:03/17/2024 09:43:49 [...] - 38 plat 188 100 - 400 H-URC Reviewed date:05/15/2024 08:27:02 AM Interpretation: Performing Lab: Notes/Report: U500.0100 TRANSFUSED PRODUCT: Red Blood Cells COUNT: 2 H-Hemoglobin/Hematocrit Reviewed date:05/15/2024 08:27:02 AM Interpretation: Performing Lab: Notes/Report: HGB 7.1 12.2-16.2 g/dL Delta: 5.6 on 05/14/24-08 CRITICAL RESULT Results called and read back/verified to: [facility] on 05/14/24 at 2245 By Fabi Olmedo MLT HCT 22.2 37.0-47.0 % H-Type and Screen Reviewed date:05/15/2024 08:27:02 AM Interpretation: Performing Lab: Notes/Report: RBC Product Order Reason Hgb/Hct <7/21 Timeframe for Post-Transf H/H 2 hours BT B Positive ABS NEGATIVE H-Crossmatch Reviewed date:05/15/2024 08:27:02 AM Interpretation: Performing Lab: Notes/Report: RBC Product Order Reason Hgb/Hct <7/21 Timeframe for Post-Transf H/H 2 hours XM UNIT NUMBER: [id number] XM COMPATIBLE: Y XM PRODUCT: Red Blood Cells XM SOURCE: [facility] XM BLOOD TYPE: B Positive XM VOLUME: 250mL XM CROSSMATCH COMPONENTS: XMNOTE Notification Notified MBKARI by Roslyn Triana IN 05/14/24 1221. Notified SIRENA by Roslyn Triana IN 05/14/24 1221. XM UNIT NUMBER: [id number] XM COMPATIBLE: Y XM PRODUCT: Red Blood Cells XM SOURCE: [facility] XM BLOOD TYPE: B Positive XM VOLUME: 250mL XM CROSSMATCH COMPONENTS: XMNOTE Notification Notified STEPHIE by Roslyn Triana IN 05/14/24 1221. Notified SIRENA by Roslyn Triana IN 05/14/24 1221. Reason For Referral No Information Medications Medication SIG (Take, Route, Frequency, Duration) Notes Start Date End Date Status Furosemide 40 MG 1 tablet Orally once a day Active PreserVision AREDS 2 - as directed Orall y twice a day Active Sucralfate 1 GM 1 tablet on an empty stomach Orally once a day; Duration: 90 days Active Levothyroxine Sodium 100 MCG 1 tablet in the morning on an empty stomach Orally Once a day; Duration: 90 days 07/31/2024 Active Aspirin 81 MG 1 tablet Orally Once a day; Duration: 30 day(s) Active Clopidogrel Bisulfate 75 MG 1 tablet Orally Once a day; Duration: 30 day(s) Not-Taking Rosuvastatin Calcium 10 MG 1 tablet Oral ly Once a day; Duration: 30 day(s) Active Losartan Potassium 25 MG 1/2 tablet Oral ly Once a day; Duration: 90 days Not-Taking Jardiance 10 MG 1 tablet Orally Once a day; Duration: 30 day(s) Active Ferrous Sulfate 325 (65 Fe) MG 1 tab(s) Orally twice a day Not-Taking Spironolactone 25 MG 1/2 tablet Orally Active Aspirin 81 MG 1 tablet Orally Once a day; Duration: 30 day(s) Not-Taking Bisoprolol Fumarate 5 MG 1/2 tablet Oral ly Once a day; Duration: 90 days Not-Taking Co Q-10 200 MG as directed Orally Not-Taking Pantoprazole Sodium 40 mg TAKE 1 TABLET DAILY Active Immunizations Vaccine Route Administration Date Status Comme nts COVID 19 Moderna Unknown 08/03/2020 Administered COVID 19 Moderna Unknown 09/03/2020 Administered COVID 19 Moderna Unknown 05/17/2021 Administered Social History Tobacco Use: Social History Observation [...] in quitting? Not ready to andrew t Problems Problem Type SNOMED Code ICD Code Onset Dates Problem Status W/U Status Risk Notes Problem Essential hypertension (16098764) Essential (primary) hypertension (I10) Active confirmed Problem Hypothyroidism (82138767) Hypothyroidism (acquired) (E03.9) Active confirmed Problem Duodenitis (88736633) Duodenitis (K29.80) Active confirmed Problem Carotid artery occlusion (622558812) Occlusion and stenosis of unspecified carotid artery (I65.29) Active confirmed Problem Duodenitis (60163047) Duodenitis without bleeding (K29.80) Active confirmed Problem COPD - Chronic obstructive pulmonary disease (14082620) Chronic obstructive pulmonary disease, unspecified COPD type (J44.9) Active confirmed Problem Atherosclerotic heart disease of [place] coronary artery without angina pectoris (030476105078720) Arteriosclerotic coronary artery disease (I25.10) Active confirmed Problem Iron deficiency anemia due to chronic blood loss (400276126) Iron deficiency anemia due to chronic blood loss (D50.0) Active confirmed Problem Hyperlipidaemia (67530433) Hyperlipidemia, unspecified hyperlipidemia type (E78.5) Active confirmed Problem Hypothyroidism (05805021) Hypothyroidism, unspecified type (E03.9) Active confirmed Problem Anemia due to blood loss (969611337) Anemia due to blood loss (D50.0) Active confirmed Problem Atherosclerotic heart disease of [place] coronary artery without angina pectoris (731001679432539) Atherosclerosis of [place] coronary artery without angina pectoris, unspecified whether [place] or transplanted heart (I25.10) Active confirmed Problem History of placement of stent for coronary artery disease (situation) (521428456) S/P coronary artery stent placement (Z95.5) Active confirmed Problem Gastroduodenitis (746423116) Gastritis, presence of bleeding unspecified, unspecified chronicity, unspecified gastritis type (K29.70) Active confirmed Problem Mitral valve disorder (03504034) Mitral valve disorder (I05.9) Active confirmed Problem Heart failure (64840692) Congestive heart failure, unspecified HF chronicity, unspecified heart failure type (I50.9) Active confirmed Problem Diastolic heart failure (549309448) Heart failure with preserved ejection fraction, unspecified HF chronicity (I50.30) Active confirmed Problem Diastolic heart failure (249976278) Diastolic congestive heart failure, unspecified HF chronicity (I50.30) Active confirmed Problem Chronic antral gastritis with hemorrhage (disorder) (240589364) Chronic gastritis with bleeding, unspecified gastritis type (K29.51) Active confirmed Vital Signs Heart Rate 84 /min 11/03/2024 Blood pressure diastolic 60 mm Hg 11/03/2024 Height 64 in 11/03/2024 Blood pressure systolic 110 mm Hg 11/03/2024 Weight 138.0 lbs 11/03/2024 BMI 23.69 kg/m2 11/03/2024 Encounters Encounter Location Date Provider Diagnosis [facility] [address] [facility] [address] [place] [id number] 12/21/2023 Temitope Cancino Anemia due to blood loss D50.0 ; Essential (primary) hypertension I10 ; Arteriosclerotic coronary artery disease I25.10 and Mitral valve disorder I05.9 [facility] [address] [facility] [address] [place] [id number] 01/21/2024 Temitope Cancino Tubulovillous adenom a D36.9 ; Essential (primary) hypertension I10 ; S/P coronary artery stent placement Z95.5 and Arteriosclerotic coronary artery disease I25.10 [facility] [address] [place] [id number] 03/14/2024 Temitope Cancino Arteriosclerotic cor onary artery disease I25.10 ; S/P coronary artery stent placement Z95.5 ; Duodenitis K29.80 ; Chronic obstructive pulmonary disease, unspecified COPD type J44.9 ; Gastritis, presence of bleeding unspecified, unspecified chronicity, unspecified gastritis type K29.70 and Anemia due to blood loss D50.0 [facility] [address] [place] [id number] 05/30/2024 Temitope Cnacino Iron deficiency anem ia due to chronic blood loss D50.0 ; Essential (primary) hypertension I10 ; Atherosclerosis of [place] coronary artery without angina pectoris, unspecified whether [place] or transplanted heart I25.10 and Gastritis, presence of bleeding unspecified, unspecified chronicity, unspecified gastritis type K29.70 [facility] [address] [facility] [address] [place] [id number] 07/28/2024 Temitope Cancino Anemia due to blood loss D50.0 ; Chronic obstructive pulmonary disease, unspecified COPD type J44.9 ; Gastritis, presence of bleeding unspecified, unspecified chronicity, unspecified gastritis type K29.70 and Hypothyroidism (acquired) E03.9 [facility] [address] [facility] [address] [place] [id number] 11/03/2024 Temitope Cancino Anemia due to blood loss D50.0 ; Gastritis, presence of bleeding unspecified, unspecified chronicity, unspecified gastritis type K29.70 ; Hypothyroidism (acquired) E03.9 ; Chronic obstructive pulmonary disease, unspecified COPD type J44.9 ; S/P coronary artery stent placement Z95.5 and BMI 23.0-23.9, adult Z68.23 [facility] [address] [facility] [address] [place], [place] [id number] 12/24/2023 Temitope [facility]INE[facility] [address] [facility] [address] [place], [place] [id number] 04/25/2024 Temitope MARTINEZA[facility] [address] [facility] [address] [place], [place] [id number] 06/02/2024 Temitope MARTINEZA[facility] [address] [facility] [address] [place], [place] [phone] 07/29/2024 Temitope MARTINEZA[facility] [address] [place] [facility] [address] [facility] [address] [place], [place] [id number] 11/17/2024 Temitope Cancino Assessments Encounter Date Diagnosis (ICD Code) Assessment Notes Treatment Notes Treatment Clinical Notes Section Notes 12/21/2023 Essential (primary) hypertension (ICD-10 - I10) 12/21/2023 Anemia due to blood loss (ICD-10 - D50.0) 01/21/2024 Essential (primary) hypertension (ICD-10 - I10) 01/21/2024 Tubulovillous adenoma (ICD-10 - D36.9) As planned 03/14/2024 Arteriosclerotic coronary artery disease (ICD-10 - I25.10) 03/14/2024 S/P coronary artery stent placement (ICD-10 - Z95.5) 05/30/2024 Essential (primary) hypertension (ICD-10 - I10) 05/30/2024 Iron deficiency anemia due to chronic blood loss (ICD-10 - D50.0) 07/28/2024 Chronic obstructive pulmonary disease, unspecified COPD type (ICD-10 - J44.9) 07/28/2024 Anemia due to blood loss (ICD-10 - D50.0) 11/03/2024 Anemia due to blood loss (ICD-10 - D50.0) 11/03/2024 Gastritis, presence of bleeding unspecified, unspecified chronicity, unspecified gastritis type (ICD-10 - K29.70) 01/21/2024 S/P coronary artery stent placement (ICD-10 - Z95.5) 07/28/2024 Gastritis, presence of bleeding unspecified, unspecified chronicity, unspecified gastritis type (ICD-10 - K29.70) 11/03/2024 Hypothyroidism (acquired) (ICD-10 - E03.9) 05/30/2024 Atherosclerosis of [place] coronary artery without angina pectoris, unspecified whether [place] or transplanted heart (ICD-10 - I25.10) 03/14/2024 Duodenitis (ICD-10 - K29.80) 12/21/2023 Arteriosclerotic coronary artery disease (ICD-10 - I25.10) 12/21/2023 Mitral valve disorder (ICD-10 - I05.9) 03/14/2024 Chronic obstructive pulmonary disease, unspecified COPD type (ICD-10 - J44.9) 01/21/2024 Arteriosclerotic coronary artery disease (ICD-10 - I25.10) 05/30/2024 Gastritis, presence of bleeding unspecified, unspecified chronicity, unspecified gastritis type (ICD-10 - K29.70) 07/28/2024 Hypothyroidism (acquired) (ICD-10 - E03.9) 11/03/2024 Chronic obstructive pulmonary disease, unspecified COPD type (ICD-10 - J44.9) Continue present treatment 11/03/2024 S/P coronary artery stent placement (ICD-10 - Z95.5) 03/14/2024 Gastritis, presence of bleeding unspecified, unspecified chronicity, unspecified gastritis type (ICD-10 - K29.70) 03/14/2024 Anemia due to blood loss (ICD-10 - D50.0) 11/03/2024 BMI 23.0-23.9, adult (ICD-10 - Z68.23) Plan Of Treatment Next Appt Details Provider Name:Temitope Balderas , 02/23/2025 09:45:00 AM, [address], [address], [place], [place], [id number], Insurance Providers Payer Name Payer Address Payer Phone Subscriber Number Group Number Insured Name Patient Relationship to Insured Coverage Start Date Coverage End Date [employer] [address] [address] [place], [place] [id number] MILLY SMITH Self - patient is the insured Medical (General) History 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 History ICD Code hypertension Hypothyroidism CAD Surgical History Surgery Date(Month/Year) Tonsillectomy 1950 Thyroid surgery 03/20/2002 left ovary removed 05/16/2002 hernia 10/03/2002 right cataract removed 03/05/2017 left cataract removed 11/2017 heart stent 07/31/2023
--- NOTE | 2024-12-15 12:49 | US_ITS ---
FINAL REPORT TECHNIQUE: Real-time grayscale and color ultrasound of the thyroid was performed. CLINICAL HISTORY: hypothyroidism COMPARISON: None FINDINGS: The right thyroid lobe is normal in size measuring 34 x 22 x 19 mm on the right. It is extensively heterogeneous suggesting goiter or chronic thyroiditis. The left thyroid lobe is surgically absent with no residual or recurrent tissue in the thyroidectomy bed. The isthmus measures 4 mm. IMPRESSION: Findings consistent with chronic thyroiditis in the right lobe without evidence of neoplasm. Reviewed, Interpreted and Dictated by Elda Harper MD Transcribed by Chary Parrish Authenticated and [facility]
[2024-12-15 14:58] LABS: Free T4 (Free Thyroxine) 1.61 ng/dl (0.78-2.19)
[2024-12-15 15:13] LABS: Thyroid Stimulating Hormone 0.56 uIU/mL (0.465-4.68)
== END 2024-12-15 23:59 | disposition home or self-care (01) ==
PROVIDERS: PCP Family Medicine; Visit Provider Nurse Practitioner
DX: E89.0 Postprocedural hypothyroidism (principal)
CPT/HCPCS: 36415; 76536; 84439; 84443

== ENCOUNTER 2025-02-11 12:46 | Inpatient (IN) | payer MEDICARE, SELFPAY ==
--- OUTSIDE RECORDS SUMMARY | 2024-03-14 06:30 | XMS_ITS ---
Author Organization [facility] Address [address] [facility] 36 [facility] [address] [place] [id number] Care Team Providers Care File Machine Operator Name Role Phone Temitope Cancino Primary Care Provider [phone] Allergies No Known Allergies Results Component Value Reference Range Notes CBC Fingerstick (in house) Reviewed date:03/17/2024 09:43:49 AM Interpretation: Performing Lab: Notes/Report: wbc 5.6 3.5 - 10 lym 17.1 15 - 50 mid 6.0 2 - 15 gran 76.9 35 - 80 rbc 4.01 3.5 - 5.5 hgb 11.4 11.5 - 16.5 hct 35.1 35 - 55 mcv 87.6 75 - 100 mch 28.5 25 - 35 mchc 32.5 31 - 38 plat 188 100 - 400 REASON FOR VISIT 6 week f/u Medications Medication SIG (Take, Route, Frequency, Duration) Notes Start Date End Date Status PreserVision AREDS 2 - as directed Orall y twice a day Active Levothyroxine Sodium 112 MCG 1 tablet in the morning on an empty stomach Orally Once a day Active Furosemide 40 MG 1 tablet Orally once a day Active Losartan Potassium 25 MG 1/2 tablet Oral ly Once a day; Duration: 90 days Active Bisoprolol Fumarate 5 MG 1/2 tablet Oral ly Once a day; Duration: 90 days Active Sucralfate 1 GM 1 tablet on an empty stomach Orally Twice a day Active Jardiance 10 MG 1 tablet Orally Once a day; Duration: 30 day(s) Active Pantoprazole Sodium 40 MG 1 tablet Orall y Once a day; Duration: 90 days Active Leqvio 284 MG/1.5ML as directed Subcutaneous Active Ferrous Sulfate 325 (65 Fe) MG 1 tab(s) Orally twice a day Not-Taking Aspirin 81 MG 1 tablet Orally Once a day; Duration: 30 day(s) Not-Taking Clopidogrel Bisulfate 75 MG 1 tablet Orally Once a day Active Social History Tobacco Use: Social History Observation Description Date Details (start date - stop date) Current Smoker 08/08/1965 - NA CURRENT TOBACCO USE: Question Answer Notes Are you a: current smoker When did you start smoking? 08/08/1965 How often do you smoke cigarettes? every day How many cigarettes a day do you smoke? 5 or les s Are you interested in quitting? Not ready to andrew t Vital Signs Blood pressure systolic 114 mm Hg 03/14/20 24 Blood pressure diastolic 80 mm Hg 024 Heart Rate 68 /min 03/14/2024 Height 64 in 03/14/2024 Weight 143.4 lbs 03/14/2024 BMI 24.61 kg/m2 03/14/2024 Encounters Encounter Location Date Provider Diagnosis [facility] [place] [address] [facility] [address] [phone] 03/14/2024 Temitope Cancino Arteriosclerotic cor onary artery disease I25.10 ; S/P coronary artery stent placement Z95.5 ; Duodenitis K29.80 ; Chronic obstructive pulmonary disease, unspecified COPD type J44.9 ; Gastritis, presence of bleeding unspecified, unspecified chronicity, unspecified gastritis type K29.70 and Anemia due to blood loss D50.0 Assessments Encounter Date Diagnosis (ICD Code) Assessment Notes Treatment Notes Treatment Clinical Notes Section Notes 03/14/2024 Arteriosclerotic coronary artery disease (ICD-10 - I25.10) 03/14/2024 S/P coronary artery stent placement (ICD-10 - Z95.5) 03/14/2024 Duodenitis (ICD-10 - K29.80) 03/14/2024 Chronic obstructive pulmonary disease, unspecified COPD type (ICD-10 - J44.9) 03/14/2024 Gastritis, presence of bleeding unspecified, unspecified chronicity, unspecified gastritis type (ICD-10 - K29.70) 03/14/2024 Anemia due to blood loss (ICD-10 - D50.0) Plan Of Treatment Medication Medication Name Sig Start Date Stop Date Notes Pantoprazole Sodium 40 MG 1 tablet Orall y Once a day; Duration: 90 days Next Appt Details Follow Up: 3 Months, Reason: Provider Name:Temitope Balderas er, 02/23/2025 09:45:00 AM, [address], [address], [place], [phone], Progress Notes * MILLY SMITHDOB:[birth year] (79 yo F)Acc No.[id number]:03/14/2024 Patient: MILLY HARDIN Provider: Temitope Cancino M.D. :1945 A ge:78 Y S ex:Female Date:03/14/2024 Address:[address] [id number] Subjective: * Chief Complaints: * 1 . 6 week f/u. * HPI: H ematology: The patient is here for a 6 week follow up on anemia. Pt states she doing much better. Pt states she had colon surgery on 01/30/24. Pt states she had a follow up with Dr Lara in February and she was pleased with her progress. 78 year old female presents with c/o Bruising. c/o Anemia. Denies : Bleeding. D enies : hematuria. C ardiology: Had cardiology follow-up in January. Asks about brusing. Taking Aspirin and Plavix. Getting Leqvio. 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 No rectal bleeding. Asks to decrease iron and asks to decrease Sucralfate. . * ROS: D ERMATOLOGY: no R michelet. n o H bhupinder. G ASTROENTEROLOGY: no N ausea. n o V omiting. n o D iarrhea.? U ROLOGY: no D ifficulty urinating. n o B lood in urine. * 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: H ypertension, Hypothyroidism, CAD. * Surgical History: T onsillectomy 1950, Thyroid surgery 03/20/2002, left ovary removed 05/16/2002, hernia 10/03/2002, right cataract removed 03/05/2017, left cataract removed 11/2017, heart stent 07/31/2023. * Family History: F ather: . M other: . P aternal Grand Father: , diagnosed with Heart Disease. P aternal Grand Mother: , diagnosed with Heart Disease. M aternal Grand Father: . M aternal Grand Mother: . 1 sister(s) . . * Social History: C URRENT TOBACCO USE: Yes A re you a: c urrent smoker, W hen did you start smoking? 0 08/08/1965, H ow often do you smoke cigarettes? e very day, H ow many cigarettes a day do you smoke? 5 or less, A re you interested in quitting? N ot ready to quit.?Caffeine: yes, frequency: 2 cupps per day. Home smoke detector use: yes. Marital Status: . Alcohol: no. Occupation: not working. Recreational drug use: no. * Medications: T aking Leqvio 284 MG/1.5ML Solution Prefilled Syringe as directed Subcutaneous , Taking Jardiance 10 MG Tablet 1 tablet Orally Once a day , Taking Sucralfate 1 GM Tablet 1 tablet on an empty stomach Orally Twice a day , Taking PreserVision AREDS 2 - Tablet Chewable as directed Orally twice a day , Taking Furosemide 40 MG Tablet 1 tablet Orally once a day , Taking Levothyroxine Sodium 112 MCG Tablet 1 tablet in the morning on an empty stomach Orally Once a day , Taking Bisoprolol Fumarate 5 MG Tablet 1/2 tablet Orally Once a day , Taking Losartan Potassium 25 MG Tablet 1/2 tablet Orally Once a day , Taking Clopidogrel Bisulfate 75 MG Tablet 1 tablet Orally Once a day , Not-Taking Pantoprazole Sodium 40 MG Tablet Delayed Release 1 tablet Orally Once a day , Not-Taking Aspirin 81 MG Tablet Delayed Release 1 tablet Orally Once a day , Not-Taking Ferrous Sulfate 325 (65 Fe) MG Tablet 1 tab(s) Orally twice a day , Medication List reviewed and reconciled with the patient * Allergies: N .K.D.A. Objective: * Vitals: W t:143.4, Temp:98.2, BP:114/80, HR:68, O2 Sat:98% on RA, Nurse:DREA, Ht: 64, BMI:24.61. * Examination: G eneral Examination: General Appearance: N AD. H EENT: u nremarkable.?Oral cavity: t ongue and mucosa slightly dry. N shanna: s upple, no lymphadenopathy.?Chest: n ormal shape and expansion. H eart: R SR, S4. L ungs: c lear to auscultation. A bdomen: soft and nontender, no organomegaly or masses. N eurologic Exam:?Intact, gait normal. S kin: n ormal, no rash. P eripheral pulses: n ormal . B ack: dorsal kyphosis. E xtremities: 3 + leg edema, b ut improved. ? Assessment: * Assessment: 1. A rteriosclerotic coronary artery disease - I25.10 (Primary) 2 . S /P coronary artery stent placement - Z95.5 3 . D uodenitis - K29.80 4 . C hronic obstructive pulmonary disease, unspecified COPD type - J44.9 5 . Gastritis, presence of bleeding unspecified, unspecified chronicity, unspecified gastritis type - K29.70 6 . A nemia due to blood loss - D50.0 Plan: * Treatment: 2. A nemia due to blood loss L AB: CBC Fingerstick (in house) (Collection Date & Time - 03/14/2024) Value Reference Range w bc 5.6 3.5 - 10 * l ym 17.1 15 - 50 * m id 6.0 2 - 15 * g ran 76.9 35 - 80 * r bc 4.01 3.5 - 5.5 * h gb 11.4 11.5 - 16.5 * h ct 35.1 35 - 55 * m cv 87.6 75 - 100 * m ch 28.5 25 - 35 * m chc 32.5 31 - 38 * p lat 188 100 - 400 * Sepideh Rosales 03/14/2024 12:0 4:25 PM > * Procedure Codes: 9 [address] [place], [address] CAPILLARY BLOOD DRAW, 31383 CBC WITH AUTO DIFF * Follow Up: 3 Months * Images: Billing Information: * Visit Code: 21834 Office Visit, Est Pt., Level 4. * Procedure Codes: [address] [place]. [address] CAPILLARY BLOOD DRAW. 56490 CBC WITH AUTO DIFF. * Electronic signature of Temitope Cancino MD on 02/11/2025 at 12:58 PM EDT Sign off status: Pending * Provider: Temitope Cancino M.D. Date: 1 Generated for Ji linares/Antwon/Mageditting on: 0 02/11/2025 12:58 PM EDT History and Physical Notes * HPI (History of Present Illness) Category Sub-Category Detail Notes Category Not es Hematology hematuria Bruising Bleeding Anemia Examination Category Sub-Category Detail Notes Category Not es General Examination HEENT: unremarkable Heart: RSR, S4 Lungs: clear to auscultatio n Abdomen: soft and nontender, no organomegaly or masses Extremities: 3+ leg edema, but im proved General Appearance: NAD Skin: normal, no rash Neurologic Exam: Intact, gait normal Neck: supple, no lymphaden opathy Oral cavity: tongue and mucosa sl ightly dry Peripheral pulses: normal Back: dorsal kyphosis Chest: normal shape and exp ansion
--- OUTSIDE RECORDS SUMMARY | 2024-05-30 07:45 | XMS_ITS ---
[facility] Address [address] [facility] [address] [facility] [address] [place] [id number] Care Team Providers Care Water Operator Name Role Phone Temitope Cancino Primary Care Provider [phone] Allergies No Known Allergies Results Component Value Reference Range Notes H-CBC Reviewed date:06/02/2024 09:33:22 AM Interpretation:rbc 3.97, hgb 9.8, hct 34.3, mch 24.7, mchc 28.6, rdw 22, plt 508 Performing Lab: Notes/Report: WBC 7.1 4.8-10.8 K/mm3 RBC 3.97 4.20-5.40 M/mm3 HGB 9.8 12.2-16.2 g/dL HCT 34.3 37.0-47.0 % MCV 86.4 81-99 fl MCH 24.7 27.0-31.2 pg MCHC 28.6 31.8-35.4 g/dL RDW 22.0 11.5-17.5 % PLT 508 142-424 K/mm3 MPV 10.1 7.4-10.4 fl NE% 73.1 37.0-80.0 % LY% 13.3 10-50 % MO% 8.2 1.7-9.3 % EO% 4.1 0.1-12.0 % BA% 1.0 0.1-2.0 % NE# 5.2 1.8-7.8 K/mm3 LY# 0.9 0.7-4.5 K/mm3 MO# 0.6 0.1-1.0 K/mm3 EO# 0.3 0.0-0.4 K/mm3 BA# 0.1 0-0.2 K/mm3 H-BMP Reviewed date:05/30/2024 01:37:15 PM Interpretation:see cmp Performing Lab: Notes/Report: see cmp P-Microalbumin/Creatinine, R andom Urine Sample Reviewed date:06/02/2024 09:33:22 AM Interpretation:Normal Performing Lab: Notes/Report: Test performed by [facility] [address] [place] [address] , [address], [place] [address] Sukhdev Wheatley MD, Manager Fraud CLIA: [id number] Albumin/Creatinine Ratio, Urine <13.1 0-30 ug/m g Microalbumin, Urine, Random <0.3 Creatinine, Urine 22.9 REASON FOR VISIT FU FROM [facility] ADMISSION Medications Medication SIG (Take, Route, Frequency, Duration) Notes Start Date End Date Status Pantoprazole Sodium 40 MG 1 tablet Orall y Once a day; Duration: 90 days Active Losartan Potassium 25 MG 1/2 tablet Oral ly Once a day; Duration: 90 days Not-Taking Bisoprolol Fumarate 5 MG 1/2 tablet Oral ly Once a day; Duration: 90 days Not-Taking Levothyroxine Sodium 112 MCG 1 tablet in the morning on an empty stomach Orally Once a day Active Furosemide 40 MG 1 tablet Orally once a day Active PreserVision AREDS 2 - as directed Orall y twice a day Active Sucralfate 1 GM 1 tablet on an empty stomach Orally Twice a day Active Jardiance 10 MG 1 tablet Orally Once a day; Duration: 30 day(s) Active Leqvio 284 MG/1.5ML as directed Subcutaneous Active Co Q-10 200 MG as directed Orally Active Ferrous Sulfate 325 (65 Fe) MG 1 tab(s) Orally twice a day Not-Taking Aspirin 81 MG 1 tablet Orally Once a day; Duration: 30 day(s) Not-Taking Clopidogrel Bisulfate 75 MG 1 tablet Orally Once a day; Duration: 30 day(s) Not-Taking Social History Tobacco Use: Social History Observation [...] andrew t Vital Signs Blood pressure systolic 92 mm Hg 05/30/20 24 Blood pressure diastolic 58 mm Hg 024 Heart Rate 77 /min 05/30/2024 Height 64 in 05/30/2024 Weight 145.6 lbs 05/30/2024 BMI 24.99 kg/m2 05/30/2024 Encounters Encounter Location Date Provider Diagnosis [facility] [address] [facility] 36 [facility] [address] [place] [id number] 05/30/2024 Temitope Cancino Iron deficiency anem ia due to chronic blood loss D50.0 ; Essential (primary) hypertension I10 ; Atherosclerosis of [place] coronary artery without angina pectoris, unspecified whether [place] or transplanted heart I25.10 and Gastritis, presence of bleeding unspecified, unspecified chronicity, unspecified gastritis type K29.70 Assessments Encounter Date Diagnosis (ICD Code) Assessment Notes Treatment Notes Treatment Clinical Notes Section Notes 05/30/2024 Iron deficiency anemia due to chronic blood loss (ICD-10 - D50.0) 05/30/2024 Essential (primary) hypertension (ICD-10 - I10) 05/30/2024 Atherosclerosis of [place] coronary artery without angina pectoris, unspecified whether [place] or transplanted heart (ICD-10 - I25.10) 05/30/2024 Gastritis, presence of bleeding unspecified, unspecified chronicity, unspecified gastritis type (ICD-10 - K29.70) Plan Of Treatment Next Appt Details Follow Up: 6 Weeks, Reason: Provider Name:Temitope Balderas er, 02/23/2025 09:45:00 AM, [address] [facility] 36 [facility], [address], [place], [id number], Progress Notes * LUIS MILLYDOB:[birth year] (79 yo F)Acc No.[id number]:05/30/2024 Progress Notes Patient: MILLY HARDIN Provider: Temitope Cancino M.D. :1945 A ge:78 Y S ex:Female Date:05/30/2024 Address:[id number] Subjective: * Chief Complaints: * 1 . FU FROM [facility] ADMISSION. * HPI: H PI: The patient is here for a follow up from [facility] discharge due to GI bleed. Pt states she is doing better. Pt states Dr Leary did surgery to remove another polyp. Pt states she saw Cardiology last week and they discontinued the Bisoprolol and Losartan. Pt states he wanted to start aspirin back but she states she has not yet started that. Spironolactone has been decreased to 12.5 mg daily. Pt states she is doing iron infusions once a week. Pt states she will have another infusion today and then she will have 2 more after today. 78 year old female presents with c/o Here for follow up on:?hospitalization. * ROS: D ERMATOLOGY: no R michelet. n o H bhupinder. G ASTROENTEROLOGY: no N ausea. n o V omiting. n o D iarrhea.? U ROLOGY: no D ifficulty urinating. n o B lood in urine. * 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: H ypertension, Hypothyroidism, CAD. * Surgical History: T onsillectomy 1949, Thyroid surgery 03/20/2002, left ovary removed 05/16/2002, [...] drug use: no. * Medications: T aking Co Q-10 200 MG Capsule as directed Orally , Taking Leqvio 284 MG/1.5ML Solution Prefilled Syringe as [...] stomach Orally Once a day , Taking Pantoprazole Sodium 40 MG Tablet Delayed Release 1 tablet Orally Once a day , Not-Taking Bisoprolol Fumarate 5 MG Tablet 1/2 tablet Orally Once a day , Not-Taking Losartan Potassium 25 MG Tablet 1/2 tablet Orally Once a day , Not-Taking Clopidogrel Bisulfate 75 MG Tablet 1 tablet Orally Once a day , Not- Taking Aspirin 81 MG Tablet Delayed Release 1 tablet Orally Once a day , Not-Taking Ferrous Sulfate 325 (65 Fe) MG Tablet 1 tab(s) Orally twice a day , Medication List reviewed and reconciled with the patient * Allergies: N .K.D.A. Objective: * Vitals: W t:145.6, Temp:98.4, BP:92/58, HR:77, Nurse:DREA, Ht: 64, BMI:24.99. * Examination: G eneral Examination: General Appearance: [...] ut improved. ? Assessment: * Assessment: 1. I cailin deficiency anemia due to chronic blood loss - D50.0 (Primary) 2 . E ssential (primary) hypertension - I10 3 . A therosclerosis of [place] coronary artery without angina pectoris, unspecified whether [place] or transplanted heart - I25.10 4 . G astritis, presence of bleeding unspecified, unspecified chronicity, unspecified gastritis type - K29.70 Plan: * Treatment: Value Reference Range W BC 7.1 4.8-10.8 - K/mm3 * R BC 3.97 L 4.20-5.40 - M/mm3 * H GB 9.8 L 12.2-16.2 - g/dL * H CT 34.3 L 37.0-47.0 - % * M CV 86.4 81-99 - fl * M CH 24.7 L 27.0-31.2 - pg * M CHC 28.6 L 31.8-35.4 - g/dL * R DW 22.0 H 11.5-17.5 - % * P LT 508 H 142-424 - K/mm3 * M PV 10.1 7.4-10.4 - fl * N E% 73.1 37.0-80.0 - % * L Y% 13.3 10-50 - % * M O% 8.2 1.7-9.3 - % * E O% 4.1 0.1-12.0 - % * B A% 1.0 0.1-2.0 - % * N E# 5.2 1.8-7.8 - K/mm3 * L Y# 0.9 0.7-4.5 - K/mm3 * M O# 0.6 0.1-1.0 - K/mm3 * E O# 0.3 0.0-0.4 - K/mm3 * B A# 0.1 0-0.2 - K/mm3 * Tania Arriaza 05/30/2024 11:1 2:32 AM > patient to return to office immediately following testing. Tnaia Arriaza 06/02/2024 9:33:18 AM >See phone encounter 2.?Essential (primary) hypertension?LAB: P-Microalbumin/Creatinine, Random Urine Sample (Collection Date & Time - 05/30/2024 09:15 AM)?Normal* Value Reference Range A lbumin/Creatinine Ratio, Urine <13.1 0-30 - ug /mg * C reatinine, Urine 22.9 - mg/dL * M icroalbumin, Urine, Random <0.3 - mg/dL * Tania Arriaza 06/02/2024 9:33 :18 AM >See phone encounter ?LAB: H-BMP (Collection Date & Time - 05/30/2024)?see cmp * Procedure Codes: G 2211 Complex e/m visit add on * Follow Up: 6 Weeks * Images: Billing Information: * Visit Code: 63622 Office Visit, Est Pt., Level 4. * Procedure Codes: G2211 Complex e/m visit add on. * Electronic signature of Temitope Cancino MD on 02/11/2025 at 12:59 PM EDT Sign off status: Pending * Provider: Temitope Cancino M.D. Date: 1 07/31/2023 Generated for Printi ng/Faxing/eTransmitting on: 0 02/11/2025 12:59 PM EDT History and Physical Notes * HPI (History of Present Illness) Category Sub-Category Detail Notes Category Not es HPI Here for follow up on: hospitalization Examination Category Sub-Category Detail Notes Category Not [...]
--- OUTSIDE RECORDS SUMMARY | 2024-06-16 07:45 | XMS_ITS ---
Author Organization [facility] Address [address] [facility] [address] [facility] [address] [place] [id number] Care Team Providers Care Quilt Stuffer Name Role Phone Temitope Cancino Primary Care Provider REASON FOR VISIT 3 months Encounters Encounter Location Date Provider Diagnosis [facility] [address] [place] [phone] 06/16/2024 Temitope Cancino Plan Of Treatment Next Appt Details Provider Name:Temitope Balderas er, 02/23/2025 09:45:00 AM, [address], [address], [place], [place], [id number], Progress Notes * MILLY SMITHDOB:[birth year] (79 yo F)Acc No.[id number]:06/16/2024 Progress Notes Patient: MILLY HARDIN Provider: Temitope Cancino M.D. :1945 A ge:78 Y S ex:Female Date:06/16/2024 Address:[address] [address], [place], [place] Subjective: * Chief Complaints: * 1 . 3 months. * 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: Objective: * Vitals: Assessment: Plan: * Treatment: * Images: Billing Information: * Visit Code: * Procedure Codes: * Electronic signature of Temitope Cancino MD on 02/11/2025 at 12:59 PM EDT Sign off status: Pending * Provider: Temitope Cancino M.D. Date: 0 06/16/2024 Generated for Ji linares/Antwon/Demetrio on: 0 02/11/2025 12:59 PM EDT
--- OUTSIDE RECORDS SUMMARY | 2024-07-28 06:30 | XMS_ITS ---
Author Organization [facility] Address [facility]0 [facility] 36 [facility] [address] [place] [id number] Care Team Providers Care Moisture Tester Name Role Phone Temitope Cancino Primary Care [...] Interpretation:Normal Performing Lab: Notes/Report: Test performed by [facility] [address] [place] [address] , [facility], [place] [address] Sukhdev Wheatley MD, Box Liner CLIA: [id number] Iron 54 37-145 ug/dL P-TSH Reviewed date:07/29/2024 09:02:07 AM Interpretation:0.32 Performing Lab: Notes/Report: Test performed by [facility] [address] [place] [address] [address], [place] [address] Sukhdev Wheatley MD, Box Liner CLIA: [id number] TSH 0.32 0.43-5.25 mU/L REASON FOR VISIT [...] Provider Diagnosis [place] [address] [place], [place] [phone] 07/28/2024 Temitope Cancino Anemia due to blood [...] [address], [address], [place], [place], [id number], Progress Notes * LUIS MILLYDOB:[birth year] (79 yo F)Acc No.[id number]:07/28/2024 Patient: MILLY HARDIN Provider: Temitope Cancino M.D. :1945 A ge:79 Y S ex:Female Date:07/28/2024 Address:[address] Subjective: * Chief Complaints: * 1 . [...] G 2211 Complex e/[place], [address] [place], [address] CAPILLARY BLOOD DRAW, 89888 CBC WITH AUTO DIFF, 3074F SYST BP LT 130 MM HG, 3078F DIAST BP < 80 MM HG * Follow Up: 3 Months * Images: Billing Information: * Visit Code: 99456 Office Visit, Est Pt., Level 3. * Procedure Codes: G2211 Complex e/[place] [address] [place]. [address] CAPILLARY BLOOD DRAW. 04992 CBC WITH AUTO DIFF. 3074F SYST BP LT 130 MM HG. 3078F DIAST BP < 80 MM HG. * Electronic signature of Temitope Cancino MD on 02/11/2025 at 12:59 PM EDT Sign off status: Pending * Provider: Temitope Cancino M.D. Date: 0 07/28/2024 Generated for Jacki ng/Fajasong/eTransmitting on: 0 02/11/2025 12:59 PM EDT History [...]
--- OUTSIDE RECORDS SUMMARY | 2024-11-03 09:15 | XMS_ITS ---
Author Organization [facility] Address [facility]0 [facility] 36 [facility] [address] [place] [id number] Care Team Providers Care Peoplesoft Financials Consultant Name Role Phone Temitope Cancino Primary Care [...] Interpretation:Normal Performing Lab: Notes/Report: Test performed by [facility]0 [facility] , [address], [place] [address] Sukhdev Wheatley MD, Radar Tester CLIA: [id number] Sodium 142 135-145 mmol/L Potassium 4.0 3.5-5.3 mmol/L Chloride 106 97-108 mmol/L CO2 28 22-32 mmol/L Glucose 117 65-99 mg/dL BUN 21 8-23 mg/dL Creatinine 0.90 0.50-1.00 mg/dL Calcium 8.7 8.6-10.4 mg/dL eGFR by Creatinine 65 >59 mL/min/1.73m2 P-TSH Reviewed date:11/12/2024 12:53:38 PM Interpretation:Normal Performing Lab: Notes/Report: Test performed by [employer] [employer] [address] [place] [address] , [address], [place] [address] Sukhdev Wheatley MD, Radar Tester CLIA: [id number] TSH 0.64 0.43-5.25 mU/L REASON FOR VISIT [...] Encounter Location Date Provider Diagnosis [facility] [address] [place] [id number] 11/03/2024 Temitope Cancino Anemia due to blood [...] 02/23/2025 09:45:00 AM, [address] [facility], [address], [place], [id number], Progress Notes * MILLY SMITHDOB:[birth year] (79 yo F)Acc No.[id number]:11/03/2024 Progress Notes Patient: Perico DIANEAALIYAH MILLY Provider: Temitope Cancino M.D. :1945 A ge:79 Y S ex:Female Date:11/03/2024 Address: [id number] Subjective: * Chief Complaints: * 1 . [...] stent placement - Z95.5 6 . B MT 23.0-23.9, adult - Z68.23 Plan: * Treatment: [...] G 2211 Complex e/[place], [address] CBC WITH AUTO DIFF, G8420 BMI<30 AND >=22 CALC & DOCU, G8783 BP SCR PRFRM RCMDD DEFIND SCR INTVL, G8752 MOST RECENT SYSTOLIC BP < 140MM HG, G8754 MOST RECENT DIASTOLIC BP < 90MM HG, G9902 Pt scrn tbco and id as user * Follow Up: 4 M * Images: Billing Information: * Visit Code: 19695 Office Visit, Est Pt., Level 4. * Procedure Codes: G2211 Complex e/[place]. [address] CBC WITH AUTO DIFF. G8420 BMI<30 AND [...] * Provider: Temitope Cancino M.D. Date: 0 11/03/2024 Generated for Ji linares/Antwon/eTransmitting on: 0 02/11/2025 12:59 PM EDT History [...]
[2025-02-11] VITALS (14 sets, daily range): BP systolic 93–129; BP diastolic 43–62; PULSE 82–108; RESP 16–24; TEMP 36.6–37; O2SAT 89–97; BMI 23.6; BMI 22.4
--- OUTSIDE RECORDS SUMMARY | 2025-02-11 12:59 | XMS_ITS | Patient Health Record ---
Author Organization [facility] Address [address] [facility] [place] [id number] Care Team Providers Care Child Abuse Worker Name Role Phone Temitope Cancino Primary Care [...] - 38 plat 188 100 - 400 H-CBC Reviewed date:06/02/2024 09:33:22 [...] Interpretation:Normal Performing Lab: Notes/Report: Test performed by [facility] [address] [place] [address] , [address], [place] [address] Sukhdev Wheatley MD, Corporate Analyst CLIA: [id number] Albumin/Creatinine Ratio, Urine <13.1 0-30 ug/mg Microalbumin, Urine, Random <0.3 Creatinine, Urine 22.9 CBC Venipuncture (in house) Reviewed date:11/12/2024 12:53:38 [...] Interpretation:Normal Performing Lab: Notes/Report: Test performed by [facility] [address] [place] [address] , [address], [place] [address] Sukhdev Wheatley MD, Corporate Analyst CLIA: [id number] Sodium 142 135-145 mmol/L Potassium 4.0 3.5-5.3 mmol/L Chloride 106 97-108 mmol/L CO2 28 22-32 mmol/L Glucose 117 65-99 mg/dL BUN 21 8-23 mg/dL Creatinine 0.90 0.50-1.00 mg/dL Calcium 8.7 8.6-10.4 mg/dL eGFR by Creatinine 65 >59 mL/min/1.73m2 P-TSH Reviewed date:11/12/2024 12:53:38 PM Interpretation:Normal Performing Lab: Notes/Report: Test performed by [facility], [address] , [address], [place] [address] Sukhdev Wheatley MD, Corporate Analyst CLIA: [id number] TSH 0.64 0.43-5.25 mU/L H-CMP Reviewed date:06/02/2024 [...] AGRATIO 1.3 1.1-1.8 ALP 112 38-126 U/L H-Crossmatch Reviewed date:05/15/2024 08:27:02 AM Interpretation: Performing Lab: Notes/Report: RBC Product Order Reason Hgb/Hct <7/21 Timeframe for Post-Transf H/H 2 hours XM UNIT NUMBER: [id number] XM COMPATIBLE: Y XM PRODUCT: Red Blood Cells XM SOURCE: [facility] XM BLOOD TYPE: B Positive XM VOLUME: 250mL XM CROSSMATCH COMPONENTS: XMNOTE Notification Notified MBDICKISON by Roslyn Triana [place] 05/14/24 1221. Notified NASREENSON by Roslyn Triana [place] 05/14/24 1221. XM UNIT NUMBER: [id number] XM COMPATIBLE: Y XM PRODUCT: Red Blood Cells XM SOURCE: [facility] XM BLOOD TYPE: B Positive XM VOLUME: 250mL XM CROSSMATCH COMPONENTS: XMNOTE Notification Notified STEPHIE by Roslyn Triana [place] 05/14/24 1221. Notified SIRENA by Roslyn Triana [place] 05/14/24 1221. H-Type and Screen Reviewed date:05/15/2024 08:27:02 AM Interpretation: Performing Lab: Notes/Report: RBC Product Order Reason Hgb/Hct <7/21 Timeframe for Post-Transf H/H 2 hours BT B Positive ABS NEGATIVE H-Hemoglobin/Hematocrit Reviewed date:05/15/2024 08:27:02 AM Interpretation: Performing Lab: Notes/Report: HGB 7.1 12.2-16.2 g/dL Delta: 5.6 on 05/14/24-821 CRITICAL RESULT Results called and read back/verified to: FRANKLINCorine on 05/14/24 at 2245 By Fabi Olmedo MLT HCT 22.2 37.0-47.0 % H-URC Reviewed date:05/15/2024 08:27:02 AM Interpretation: Performing Lab: Notes/Report: U500.0100 TRANSFUSED PRODUCT: Red Blood Cells COUNT: 2 CBC Fingerstick (in house) Reviewed date:07/28/2024 11:51:50 [...] Interpretation:Normal Performing Lab: Notes/Report: Test performed by [facility], [address], [place] [address] Sukhdev Wheatley MD, Corporate Analyst CLIA: [id number] Iron 54 37-145 ug/dL P-TSH Reviewed date:07/29/2024 09:02:07 AM Interpretation:0.32 Performing Lab: Notes/Report: Test performed by [facility], [address], [place] [address] Sukhdev Wheatley MD, Corporate Analyst CLIA: [id number] TSH 0.32 0.43-5.25 mU/L Reason For Referral No Information Medications Medication SIG (Take, Route, Frequency, Duration) Notes Start Date End Date Status Sucralfate 1 GM 1 tablet on an empty stomach Orally once a day; Duration: 90 days Active Levothyroxine Sodium 100 MCG 1 tablet in the morning on an empty stomach Orally Once a day; Duration: 90 days 07/31/2024 Active Furosemide 40 MG 1 tablet Orally [...] W/U Status Risk Notes Problem Essential hypertension (95911436) Essential (primary) hypertension (I10) Active confirmed Problem Hypothyroidism (48972341) Hypothyroidism (acquired) (E03.9) Active confirmed Problem Duodenitis (24809486) Duodenitis (K29.80) Active confirmed Problem Carotid artery occlusion (120640621) Occlusion and stenosis of unspecified carotid artery (I65.29) Active confirmed Problem Duodenitis (38499074) Duodenitis without bleeding (K29.80) Active confirmed Problem COPD - Chronic obstructive pulmonary disease (75391129) Chronic obstructive pulmonary disease, unspecified COPD type (J44.9) Active confirmed Problem Atherosclerotic heart disease of [place] coronary artery without angina pectoris (586877386076051) Arteriosclerotic coronary artery disease (I25.10) Active confirmed Problem Iron deficiency anemia due to chronic blood loss (420354064) Iron deficiency anemia due to chronic blood loss (D50.0) Active confirmed Problem Hyperlipidaemia (41645086) Hyperlipidemia, unspecified hyperlipidemia type (E78.5) Active confirmed Problem Hypothyroidism (69976638) Hypothyroidism, unspecified type (E03.9) Active confirmed Problem Anemia due to blood loss (588834572) Anemia due to blood loss (D50.0) Active confirmed Problem Atherosclerotic heart disease of [place] coronary artery without angina pectoris (074923122047871) Atherosclerosis of [place] coronary artery without angina pectoris, unspecified whether [place] or transplanted heart (I25.10) Active confirmed Problem History of placement of stent for coronary artery disease (situation) (802911110) S/P coronary artery stent placement (Z95.5) Active confirmed Problem Gastroduodenitis (408673730) Gastritis, presence of bleeding unspecified, unspecified chronicity, unspecified gastritis type (K29.70) Active confirmed Problem Mitral valve disorder (19583968) Mitral valve disorder (I05.9) Active confirmed Problem Heart failure (99654379) Congestive heart failure, unspecified HF chronicity, unspecified heart failure type (I50.9) Active confirmed Problem Diastolic heart failure (429180721) Heart failure with preserved ejection fraction, unspecified HF chronicity (I50.30) Active confirmed Problem Diastolic heart failure (101340242) Diastolic congestive heart failure, unspecified HF chronicity (I50.30) Active confirmed Problem Chronic antral gastritis with hemorrhage (disorder) (149250585) Chronic gastritis with bleeding, unspecified gastritis type (K29.51) Active confirmed Vital Signs Heart Rate 84 /min 11/03/2024 Blood pressure diastolic 60 mm Hg 11/03/2024 Height 64 in 11/03/2024 Blood pressure systolic 110 mm Hg 11/03/2024 Weight 138.0 lbs 11/03/2024 BMI 23.69 kg/m2 11/03/2024 Encounters Encounter Location Date Provider Diagnosis [address] [id number] 03/14/2024 Temitope Cancino Arteriosclerotic cor onary artery disease I25.10 ; S/P coronary artery stent placement Z95.5 ; Duodenitis K29.80 ; Chronic obstructive pulmonary disease, unspecified COPD type J44.9 ; Gastritis, presence of bleeding unspecified, unspecified chronicity, unspecified gastritis type K29.70 and Anemia due to blood loss D50.[address] [place] Ignacio [id number] 05/30/2024 Temitope Cancino Iron deficiency anem ia due to chronic blood loss D50.0 ; Essential (primary) hypertension I10 ; Atherosclerosis of [place] coronary artery without angina pectoris, unspecified whether [place] or transplanted heart I25.10 and Gastritis, presence of bleeding unspecified, unspecified chronicity, unspecified gastritis type K29.[address] J[place] Ignacio [id number] 07/28/2024 Temitope Cancino Anemia due to blood loss D50.0 ; Chronic obstructive pulmonary disease, unspecified COPD type J44.9 ; Gastritis, presence of bleeding unspecified, unspecified chronicity, unspecified gastritis type K29.70 and Hypothyroidism (acquired) E03.9 [facility] [address] [place], [place] [id number] 11/03/2024 Temitope Cancino Anemia due to blood loss D50.0 ; Gastritis, presence of bleeding unspecified, unspecified chronicity, unspecified gastritis type K29.70 ; Hypothyroidism (acquired) E03.9 ; Chronic obstructive pulmonary disease, unspecified COPD type J44.9 ; S/P coronary artery stent placement Z95.5 and BMI 23.0-23.9, adult Z68.23 [facility] [address] [place], [place] [id number] 04/25/2024 Temitope Cancino [facility] [address] [place], [place] [id number] 06/02/2024 Temitope Cancino [facility] [address] [facility] [address] [place], [place] [id number] 07/29/2024 Temitope Cancino [facility] [address] [facility] [address] [place], [place] [id number] 11/17/2024 Temitope Cancino [facility] [address] [facility] [address] [place], [place] [id number] 01/12/2025 Temitope Cancino Assessments Encounter Date Diagnosis (ICD [...] unspecified gastritis type (ICD-10 - K29.70) 07/28/2024 Gastritis, presence of bleeding unspecified, unspecified chronicity, unspecified gastritis type (ICD-10 - K29.70) 11/03/2024 Hypothyroidism (acquired) (ICD-10 - E03.9) 05/30/2024 Atherosclerosis of [place] coronary artery without angina pectoris, unspecified whether [place] or transplanted heart (ICD-10 - I25.10) 03/14/2024 Duodenitis (ICD-10 - K29.80) 03/14/2024 Chronic obstructive pulmonary disease, unspecified COPD type (ICD-10 - J44.9) 05/30/2024 Gastritis, presence of bleeding unspecified, unspecified [...] 02/23/2025 09:45:00 AM, [address] [facility], [address], [place], [place], [id number], Insurance Providers Payer Name Payer Address Payer Phone Subscriber Number Group Number Insured Name Patient Relationship to Insured Coverage Start Date Coverage End Date [employer] MED[employer]ARE [address] [address] [place], [place] [phone] [id number] MILLY SMITH Self - patient is the insured Medical (General) History 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 History ICD Code hypertension Hypothyroidism CAD Surgical History Surgery Date(Month/Year) Tonsillectomy 1950 Thyroid surgery 03/20/2002 left ovary removed 05/16/2002 hernia 10/03/2002 right cataract removed 03/05/2017 left cataract removed 11/2017 heart stent 07/31/2023
--- OUTSIDE RECORDS SUMMARY | 2025-02-11 12:59 | XMS_ITS | Clinical Summary ---
Author Organization [facility] Address [address] [place] [address] Care Team Providers Care Marine Fisheries Technician Name Role Phone Provider, No Known Primary Care Provider Unavail able Allergies Active Allergy Reactions Criticality Noted Date Comments Statins Diarrhea 01/22/2024 Medications sucralfate (CARAFATE) 1 g tablet Take 2 tablets by mouth 2 (Two) Times a Day. Active losartan (COZAAR) 25 MG tablet Take 0.5 tablets by mouth Every Night. Active bisoprolol (ZEBeta) 5 MG tablet Take 0.5 tablets by mouth Every Night. Active levothyroxine (SYNTHROID, LEVOTHROID) 112 MCG tablet Take 1 tablet by mouth Daily. Active empagliflozin (Jardiance) 10 MG tablet tablet Take 1 tablet by mouth Daily. Active furosemide (LASIX) 40 MG tablet Take 2 tablets by mouth Daily. Active pantoprazole (PROTONIX) 40 MG EC tablet Take 1 tablet by mouth Daily. Active multivitamin with minerals (ICAPS AREDS FORMULA PO) Take 1 tablet by mouth 2 (Two) Times a Day. Active Inclisiran Sodium (LEQVIO SC) Inject under the skin into the appropriate area as directed Every 6 (Six) Months. Active Faricimab-svoa (VABYSMO IZ) by Intravitreal route. Every two months, injection into each ey. Active methocarbamol (ROBAXIN) 500 MG tablet Take 1 tablet by mouth 3 (Three) Times a Day. 90 tablet 1 4 Active Social History Tobacco Use Types Packs/Day Years Used Date Smoking Tobacco: Every Day Cigarettes 0.3 57.7 Started: 1967 Smokeless Tobacco: Never Tobacco Cessation:Ready to Q uit: Not Asked; Counseling Given: Not Answered Alcohol Use Standard Drinks/Week Comments Never 0 (1 standard drink = 0.6 oz pur e alcohol) Abuse Screen Answer Date Recorded Feels Unsafe at Home or Work/School no 01/29/2024 Feels Threatened by Someone no 01/03 Does Anyone Try to Keep You From Having Contact with Others or Doing Things Outside Your Home? no 01/29/2024 Physical Signs of Abuse Present no 01/29/2024 Housing Stability Answer Date Recorded Current Living Arrangements home 01/03 Potentially Unsafe Housing Conditions Not on annamaria e 01/29/2024 Family and Community Support Answer Rafa e Recorded Help with Day-to-Day Activities Not on file 01/10/2024 Lonely or Isolated Not on file 01/10/2024 Employment Answer Date Recorded Do you want help finding or keeping work or a daniela b? Not on file 01/10/2024 Disabilities Answer Date Recorded Difficulty Concentrating, Remembering or Making Decisions no 01/29/2024 Difficulty Managing Errands Independently no 01/29/2024 Education Answer Date Recorded Help with school or training? Not on file Preferred Language Iranian 01/22/2024 Comments No Sex and Gender Information Value Date Recorded Sex Assigned at Not on file Legal Sex Female 11:48 AM EDT Gender Identity Not on file Sexual Orientation Not on file Last Filed Vital Signs Vital Sign Reading Time Taken Comments Blood Pressure 117/44 01/29/2024 11:45 AM EDT Pulse 75 01/29/2024 11:45 AM EDT Temperature 36.8 C (98.2 F) 01/29/2024 11:30 AM EDT Respiratory Rate 16 01/29/2024 11:4 5 AM EDT Oxygen Saturation 98% 01/29/2024 11: 45 AM EDT Inhaled Oxygen Concentration - - Weight 65.2 kg (143 lb 10.1 oz) 01/22/2024 2:01 PM EDT Height 163.8 cm (5' 4.5 ) 01/22/2024 2:01 PM EDT Body Mass Index 24.27 01/22/2024 2:01 PM EDT Plan of Treatment Health Maintenance Due Date Last Done Comments DXA SCAN 1945 Pneumococcal Vaccine 50+ (1 of 2 - PCV) 1964 TDAP/TD VACCINES (1 - Tdap) 1964 ZOSTER VACCINE (1 of 2) 1995 RSV Vaccine - Adults (1 - 1- dose 75+ series) 2020 ANNUAL WELLNESS VISIT 01/22/2024 HEPATITIS C SCREENING 01/22/2024 COVID-19 Vaccine ( - 2024- season) 2025 05/17/2021, 09/03/2020, 08/03/2020 INFLUENZA VACCINE 03/04/2025 Insurance [facility] Medicare [employer] PPO Advance Directives Documents on File Type Date Recorded Patient Bag Maker Expl anation POWER OF SHOP COORDINATOR - SCAN 01/30/2024 3:38 PM SARAY BURDEN, 08/19/19 21 LIVING WILL - SCAN 01/30/2024 3:36 PM SARAY DAN, 08/18/2020 Care Teams Marine Fisheries Technician Relationship Specialty Start Date End Date Provider, No Known [facility] [place] [address] PCP - General 01/15/24
--- NOTE | 2025-02-11 13:01 | ECG_ITS ---
APPROVED REPORT Exam: Resting ECG HR:94 bpm ECG Measurements Heart Rate 94 AXES [place] 113 P 81 QRSd 141 QRS -28 QT 366 T 167 QTc 417 Conclusion SINUS RHYTHM WITH SHORT [place] INTERVAL WITH OCCASIONAL VENTRICULAR PREMATURE COMPLEXES POSSIBLE LEFT ATRIAL ENLARGEMENT [-0.1mV P-WAVE IN V1/V2] INTRAVENTRICULAR CONDUCTION DELAY [130+ ms QRS DURATION] LATERAL MYOCARDIAL INFARCTION , OF INDETERMINATE AGE [40+ ms Q WAVE AND/OR ST/T ABNORMALITY IN I/aVL/V5/V6] ABNORMAL ECG UNCONFIRMED REPORT Normal sinus rhythm. No ST elevation or depression. QTc of 417 Electronically signed by : MARY SHINE, 02/14/2025 15:26:06
--- NOTE | 2025-02-11 13:08 | PC.NURSE ---
patients oxygen saturation was 87 with good waveform during triage. patient immediately taken back to treatment room 8 and placed on melt room operator and 2LNC. Patient's oxygen saturation 84 once roomed. EKG performed. Patient family at bedside. Call light in reach.
[2025-02-11 13:10] LABS: Coronavirus 19, PCR Not Detected (NotDetected); Influenza A, PCR Not Detected (NotDetected); Influenza B, PCR Not Detected (NotDetected)
--- NOTE | 2025-02-11 13:18 | XR_ITS ---
FINAL REPORT CLINICAL HISTORY: soa,vapes FINDINGS: PA and lateral views of the chest are obtained. There is no prior exam for comparison. The cardiac and mediastinal silhouettes are within normal limits. There are increased interstitial markings bilaterally, slightly worse at the left lung base which could be related to pulmonary edema and/or pneumonia. Small bilateral pleural effusions are identified. There is no pneumothorax or acute osseous abnormality. IMPRESSION: Interstitial markings bilaterally, may be pulmonary edema and/or pneumonia with small pleural effusions. Recommend continued follow-up to resolution. Reviewed, Interpreted and Dictated by Hillary Andersen MD Transcribed by Jagruti Betancourt Authenticated and [facility]
--- NOTE | 2025-02-11 13:20 | ED_ITS ---
<Statement entered by David Duenas MD - 02/11/25 19:01> I was consulted by the ISAIAS, and we discussed the complexity of the problems being addressed. I approve the treatment and management plan for this patient's care in the emergency department, thus performing a substantive portion of the medical decision making. I did have a discussion with the patient about being admitted to the hospital for continued treatment of her pneumonia given she is requiring oxygen at 3 L nasal cannula to maintain oxygen saturation at 93% SpO2. She was in agreement to be admitted for continued management of her pneumonia. Patient was receiving IV Rocephin and azithromycin and had received methylprednisone as well as potassium replacement. David Duenas MD Discharge Plan Disposition Patient Disposition: Still a Patient Prescriptions Prescriptions: No Action PreserVision AREDS-2 [id number] capsule 1 tab PO DAILY Rx Instructions: administer with meals (after breakfast and after supper) rosuvastatin [Crestor] 10 mg tablet 10 mg PO DAILY Qty: 90 3RF furosemide 40 mg tablet 80 mg PO AM 90 Days Qty: 180 3RF spironolactone [Aldactone] 25 mg tablet 12.5 mg PO DAILY 90 Days Qty: 45 3RF levothyroxine [Synthroid] 100 mcg tablet PO aspirin [Adult Low Dose Aspirin] 81 mg tablet,delayed release (DR/EC) 81 mg PO DAILY Qty: 30 2RF sucralfate 1 gram tablet 1 g PO ONCE Patient Comments: TAKE ONE TABLET BY MOUTH ON an EMPTY stomach EVERY DAY Jardiance 10 mg tablet 10 mg PO DAILY Qty: 90 3RF pantoprazole 40 mg tablet,delayed release (DR/EC) 40 mg PO Q OTHER DAY Referrals Follow up/Referrals: Elda Cancino MD [Primary Care Provider, Medical] - See instructions Clinical Impressions Clinical Impression: Pneumonia Qualifiers: Pneumonia type: due to unspecified organism Laterality: bilateral Lung location: lower lobe of lung Qualified Code(s): J18.9 - Pneumonia, unspecified organism Print Language Print Language: [place] Discharge ED Provider: David Duenas [facility] General Chief Complaint: Shortness of Breath/Dyspnea Stated Complaint: cough,sob, runny nose Time Seen by Provider: 02/11/25 13:16 Mode of Arrival: Ambulatory Source of Information: Patient Description of Symptoms (Recalled from ER Triage Doc. by RN): patient presents to ED for cheif complaint of shortness of air. PAtient stated this started yesterday and has progressively gotten worse as the night and day has gone on. The odilons spouse said that her oxygen has been 86-87% when checking it at home. Patient has a productive cough that contains thick, yellow/green sputum. Patient stated no history of any lung disease or issues. History of Present Illness HPI narrative: 79-year-old female presents for complaints of shortness of air. Patient states started with cold-like symptoms last Sunday she took some Delsym which she believes gave her diarrhea. Patient states she just is getting worse instead of better and this morning family checked her O2 saturation and it was 84% and she was coughing up thick green sputum so she came to the ER to be evaluated. Related Data Home Medications ?Medication ?Instructions ?Recorded ?Confirmed vit C 250 mg-vit E 90 mg-zinc 40 1 tab PO DAILY 01/19/25 mg-copper 1 [id number] capsule (PreserVision AREDS-2) pantoprazole 40 mg tablet,delayed 40 mg PO Q OTHER DAY 12/02/24 01/19/25 release sucralfate 1 gram tablet 1 g PO ONCE 12/02/24 5 levothyroxine 100 mcg tablet mcg PO 12/22/24 01/19/25 (Synthroid) Previous Rx's ?Medication ?Instructions ?Recorded aspirin 81 mg tablet,delayed 81 mg PO DAILY #30 tabs 0 07/22/24 release (Adult Low Dose Aspirin) Jardiance 10 mg tablet 10 mg PO DAILY #90 tabs 04/0 12/26 (empagliflozin) furosemide 40 mg tablet 80 mg (2 x 40 mg) PO AM 90 d ays 01/19/25 #180 tabs rosuvastatin 10 mg tablet (Crestor) 10 mg PO DAILY #90 tabs 01/19/25 spironolactone 25 mg tablet 12.5 mg (1/2 x 25 mg) PO D AILY 90 01/19/25 (Aldactone) days #45 tabs Allergies Allergy/AdvReac Type Severity Reaction Status Date / Time No Known Allergies Allergy Verified 01/19/25 14:23 [facility] Disclaimer: The information contained in this section may have been updated after the patient was seen, as this information can be updated by other users. 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) Hx of partial thyroidectomy Hx of removal of ovary History of hemorrhoidectomy History of cataract surgery History of colonoscopy Status post coronary artery stent placement H/O esophagogastroduodenoscopy History of ovarian cystectomy Hx of tonsillectomy History of thyroid surgery H/O hernia repair H/O heart artery stent Family History , 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) Heart attack Social History , 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) Smoking Status: Current every day smoker tobacco type: cigarettes alcohol intake: never substance use type: denies use current occupational status: retired Travel in the last 8 weeks?: None Have you lived/traveled outside US in past 30 days?: No Contact w/someone who lives/traveled outside US past 30 days?: No Exposure to someone with infectious disease in past 14 days?: No Do you have a fever (greater than 100.4 F or 38 C)?: No Have you tested positive for COVID-19?: No Exposed to someone with COVID-19 in past 14 days?: No Do you have a sore throat?: No Do you have a cough?: No Do you have any weakness?: No Do you have any diarrhea?: No Are you experiencing any unusual bleeding?: No Do you have any muscle aches/pain?: No Do you have any abdominal pain?: No Are you experiencing loss of taste or smell?: No Other 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 Have you received the Flu Vaccine for this season: No Have you received the Pneumonia Vaccine: No ROS Obtained: Yes All systems reviewed & no additional complaints except as documented Constitutional Constitutional: Reports system reviewed and no additional complaints, except as documented and Reports as per HPI Respiratory Respiratory: Reports system reviewed and no additional complaints, except as documented, Reports as per HPI, Reports shortness of breath, Reports change in phlegm color, Reports chest congestion, Reports cough, Reports pain with cough and Reports cough with sputum production Physical Exam General General appearance: alert and in no apparent distress Head Head exam: atraumatic Eye Eye exam: Present normal appearance ENT ENT exam: Present normal exam, normal oropharynx, mucous membranes moist and TM's normal bilaterally Respiratory Respiratory exam: Present wheezes Expanded Respiratory Exam Location: Left: wheezes and decreased breath sounds, Right: wheezes and decreased breath sounds, Upper: wheezes and Lower: wheezes and decreased breath sounds Cardiovascular Cardiovascular exam: Present regular rate and normal rhythm Neurological Exam Neurological exam: Present alert and oriented X3 Psychiatric Psychiatric exam: Present normal affect Skin Skin exam: Present warm HEART Score HEART Score HEART Score assessment performed?: Yes History (anamnesis): Slightly suspicious ECG: Non-specific disturbance Age: >65 years Risk factors: Atherosclerosis history Troponin: 1-3x normal limit HEART Score: 6 Critical Care Critical Care Time Critical Care Time: No Medical Decision Making Medical Records Medical records reviewed: Yes I reviewed the patient's medical records. Maxwell Inquiry Pt receiving controlled substance: No Maxwell was queried for this patient: No Vital Signs Vital Signs: 02/11/25 12:50 02/11/25 13:30 02/11/25 14:00 Temperature 98.0 F Temperature Source Temporal Artery Scan Pulse Rate 98 H Pulse Rate [Right Radial] 108 H Respiratory Rate 18 21 Blood Pressure Blood Pressure [Right Arm] 129/55 L Blood Pressure Mean Blood Pressure Mean [Right Arm] 79 Blood Pressure Source [Right Arm] Automatic Cuff Blood Pressure Position [Right Arm] Sitting 02 Sat by Pulse Oximetry 89 L 95 97 Oxygen Delivery Method Room Air Nasal Cannula Nasal Cannula Oxygen Flow Rate (LPM) 3 3 02/11/25 14:00 02/11/25 14:15 02/11/25 15:00 Temperature Temperature Source Pulse Rate 87 87 94 H Pulse Rate [Right Radial] Respiratory Rate 18 16 21 Blood Pressure 108/58 L 116/61 Blood Pressure [Right Arm] Blood Pressure Mean Blood Pressure Mean [Right Arm] Blood Pressure Source [Right Arm] Blood Pressure Position [Right Arm] 02 Sat by Pulse Oximetry 95 93 L 93 L Oxygen Delivery Method Room Air Nasal Cannula Nasal Cannula Oxygen Flow Rate (LPM) 3 2 02/11/25 15:30 02/11/25 16:00 02/11/25 16:30 Temperature Temperature Source Pulse Rate 97 H 93 H 90 Pulse Rate [Right Radial] Respiratory Rate 23 24 18 Blood Pressure 116/62 103/53 L 107/50 L Blood Pressure [Right Arm] Blood Pressure Mean 67 Blood Pressure Mean [Right Arm] Blood Pressure Source [Right Arm] Blood Pressure Position [Right Arm] 02 Sat by Pulse Oximetry 93 L 94 L 94 L Oxygen Delivery Method Nasal Cannula Nasal Cannula Nasal Cannula Oxygen Flow Rate (LPM) 3 Lab Data Lab results reviewed: Yes I reviewed the patient's lab results. Labs: Lab Results 02/11/25 12:53: SARS-CoV-2 (PCR) Not detected, Influenza A Untype (PCR) Not detected, Influenza Type B (PCR) Not detected 02/11/25 13:36: WBC 8.2, RBC 4.67, Hgb 13.8, Hct 41.2, MCV 88.2, MCH 29.6, MCHC 33.5, RDW 13.9, Plt Count 190, MPV 11.0 H, Neut % (Auto) 76.3, Lymph % (Auto) 8.5 L, [place] % (Auto) 13.6 H, Eos % (Auto) 0.4, Baso % (Auto) 0.8, Neut # (Auto) 6.3, Lymph # (Auto) 0.7, [place] # (Auto) 1.1 H, Eos # (Auto) 0.0, Baso # (Auto) 0.1, Sodium 136, Potassium 3.2 L, Chloride 99, Carbon Dioxide 30, Anion Gap 10.2, BUN 29 H, Creatinine 1.00, Estimated Creat Clear 45, Estimated GFR 53 L, Est GFR ( Amer) 65, Glucose 109 H, Calcium 9.0, Total Bilirubin 1.0, AST 31, ALT 14, Alkaline Phosphatase 98, Troponin I 0.07 H, Total Protein 7.5, Albumin 3.9, Globulin 3.6 H, Albumin/Globulin Ratio 1.1 02/11/25 13:42: VBG pH 7.39, VBG pCO2 52.5 H, VBG pO2 33.4, VBG HCO3 31.0 H, VBG Total CO2 32.6 H, VBG O2 Saturation 65.0, VBG Base Excess 6.0 H, VBG Lactic Acid 1.9 02/11/25 16:31: Urine Color Yellow, Urine Appearance Clear, Urine pH 5.5, Ur Specific [place] 1.010, Urine Protein Negative, Urine Glucose (UA) 3+, Urine Ketones Negative, Urine Blood Trace-l, Urine Nitrate Negative, Urine Bilirubin Negative, Urine Urobilinogen 0.2, Ur Leukocyte Esterase Trace 02/11/25 13:36 02/11/25 13:36 Response Orders (Tests/Meds): ED MEDICATIONS Discontinued Medications Generic Name Dose Route Start Last Admin Trade Name Freq PRN Reason Stop Dose Admin Albuterol Sulfate 2.5 mg 02/11/25 13:18 02/11/25 13:45 Albuterol 0.083% 2.5 Mg/3 Ml Neb IH 02/11/25 13:19 2.5 mg ONCE ONE Administration Azithromycin 500 mg/ Sodium 250 mls @ 250 mls/hr 02/11/25 14:56 02/11/25 16:50 Chloride IV 02/11/25 14:57 Infused ONCE ONE Infusion Ceftriaxone Sodium 1 gm/ 50 mls @ 100 mls/hr 02/11/25 14:57 02/11/25 16:05 Sodium Chloride IV 02/11/25 15:26 Infused ONCE ONE Infusion Methylprednisolone Sodium Succinate 125 mg 02/11/25 13:45 02/11/25 13:47 Methylprednisolone Sod Succ 125mg Vial IV 02/11/25 13:46 125 mg ONCE ONE Administration Potassium Chloride 20 meq 02/11/25 14:02 02/11/25 14:18 Potassium Chloride 20meq Tab PO 02/11/25 14:03 20 meq ONCE ONE Administration ORDERS Category Date Time Status Chest XR 2 view (NOT portable) [XR chest 2V] Stat Exams 02/11/25 13:18 Completed CBC w/Auto Diff [Complete Blood Count Auto Diff] Stat Lab 02/11/25 13:36 Completed CMP [Comprehensive Metabolic Panel] Stat Lab 02/11/25 13:36 Completed Rapid PCR Covid and Flu A/B Stat Lab 02/11/25 12:53 Completed Trop I [Troponin I] Stat Lab 02/11/25 13:36 Completed Troponin I Q3H Lab 02/11/25 16:37 Received Troponin I Q3H Lab 02/11/25 19:30 Ordered UA [Urinalysis and Microscopic] Stat Lab 02/11/25 16:31 Results Blood Culture Stat Micro 02/11/25 13:36 Received Venous Blood Gas Stat RT 02/11/25 13:42 Completed EKG Request [ECG Request] Stat Y 02/11/25 13:21 Ordered MDM Narrative Medical Decision Narrative: In summary patient is a 79-year-old female who presents to the emergency department for evaluation of cough shortness of air low oxygen saturation (86- 87% RA). Patient is low oxygen saturation 86 to 87% on room air upon arrival, afebrile. Wheezing, rhonchi, low oxygen saturation,. Differential diagnosis includes bronchitis, pneumonia, COVID, respiratory virus. Initial workup will be conducted with labs, chest x-ray, EKG,. Initial inventions include Rocephin 1 g, Zithromax 500, albuterol neb, Solu-Medrol 125. Initial workup reviewed by nc- VBG pH 7.39, VBG pCO2 52.5 H, VBG pO2 33.4, VBG HCO3 31.0 H, VBG Total CO2 32.6 H, VBG O2 Saturation 65.0, VBG Base Excess 6.0 H, VBG Lactic Acid 1.9, potassium 3.2 p.o. potassium given, chest r-[id number] markings bilaterally, may be pulmonary edema and/or pneumonia with small pleural effusions. Patient is requiring 3 L of O2 to maintain O2 saturation of 94%. Upon repeat evaluation patient is requiring 3 L of O2 to maintain oxygen saturation 94%. Given this patient will be admitted to Dr. Cancino- accepted patient for admission.
[2025-02-11] MEDS: ALBUTEROL 0.083% 2.5 MG/3 ML NEB IH (13:45)
[2025-02-11] MEDS: METHYLPREDNISOLONE SOD SUCC 125MG VIAL 125 MG IV (13:47)
[2025-02-11 13:48] LABS: Lactate Venous 1.9 mmol/L (0.4-2.0); VBG HCO3 31.0 mmol/L (23-30); VBG PH 7.39 mmol/L (7.31-7.41); VBG PO2 33.4 mmol/L (28-40)
[2025-02-11 13:49] LABS: Hematocrit 41.2 % (37.0-47.0); Hemoglobin 13.8 g/dL (12.2-16.2); Immature Granulocytes % 0.4 %; Mean Corpuscular HGB Conc 33.5 g/dL (31.8-35.4); Mean Corpuscular Hemoglobin 29.6 pg (27.0-31.2); Mean Corpuscular Volume 88.2 fl (81-99); Nucleated Red Blood Cells % 0 %; Platelet Count 190 K/mm3 (142-424); Red Blood Count 4.67 M/mm3 (4.20-5.40); Red Cell Distribution Width-SD 44.7 fL; White Blood Count 8.2 K/mm3 (4.8-10.8)
[2025-02-11 13:51] LABS: VBG PCO2 52.5 mmol/L (35-51)
[2025-02-11 13:55] LABS: Albumin Level 3.9 g/dl (3.5-5.0); Chloride 99 mmol/L (98-107); Potassium 3.2 mmoL/L (3.5-5.1); Sodium 136 mmol/L (136-145)
[2025-02-11 13:58] LABS: Alanine Aminotransferase 14 U/L (12-78); Albumin/Globulin Ratio 1.1 (1.1-1.8); Alkaline Phosphatase 98 U/L (38-126); Anion Gap 10.2 mEq/L (5-15); Aspartate Amino Transferase 31 U/L (14-36); Bilirubin,Total 1.0 mg/dl (0.2-1.3); Blood Urea Nitrogen 29 mg/dl (7-17); Calcium 9.0 mg/dl (8.4-10.2); Carbon Dioxide 30 mmol/L (22.0-30.0); Creatinine Clearance Estimated 45 mL/min (50-200); Creatinine,Serum 1.00 mg/dl (0.52-1.04); Estimated Glomerular Filt Rate 53 ml/min (>60); GFR (African American) 65 ML/MIN (>60); Globulin 3.6 g/dL (1.3-3.2); Glucose 109 mg/dl (74-100); Total Protein,Serum 7.5 g/dl (6.3-8.2)
[2025-02-11 14:10] LABS: Troponin I 0.07 ng/ml (0.00-0.034)
[2025-02-11] MEDS: POTASSIUM CHLORIDE 20MEQ TAB 20 MEQ PO (14:18)
[2025-02-11] MEDS: AZITHROMYCIN 500 MG in 0.9 % SODIUM CHLORIDE 250 ML 250 MG IV (15:27)
[2025-02-11 16:36] LABS: Microscopic, Urine URINE MICROSCOPIC (MICROSCOPIC)
[2025-02-11 16:41] LABS: Bilirubin,Urine Negative (Negative); Color,Urine YELLOW (Yellow); Glucose,Urine (UA) 3+ (Negative); Ketones,Urine Negative (Negative); Leukocyte Esterase,Urine TRACE (Negative); PH,Urine 5.5 (5.0-8.5); Protein,Urine Negative (Negative); Specific Gravity, Urine 1.010 (1.005-1.030); Urobilinogen,Urine 0.2 EU/dl (0.2)
--- NOTE | 2025-02-11 16:45 | PC.NURSE ---
Dr. Barak broderick.
[2025-02-11 17:12] LABS: Bacteria,Urine 3+ /lpf; Hyaline Casts,Urine Occasional #/lpf (0)
[2025-02-11 17:16] LABS: Troponin I 0.07 ng/ml (0.00-0.034)
--- NOTE | 2025-02-11 17:31 | PC.NURSE ---
Report called to Anita on Med Surg.
--- NOTE | 2025-02-11 17:47 | PC.NURSE ---
arrived to floor by w/c from ED
--- NOTE | 2025-02-11 18:19 | PC.NURSE ---
pt arrived to floor from ED @ 1747. requiring 2LNC to maintain sats >90%. no complaints of pain. call light within reach. bed in low and locked position.
[2025-02-11 20:26] LABS: Troponin I 0.06 ng/ml (0.00-0.034)
[2025-02-12] VITALS (7 sets, daily range): BP systolic 113–124; BP diastolic 65–76; PULSE 71–87; RESP 14–19; TEMP 36.5–37; O2SAT 91–94; BMI 22.4
[2025-02-12 05:50] LABS: Hematocrit 39.1 % (37.0-47.0); Hemoglobin 12.9 g/dL (12.2-16.2); Immature Granulocytes % 0.6 %; Mean Corpuscular HGB Conc 33.0 g/dL (31.8-35.4); Mean Corpuscular Hemoglobin 29.3 pg (27.0-31.2); Mean Corpuscular Volume 88.9 fl (81-99); Nucleated Red Blood Cells % 0 %; Platelet Count 193 K/mm3 (142-424); Red Blood Count 4.40 M/mm3 (4.20-5.40); Red Cell Distribution Width-SD 45.1 fL; White Blood Count 7.8 K/mm3 (4.8-10.8)
[2025-02-12 05:59] LABS: Anion Gap 12.5 mEq/L (5-15); Blood Urea Nitrogen 35 mg/dl (7-17); Calcium 8.8 mg/dl (8.4-10.2); Carbon Dioxide 27 mmol/L (22.0-30.0); Chloride 102 mmol/L (98-107); Creatinine Clearance Estimated 39 mL/min (50-200); Creatinine,Serum 1.10 mg/dl (0.52-1.04); Estimated Glomerular Filt Rate 48 ml/min (>60); GFR (African American) 58 ML/MIN (>60); Glucose 143 mg/dl (74-100); Potassium 3.5 mmoL/L (3.5-5.1); Sodium 138 mmol/L (136-145)
[2025-02-12 06:38] LABS: Total Cells Counted 100
--- NOTE | 2025-02-12 07:43 | HMH.PHAINT1 ---
Pharmacy Intervention Comments: MEDICATION RECONCILIATION COMPLETED ON PATIENT USING EXTERNAL FILL HISTORY FROM PHARMACY AND LIST FROM CARDIOLOGY OFFICE. -NANNETTE BROWN, NASEEMD
--- NOTE | 2025-02-12 07:54 | PC.NURSE ---
Pt. is alert and orientated x 4. Pt. is on oxygen 2 liters per N/C to keep O2 sats >90%. Pt. has been resting off and on this shift. Pt. has had no c/o pain or discomfort. Pt. up independently to the bathroom. Personal items and call zafar in reach. Bed in low and locked position. safety mfeasures in place.
--- NOTE | 2025-02-12 08:37 | EXP.HP ---
History of Present Illness *Admission Date: 02/11/25 *Reason for visit:: shortness of breath *History of present illness: 79-year-old female presents for complaints of shortness of air. Patient states started with cold-like symptoms last Sunday she took some Delsym which she believes gave her diarrhea. Patient states she just is getting worse instead of better and this morning family checked her O2 saturation and it was 84% and she was coughing up thick green sputum so she came to the ER to be evaluated. In summary patient is a 79-year-old female who presents to the emergency department for evaluation of cough shortness of air low oxygen saturation (86-87% RA). Patient is low oxygen saturation 86 to 87% on room air upon arrival, afebrile. Wheezing, rhonchi, low oxygen saturation,. Differential diagnosis includes bronchitis, pneumonia, COVID, respiratory virus. Initial workup will be conducted with labs, chest x-ray, EKG,. Initial inventions include Rocephin 1 g, Zithromax 500, albuterol neb, Solu-Medrol 125. Initial workup reviewed by pr- VBG pH 7.39, VBG pCO2 52.5 H, VBG pO2 33.4, VBG HCO3 31.0 H, VBG Total CO2 32.6 H, VBG O2 Saturation 65.0, VBG Base Excess 6.0 H, VBG Lactic Acid 1.9, potassium 3.2 p.o. potassium given, chest r-[id number]-Abuagxamkopf markings bilaterally, may be pulmonary edema and/or pneumonia with small pleural effusions. Patient is requiring 3 L of O2 to maintain O2 saturation of 94%. Upon repeat evaluation patient is requiring 3 L of O2 to maintain oxygen saturation 94%. Given this patient will be admitted to Dr. Cancino- accepted patient for admission. (above as per ER physician) Patient has had steroids, a neb treatment, and a dose of zithromax and rocephin. She is feeling a little better today but cannot sleep. [facility] Disclaimer: The information contained in this section may have been updated after the patient was seen, as this information can be updated by other users. 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) Thyroiditis Angiodysplasia of colon Anemia Coronary artery disease CHF (congestive heart failure) Gastritis Postoperative hypoxia Respiratory failure with hypoxia Elevated troponin Mitral valve disorder HTN (hypertension) Amyloidosis Carotid artery stenosis Carotid artery disease Hyperlipidemia Edema (HFpEF) heart failure with preserved ejection fraction Goiter Myocardial infarct Macular degeneration Surgical History Hx of partial thyroidectomy Hx of removal of ovary History of hemorrhoidectomy History of cataract surgery History of colonoscopy Status post coronary artery stent placement H/O esophagogastroduodenoscopy History of ovarian cystectomy Hx of tonsillectomy History of thyroid surgery H/O hernia repair H/O heart artery stent Family History Heart attack Social History Smoking Status: Current every day smoker tobacco type: cigarettes alcohol intake: never substance use type: denies use current occupational status: retired Travel in the last 8 weeks?: None Have you lived/traveled outside US in past 30 days?: No Contact w/someone who lives/traveled outside US past 30 days?: No Exposure to someone with infectious disease in past 14 days?: No Do you have a fever (greater than 100.4 F or 38 C)?: No Have you tested positive for COVID-19?: No Exposed to someone with COVID-19 in past 14 days?: No Do you have a sore throat?: No Do you have a cough?: No Do you have any weakness?: No Do you have any diarrhea?: No Are you experiencing any unusual bleeding?: No Do you have any muscle aches/pain?: No Do you have any abdominal pain?: No Are you experiencing loss of taste or smell?: No Other 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 Have you received the Flu Vaccine for this season: No Have you received the Pneumonia Vaccine: No Review of Systems Constitutional Constitutional: Reports fatigue, Reports headache(s) and Reports weakness Eyes Eyes: Denies blurry vision and Denies diplopia ENT Ears, Nose, Mouth, and Throat: Reports headache(s), Reports nasal congestion, Reports sore throat and Reports vertigo *Cardiovascular Cardiovascular: Denies chest pain, Reports dyspnea and Denies leg edema *Respiratory Respiratory: Reports chest congestion, Reports cough, Reports dyspnea and Reports excessive phlegm production *Gastrointestinal Gastrointestinal: Denies abdominal pain, Reports loose stools, Reports nausea and Denies vomiting *Genitourinary Genitourinary: Denies difficulty voiding and Denies dysuria *Musculoskeletal Musculoskeletal: Denies arthralgias and Denies myalgias *Neurologic Neurologic: Reports headache(s), Reports vertigo and Reports weakness Endocrine Endocrine: Reports fatigue Meds Home Medications and Allergies Home Medications ?Medication ?Instructions ?Recorded ?Confirmed ?Type vit C 250 mg-vit E 90 mg-zinc 40 1 tab PO DAILY 06/09/19 02/11/25 History mg-copper 1 [id number] capsule (PreserVision AREDS-2) aspirin 81 mg tablet,delayed 81 mg PO DAILY #30 tabs 07/22/24 02/11/25 Rx release (Adult Low Dose Aspirin) Jardiance 10 mg tablet 10 mg PO DAILY #90 tabs 09/08/24 02/11/25 Rx (empagliflozin) pantoprazole 40 mg tablet,delayed 40 mg PO DAILY 12/02/24 02/12/25 History release sucralfate 1 gram tablet 1 g PO DAILY 12/02/24 02/12/25 History levothyroxine 100 mcg tablet 100 mcg PO DAILY 12/22/24 02/11/25 History (Synthroid) rosuvastatin 10 mg tablet (Crestor) 10 mg PO DAILY #90 tabs 01/19/25 02/11/25 Rx spironolactone 25 mg tablet 12.5 mg (1/2 x 25 mg) PO DAILY 90 01/19/25 02/11/25 Rx (Aldactone) days #45 tabs furosemide 40 mg tablet 80 mg PO DAILY 02/12/25 02/12/25 History New Prescriptions to Start Prescriptions: Allergies Allergy/AdvReac Type Severity Reaction Status Date / Time No Known Allergies Allergy Verified 01/19/25 14:23 Exam Data for Last 24 hours Vital signs and Labs for Last 24 Hours: Temp Pulse Resp BP Pulse Ox O2 Del Method O2 Flow Rate 97.7 F 82 17 123/67 92 L Nasal Cannula 2 02/12/25 07:43 02/12/25 07:43 02/12/25 07:43 02/12/25 07:43 02/12/25 07:43 02/12/25 07:43 02/12/25 07:43 Laboratory Results - last 24 hr 02/11/25 12:53: SARS-CoV-2 (PCR) Not detected, Influenza A Untype (PCR) Not detected, Influenza Type B (PCR) Not detected 02/11/25 13:36: WBC 8.2, RBC 4.67, Hgb 13.8, Hct 41.2, MCV 88.2, MCH 29.6, MCHC 33.5, RDW 13.9, Plt Count 190, MPV 11.0 H, Neut % (Auto) 76.3, Lymph % (Auto) 8.5 L, Burke % (Auto) 13.6 H, Eos % (Auto) 0.4, Baso % (Auto) 0.8, Neut # (Auto) 6.3, Lymph # (Auto) 0.7, Burke # (Auto) 1.1 H, Eos # (Auto) 0.0, Baso # (Auto) 0.1, Sodium 136, Potassium 3.2 L, Chloride 99, Carbon Dioxide 30, Anion Gap 10.2, BUN 29 H, Creatinine 1.00, Estimated Creat Clear 45, Estimated GFR 53 L, Est GFR ( Amer) 65, Glucose 109 H, Calcium 9.0, Total Bilirubin 1.0, AST 31, ALT 14, Alkaline Phosphatase 98, Troponin I 0.07 H, Total Protein 7.5, Albumin 3.9, Globulin 3.6 H, Albumin/Globulin Ratio 1.1 02/11/25 13:42: VBG pH 7.39, VBG pCO2 52.5 H, VBG pO2 33.4, VBG HCO3 31.0 H, VBG Total CO2 32.6 H, VBG O2 Saturation 65.0, VBG Base Excess 6.0 H, VBG Lactic Acid 1.9 02/11/25 16:31: Urine Color Yellow, Urine Appearance Clear, Urine pH 5.5, Ur Specific [place] 1.010, Urine Protein Negative, Urine Glucose (UA) 3+, Urine Ketones Negative, Urine Blood Trace-l, Urine Nitrate Negative, Urine Bilirubin Negative, Urine Urobilinogen 0.2, Ur Leukocyte Esterase Trace, Urine RBC 5-10, Urine WBC 10-20, Ur Squamous Epith Cells 10-20, Urine Bacteria 3+, Hyaline Casts Occasional 02/11/25 16:37: Troponin I 0.07 H 02/11/25 19:43: Troponin I 0.06 H 02/12/25 05:24: WBC 7.8, RBC 4.40, Hgb 12.9, Hct 39.1, MCV 88.9, MCH 29.3, MCHC 33.0, RDW 13.9, Plt Count 193, MPV 11.7 H, Neut % (Auto) 87.9 H, Lymph % (Auto) 6.9 L, Burke % (Auto) 4.1, Eos % (Auto) 0.0 L, Baso % (Auto) 0.5, Neut # (Auto) 6.9, Lymph # (Auto) 0.5 L, Burke # (Auto) 0.3, Eos # (Auto) 0.0, Baso # (Auto) 0.0, Total Counted 100, Neutrophils % (Manual) 85 H, Band Neutrophils % 5, Lymphocytes % (Manual) 5 L, Monocytes % (Manual) 5, Sodium 138, Potassium 3.5, Chloride 102, Carbon Dioxide 27, Anion Gap 12.5, BUN 35 H, Creatinine 1.10 H, Estimated Creat Clear 39, Estimated GFR 48 L, Est GFR ( Amer) 58 L, Glucose 143 H D, Calcium 8.8 I & O for Last 24 hours: Intake & Output 02/09/25 02/10/25 02/11/25 02/12/25 11:59 11:59 11:59 11:59 Intake Total 900 / 900 Output Total 0 / 0 Balance 900 / 900 Weight 131 lb 4.8 oz Constitutional Constitutional: no acute distress *Routine HEENT Exam Head: Present normocephalic and atraumatic Eye: Present EOMI and PERRL ENT: Present mucous membranes moist *Routine Neck Exam Neck: Present supple and full ROM *Routine Respiratory Exam Respiratory: Present rales (bilateral bases); Absent wheezes *Routine Cardiovascular Exam Cardiovascular: Present RRR *Routine Abdominal Exam Abdominal: Present soft and normoactive bowel sounds; Absent tenderness *Routine Rectal Exam Rectal:: deferred *Routine Genitalia Exam Genitalia:: deferred *Routine Extremities Exam Extremities: Absent cyanosis, clubbing or edema *Routine Skin Exam Skin: Present intact; Absent erythema *Routine Neurological Exam Neurological: Present alert and oriented X3 H&P: Result Impressions CXR - Interstitial markings bilaterally, may be pulmonary edema and/or pneumonia with small pleural effusions. Recommend continued follow-up to resolution. Assessment and Plan *Assessment and plan (1) Pneumonia: Status: Acute Qualifiers: Laterality: bilateral Lung location: lower lobe of lung Pneumonia type: due to unspecified organism Qualified Code(s): J18.9 - Pneumonia, unspecified organism Category: Medical Code(s): J18.9 - Pneumonia, unspecified organism (2) Hypothyroidism: Problem Comment: Currently on replacement therapy and feeling well. TSH is 0.36 and Free T4 is 1.61 Status: Chronic Qualifiers: Hypothyroidism type: postoperative Qualified Code(s): E89.0 - Postprocedural hypothyroidism Category: Medical Code(s): E03.9 - Hypothyroidism, unspecified (3) ASCVD (arteriosclerotic cardiovascular disease): Status: Acute Category: Medical Code(s): I25.10 - Atherosclerotic heart disease of [place] coronary artery without angina pectoris (4) (HFpEF) heart failure with preserved ejection fraction: Status: Acute Qualifiers: Heart failure chronicity: acute on chronic Qualified Code(s): I50.33 - Acute on chronic diastolic (congestive) heart failure Category: Medical Code(s): I50.30 - Unspecified diastolic (congestive) heart failure (5) Hyperlipidemia: Status: Acute Qualifiers: Hyperlipidemia type: mixed hyperlipidemia Qualified Code(s): E78.2 - Mixed hyperlipidemia Category: Medical Code(s): E78.5 - Hyperlipidemia, unspecified (6) Hypokalemia: Status: Acute Category: Medical Code(s): E87.6 - Hypokalemia Plan Patient has been started on Zithromax and Rocephin. She was also given steroids and DuoNebs. She is feeling better this morning. Will await sputum culture results. She will need potassium supplementation. Dr. Grider entry - Saw patient, agree with above note.
[2025-02-12] MEDS: CEFTRIAXONE 1 GM 1 GM in 0.9 % SODIUM CHLORIDE 50 ML IV (09:17)
[2025-02-12] MEDS: ASPIRIN EC 81MG TABLET 81 MG PO (09:17)
[2025-02-12] MEDS: SUCRALFATE 1GM TABLET 1 GM PO (09:17)
[2025-02-12] MEDS: POTASSIUM CHLORIDE 20MEQ TAB 20 MEQ PO (09:17)
[2025-02-12] MEDS: LEVOTHYROXINE 100MCG (0.1MG) TAB 100 MCG PO (09:17)
[2025-02-12] MEDS: AZITHROMYCIN 500 MG in 0.9 % SODIUM CHLORIDE 250 ML 250 MG IV (09:50)
[2025-02-12] MEDS: SODIUM CHLORIDE 3% 15ML NEB 3 ML IH (13:24)
[2025-02-12] MEDS: IPRATROPIUM/ALBUTEROL 3 ML NEB IH ×2 (13:24→19:25)
--- NOTE | 2025-02-12 13:41 | PC.NURSE ---
Sputum specimen collected and sent to the lab.
--- NOTE | 2025-02-12 17:56 | PC.NURSE ---
AOX4, 2LNC FOR O2 SUPPORT. AMBULATES IN ROOM INDEPENDENTLY. NO COMPLAINTS THIS SHIFT. STATES THAT SHE FEELS BETTER.
[2025-02-12] MEDS: FAMOTIDINE 20MG TABLET 20 MG PO (20:43)
[2025-02-12] MEDS: ATORVASTATIN 40MG TABLET 40 MG PO (20:43)
[2025-02-13] VITALS (10 sets, daily range): BP systolic 107–141; BP diastolic 60–79; PULSE 68–99; RESP 12–18; TEMP 36.5–37.5; O2SAT 94–98; BMI 22.4
--- NOTE | 2025-02-13 05:23 | PC.NURSE ---
Pt. is alert and orientated x 4. Pt. is on 2 liters oxygen per N/C. Pt. has a congested cough but did not want any cough medication. Pt. states she feels better. Pt. is up independently to the bathroom. Pt. dozed off and on this shift, she states she does not sleep well in the hospital. Pt. states she wants to go home. Pt. has no needs this shift. Personal items and call zafar in reach. Bed in low and locked position. safety measures in place.
[2025-02-13] MEDS: IPRATROPIUM/ALBUTEROL 3 ML NEB IH ×3 (06:27→20:22)
[2025-02-13] MEDS: LEVOTHYROXINE 100MCG (0.1MG) TAB 100 MCG PO (07:00)
--- NOTE | 2025-02-13 08:36 | EXP.ACUTE.PN ---
Subjective *Date: 02/13/25 *Time: 08:36 Interval history: Patient with no new complaints, wants to go home. Medical Exam Vital signs and Labs for Last 24 Hours: Vital Signs Temp Pulse Pulse Resp BP BP Pulse Ox 02/13/25 08:00 98.4 F 94 H 18 133/72 95 02/13/25 06:45 02/13/25 06:27 76 02/13/25 06:27 82 02/13/25 06:27 94 L 02/13/25 05:00 02/13/25 04:00 97.7 F 72 12 130/63 94 L 02/13/25 03:00 02/13/25 01:00 02/13/25 00:00 98.0 F 68 14 114/64 96 02/12/25 23:00 02/12/25 21:00 02/12/25 20:00 14 94 L 02/12/25 20:00 98.2 F 82 14 117/65 94 L 02/12/25 19:25 77 02/12/25 19:25 80 02/12/25 19:25 94 L 02/12/25 18:27 02/12/25 17:00 02/12/25 15:54 98.6 F 78 18 113/66 93 L 02/12/25 15:00 02/12/25 13:28 82 16 02/12/25 13:28 82 02/12/25 13:28 87 02/12/25 13:28 91 L 02/12/25 13:00 02/12/25 11:31 97.7 F 72 19 118/65 93 L 02/12/25 11:00 02/12/25 09:00 O2 Del Method O2 Flow Rate 02/13/25 08:00 2 02/13/25 06:45 Nasal Cannula 2 02/13/25 06:27 02/13/25 06:27 02/13/25 06:27 Nasal Cannula 2 02/13/25 05:00 2 02/13/25 04:00 Nasal Cannula 2 02/13/25 03:00 Nasal Cannula 2 02/13/25 01:00 Nasal Cannula 2 02/13/25 00:00 Nasal Cannula 2 02/12/25 23:00 Nasal Cannula 2 02/12/25 21:00 Nasal Cannula 2 02/12/25 20:00 Nasal Cannula 2 02/12/25 20:00 Nasal Cannula 2 02/12/25 19:25 02/12/25 19:25 02/12/25 19:25 Nasal Cannula 2 02/12/25 18:27 Nasal Cannula 2 02/12/25 17:00 Nasal Cannula 2 02/12/25 15:54 Nasal Cannula 2 02/12/25 15:00 Nasal Cannula 2 02/12/25 13:28 02/12/25 13:28 02/12/25 13:28 02/12/25 13:28 Nasal Cannula 2 02/12/25 13:00 Nasal Cannula 2 02/12/25 11:31 Nasal Cannula 2 02/12/25 11:00 Nasal Cannula 2 02/12/25 09:00 Nasal Cannula 2 Intake and Output 02/12/25 02/13/25 02/13/25 23:59 07:59 15:59 Intake Total 480 / 1860 240 / 240 Output Total 0 / 0 0 / 0 0 / 0 Balance 480 / 1860 240 / 240 0 / 240 Intake: Intake, Oral Amount 480 / 1560 240 / 240 Output: Output, Urine Amount 0 / 0 0 / 0 0 / 0 Other: Number of Unmeasured Voids 1 1 1 Weight 131 lb Patient Weight 02/13/25 23:59 Weight 131 lb I & O for Labs for Last 24 Hours: Intake & Output 02/10/25 02/11/25 02/12/25 02/13/25 23:59 23:59 23:59 23:59 Intake Total 540 / 540 1620 / 1860 240 / 240 Output Total 0 / 0 0 / 0 0 / 0 Balance 540 / 540 1620 / 1860 240 / 240 Weight 131 lb 9.6 oz 131 lb 4.8 oz 131 lb Microbiology Reports for the Last 24 Hours: Microbiology 02/12/25 13:40 Sputum - Expectorated Sputum Gram Stain - Final 02/11/25 13:36 Blood Blood Culture - Preliminary NO GROWTH AFTER 24 HOURS 02/11/25 13:42 Blood Blood Culture - Preliminary NO GROWTH AFTER 24 HOURS Constitutional: Present no acute distress Respiratory: Present CTA bilaterally Cardiac: Present Reg Rate and Rhythm GI: Present soft; Absent distention or tenderness Extremities: Absent edema Skin: Present intact Neuro: Present alert, awake and oriented x 3 Assessment and Plan *Assessment and plan (1) Pneumonia: Status: Acute Qualifiers: Laterality: bilateral Lung location: lower lobe of lung Pneumonia type: due to unspecified organism Qualified Code(s): J18.9 - Pneumonia, unspecified organism Category: Medical Code(s): J18.9 - Pneumonia, unspecified organism (2) Hypothyroidism: Problem Comment: Currently on replacement therapy and feeling well. TSH is 0.36 and Free T4 is 1.61 Status: Chronic Qualifiers: Hypothyroidism type: postoperative Qualified Code(s): E89.0 - Postprocedural hypothyroidism Category: Medical Code(s): E03.9 - Hypothyroidism, unspecified (3) ASCVD (arteriosclerotic cardiovascular disease): Status: Acute Category: Medical Code(s): I25.10 - Atherosclerotic heart disease of [place] coronary artery without angina pectoris (4) (HFpEF) heart failure with preserved ejection fraction: Status: Acute Qualifiers: Heart failure chronicity: acute on chronic Qualified Code(s): I50.33 - Acute on chronic diastolic (congestive) heart failure Category: Medical Code(s): I50.30 - Unspecified diastolic (congestive) heart failure (5) Hyperlipidemia: Status: Acute Qualifiers: Hyperlipidemia type: mixed hyperlipidemia Qualified Code(s): E78.2 - Mixed hyperlipidemia Category: Medical Code(s): E78.5 - Hyperlipidemia, unspecified (6) Hypokalemia: Status: Acute Category: Medical Code(s): E87.6 - Hypokalemia Plan Wean off of supplemental oxygen, possible discharge later today.
[2025-02-13] MEDS: ASPIRIN EC 81MG TABLET 81 MG PO (09:07)
[2025-02-13] MEDS: POTASSIUM CHLORIDE 20MEQ TAB 20 MEQ PO (09:07)
[2025-02-13] MEDS: SUCRALFATE 1GM TABLET 1 GM PO (09:07)
[2025-02-13] MEDS: CEFTRIAXONE 1 GM 1 GM in 0.9 % SODIUM CHLORIDE 50 ML IV (09:07)
[2025-02-13] MEDS: AZITHROMYCIN 250MG TABLET 500 MG PO (09:07)
--- NOTE | 2025-02-13 15:51 | PC.NURSE ---
Aox4, 02-1L sandip sats in the 90's, up with assistance times one, 20g R AC sl, lovenox for vte.
[2025-02-13] MEDS: FAMOTIDINE 20MG TABLET 20 MG PO (20:43)
[2025-02-13] MEDS: ATORVASTATIN 40MG TABLET 40 MG PO (20:43)
[2025-02-14] VITALS: BP 103/68; PULSE 83; RESP 16; TEMP 36.8; O2SAT 93
[2025-02-14 04:00] VITALS: BP 132/86; PULSE 95; RESP 17; TEMP 37.2; O2SAT 92; BMI 23.1
--- NOTE | 2025-02-14 06:25 | PC.NURSE ---
Pt is A& OX 4, 2 l NC, Pt lung sound elizabethi Last night. Independent in the room. Pt is wanting to go home today. When seem by the MD this AM. KELLEY GRIJALVA RN
[2025-02-14 07:02] VITALS: PULSE 85; O2SAT 95
[2025-02-14] MEDS: IPRATROPIUM/ALBUTEROL 3 ML NEB IH (07:02)
[2025-02-14] MEDS: LEVOTHYROXINE 100MCG (0.1MG) TAB 100 MCG PO (07:22)
[2025-02-14 07:29] VITALS: BP 127/67; PULSE 82; RESP 16; TEMP 37.2; O2SAT 92
[2025-02-14] MEDS: POTASSIUM CHLORIDE 20MEQ TAB 20 MEQ PO (08:24)
[2025-02-14] MEDS: ASPIRIN EC 81MG TABLET 81 MG PO (08:24)
[2025-02-14] MEDS: AZITHROMYCIN 250MG TABLET 500 MG PO (08:24)
[2025-02-14] MEDS: CEFTRIAXONE 1 GM 1 GM in 0.9 % SODIUM CHLORIDE 50 ML IV (08:24)
[2025-02-14] MEDS: SUCRALFATE 1GM TABLET 1 GM PO (08:24)
--- NOTE | 2025-02-14 08:57 | EXP.ACUTE.PN ---
Subjective *Date: 02/14/25 *Time: 08:57 Interval history: Patient feels better, wants to go home. Off of supplemental oxygen now. Medical Exam Vital signs and Labs for Last 24 Hours: Vital Signs Temp Pulse Pulse Resp BP BP Pulse Ox 02/14/25 07:29 98.9 F 82 16 127/67 92 L 02/14/25 07:02 85 02/14/25 07:02 85 02/14/25 07:02 95 02/14/25 06:17 02/14/25 05:00 02/14/25 04:00 99.0 F 95 H 17 132/86 92 L 02/14/25 03:00 02/14/25 01:00 02/14/25 00:00 98.2 F 83 16 103/68 L 93 L 02/13/25 23:00 02/13/25 21:00 02/13/25 20:23 86 02/13/25 20:23 87 02/13/25 20:23 94 L 02/13/25 20:00 95 02/13/25 19:47 99.0 F 88 16 107/60 L 94 L 02/13/25 18:31 02/13/25 17:00 02/13/25 16:00 99.5 F 99 H 18 141/79 H 95 02/13/25 15:00 02/13/25 13:17 95 H 02/13/25 13:17 91 H 02/13/25 13:17 98 02/13/25 12:17 98.4 F 84 16 126/60 94 L 02/13/25 11:00 02/13/25 09:00 O2 Del Method O2 Flow Rate 02/14/25 07:29 Nasal Cannula 1 02/14/25 07:02 02/14/25 07:02 02/14/25 07:02 Nasal Cannula 1 02/14/25 06:17 Nasal Cannula 2 02/14/25 05:00 Nasal Cannula 2 02/14/25 04:00 Nasal Cannula 2 02/14/25 03:00 Nasal Cannula 2 02/14/25 01:00 Nasal Cannula 2 02/14/25 00:00 Nasal Cannula 2 02/13/25 23:00 Nasal Cannula 2 02/13/25 21:00 Nasal Cannula 2 02/13/25 20:23 02/13/25 20:23 02/13/25 20:23 Nasal Cannula 1 02/13/25 20:00 Nasal Cannula 1 02/13/25 19:47 Nasal Cannula 2 02/13/25 18:31 Nasal Cannula 1 02/13/25 17:00 Nasal Cannula 1 02/13/25 16:00 Nasal Cannula 1 02/13/25 15:00 Nasal Cannula 1 02/13/25 13:17 02/13/25 13:17 02/13/25 13:17 Nasal Cannula 1 02/13/25 12:17 Nasal Cannula 1 02/13/25 11:00 Nasal Cannula 1 02/13/25 09:00 Nasal Cannula 1 Intake and Output 02/13/25 02/14/25 02/14/25 23:59 07:59 15:59 Intake Total 420 / 1452 222 / 642 420 / 642 Output Total 0 / 0 0 / 0 Balance 420 / 1452 222 / 642 420 / 642 Intake: Intake, Oral Amount 420 / 1402 222 / 642 420 / 642 Output: Output, Urine Amount 0 / 0 0 / 0 Other: Number of Unmeasured Voids 1 1 Number of Bowel Movements 1 Weight 135 lb 8 oz Patient Weight 02/14/25 23:59 Weight 135 lb 8 oz I & O for Labs for Last 24 Hours: Intake & Output 02/11/25 02/12/25 02/13/25 02/14/25 23:59 23:59 23:59 23:59 Intake Total 540 / 540 1620 / 1860 1230 / 1452 642 / 642 Output Total 0 / 0 0 / 0 0 / 0 0 / 0 Balance 540 / 540 1620 / 1860 1230 / 1452 642 / 642 Weight 131 lb 9.6 oz 131 lb 4.8 oz 131 lb 135 lb 8 oz Microbiology Reports for the Last 24 Hours: Microbiology 02/11/25 13:36 Blood Blood Culture - Preliminary NO GROWTH AFTER 48 HOURS 02/11/25 13:42 Blood Blood Culture - Preliminary NO GROWTH AFTER 48 HOURS 02/11/25 16:31 Urine,Clean Catch Urine Culture - Final Multiple organisms, suggests contamination. Constitutional: Present no acute distress Respiratory: Present CTA bilaterally Cardiac: Present Reg Rate and Rhythm GI: Present soft; Absent distention or tenderness Extremities: Absent edema Skin: Present intact Neuro: Present alert, awake and oriented x 3 Assessment and Plan *Assessment and plan (1) Pneumonia: Status: Acute Qualifiers: Laterality: bilateral Lung location: lower lobe of lung Pneumonia type: due to unspecified organism Qualified Code(s): J18.9 - Pneumonia, unspecified organism Category: Medical Code(s): J18.9 - Pneumonia, unspecified organism (2) Hypothyroidism: Problem Comment: Currently on replacement therapy and feeling well. TSH is 0.36 and Free T4 is 1.61 Status: Chronic Qualifiers: Hypothyroidism type: postoperative Qualified Code(s): E89.0 - Postprocedural hypothyroidism Category: Medical Code(s): E03.9 - Hypothyroidism, unspecified (3) ASCVD (arteriosclerotic cardiovascular disease): Status: Acute Category: Medical Code(s): I25.10 - Atherosclerotic heart disease of [place] coronary artery without angina pectoris (4) (HFpEF) heart failure with preserved ejection fraction: Status: Acute Qualifiers: Heart failure chronicity: acute on chronic Qualified Code(s): I50.33 - Acute on chronic diastolic (congestive) heart failure Category: Medical Code(s): I50.30 - Unspecified diastolic (congestive) heart failure (5) Hyperlipidemia: Status: Acute Qualifiers: Hyperlipidemia type: mixed hyperlipidemia Qualified Code(s): E78.2 - Mixed hyperlipidemia Category: Medical Code(s): E78.5 - Hyperlipidemia, unspecified (6) Hypokalemia: Status: Acute Category: Medical Code(s): E87.6 - Hypokalemia Plan OK for discharge home today, plan office f/u late next week.
--- NOTE | 2025-02-14 09:48 | PC.NURSE ---
walk test with pt on room air and pulse ox on completed. pt room air while sitting up in chair 94%. walking- 89%. Dr. Grider notified.
--- NOTE | 2025-02-16 10:23 | SW/DCPLANNER ---
Spoke with patient on the phone. Patient stated that she is doing good. Patient stated that she is aware of her upcoming appointment. Patient stated that she was able to get her new medicine picked up from [facility]. Patient stated that she has no concerns or questions at this time. Hussein Rudolph
--- NOTE | 2025-02-23 23:02 | P.DS_ITS ---
General Admission date:: 02/11/25 Discharge date: 02/14/25 HPI HPI HPI: 79-year-old female presents for complaints of shortness of air. Patient states started with cold-like symptoms last Sunday she took some Delsym which she believes gave her diarrhea. Patient states she just is getting worse instead of better and this morning family checked her O2 saturation and it was 84% and she was coughing up thick green sputum so she came to the ER to be evaluated. In summary patient is a 79-year-old female who presents to the emergency department for evaluation of cough shortness of air low oxygen saturation (86- 87% RA). Patient is low oxygen saturation 86 to 87% on room air upon arrival, afebrile. Wheezing, rhonchi, low oxygen saturation,. Differential diagnosis includes bronchitis, pneumonia, COVID, respiratory virus. Initial workup will be conducted with labs, chest x-ray, EKG,. Initial inventions include Rocephin 1 g, Zithromax 500, albuterol neb, Solu-Medrol 125. Initial workup reviewed by ny- VBG pH 7.39, VBG pCO2 52.5 H, VBG pO2 33.4, VBG HCO3 31.0 H, VBG Total CO2 32.6 H, VBG O2 Saturation 65.0, VBG Base Excess 6.0 H, VBG Lactic Acid 1.9, potassium 3.2 p.o. potassium given, chest [id number] markings bilaterally, may be pulmonary edema and/or pneumonia with small pleural effusions. Patient is requiring 3 L of O2 to maintain O2 saturation of 94%. Upon repeat evaluation patient is requiring 3 L of O2 to maintain oxygen saturation 94%. Given this patient will be admitted to Dr. Cancino- accepted patient for admission. (above as per ER physician) Patient has had steroids, a neb treatment, and a dose of zithromax and rocephin. She is feeling a little better today but cannot sleep. Hospital Course Hospital Course Hospital Course: Patient was started on Zithromax and Rocephin along with steroids and DuoNebs. She did need potassium supplementation. By 02/13/2025, she was feeling much better. Her blood culture showed no growth. She was weaned off of supplemental oxygen and by 02/14/2025 stable to be discharged home with a follow-up in the office. Her sputum culture returned showing Streptococcus parasanguinous and it was sensitive to Rocephin. Exam Data for Last 24 hours Vital signs and Labs for Last 24 Hours: Temp Pulse Resp BP Pulse Ox O2 Del Method O2 Flow Rate 98.9 F 82 16 127/67 92 L Nasal Cannula 1 02/14/25 07:02/14/25 07:02/14/25 07:02/14/25 07:02/14/25 07:02/14/25 09:00 02/14/25 09:00 Narrative: Constitutional Constitutional: no acute distress *Routine HEENT Exam Head: Present normocephalic and atraumatic Eye: Present EOMI and PERRL ENT: Present mucous membranes moist *Routine Neck Exam Neck: Present supple and full ROM *Routine Respiratory Exam Respiratory: Present rales (bilateral bases); Absent wheezes *Routine Cardiovascular Exam Cardiovascular: Present RRR *Routine Abdominal Exam Abdominal: Present soft and normoactive bowel sounds; Absent tenderness *Routine Rectal Exam Rectal:: deferred *Routine Genitalia Exam Genitalia:: deferred *Routine Extremities Exam Extremities: Absent cyanosis, clubbing or edema *Routine Skin Exam Skin: Present intact; Absent erythema *Routine Neurological Exam Neurological: Present alert and oriented X3 DS: Diagnosis Discharge Diagnosis (1) Pneumonia: Status: Acute Code(s): J18.9 - Pneumonia, unspecified organism Qualifiers: Laterality: bilateral Lung location: lower lobe of lung Pneumonia type: due to unspecified organism Qualified Code(s): J18.9 - Pneumonia, unspecified organism (2) Hypothyroidism: Status: Chronic Code(s): E03.9 - Hypothyroidism, unspecified Qualifiers: Hypothyroidism type: postoperative Qualified Code(s): E89.0 - Postprocedural hypothyroidism Problem details: Currently on replacement therapy and feeling well. TSH is 0.36 and Free T4 is 1.61 (3) ASCVD (arteriosclerotic cardiovascular disease): Status: Acute Code(s): I25.10 - Atherosclerotic heart disease of [place] coronary artery without angina pectoris (4) (HFpEF) heart failure with preserved ejection fraction: Status: Acute Code(s): I50.30 - Unspecified diastolic (congestive) heart failure Qualifiers: Heart failure chronicity: acute on chronic Qualified Code(s): I50.33 - Acute on chronic diastolic (congestive) heart failure (5) Hyperlipidemia: Status: Acute Code(s): E78.5 - Hyperlipidemia, unspecified Qualifiers: Hyperlipidemia type: mixed hyperlipidemia Qualified Code(s): E78.2 - Mixed hyperlipidemia (6) Hypokalemia: Status: Acute Code(s): E87.6 - Hypokalemia Meds Home Medications and Allergies Home Medications ?Medication ?Instructions ?Recorded ?Confirmed ?Type vit C 250 mg-vit E 90 mg-zinc 40 1 tab PO DAILY 02/11/25 History mg-copper 1 [id number] capsule (PreserVision AREDS-2) aspirin 81 mg tablet,delayed 81 mg PO DAILY #30 tabs 0 07/22/24 02/11/25 Rx release (Adult Low Dose Aspirin) Jardiance 10 mg tablet 10 mg PO DAILY #90 tabs 04/0 12/2602/11/25 Rx (empagliflozin) pantoprazole 40 mg tablet,delayed 40 mg PO DAILY 12/0202/12/25 History release sucralfate 1 gram tablet 1 g PO DAILY 12/02/24 History levothyroxine 100 mcg tablet 100 mcg PO DAILY 12/22/24 02/11/25 History (Synthroid) rosuvastatin 10 mg tablet (Crestor) 10 mg PO DAILY #90 tabs 01/19/25 02/11/25 Rx spironolactone 25 mg tablet 12.5 mg (1/2 x 25 mg) PO D AILY 90 01/19/25 02/11/25 Rx (Aldactone) days #45 tabs furosemide 40 mg tablet 80 mg PO DAILY 02/12/2502/02 History azithromycin 500 mg tablet 500 mg PO DAILY 3 days #3 t abs 02/14/25 Rx (Zithromax) cefdinir 300 mg capsule 300 mg PO Q12H #14 caps 02/02 08/26 Rx New Prescriptions to Start Prescriptions: azithromycin [Zithromax] [place],Keanu cefdinir [place],Keanu Allergies Allergy/AdvReac Type Severity Reaction Status Date / Time No Known Allergies Allergy Verified 01/19/25 14:23 Discharge Plan Disposition Patient Disposition: Home, Self-Care Condition: Fair Discharge Order Discharge Orders: Discharge Order (Routine); Ordered 02/14/25 Ordered By: Keanu Grider Follow up Plan Follow up with: Elda Cancino MD [Primary Care Provider, Medical] - 02/20/25 9:45 am Prescriptions/Medication Reconciliation: New cefdinir 300 mg capsule 300 mg PO Q12H Qty: 14 0RF azithromycin [Zithromax] 500 mg tablet 500 mg PO DAILY 3 Days Qty: 3 0RF Continued PreserVision AREDS-2 [phone] du-ozxb-fo-mg capsule 1 tab PO DAILY Rx Instructions: administer with meals (after breakfast and after supper) rosuvastatin [Crestor] 10 mg tablet 10 mg PO DAILY Qty: 90 3RF spironolactone [Aldactone] 25 mg tablet 12.5 mg PO DAILY 90 Days Qty: 45 3RF levothyroxine [Synthroid] 100 mcg tablet 100 mcg PO DAILY aspirin [Adult Low Dose Aspirin] 81 mg tablet,delayed release (DR/EC) 81 mg PO DAILY Qty: 30 2RF sucralfate 1 gram tablet 1 g PO DAILY Patient Comments: TAKE ONE TABLET BY MOUTH ON an EMPTY stomach EVERY DAY Jardiance 10 mg tablet 10 mg PO DAILY Qty: 90 3RF pantoprazole 40 mg tablet,delayed release (DR/EC) 40 mg PO DAILY furosemide 40 mg tablet 80 mg PO DAILY Problem Reconciliation Problems Reviewed?: Yes Patient Discharge Instructions ACTIVITY: Continue current activity DIET: continue same diet Patient Instructions: Pneumonia--Adult, Stop Light Pneumonia, Stop Light Heart Failure Print Language: [place] Providers Primary Care Provider: Elda Cancino Admit Provider: Keanu Grider Attending Provider: Elda Cancino
== END 2025-02-14 10:34 | disposition home or self-care (01) | DRG 194 ==
LOC: ER 15:49 → 2ND 17:16
PROVIDERS: Nurse Practitioner Family; Admitting Provider Family Medicine; Emergency Provider Student in an Organized Health Care Education/Training Program; PCP Family Medicine; Visit Provider Family Medicine
DX: J15.4 Pneumonia due to other streptococci (principal); I50.30 Unspecified diastolic (congestive) heart failure; Z16.23 Resistance to quinolones and fluoroquinolones; I11.0 Hypertensive heart disease with heart failure; E89.0 Postprocedural hypothyroidism; I25.10 Atherosclerotic heart disease of native coronary artery without angina pectoris; E78.2 Mixed hyperlipidemia; E87.6 Hypokalemia; F17.210 Nicotine dependence, cigarettes, uncomplicated; Z95.5 Presence of coronary angioplasty implant and graft; Z79.890 Hormone replacement therapy; Z79.82 Long term (current) use of aspirin; Z79.899 Other long term (current) drug therapy
CPT/HCPCS: 36415; 71046; 80048; 80053; 81001; 82803; 84484; 85007; 85025; 87040; 87070; 87077; 87086; 87186; 87205; 87636; 89220; 93005; 94640; 94761; 99285; J0456; J0696; J1650; J2919; J7050

== ENCOUNTER 2025-02-20 11:56 | Outpatient (CLI) | payer MEDICARE, SELFPAY ==
--- NOTE | 2025-02-20 11:59 | XR_ITS ---
FINAL REPORT CLINICAL HISTORY: STREPTOCOCCAL PNEUMONIA COMPARISON: 02/11/2025 FINDINGS: There are underlying emphysematous changes. There has been interval improvement of increased markings seen of the lung bases particularly left side. No significant pleural effusion. There is no pneumothorax. The heart is normal in size. The mediastinum is unremarkable. IMPRESSION: Improving bibasilar pneumonia Authenticated and ERN
--- OUTSIDE RECORDS SUMMARY | 2025-02-20 11:59 | XMS_ITS | Clinical Summary ---
Author Organization [facility] Address [address] [place] [address] Care Team Providers Care Delphi Developer Name Role Phone Provider, No Known Primary [...] or training? Not on file Preferred Language Burmese 01/22/2024 Comments No Sex and Gender Information [...] Date Last Done Comments DXA SCAN 1945 TDAP/TD VACCINES (1 - Tdap) 1964 Pneumococcal Vaccine 50+ (1 of 1 - PCV) 1995 ZOSTER VACCINE (1 of 2) 1995 RSV Vaccine - Adults (1 - 1- dose 75+ series) 2020 ANNUAL PHYSICAL 01/22/2024 HEPATITIS C SCREENING 01/22/2024 COVID-19 Vaccine ( - 2024- season) 2025 05/17/2021, 09/03/2020, 08/03/2020 INFLUENZA VACCINE 03/04/2025 Insurance [facility] Medicare [employer] PPO Advance Directives Documents on File Type Date Recorded Patient Rougher Helper Expl anation 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
== END 2025-02-20 23:59 | disposition home or self-care (01) ==
LOC: RAD 11:57
PROVIDERS: PCP Family Medicine; Visit Provider Physician Assistant
DX: J15.4 Pneumonia due to other streptococci (principal)
CPT/HCPCS: 71046